=== PATIENT | female | born 1970 | race Caucasian/White ===

== ENCOUNTER 2022-09-29 08:14 | Outpatient (OUT) | payer BC, SELFPAY ==
--- NOTE | 2022-09-29 08:36 | PM.CN ---
Consult Note: HPI Data of Consult Patient: known to practice within the last 3 years Consult date: 09/29/22 Requesting Physician: SUNIL DUQUE NP Primary Care Provider: BARBI WELLER Consult Narrative Reason for consult: back pain Narrative: She is here for f/u of bilat T11/12, T12/L1 MBB done 09/13/22. She had 100% relief for several hours after procedure continued through today. She has no thoracic pain today. We discussed that she can call us if/when pain returns to schedule second MBB. No new sensorimotor sx or bowel or bladder issues. She is taking tramadol PRN without SE. Her medications enable her to complete ADLS. cc:: CC: SUNIL DUQUE NP Review of Systems ROS Status of ROS 10 or more systems reviewed and unremarkable except as noted in history and below Musculoskeletal Reports: back pain Exam Constitutional Common normals: no apparent distress, average body habitus, oriented x3, no limitations, healthy appearing, alert and well nourished General appearance: cooperative, comfortable and well developed Orientation/consciousness: Yes awake, Yes oriented to person, Yes oriented to place and Yes oriented to time HENCT Common normals: normocephalic, nasal mucous membranes and turbinates normal and moist oral mucous membranes Respiratory Common normals: normal respiratory effort, no retractions and no use of accessory muscles Effort & inspection: able to speak in complete sentences and symmetric chest movement Back & Pelvis Thoracic spine/upper back: normal to inspection, thoracic ROM normal, paraspinal muscle spasm and other soft tissue findings (negative facet loading) Extremity Common normals: normal to inspection, full ROM, normal capillary refill and no pedal edema Other: muscle strength 5/5 bilat LE with intact sensation Assessment and Plan Assessment and Plan (1) Thoracic spondylitis: (2) Spasm of back muscles: Plan May call to schedule second MBB when pain returns. refill tramadol narcan rx
== END 2022-09-29 08:15 ==
PROVIDERS: PCP Internal Medicine; Visit Provider Nurse Practitioner
DX: M46.94 Unspecified inflammatory spondylopathy, thoracic region (principal); M62.830 Muscle spasm of back
CPT/HCPCS: G0463

== ENCOUNTER 2023-01-17 06:56 | Day surgery (SDC) | payer BC, SELFPAY ==
[2023-01-17 07:26] VITALS: BP 124/84; PULSE 60; RESP 16; TEMP 36.3; O2SAT 97
[2023-01-17] MEDS: BUPIVACAINE HCL 0.25% PF 25 MG/10 ML VIAL INJ (08:20)
--- NOTE | 2023-01-17 08:55 | P.ON_ITS ---
Date of procedure: 01/17/23 Pre-op diagnosis: Thoracolumbar Spondylosis Post-op diagnosis: same as pre-op Procedure: Bilateral Thoracic 11/12, 12/lumbar 1 medial branch block Under fluoroscopic guidance Solution injected: 2millilitersMarcaine 0.25% Anesthesia :none Immediate complications none Time out process compliant After informed consent obtained from the patient placed in the Prone proposition . area was prepped and draped in a sterile fashion using Cloraprep .25 gauge spinal needle inserted over each of the above mentioned target areas . [place] were directed towards the target under fluoroscopic guidance . after encountering each of the targets , no indication of intravascular intraneuronal or intrathecal needle tip placement. Then 0 .5 to 1 Milliliter was injected at each level. [place] removed postoperatively. patient transferred to recovery in stable condition to be discharged home after meeting criteria Anesthesia: Local Surgeon: Dori Galvan Condition: stable
[2023-01-17 14:38] VITALS: BP 142/79; PULSE 55; PULSE 56; RESP 16; RESP 18; O2SAT 95; O2SAT 96
== END 2023-01-17 08:31 | disposition home or self-care (01) ==
PROVIDERS: PCP Internal Medicine; Visit Provider Anesthesiology Pain Medicine
DX: M47.815 Spondylosis without myelopathy or radiculopathy, thoracolumbar region (principal)
CPT/HCPCS: 64490; 64491

== ENCOUNTER 2023-01-26 14:45 | Outpatient (OUT) | payer BC, SELFPAY ==
--- NOTE | 2023-01-26 15:06 | PM.CN ---
Consult Note: HPI Data of Consult Patient: known to practice within the last 3 years Requesting Physician: Mila Hill NP Primary Care Provider: BARBI WELLER Consult Narrative Reason for consult: F/u Narrative: Delisa Saleh a pleasant 52 year old female presents for evaluation and management of chronic thoracic and lumbar pain. Patient recently underwent bilateral T11-12 T12-L1 MBB #2 with 100% pain relief and functional improvement. Patient would like to discuss thermal RFAs. Pain well controlled with current medication regimen 0. cc:: CC: Mila Hill NP Review of Systems ROS Status of ROS 10 or more systems reviewed and unremarkable except as noted in history and below Musculoskeletal Reports: back pain Meds Home Medications and Allergies Home Medications Medication Instructions Recorded Confirmed Type acetaminophen 325 mg tablet 325 mg PO Q6H 09/29/22 01/17/23 History (Tylenol) baclofen 10 mg tablet 10 mg PO DAILY 09/29/22 01/17/23 History erenumab-aooe 70 mg/mL 70 mg subcut .MONTHLY 09/29/22 01/17/23 History subcutaneous auto-injector (Aimovig Autoinjector) escitalopram oxalate 10 mg tablet 10 mg PO DAILY 09/29/22 01/17/23 History gabapentin 300 mg capsule 300 mg PO TID 09/29/22 01/17/23 History losartan 100 1 tab PO DAILY 09/29/22 01/17/23 History mg-hydrochlorothiazide 25 mg tablet multivitamin 1 tab PO DAILY 09/29/22 01/17/23 History sumatriptan succinate PO DAILY 09/29/22 History topiramate 50 mg tablet 50 mg PO DAILY 09/29/22 01/17/23 History tramadol 50 mg tablet 50 mg PO DAILY 09/29/22 01/17/23 History Allergies Allergy/AdvReac Type Severity Reaction Status Date / Time No Known Drug Allergies Allergy Verified 01/17/23 07:24 Exam Constitutional Documenting provider has reviewed patient's vital signs: yes Common normals: no apparent distress, oriented x3, healthy appearing, alert and well nourished General appearance: cooperative HENMT Common normals: normocephalic, hearing grossly normal bilaterally and moist oral mucous membranes Head and scalp: normocephalic Eye Common normals: PERRL Pupil: PERRL Neck & C-Spine Common normals: full ROM General: normal visual inspection Chest Common normals: inspection of chest normal Respiratory Common normals: normal respiratory effort, no retractions and no use of accessory muscles Back & Pelvis Thoracic spine/upper back: normal to inspection and thoracic ROM normal Lumbar spine/lower back: normal to inspection and lumbar ROM normal Other: negative facet loading no pain on exam Extremity Common normals: normal to inspection and full ROM Neuro Common normals: oriented x3, CN's II-XII intact bilaterally, moves all extremities, no focal motor deficits, no sensory deficits noted and deep tendon reflexes 2+ bilaterally Sensorium/orientation: alert Motor exam: strength 5/5 throughout and no movement abnormalities noted Psych Common normals: mental status grossly normal, thought process normal, cooperative, affect normal, speech normal and activity/motor behavior normal Speech: normal speech Thought process: normal thought process Results Additional Findings Additional findings: I have checked an OARRS report on this patient today and there are no aberrancies noted in the prescribing history.?? A drug screen was completed and reviewed within the last year, and if there has not been a drug screen completed we ordered one today to monitor higher risk, state monitored pain medication use. As part of providing excellent, safe, comprehensive care, the following was completed at our patient's visit: 1. A medication reconciliation and review to ensure accurate knowledge of current/active medications, including asking our patients to inform us about any [id number] medications or herbal remedies/nutritional supplements/alternative remedies. 2. A review to specifically ensure our patients have had annual screening for: elevated body mass index (BMI), tobacco use, screening for depression, and screening for unhealthy alcohol use. When screening is concerning, patients are provided with education and the specific recommendation to discuss the concerning health issue and treatment options with their primary care provider. Assessment and Plan Assessment and Plan (1) Thoracic spondylitis: Assessment and Plan: We discussed the risks and benefits of the procedure with the patient, and we are NOT planning on using sedation as outlined in the guidelines from Medicare unless there is a documented reason that sedation would be strongly recommended.?? (2) Spasm of back muscles: (3) Chronic, continuous use of opioids: Assessment and Plan: I feel these medications are improving the patient's quality of life and allow them to tolerate activities of daily living as well as participate in recreational activity.? The patient does not report intolerable side effects. The patient is NOT opioid naive and non-pharmacologic and non-opioid treatment has failed to significantly relieve the patient's pain and improve functionality. The patient has a diagnosis that is related to a somatic or visceral pain etiology. ? ?? I reviewed with the patient the potential risks and side effects with the use of? opioid medications including but not limited to respiratory depression,? sedation, and even . I verified the patient has access to naloxone should? these effects occur. I advised the patient to avoid the use of any other? sedation substances including alcohol, THC, and benzodiazepines while? taking opioid medications due to the risk of compounding side effects and? detrimental outcomes. I reviewed the [employer], pain treatment agreement, urine? drug screen, and opioid start talking forms. The patient was advised to let? their family know they had Naloxone in case they would need to administer? the medication.? ?? A drug screen was completed within the last year, and no aberrancies were noted regarding their use of controlled substances. The patient understands they are subject to the terms and conditions of the pain contract that they have signed. ? ?? I have checked an OARRS report on this patient today and there are no aberrancies noted in the prescribing history.? Plan right then left T11-12 T12-L1 thermal RFA under fluoroscopy in the future continue current medications f/u when pain returns
== END 2023-01-26 14:46 | disposition home or self-care (01) ==
LOC: PM 14:45
PROVIDERS: PCP Internal Medicine; Visit Provider Nurse Practitioner
DX: M46.84 Other specified inflammatory spondylopathies, thoracic region (principal); M62.830 Muscle spasm of back; Z79.899 Other long term (current) drug therapy
CPT/HCPCS: G0463

== ENCOUNTER 2023-01-31 16:28 | Outpatient (OUT) | payer BC, SELFPAY ==
--- NOTE | 2023-01-31 17:02 | MM_ITS ---
Patient: RYAN DE LA CRUZ Exam Date: 01/31/2023 : 1970 Gender:F Ordering : DR BARBI WELLER M.D. Admission #: [id number] Family : Order #: [id number] CLICK HERE TO VIEW EXAM RADIOLOGY REPORT PROCEDURE: MM TOMOSYNTHESIS SCREENING BI COMPARISON: MG MAMM SCREEN SUKHDEV W CAD, 10/22/2019. MG MAMM SCREEN 3D SUKHDEV CAD, 09/01/2021. INDICATIONS: screening Calculator Name NCI Breast Cancer Risk Assessment Tool 5 Year Breast Cancer Risk 1.20% Lifetime Breast Cancer Risk 8.50% Personal Breast Cancer No Personal Ovarian Cancer No Treatments None Family Cancers None LOCATION: [facility] BREAST COMPOSITION: Heterogeneously dense,which may obscure small masses. FINDINGS: DIAGNOSTIC CATEGORY 1--NEGATIVE. NO CHANGE FROM COMPARISON ASSESSMENT. RIGHT BREAST: No significant suspicious finding. LEFT BREAST: No significant suspicious finding. RECOMMENDATIONS: ROUTINE MAMMOGRAM AND CLINICAL EVALUATION IN 12 MONTHS. PLEASE NOTE: A NORMAL MAMMOGRAM DOES NOT EXCLUDE THE POSSIBILITY OF BREAST CANCER. A CLINICALLY SUSPICIOUS PALPABLE LUMP SHOULD BE BIOPSIED. Dictated by: Reagan Dockery MD on 02/01/2023 at 06:51 Approved by: Reagan Dockery MD on 02/01/2023 at 06:52
== END 2023-01-31 16:29 | disposition home or self-care (01) ==
LOC: MAMMO 16:29
PROVIDERS: PCP Internal Medicine; Visit Provider Internal Medicine
DX: Z12.31 Encounter for screening mammogram for malignant neoplasm of breast (principal)
CPT/HCPCS: 77063; 77067

== ENCOUNTER 2023-07-12 14:37 | Outpatient (OUT) | payer BC, SELFPAY ==
--- NOTE | 2023-07-12 15:01 | PM.CN ---
Consult Note: HPI Data of Consult Patient: known to practice within the last 3 years Requesting Physician: Mila Hill NP Primary Care Provider: BARBI WELLER Consult Narrative Reason for consult: F/u Narrative: Delisa Saleh a pleasant 52 year old female presents for evaluation and management of chronic thoracic and lumbar pain. Last underwent bilateral T11-12 T12-L1 MBB #2 with 100% pain relief and functional improvement immediately following and still getting 50% improvement ongoing. Pain well controlled with current medication regimen 4-5/10 increases to 9/10 at its worst. Patient reports significant pain relief without side effects from current medication regimen. cc:: CC: Mila Hill NP Review of Systems ROS Status of ROS 10 or more systems reviewed and unremarkable except as noted in history and below Musculoskeletal Reports: back pain Meds Home Medications and Allergies Home Medications ?Medication ?Instructions ?Recorded ?Confirmed ?Type acetaminophen 325 mg tablet 325 mg PO Q6H 09/29/22 01/17/23 History (Tylenol) baclofen 10 mg tablet 10 mg PO DAILY 09/29/22 01/17/23 History erenumab-aooe 70 mg/mL 70 mg subcut .MONTHLY 09/29/22 01/17/23 History subcutaneous auto-injector (Aimovig Autoinjector) escitalopram oxalate 10 mg tablet 10 mg PO DAILY 09/29/22 01/17/23 History gabapentin 300 mg capsule 300 mg PO TID 09/29/22 01/17/23 History losartan 100 1 tab PO DAILY 09/29/22 01/17/23 History mg-hydrochlorothiazide 25 mg tablet multivitamin 1 tab PO DAILY 09/29/22 01/17/23 History sumatriptan succinate PO DAILY 09/29/22 History topiramate 50 mg tablet 50 mg PO DAILY 09/29/22 01/17/23 History tramadol 50 mg tablet 50 mg PO DAILY 09/29/22 01/17/23 History tramadol 50 mg tablet 50 mg PO DAILY PRN pain #30 tabs 02/13/23 Rx baclofen 10 mg tablet 10 mg PO DAILY PRN muscle spasm 04/18/23 Rx #30 tabs tramadol 50 mg tablet 50 mg PO DAILY PRN pain #30 tabs 04/18/23 Rx Allergies Allergy/AdvReac Type Severity Reaction Status Date / Time No Known Drug Allergies Allergy Verified 10/03/23 07:24 Exam Constitutional Documenting provider has reviewed patient's vital signs: yes Common normals: no apparent distress, oriented x3, healthy appearing, alert and well nourished General appearance: cooperative HENMT Common normals: normocephalic, hearing grossly normal bilaterally and moist oral mucous membranes Head and scalp: normocephalic Eye Common normals: PERRL Pupil: PERRL Neck & C-Spine Common normals: full ROM General: normal visual inspection Chest Common normals: inspection of chest normal Respiratory Common normals: normal respiratory effort, no retractions and no use of accessory muscles Back & Pelvis Thoracic spine/upper back: normal to inspection and thoracic ROM normal Lumbar spine/lower back: normal to inspection and lumbar ROM normal Other: negative facet loading no pain on exam Extremity Common normals: normal to inspection and full ROM Neuro Common normals: oriented x3, CN's II-XII intact bilaterally, moves all extremities, no focal motor deficits, no sensory deficits noted and deep tendon reflexes 2+ bilaterally Sensorium/orientation: alert Motor exam: strength 5/5 throughout and no movement abnormalities noted Psych Common normals: mental status grossly normal, thought process normal, cooperative, affect normal, speech normal and activity/motor behavior normal Speech: normal speech Thought process: normal thought process Results Additional Findings Additional findings: If on a controlled substance or opioids, I have checked an OARRS report on this patient and there are no aberrancies noted in the prescribing history.??If on a controlled substance or opioid a drug screen was completed and reviewed within the last year, and if there has not been a drug screen completed we ordered one today to monitor higher risk, state monitored pain medication use. As part of providing excellent, safe, comprehensive care, the following was completed at our patient's visit: 1. A medication reconciliation and review to ensure accurate knowledge of current/active medications, including asking our patients to inform us about any [id number] medications or herbal remedies/nutritional supplements/alternative remedies. 2. A review to specifically ensure our patients have had annual screening for screening for depression, screening for tobacco use, and screening for unhealthy alcohol use. For concerning screenings had a discussion with the patient, provided patient education, and recommended follow-up with primary care provider when appropriate. If patient noted with a risk of falling, they received education on strength, gait, and balance training to prevent future risk of falling. Assessment and Plan Assessment and Plan (1) Thoracic spondylitis: (2) Spasm of back muscles: (3) Encounter for long-term opiate analgesic use: Assessment and Plan: I feel these medications are improving the patient's quality of life and allow them to tolerate activities of daily living as well as participate in recreational activity.? The patient does not report intolerable side effects. The patient is NOT opioid naive and non-pharmacologic and non-opioid treatment has failed to significantly relieve the patient's pain and improve functionality. The patient has a diagnosis that is related to a somatic or visceral pain etiology. ? ?? I reviewed with the patient the potential risks and side effects with the use of? opioid medications including but not limited to respiratory depression,? sedation, and even . I verified the patient has access to naloxone should? these effects occur. I advised the patient to avoid the use of any other? sedation substances including alcohol, THC, and benzodiazepines while? taking opioid medications due to the risk of compounding side effects and? detrimental outcomes. I reviewed the [employer], pain treatment agreement, urine? drug screen, and opioid start talking forms. The patient was advised to let? their family know they had Naloxone in case they would need to administer? the medication.? ?? A drug screen was completed within the last year, and no aberrancies were noted regarding their use of controlled substances. The patient understands they are subject to the terms and conditions of the pain contract that they have signed. ? ?? I have checked an OARRS report on this patient today and there are no aberrancies noted in the prescribing history.? Plan continue current medications UDS today f/u 3 months, sooner if needed
== END 2023-07-12 14:38 | disposition home or self-care (01) ==
LOC: PM 14:39
PROVIDERS: PCP Internal Medicine; Visit Provider Nurse Practitioner
DX: M46.84 Other specified inflammatory spondylopathies, thoracic region (principal); M62.838 Other muscle spasm; Z79.891 Long term (current) use of opiate analgesic
CPT/HCPCS: G0463

== ENCOUNTER 2023-08-09 15:03 | Outpatient (OUT) | payer BC, SELFPAY ==
--- OUTSIDE RECORDS SUMMARY | 2023-08-09 15:08 | XMS_ITS | CCD ---
Author Organization [facility] Care Team Providers Care Director Sales Support Name Role Phone Tatianna Rosen Unavailable DR BARBI WELLER Primary Care Unavailable JANEE, DR LANDON Consulting Unavailable JANEE, DR LANDON Attending Unavailable JANEE, DR LANDON Admitting Unavailable ZIEBER, DR LIBAN Coulter Consulting Unavailable KATIA LOPEZ Consulting Unavailable KATIA LOPEZ Attending Unavailable JANEE, DR LANDON Primary Care Unavailable KATIA LOPEZ Admitting Unavailable JANEE, DR LANDON Primary Care Unavailable LAKSHMIPATHY ., BECCA Admitting Carmen vailable LAKSHMIPATHY ., BECCA Attending Carmen vailable HALKER .SUNIL Consulting Unavailable COVARRUBIAS ., DR GRACE Hobbs Admitting Unavailable COVARRUBIAS ., DR GRACE Hobbs Attending Unavailable JANEE, DR LANDON Primary Care Unavailable DOBBINS ., ILA Consulting Unavailable COVARRUBIAS ., DR GRACE Hobbs Admitting Unavailable DOBBINS ., ILA Consulting Unavailable JANEE, DR LANDON Primary Care Unavailable COVARRUBIAS ., DR GRACE Hobbs Attending Unavailable COVARRUBIAS ., DR GRACE Hobbs Attending Unavailable COVARRUBIAS ., DR GRACE Hobbs Admitting Unavailable COVARRUBIAS ., DR GRACE Hobbs Consulting Unavailable JANEE, DR LANDON Primary Care Unavailable COVARRUBIAS ., DR GRACE Hobbs Attending Unavailable COVARRUBIAS ., DR GRACE Hobbs Admitting Unavailable DOBBINS ., ILA Consulting Unavailable JANEE, DR LANDON Primary Care Unavailable LAKSHMIPATHY ., BECCA Consulting Carmen vailable LAKSHMIPATHY ., BECCA Attending Carmen vailable LUCASMIPATHY ., BECCA Admitting Carmen vailable DR BARBI WELLER Primary Care Unavailable JANEE, DR LANDON Consulting Unavailable JANEE, DR LANDON Attending Unavailable JANEE, DR LANDON Admitting Unavailable JANEE, DR LANDON Primary Care Unavailable MARLEN AKINS Consulting Unavailable JANEEDR LANDON Primary Care Unavailable DR BARBI WELLER Consulting Unavailable DR BARBI WELLER Attending Unavailable DR BARBI WELLER Admitting Unavailable DR LIBAN SCHULTZ Consulting Unavailable BARBI WELLER Attending Unavailable Medications Current Medications Medication Drug Class(es) Dates Sig (Normalized) Sig (Original) Noemi Back & Body Pain Ex St (1 source) Escitalopram (2 sources) Serotonin Reuptake Inhibitor take 1 tablet by mouth every twenty-four hours Lexapro 10 MG 1 tablet Orally Once a day Not-Taking Escitalopram Oxa late Active gabapentin (1 source) Anti-epileptic Agent Gabapentin Active Losartan (2 sources) Angiotensin 2 Receptor Irina take 1 tablet by mouth every twenty-four hours Cozaar 50 MG 1 tablet Orally Once a day Not-Taking Losartan Potassi um Active Naproxen (1 source) Nonsteroidal Anti-inflammatory Drug Problems Active Problems Problem Classification Problem Date Documented Da te Episodic/Chronic Abdominal pain (4 sources) Unspecified abdominal pain; Translations: [UNSPECIFIED ABDOMINAL PAIN] Onset: 09-05-2022 Episodic Essential hypertension (1 source) Elevated blood pressure; Translations: [Essential (primary) hypertension] Chronic Other non-traumatic joint disorders (4 sources) Pain in right wrist; Translations: [PAIN IN RIGHT WRIST] Onset: 08-29-2022 Episodic Spondylosis; intervertebral disc disorders; other back problems (7 sources) Spondylosis without myelopathy or radiculopathy, lumbar region; Translations: [Spondylosis without myelopathy or radiculopathy, thoracic region] Onset: 11-29-2021 Chronic Unclassified (3 sources) LOW BACK PAIN, UNSPECIFIED; Translations: [LOW BACK PAIN, UNSPECIFIED] Onset: 05-30-2022 Past or Other Problems Problem Classification Problem Date Documented Date Episodic/Chronic Biliary tract disease (1 source) Cholesterolosis of gallbladder; Translations: [CHOLESTEROLOSIS OF GALLBLADDER] Onset: 01-20-2022 Episodic Conditions associated with dizziness or vertigo (4 sources) Dizziness and giddiness; Translations: [DIZZINESS AND GIDDINESS] Onset: 04-18-2022 Episodic Immunizations and screening for infectious disease (1 source) Contact with and (suspected) exposure to other viral communicable diseases Onset: 02-22-2021 Resolved: 02-22-2021 Episodic Other aftercare (1 source) Other usp (current) drug therapy; Translations: [OTH HALFWAY CURRENT DRUG THERAPY] Onset: 04-20-2022 Episodic Other connective tissue disease (1 source) Other muscle spasm; Translations: [OTHER MUSCLE SPASM] Onset: 05-30-2022 Episodic Other diseases of veins and lymphatics (1 source) Venous insufficiency of leg; Translations: [Venous insufficiency (chronic) (peripheral)] Episodic Screening and history of mental health and substance abuse codes (1 source) Personal history of nicotine dependence; Translations: [PERSONAL HISTORY OF NICOTINE DEPEND] Onset: 04-20-2022 Episodic Spondylosis; intervertebral disc disorders; other back problems (4 sources) Muscle spasm of back; Translations: [MUSCLE SPASM OF BACK] Onset: 12-28-2021 Episodic Unclassified (1 source) LOW BACK PAIN, UNSPECIFIED; Translations: [LOW BACK PAIN, UNSPECIFIED] Onset: 05-26-2022 Viral infection (1 source) COVID-19 Onset: 02-22-2021 Resolved: 02-22-2021 Results Test Name Value Interpretation Reference Range Facility CT ABD/PELV W CONon 09-06-19 CT ABD/PELV W CON EXAMINATION: CT ABD/PELV W CON HISTORY: Abdominal pain COMPARISON: CT abdomen and pelvis 10/05/2019.. TECHNIQUE: Following the intravenous administration of contrast, axial soft tissue windows of the abdomen and pelvis were performed with coronal and sagittal reformats. Dose reduction techniques were achieved by using automated exposure control and/or adjustment of mA and/or kV according to patient size and/or use of iterative reconstruction technique. Findings: Mild left lower lobe scarring. ABDOMEN: There is mild fatty infiltration of the liver. The gallbladder, spleen, pancreas, and adrenal glands are unremarkable. No renal stones or collecting system dilatation. Left renal low-attenuation lesions, too small to characterize. The bilateral ureters are nondilated. The bowel is unremarkable without evidence of wall thickening or obstruction. The appendix is not definitely identified. The aorta is normal caliber. No enlarged abdominal lymph nodes or free abdominal fluid. Redemonstrated is a wide mouthed, large fat-containing right-sided Spigelian hernia. Pelvis: Unremarkable bladder. Uterus is surgically absent. No enlarged pelvic lymph nodes or free pelvic fluid. No aggressive sclerotic or lytic osseous lesions. Mild levoconvex scoliosis of the lumbar spine. IMPRESSION: 1. Fatty liver. 2. Redemonstrated is a right-sided fat-containing spigelian hernia. Electronically authenticated by: MARLEN AKINS Date: 2022-09-05 09:10 Normal [facility] CBC AUTO DIFFon 04-18-2022 BASO # 0.0 103/ul Normal 0.0-0.1 [facility] Comment on above: Performed By: #### C BC #### [facility] Laboratory [address] [address] [address] Abdiaziz Butler Basophils/100 WBC (Bld) 0.2 % Normal 0.2-2.0 [facility] Comment on above: Performed By: #### C BC #### [facility] Laboratory [address] [address] [address] Abdiaziz Butler EO # 0.1 103/ul Normal 0.0-0.7 [facility] Comment on above: Performed By: #### C BC #### [facility] Laboratory [address] [address] [address] Abdiaziz Butler Eosinophils/100 WBC (Bld) 1.0 % Normal 0.9-7.0 [facility] Comment on above: Performed By: #### C BC #### [facility] Laboratory [address] [address] [address] Abdiaziz Butler Erythrocyte distribution width (RBC) [Ratio] 12.8 % Normal 11.0-15.0 [facility] Comment on above: Performed By: #### C BC #### [facility] [address] [address] [address] Abdiaziz Butler Hematocrit (Bld) [Volume fraction] 35.2 % Critically low 36.0-48.0 [facility] Comment on above: Performed By: #### C BC #### [facility] Laboratory [address] [address] [address] Abdiaziz Butler Hemoglobin (Bld) [Mass/Vol] 11.3 g/dL Critically low 12.0-16.0 [facility] Comment on above: Performed By: #### C BC #### [facility] [address] [address] [address] Abdiaziz Butler IG # 0.03 10e3/ul Normal 0.00-0.03 [facility] [place] Comment on above: Performed By: #### C BC #### [facility] Laboratory [address] [place] [address] Dr. Abdiaziz Butler IG % 0.3 % Normal 0.0-0.5 [facility] Comment on above: Performed By: #### C BC #### [facility] Laboratory [address] [place] [address] Dr. Abdiaziz Butler LYMPH # 1.1 103/ul Critically low 1.2-3.8 [facility] Comment on above: Performed By: #### C BC #### [facility] Laboratory [address] [place] [address] Dr. Abdiaziz Butler Lymphocytes/100 WBC (Bld) 11.9 % Critically low 20.5-60.0 [facility] Comment on above: Performed By: #### C BC #### [facility] [address] [place] [address] Dr. Abdiaziz Butler MANUAL DIFF REQ NO Normal [facility] Comment on above: Performed By: #### C BC #### [facility] [address] [place] [address] Dr. Abdiaziz Butler MCH (RBC) [Entitic mass] 28.4 pg Normal 26.7-34.0 [facility] Comment on above: Performed By: #### C BC #### [facility] [address] [place] [address] Dr. Abdiaziz Butler MCHC (RBC) [Mass/Vol] 32.1 g/dL Normal 29.9-35.2 [facility] Comment on above: Performed By: #### C BC #### [facility] [address] [place] [address] Dr. Abdiaziz Butler MCV (RBC) [Entitic vol] 88.4 fL Normal 81.0-99.0 [facility] Comment on above: Performed By: #### C BC #### [facility] [address] [place] [address] Dr. Abdiaziz Butler MONO # 0.7 103/ul Normal 0.3-0.8 [facility] Comment on above: Performed By: #### C BC #### [facility] [address] [address] [address] Abdiaziz Butler Monocytes/100 WBC (Bld) 7.9 % Normal 1.7-12.0 [facility] Comment on above: Performed By: #### C BC #### [facility] [address] [address] [address] Abdiaziz Butler NEUT # 7.1 103/ul Critically high 1.4-6.5 [facility] Comment on above: Performed By: #### C BC #### [facility] [address] [address] [address] Abdiaziz Butler Neutrophils/100 WBC (Bld) 78.7 % Critically high 43.0-75.0 [facility] Comment on above: Performed By: #### C BC #### [facility] [address] [place] [address] Dr. Abdiaziz Butler Platelet mean volume (Bld) [Entitic vol] 9.9 fL Normal 9.5-13.5 [facility] Comment on above: Performed By: #### C BC #### [facility] [address] [place] [address] Dr. Abdiaziz Butler PLT 293 103/ul Normal 150-450 [facility] Comment on above: Performed By: #### C BC #### [facility] [address] [place] [address] Dr. Abdiaziz Butler RBC 3.98 106/ul Critically low 4.20-5.40 [facility] Comment on above: Performed By: #### C BC #### [facility] [address] [place] [address] Dr. Abdiaziz Butler WBC 9.0 103/ul Normal 4.0-11.0 [facility] Comment on above: Performed By: #### C BC #### [facility] [address] [place] [address] Dr. Abdiaziz Butler POINT OF CARE GLUCOSEon Glucose [Mass/Vol] 128 mg/dL Critically high 74-106 [facility] Comment on above: Performed By: #### P OCGLUC ####[facility] [id number] [place], [place] [address]PuDr. Abdiaziz Butler PROF CHEM 8 (BAS METB)on Anion gap [Moles/Vol] 15.3 mmol/L Normal [facility] Comment on above: Performed By: #### B MP #### [facility] [address] [address] [address] Abdiaziz Butler Calcium [Mass/Vol] 8.6 mg/dL Normal 8.5-10.1 [facility] Comment on above: Performed By: #### B MP #### [facility] [address] [address] [address] Abdiaziz Butler Chloride [Moles/Vol] 104 mmol/L Normal 98-107 [facility] Comment on above: Performed By: #### B MP #### [facility] [address] [address] [address] Abdiaziz Butler CO2 [Moles/Vol] 23.6 mmol/L Normal 21.0-32.0 [facility] Comment on above: Performed By: #### B MP #### [facility] [address] [address] [address] Abdiaziz Butler Creatinine [Mass/Vol] 1.34 mg/dL Critically high 0.55-1.02 [facility] Comment on above: Performed By: #### B MP #### [facility] Laboratory [address] [address] [address] Abdiaziz Butler EGFR-AF PAKISTANI 50 mL/min/1.73m2 Critically low >=60 [facility] Comment on above: Performed By: #### B MP #### [facility] Laboratory [address] [address] [address] Abdiaziz Butler EGFR-NON AF PAKISTANI 41 mL/min/1.73m2 Critically low >=60 [facility] Comment on above: Performed By: #### B MP #### [facility] [address] [address] [address] Abdiaziz Butler Glucose [Mass/Vol] 97 mg/dL Normal 74-106 [facility] Comment on above: Performed By: #### B MP #### [facility] [address] [address] [address] Abdiaziz Butler Potassium [Moles/Vol] 3.3 mmol/L Critically low 3.5-5.1 [facility] Comment on above: Performed By: #### B MP #### [facility] [address] [place], [place] [address] Dr. Abdiaziz Butler Sodium [Moles/Vol] 139 mmol/L Normal 136-145 [facility] Comment on above: Performed By: #### B MP #### [facility] [address] [address] [address] Abdiaziz Butler Urea nitrogen [Mass/Vol] 26.0 mg/dL Critically high 7.0-18.0 [facility] Comment on above: Performed By: #### B MP #### [facility] [address] [address] [address] Abdiaziz Butler Urea nitrogen/Creatinin e [Mass ratio] 19.4 mg/mg Normal [facility] Comment on above: Performed By: #### B MP #### [facility] [address] [address] [address] Abdiaziz Butler US SINGLE QUAD RT UPPERon US SINGLE QUAD RT UPPER EXAMINATION: US SINGLE QUAD RT UPPER HISTORY: Abdominal pain COMPARISON: No relevant comparison available. TECHNIQUE: Transabdominal evaluation of the right upper quadrant. FINDINGS: LIVER: Normal size and echotexture. Color Doppler demonstrates patent hepatic veins. PORTAL VEIN: Duplex Doppler demonstrates normal hepatopetal flow pattern with flow velocity averaging 31 cm/s. GALLBLADDER: Several 4 mm polyps along the anterior wall. No wall thickening or free fluid. No appreciable stones. BILIARY: No abnormal dilation or stones. Common bile duct diameter is within normal limits. PANCREASE: No visible mass, abnormal atrophy, or duct dilation. KIDNEY: No hydronephrosis. No visible mass or stones. Size: 9.6 x 5.2 x 4.5 cm IMPRESSION: 1. No acute findings to account for patient's symptoms. 2. Several small polyps within gallbladder. Consider follow-up imaging in one year. Electronically authenticated by: LIBAN SCHULTZ Date: 2022-01-18 08:33 Normal [facility] Lipid Panelon 04-12-2021 Cholesterol [Mass/Vol] 217 mg/dL High 125-200 [facility] [employer] [facility] Comment on above: Result Comment: Low risk < 200mg/dL Borderline risk 201-239 mg/dl High risk > or equal to 240 Performed By: #### L IPD #### [facility] [address] [place], [place] [id number] Cholesterol in HDL [Mass/Vol] 45 mg/dL Normal >40 [facility] [employer] [facility] Comment on above: Result Comment: High Cardiovascular Risk HDL <40 mg/dL Low Cardiovascular Risk HDL > or equal to 60 mg/dl Performed By: #### L IPD #### [facility] [address] [place], [place] [id number] Cholesterol in LDL [Mass/Vol] 142 mg/dL Normal [facility] [employer] Super[facility] Comment on above: Result Comment: LDL ATP III CLASSIFICATION LDL less than 100 mg/dl Optimal LDL 100-129 mg/dl Near or above optimal LDL 130-159 Borderline high LDL 160-189 High LDL greater than 189 mg/dl Very High Performed By: #### L IPD #### [facility] [address] [place], [place] [id number] Cholesterol in VLDL [Mass/Vol] 30 mg/dL Normal [facility] [employer] Super[facility] Comment on above: Performed By: #### L IPD #### [facility] [address] [place], [place] [id number] Cholesterol.total/ Cholesterol in HDL [Mass ratio] 5 {ratio} Normal [facility] Comment on above: Performed By: #### L IPD #### [facility] [address] [place], [place] [id number] Triglyceride [Mass/Vol] 149 mg/dL Normal 30-150 [facility] [employer] Comment on above: Result Comment: TRIG ATPIII CLASSIFICATIONS TRIG less than 150 mg/dl Normal TRIG 150-199 mg/dl Borderline High TRIG 200-500 mg/dl High TRIG greather than 500 mg/dl Very High Performed By: #### L IPD #### [facility] [address] [place], [place] [id number] COVID Quick Testingon 2020 Result Positive [facility] Other Vital Signs Date Time Vital Sign Value Performing Clinician Facility 02-22-2021 11:15-0500 Body height 170.18 cm Tatianna Rosen Other [facility] Other 02-22-2021 11:15-0500 Body temperature 99.1 [degF] Tatianna Rosen Other [facility] Other 02-22-2021 11:15-0500 SaO2% (BldA) [Mass fraction] 97 % Tatianna Rosen Other [facility] Other Encounters Encounter Date Encounter Type Care Provider Facility Start: 05-15-2023 End: 05-15-2023 ambulatory BARBI WELLER Not Available Start: 09-13-2022 End: 09-13-2022 ambulatory BECCA MALONEY . Facility:[facility] Start: 09-05-2022 End: 09-06-[address] BARBI WELLER Facility:[facility] Start: 08-29-2022 End: 08-30-[address] BARBI WELLER Facility:[facility] Start: 08-25-2022 End: 08-26-[address] BARBI WELLER Facility:[facility] Start: 05-26-2022 End: 05-27-[address] GRACE COVARRUBIAS . Facility:[facility] Start: 04-18-2022 End: 04-18-2022 ambulatory KATIA LOPEZ Facility:[facility] Start: 02-24-2022 End: 02-25-[address] GRACE COVARRUBIAS . Facility:[facility] Start: 01-18-2022 End: 01-19-[address] BARBI WELLER Facility:[facility] Start: 12-28-2021 End: 12-29-[address] GRACE COVARRUBIAS . Facility:[facility] Start: 11-25-2021 End: 11-26-[address] GRACE COVARRUBIAS . Facility:[facility] Start: 02-22-2021 End: 02-22-2021 ambulatory Tatianna Rosen Other [facility] Other Start: 02-22-2021 Nursing evaluation o f patient and report Tatianna Rosen [facility] Payers Date Payer Category Payer Unknown [id number] 1970 Unknown [id number] 2.16.84 [id number] 1970 Unknown [id number] 2.16.84 [id number] 1968 Unknown [id number] 2.16.84 [id number] 1968 Unknown [id number] 2.16.84 [id number] 1968 Unknown [id number] 2.16.84 [id number] 1968 Unknown [id number] 2.16.84 [id number] 1968 Unknown [id number] 2.16.84 [id number] 1968 Unknown [id number] 2.16.84 [id number] 1968 Unknown [id number] 2.16.84 [id number] 1968 Unknown [id number] 2.16.84 [id number] 1968 Unknown [id number] 2.16.84 [id number] 1961 [facility] [id number] Social History Date Type Detail Facility Sex Assigned At [facility] Other Clinical Note 08-29-2022 Note Date & Type Note Facility 08-29-2022 Note PROCEDURE: XR WRIST RT 2V HISTORY: Pain of right wrist COMPARISON: None. FINDINGS: BONES:Mild degenerative changes at first carpal-metacarpal joint. No fracture, dislocation, bone lesion. Unremarkable radiocarpal joint and intercarpal joints. SOFT TISSUES:Mild soft tissue swelling adjacent the medial aspect of the wrist. EFFUSION:None visible. OTHER: Negative. IMPRESSION: 1. Mild degenerative changes at base of thumb. 2. Mild medial soft tissue swelling adjacent the distal ulna; nonspecific. Electronically authenticated by: LIBAN SCHULTZ Date: 2022-08-29 09:35 [facility] Consultation note 05-26-2022 Note Date & Type Note Facility 05-26-2022 Note CONSULTATION CONSULTATION DATE: 05/26/2022 HISTORY OF PRESENT ILLNESS: This is a 51-year-old female who return to the clinic for a three month follow up for mid back pain and lower back pain. Overall, she reports that she is doing well. 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 She is having less back spasms and radiating pain. She rates her pain 0 today, but it will increase to 2/10 with work. She is having slight right lower back pain with increased activity, but she states it does not interfere with her daily living. Activities such as standing, the evening hours and heavy lifting aggravate her pain. She does alternate heat and ice, which calms her pain. Medications include diclofenac 50 mg b.i.d., tramadol 50 mg daily p.r.n., baclofen 10 mg q.h.s., gabapentin, Topamax and Lexapro. Patient's REVIEW OF SYSTEMS / PAST MEDICAL HISTORY / ALLERGIES and IMAGES have been reviewed and noted on the chart. PHYSICAL EXAM: VITAL SIGNS: Blood pressure is 129/89. Heart rate is 74. Temperature is 97.8. She is 5'7 , weighs 93 kg. GENERAL IMPRESSION: Pleasant, appropriate, in no acute distress. FOCUSED EXAM - BACK: Range of motion is functional in lateral rotation and flexion/extension. Paravertebral muscles are non-spasmodic. Slight tenderness along the right lower erector spinae that reproduces the patient's symptoms. No spinal axial pain upon compression of the lower lumbar facets. Yuko's point is non-tender. MUSCULOSKELETAL: Motor is intact, 5/5 bilaterally. Patient walks unassisted with a steady gait. No vasomotor weakness noted. NEUROLOGICALLY: Radicular sensory is intact. +2 bilateral lower extremity reflexes. Patient is cognitively intact. DIAGNOSIS: Lower back pain, thoracic spondylosis and lumbar spasms. PLAN: Education was given to the patient regarding continuing with heat nightly, as well as targeted stretches to help with right lower back pain and spasms. We will refill both her tramadol and her baclofen at the set dose and frequency. We will continue to follow the patient in three months' time to manage her medication and patient is in agreement to this. [facility] [place] Consultation note 02-24-2022 Note Date & Type Note Facility 02-24-2022 Note CONSULTATION CONSULTATION DATE: 02/24/2022 HISTORY OF PRESENT ILLNESS: This is a 51-year-old female returning to the clinic status post bilateral thoracic trigger point injections on 12/28/2021. At that appointment, she was complaining of mid back pain described as throbbing and was spasmodic. She reports 100% relief and reports 0 pain today. She is an active individual and she has been consistent with stretches and heat application. She is on tramadol 50 mg daily p.r.n. which she states she has not needed since the injections. She does take baclofen 10 mg q.h.s. and diclofenac 50 mg b.i.d. Patient's REVIEW OF SYSTEMS / PAST MEDICAL HISTORY / ALLERGIES and IMAGES have been reviewed and they are noted on the chart. PHYSICAL EXAM: VITAL SIGNS: Blood pressure is 133/84. Heart rate is 60. Temperature is 97.7. She is 5'7 , weighs 92.7 kg. GENERAL IMPRESSION: Pleasant, appropriate, no acute distress. FOCUSED EXAM - BACK: Range of motion is functional in lateral rotation and flexion/extension. Paravertebral muscles are taut but they are non-spasmodic. Deep compression along the paravertebral, thoracic and trapezius muscles are non-tender. No reproduction of spinal axial pain upon compression of those facets in that region. Yuko's point non-tender. MUSCULOSKELETAL: Motor is intact, 5/5 bilaterally. Patient walks with a stable gait, does not use assistive device. NEUROLOGICAL: Patient is cognitively intact. Negative polyneuropathy. Patellar and Achilles reflexes are +2 bilaterally. DIAGNOSIS: Chronic lower back pain and thoracic spasms. PLAN: Overall, the patient is doing quite well. We will obtain a U-Tox in the clinic today. She is to continue with her strengthening exercises, stretches and heat application daily. Vitamin importance was emphasized. Patient will be seen in the clinic in three months' time, unless otherwise indicated. Patient agrees with this plan. [facility] [place] Consultation note 12-28-2021 Note Date & Type Note Facility 12-28-2021 Note CONSULTATION PROCEDURE DATE: 12/28/2021 PREOPERATIVE DIAGNOSIS: Thoracolumbar paravertebral spasm. POSTOPERATIVE DIAGNOSIS: Thoracolumbar paravertebral spasm. PROCEDURE: Thoracolumbar trigger point injection x4. Subsequent to obtaining informed consent, the patient was placed in the prone position. Alcohol prep was used to sterilize the site. A 25 gauge needle was advanced and it comes to rest along the trigger zones, two on either side, along the thoracolumbar paravertebral erector spinae muscles. Negative aspiration. Marcaine 0.125% along with Kenalog 10 mg are injected to each of the four sites. Negative heme. The patient tolerates the procedure well, without any overt complication. Will be followed up in the office. [facility] [place] Consultation note 11-25-2021 Note Date & Type Note Facility 11-25-2021 Note PROCEDURE DATE: 11/15 PRE AND POSTOPERATIVE DIAGNOSIS: Bilateral paravertebral spasms. PROCEDURE: Bilateral lumbar trigger point injections. CORRECTION: No procedure was done on that day. We will preauthorize for the bilateral lumbar trigger point and bring her back into the office at that time. [facility] [place] Consultation note 11-25-2021 Note Date & Type Note Facility 11-25-2021 Note PAIN MANAGEMENT CONS ULTATION CONSULTATION DATE: 11/25/2021 This is a 51-year-old female returning to the clinic for a 3-month follow-up for her chronic lower back pain. She was last seen on 08/25/2021 which at that time overall she was doing well and maintaining on her medications. Her last intervention was in early January of 2021 which was radiofrequency ablation of L2, L3 and L4, L5. The patient does complaint today of mid to low back spasms. She states she has been picking up more hours at work and she feels increased tightness. She rates her pain 4 out of 10. It is increased by standing, lifting, physical activity and paperhanger pipe hours. She does report stretching and using heat daily which does help decrease the pain. She has been doubling up on her tramadol which is not prescribed that way, therefore she is running herself short. Medications include tramadol 50 mg q. day, diclofenac 50 mg b.i. d., Baclofen 10 mg q.h.s., Topamax, Lexapro and gabapentin. The patient denies any new vasomotor changes or new pain patterns. REVIEW OF SYSTEMS, PAST MEDICAL HISTORY, ALLERGIES AND IMAGES: Have been reviewed and noted in the chart. PHYSICAL EXAM: VITAL SIGNS: Blood pressure 128/86, heart rate is 56, temperature is 97.8. Height is 67.5 , weighs 90.2 kg. GENERAL APPEARANCE: Pleasant, appropriate and in no acute distress. FOCUSED EXAM: Range of motion is functional in lateral rotation and flexion/extension. No reproduction of spinoaxial pain along the lower lumbar facets of L2, L3 and L4, L5, which is indicative of continued success with RFAs. Paravertebral muscles are spasmodic with trigger points identified bilaterally at the level of L3, L4. Positive jump response, compression reproduces the patient's pain pattern. Yuko's point is nontender bilaterally. MUSCULOSKELETAL: Motor is intact, 4 out of 5 bilaterally. The patient ambulates with a steady gait. Does not use an assist device. Slight muscle atrophy noted to her lower extremities. NEUROLOGICAL: Radicular sensory is intact. Patella and Achilles reflexes are +2 bilaterally. Negative polyneuropathy. DIAGNOSIS: Lumbar paravertebral spasms, lumbar spondylosis, lumbar degenerative disk disease. PLAN: The patient will receive bilateral lumbar trigger point injections in the office, which she does consent to. Education was given on proper tramadol use and to use it as prescribed. She is to continue with heat application and stretches. We do recommend for her to add magnesium glycinate 400 mg q. day. Baclofen refill 10 mg q.h.s. will be added. The patient will be brought to the clinic in three months' time unless otherwise indicated. [facility] [place] Evaluation note 02-22-2021 Note Date & Type Note Facility 02-22-2021 Evaluation note Encounter Date Diagnosis Assessment Notes Feb, Contact with and (suspected) exposure to other viral communicable diseases (ICD-10 - Z20.828) Feb, COVID-19 (ICD-10 - U07.1) Today you tested positive for the COVID virus. This mean you need to follow all CDC quarantine guidelines found at coronavirus[place].gov. It is important to rest, increase fluids, and stay at home. Contact PCP and inform them of results. Medications like Mucinex, Cepacol, Tylenol, saline nasal spray are over the counter medications that can help with the symptoms. Current guidelines include staying home for at least 10 days, having no fever above 100.4 for 24 hours without medication and having significant improvement of symptoms before you are allowed to stop your quarantine. Contact primary care and ask for guidance is essential to follow up Feb, Other Additional time spent conducting pre-visit phone call, screening for symptoms, instructions on social distancing, application and removal of PPE, and cleaning of examination room, equipment and supplies was preformed. Patient education given for testing methodology and results. Patient care instructions given in writting by [facility] document. Additional time spent conducting pre-visit phone call, screening for symptoms, instructions on social distancing, application and removal of PPE, and cleaning of examination room, equipment and supplies was preformed. Patient education given for testing methodology and results. Patient care instructions given in writting by [email or web address] [facility] document. [facility] Other History general Narrative - Reported Note Date & Type Note Facility History general Narrative - Reported Type Medical History HTN Medical History Anxiety Medical History Back pain Medical History Migranes Medical History Iron deficiency anemia Surgical History hysterectomy Surgical History appy Hospitalization History See Above [facility] Other Summary Purpose Family History No Family History Records FoundNo Family History Records FoundNo Family History Records Found Advance Directives No Advanced Directives Records FoundNo Advanced Directives Records FoundNo Advanced Directives Records Found Additional Source Comments INFORMATION SOURCE (unrecogn ized section and content) DATE CREATED AUTHOR 04/13/2021 [facility] DATE CREATED AUTHOR AUTHOR'S ORGANIZ ATION 09/23/2022 [facility] DATE CREATED AUTHOR AUTHOR'S ORGANIZ ATION 05/15/2023 [facility] EPIC REASON FOR VISIT (unrecogniz ed section and content) #6 BLUE DODGE, EXPOSED, COVI D Provider Visit, COVID Provider Visit FOR RECORDS PERTAINING TO PATIENTS WHO ARE OR HAVE BEEN ENROLLED IN A CHEMICAL DEPENDENCY/SUBSTANCEABUSE PROGRAM, SOME INFORMATION MAY BE OMITTED. This clinical summary was aggregated from multiple sources. Caution should be exercised in using it in the provision of clinical care. This summary normalizes information from multiple sources, and as a consequence, information in this document may materially change the coding, format and clinical context of patient data. In addition, data may be omitted in some cases. CLINICAL DECISIONS SHOULD BE BASED ON THE PRIMARY CLINICAL RECORDS. [facility] provides no warranty or guarantee of the accuracy or completeness of information in this document.
--- NOTE | 2023-08-09 15:34 | P.CN_ITS ---
Consult Note: HPI Data of Consult Patient: known to practice within the last 3 years Requesting Physician: Mila Hill NP Primary Care Provider: BARBI WELLER Consult Narrative Reason for consult: F/u Narrative: Delisa Saleh a pleasant 52 year old female presents for evaluation and management of chronic thoracic and lumbar pain. Last underwent bilateral T11-12 T12-L1 MBB #2 with 100% pain relief and functional improvement immediately following injection. Pain well controlled with current medication regimen 4-5/10 increases to 9/10 at its worst. Patient reports significant pain relief without side effects from current medication regimen. Patient would like to proceed with RFAs cc:: CC: Mila Hill NP Review of Systems ROS Status of ROS 10 or more systems reviewed and unremark able except as noted in history and below Musculoskeletal Reports: back pain Meds Home Medications and Allergies Home Medications ?Medication ?Instructions ?Recorded ?Confirmed ?Type acetaminophen 325 mg tablet 325 mg PO Q6H 09/29/22 01/17/23 History (Tylenol) baclofen 10 mg tablet 10 mg PO DAILY 09/29/22 01/17/23 History erenumab-aooe 70 mg/mL 70 mg subcut .MONTHLY 09/29/22 01/17/23 History subcutaneous auto-injector (Aimovig Autoinjector) escitalopram oxalate 10 mg tablet 10 mg PO DAILY 09/29/22 01/17/23 History gabapentin 300 mg capsule 300 mg PO TID 09/29/22 01/17/23 History losartan 100 1 tab PO DAILY 09/29/22 01/17/23 History mg-hydrochlorothiazide 25 mg tablet multivitamin 1 tab PO DAILY 09/29/22 01/17/23 History sumatriptan succinate PO DAILY 09/29/22 History topiramate 50 mg tablet 50 mg PO DAILY 09/29/22 01/17/23 History tramadol 50 mg tablet 50 mg PO DAILY 09/29/22 01/17/23 History tramadol 50 mg tablet 50 mg PO DAILY PRN pain #30 tabs 02/13/23 Rx baclofen 10 mg tablet 10 mg PO DAILY PRN muscle spasm 04/18/23 Rx #30 tabs tramadol 50 mg tablet 50 mg PO DAILY PRN pain #30 tabs 04/18/23 Rx Allergies Allergy/AdvReac Type Severity Reaction Status Date / Time No Known Drug Allergies Allergy Verified 01/17/23 07:24 Exam Constitutional Documenting provider has reviewed patient's vital signs: yes Common normals: no apparent distress, oriented x3, healthy appearing, alert and well nourished General appearance: cooperative HENMT Common normals: normocephalic, hearing grossly normal bilaterally and moist oral mucous membranes Head and scalp: normocephalic Eye Common normals: PERRL Pupil: PERRL Neck & C-Spine Common normals: full ROM General: normal visual inspection Chest Common normals: inspection of chest normal Respiratory Common normals: normal respiratory effort, no retractions and no use of accessory muscles Back & Pelvis Thoracic spine/upper back: ROM limited and pain with ROM Lumbar spine/lower back: normal to inspection and lumbar ROM normal Other: positive facet loading, axial back pain negative radiculopathy Extremity Common normals: normal to inspection and full ROM Neuro Common normals: oriented x3, CN's II-XII intact bilaterally, moves all extremities, no focal motor deficits, no sensory deficits noted and deep tendon reflexes 2+ bilaterally Sensorium/orientation: alert Motor exam: strength 5/5 throughout and no movement abnormalities noted Psych Common normals: mental status grossly normal, thought process normal, cooperative, affect normal, speech normal and activity/motor behavior normal Speech: normal speech Thought process: normal thought process Results Additional Findings Additional findings: If on a controlled substance or opioids, I have checked an [place]AR[place] report on this patient and there are no aberrancies noted in the prescribing history.??If on a controlled substance or opioid a drug screen was completed and reviewed within the last year, and if there has not been a drug screen completed we ordered one today to monitor higher risk, state monitored pain medication use. As part of providing excellent, safe, comprehensive care, the following was completed at our patient's visit: 1. A medication reconciliation and review to ensure accurate knowledge of current/active medications, including asking our patients to inform us about any [id number] medications or herbal remedies/nutritional supplements/alternative remedies. 2. A review to specifically ensure our patients have had annual screening for screening for depression, screening for tobacco use, and screening for unhealthy alcohol use. For concerning screenings had a discussion with the patient, provided patient education, and recommended follow-up with primary care provider when appropriate. If patient noted with a risk of falling, they received education on strength, gait, and balance training to prevent future risk of falling. Assessment and Plan Assessment and Plan (1) Thoracic spondylosis: Assessment and Plan: The patient has had over 3 months of moderate to severe back pain with functional impairment and inadequate response to conservative care including NSAIDS (unless there are contraindication such as concurrent blood thinners), multiple oral or topical pain medications, and home exercise program/physical therapy.? Patient has completed >6 weeks of guided home exercise program and/or formal physical therapy program without relief of their symptoms.? I have reviewed the imaging of the thoracic and lumbar spine and no red flags were identified.? The imaging reveals radiographic findings consistent with thoracic and lumbar spondylosis/facet arthropathy (2) Lumbar spondylosis: (3) Spasm of back muscles: (4) Encounter for long-term opiate analgesic use: Assessment and Plan: I feel these medications are improving the patient's quality of life and allow them to tolerate activities of daily living as well as participate in recreational activity.? The patient does not report intolerable side effects. The patient is NOT opioid naive and non-pharmacologic and non-opioid treatment has failed to significantly relieve the patient's pain and improve functionality. The patient has a diagnosis that is related to a somatic or visceral pain etiology. ? ?? I reviewed with the patient the potential risks and side effects with the use of? opioid medications including but not limited to respiratory depression,? sedation, and even . I verified the patient has access to naloxone should? these effects occur. I advised the patient to avoid the use of any other? sedation substances including alcohol, THC, and benzodiazepines while? taking opioid medications due to the risk of compounding side effects and? detrimental outcomes. I reviewed the REGIONAL COORDINATOR, pain treatment agreement, urine? drug screen, and opioid start talking forms. The patient was advised to let? their family know they had Naloxone in case they would need to administer? the medication.? ?? A drug screen was completed within the last year, and no aberrancies were noted regarding their use of controlled substances. The patient understands they are subject to the terms and conditions of the pain contract that they have signed. ? ?? I have checked an OARRS report on this patient today and there are no aberrancies noted in the prescribing history.? Plan right and left T11,12 T12,L1 facet medial branch RFA under fluoroscopy with IV sedation continue medications f/u 1 month after
== END 2023-08-09 15:04 | disposition home or self-care (01) ==
LOC: PM 15:03
PROVIDERS: PCP Internal Medicine; Visit Provider Nurse Practitioner
DX: M47.814 Spondylosis without myelopathy or radiculopathy, thoracic region (principal); M47.816 Spondylosis without myelopathy or radiculopathy, lumbar region; M62.838 Other muscle spasm; Z79.891 Long term (current) use of opiate analgesic
CPT/HCPCS: G0463

== ENCOUNTER 2023-09-05 06:38 | Day surgery (SDC) | payer BC, SELFPAY ==
--- OUTSIDE RECORDS SUMMARY | 2023-09-05 06:40 | XMS_ITS | CCD ---
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 Name Role Phone Tatianna Rosen Unavailable DR [...] vailable LAKSHMIPATHY ., BECCA Attending Carmen vailable DOROTHEASHMIPATHY ., BECCA Admitting Carmen vailable JANEE, DR LANDON Primary Care Unavailable JANEE, DR LANDON Consulting Unavailable JANEE, DR LANDON Attending Unavailable JANEE, DR LANDON Admitting Unavailable JANEE, DR LANDON Primary Care Unavailable MARLEN AKINS Consulting Unavailable DR BARBI WELLER Primary Care Unavailable DR BARBI WELLER Consulting [...] 02-22-2021 Episodic Other aftercare (1 source) Other alf (current) drug therapy; Translations: [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 Abdiaziz Butler Basophils/100 WBC (Bld) 0.2 % Normal 0.2-2.0 [facility] Comment on above: Performed By: #### C BC #### [facility] [address] [address] [address] Abdiaziz Butler EO # 0.1 103/ul Normal 0.0-0.7 [facility] Comment on above: Performed By: #### C BC #### [facility] [address] [address] [address] Abdiaziz Butler Eosinophils/100 WBC (Bld) 1.0 % Normal 0.9-7.0 [facility] Comment on above: Performed By: #### C BC #### [facility] [address] [address] [address] Abdiaziz Butler Erythrocyte distribution width (RBC) [Ratio] 12.8 % Normal 11.0-15.0 [facility] Comment on above: Performed By: #### C BC #### [facility] [address] [address] [address] Abdiaziz Butler Hematocrit (Bld) [Volume fraction] 35.2 % Critically low 36.0-48.0 [facility] Comment on above: Performed By: #### C BC #### [facility] [address] [address] [address] Abdiaziz Butler Hemoglobin (Bld) [Mass/Vol] 11.3 g/dL Critically low 12.0-16.0 [facility] Comment on above: Performed By: #### C BC #### [facility] [address] [address] [address] Abdiaziz Butler IG # 0.03 10e3/ul Normal 0.00-0.03 [facility] Comment on above: Performed By: #### C BC #### [facility] [address] [place] [address] Dr. Abdiaziz Butler IG % 0.3 % Normal 0.0-0.5 [facility] Comment on above: Performed By: #### C BC #### [facility] [address] [place] [address] Dr. Abdiaziz Butler LYMPH # 1.1 103/ul Critically low 1.2-3.8 [facility] Comment on above: Performed By: #### C BC #### [facility] [address] [place] [address] Dr. Abdiaziz Butler Lymphocytes/100 WBC (Bld) 11.9 % Critically low 20.5-60.0 [facility] Comment on above: Performed By: #### C BC #### [facility] [address] [place] [address] Dr. Abdiaziz Butler MANUAL DIFF REQ NO Normal [facility] Comment on above: Performed By: #### C BC #### [facility] [address] [place] [address] Dr. Abdiaziz Butler MCH (RBC) [Entitic mass] 28.4 pg Normal 26.7-34.0 [facility] Comment on above: Performed By: #### C BC #### [facility] [address] [place] [address] Dr. Abdiaziz Butler MCHC (RBC) [Mass/Vol] 32.1 g/dL Normal 29.9-35.2 [facility] Comment on above: Performed By: #### C BC #### [facility] [address] [place] [address] Dr. Abdiaziz Butler MCV (RBC) [Entitic vol] 88.4 fL Normal 81.0-99.0 [facility] Comment on above: Performed By: #### C BC #### [facility] [address] [place] [address] Dr. Abdiaziz Butler MONO # 0.7 103/ul Normal 0.3-0.8 [facility] Comment on above: Performed By: #### C BC #### [facility] [address] [address] [address] Abdiaziz Butler Monocytes/100 WBC (Bld) 7.9 % Normal 1.7-12.0 [facility] Comment on above: Performed By: #### C BC #### [facility] [address] [address] [address] Abdiaziz Butler NEUT # 7.1 103/ul Critically high 1.4-6.[address] [facility] Comment on above: Performed By: #### C BC #### [facility] [address] [address] [address] Abdiaziz Butler Neutrophils/100 WBC (Bld) 78.7 % Critically high 43.0-75.0 [facility] Comment on above: Performed By: #### C BC #### [facility] [address] [place] [address] Dr. Abdiaziz Butler Platelet mean volume (Bld) [Entitic vol] 9.9 fL Normal 9.5-13.5 [facility] Comment on above: Performed By: #### C BC #### [facility] [address] [address] [address] Abdiaziz Butler PLT 293 103/ul Normal 150-450 [facility] Comment on above: Performed By: #### C BC #### [facility] [address] [place] [address] Dr. Abdiaziz Butler RBC 3.98 106/ul Critically low 4.20-5.[address] [facility] Comment on above: Performed By: #### C BC #### [facility] [address] [address] [address] Abdiaziz Butler WBC 9.0 103/ul Normal 4.0-11.0 [facility] Comment on above: Performed By: #### C BC #### [facility] [address] [place] [address] Dr. Abdiaziz Butler POINT OF CARE GLUCOSEon -0 Glucose [Mass/Vol] 128 mg/dL Critically high 74-106 [facility] Comment on above: Performed By: #### P OCGLUC ####[facility] [address] [place], [place] [address]TkDr. Abdiaziz Butler PROF CHEM 8 (BAS METB)on Anion gap [Moles/Vol] 15.3 mmol/L Normal [facility] Comment on above: Performed By: #### B MP #### [facility] [address] [address] [address] Abdiaziz Butler Calcium [Mass/Vol] 8.6 mg/dL Normal 8.5-10.1 [facility] Comment on above: Performed By: #### B MP #### [facility] [address] [address] [address] Abdiaziz Butler Chloride [Moles/Vol] 104 mmol/L Normal 98-107 [facility] Comment on above: Performed By: #### B MP #### [facility] [address] [address] [address] Abdiaziz Butler CO2 [Moles/Vol] 23.6 mmol/L Normal 21.0-32.0 [facility] Comment on above: Performed By: #### B MP #### [facility] [address] [address] [address] Abdiaziz Butler Creatinine [Mass/Vol] 1.34 mg/dL Critically high 0.55-1.02 [facility] Comment on above: Performed By: #### B MP #### [facility] [address] [address] [address] Abdiaziz Butler EGFR-AF TAJIK 50 mL/min/1.73m2 Critically low >=60 [facility] Comment on above: Performed By: #### B MP #### [facility] [address] [address] [address] Abdiaziz Butler EGFR-NON AF TAJIK 41 mL/min/1.73m2 Critically low >=60 [facility] Comment on above: Performed By: #### B MP #### [facility] [address] [address] [address] Abdiaziz Butler Glucose [Mass/Vol] 97 mg/dL Normal 74-106 [facility] Comment on above: Performed By: #### B MP #### [facility] [address] [place], [place] [address] Dr. Abdiaziz Butler Potassium [Moles/Vol] 3.3 mmol/L Critically low 3.5-5.1 [facility] Comment on above: Performed By: #### B MP #### [facility] [address] [place], [place] [address] Dr. Abdiaziz Butler Sodium [Moles/Vol] 139 mmol/L Normal 136-145 [facility] Comment on above: Performed By: #### B MP #### [facility] [address] [address] [address] Abdiaziz Butler Urea nitrogen [Mass/Vol] 26.0 mg/dL Critically high 7.0-18.0 [facility] Comment on above: Performed By: #### B MP #### [facility] [address] [address] [address] Abdiaziz Butler Urea nitrogen/Creatinin e [Mass ratio] 19.4 mg/mg Normal [facility] Comment on above: Performed By: #### B MP #### [facility] [address] [place], [place] [address] Dr. Abdiaziz Butler US SINGLE QUAD RT [...] by: LIBAN SCHULTZ Date: 2022-01-18 08:33 Normal [facility] Lipid Panelon 04-12-2021 Cholesterol [Mass/Vol] 217 mg/dL High 125-200 [facility] [employer] Supervisor Comment on above: Result Comment: Low risk < 200mg/dL Borderline risk 201-239 mg/dl High risk > or equal to 240 Performed By: #### L IPD #### [facility] [address], [place] [id number] Cholesterol in HDL [Mass/Vol] 45 mg/dL Normal >40 [facility] [employer] Super[employer] Comment on above: Result Comment: High Cardiovascular Risk HDL <40 mg/dL Low Cardiovascular Risk HDL > or equal to 60 mg/dl Performed By: #### L IPD #### [facility] [address], [place] [id number] Cholesterol in LDL [Mass/Vol] 142 mg/dL Normal [facility] Specialist Comment on above: Result Comment: LDL ATP III CLASSIFICATION LDL less than 100 mg/dl Optimal LDL 100-129 mg/dl Near or above optimal LDL 130-159 Borderline high LDL 160-189 High LDL greater than 189 mg/dl Very High Performed By: #### L IPD #### [facility] [address], [place] [id number] Cholesterol in VLDL [Mass/Vol] 30 mg/dL Normal [facility] Specialist Comment on above: Performed By: #### L IPD #### [facility] [address], [place] [id number] Cholesterol.total/ Cholesterol in HDL [Mass ratio] 5 {ratio} Normal [facility] Specialist Comment on above: Performed By: #### L IPD #### [facility] [address], [place] [id number] Triglyceride [Mass/Vol] 149 mg/dL Normal 30-150 [facility] Specialist Comment on above: Result Comment: TRIG ATPIII CLASSIFICATIONS TRIG less than 150 mg/dl Normal TRIG 150-199 mg/dl Borderline High TRIG 200-500 mg/dl High TRIG greather than 500 mg/dl Very High Performed By: #### L IPD #### [facility] [address], [place] [id number] COVID Quick Testingon 2020 Result Positive [facility] Other Vital Signs Date Time Vital Sign Value Performing Clinician Facility 02-22-2021 11:15-0500 Body height 170.18 cm Tatianna Rosen Other [facility] Other 02-22-2021 11:15-0500 Body temperature 99.1 [degF] Tatianna Rosen Other [facility] Other 02-22-2021 11:15-0500 SaO2% (BldA) [Mass fraction] 97 % Tatianna Rosen Other [facility] Other Encounters Encounter Date Encounter Type Care [...] Start: 12-28-2021 End: 12-29-[address] GRACE COVARRUIBAS . Facility:[facility] Start: 11-25-2021 End: 11-26-[address] GRACE COVARRUBIAS . Facility:[facility] Start: 02-22-2021 End: 02-22-2021 ambulatory Tatianna Rosen Other [facility] Other Start: 02-22-2021 Nursing evaluation o f patient and report Tatianna Rosen [facility] Payers Date Payer Category Payer Unknown [id number] 1970 Unknown [id number] 2.16.84 [id number] 1970 Unknown [id number] 2.16.84 [id number] 1968 Unknown [id number] 2.16.84 [id number] 1968 Unknown [id number] 2.16.84 [id number] 1968 Unknown [id number] 2.16.84 [id number] 1968 Unknown [id number] 2.16.84 [id number] 1968 Unknown [id number] 2.16.84 [id number] 1968 Unknown [id number] 2.16.84 [id number] 1968 Unknown [id number] 2.16.84 [id number] 1968 Unknown [id number] 2.16.84 [id number] 1970 Unknown [id number] 2.16.84 [id number] 1961 [facility] [id number] Social History Date Type Detail Facility Sex Assigned At [facility] Other Clinical Note 08-29-2022 Note Date & [...] by: LIBAN SCHULTZ Date: 2022-08-29 09:35 [facility] Consultation note 05-26-2022 Note Date & Type [...] patient is in agreement to this. [facility] Consultation note 02-24-2022 Note Date & Type [...] indicated. Patient agrees with this plan. [facility] Consultation note 12-28-2021 Note Date & Type [...] be followed up in the office. [facility] Consultation note 11-25-2021 Note Date & Type Note Facility 11-25-2021 Note PROCEDURE DATE: 11/15 PRE AND POSTOPERATIVE DIAGNOSIS: Bilateral paravertebral spasms. PROCEDURE: Bilateral lumbar trigger point injections. CORRECTION: No procedure was done on that day. We will preauthorize for the bilateral lumbar trigger point and bring her back into the office at that time. 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 She does report stretching and using [...] three months' time unless otherwise indicated. [facility] Evaluation note 02-22-2021 Note Date & Type [...] Patient care instructions given in writting by [facility] document. Additional time spent conducting pre-visit phone call, screening for symptoms, instructions on social distancing, application and removal of PPE, and cleaning of examination room, equipment and supplies was preformed. Patient education given for testing methodology and results. Patient care instructions given in writting by [facility] document. [facility] Other History general Narrative - Reported Note Date & Type Note Facility History general Narrative - Reported Type Medical History HTN Medical History Anxiety Medical History Back pain Medical History Migranes Medical History Iron deficiency anemia Surgical History hysterectomy Surgical History appy Hospitalization History See Above [facility] Other Summary Purpose Family History No Family History Records FoundNo Family History Records FoundNo Family History Records Found Advance Directives No Advanced Directives Records FoundNo Advanced Directives Records FoundNo Advanced Directives Records Found Additional Source Comments INFORMATION SOURCE (unrecogn ized section and content) DATE CREATED AUTHOR 04/13/2021 [facility] dical Specialist DATE CREATED AUTHOR AUTHOR'S ORGANIZ ATION 09/23/2022 [facility] DATE CREATED AUTHOR AUTHOR'S ORGANIZ ATION 05/15/2023 [facility] dical Specialists EPIC REASON FOR VISIT (unrecogniz [...] BE BASED ON THE PRIMARY CLINICAL RECORDS. [facility] [employer] [facility]. provides no warranty or guarantee of the accuracy or completeness of information in this document.
[2023-09-05 07:00] VITALS: BP 122/87; PULSE 74; TEMP 36.9; O2SAT 96
[2023-09-05] MEDS: 0.9 % SODIUM CHLORIDE 500 ML IV (07:05)
[2023-09-05 07:49] VITALS: BP 113/76; PULSE 57; TEMP 37; O2SAT 98
[2023-09-05] MEDS: BUPIVACAINE HCL 0.25% PF 25 MG/10 ML VIAL 4 ML INJ (07:50)
[2023-09-05] MEDS: LIDOCAINE HCL 2% 400 MG/20 ML MDV 7 ML INJ (07:50)
[2023-09-05] MEDS: METHYLPREDNISOLONE ACETATE 40 MG/ML VIAL INJ (07:51)
[2023-09-05 07:56] VITALS: BP 125/76; PULSE 58; O2SAT 97
--- NOTE | 2023-09-05 09:03 | W.PM.PROCNOT ---
Date of procedure: 09/05/23 Pre-op diagnosis: Thoracic spondylosis Post-op diagnosis: same as pre-op Procedure: Left Thoracic 12/Lumbar 1 Radiofrequency ablation Under fluoroscopic guidance Rhizotomy was created using radio frequency ablation at 80?C for 90 seconds 1 to 2 lesions created at each site. Post lesioning injection of 2 mL each of 0.25% Marcaine and 2% lidocaine with Depo-Medrol 40mg. 0.5 to 1 mL injected at each site IV in place yes If Intravenous fluids: NS at KVO Anesthesia local 2% lidocaine for Anesthesia Other: MAC Timeout process compliant After informed consent obtained.Patient brought to the procedure room placed in the prone position skin overlying the area was prepped and draped in a sterile fashion using betadine. 25 gauge needle was used to create a skin wheal over each of the targeted areas utilizing 2% lidocaine. A rhizotomy needle with a 10 mm active tip was inserted over each of the anesthetized areas and directed towards each of the medial branches accomplished under fluoroscopic guidance. after encountering the same we had positive sensory stimulation, negative motor stimulation was noted. lesions were then created. Post lesioning, steroid solution was injected needles removed. Patient was transferred to recovery room in stable condition to be discharged home after meeting criteria. Anesthesia: MAC Surgeon: Dori Galvan Condition: stable
== END 2023-09-05 08:16 | disposition home or self-care (01) ==
PROVIDERS: PCP Internal Medicine; Visit Provider Anesthesiology Pain Medicine
DX: M47.814 Spondylosis without myelopathy or radiculopathy, thoracic region (principal)
CPT/HCPCS: 64633; 64634; J1010; J2704

== ENCOUNTER 2023-09-19 06:36 | Day surgery (SDC) | payer BC, SELFPAY ==
--- OUTSIDE RECORDS SUMMARY | 2023-09-19 06:39 | XMS_ITS | CCD ---
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 Abdiaziz Butler Basophils/100 WBC (Bld) 0.2 % Normal 0.2-2.0 [facility] Comment on above: Performed By: #### C BC #### [facility] [address] [address] [address] Abdiaziz Butler EO # 0.1 103/ul Normal 0.0-0.7 [facility] Comment on above: Performed By: #### C BC #### [facility] [address] [address] [address] Abdiaziz Butler Eosinophils/100 WBC (Bld) 1.0 % Normal 0.9-7.0 [facility] Comment on above: Performed By: #### C BC #### [facility] [address] [address] [address] Abdiazzi Butler Erythrocyte distribution width (RBC) [Ratio] 12.8 % Normal 11.0-15.0 [facility] Comment on above: Performed By: #### C BC #### [facility] [address] [address] [address] Abdiaziz Butler Hematocrit (Bld) [Volume fraction] 35.2 % Critically low 36.0-48.0 [facility] Comment on above: Performed By: #### C BC #### [facility] [address] [address] [address] Abdiaziz Butler Hemoglobin (Bld) [Mass/Vol] 11.3 g/dL Critically low 12.0-16.0 [facility] Comment on above: Performed By: #### C BC #### [facility] [address] [address] [address] Abdiaziz Butler IG # 0.03 10e3/ul Normal 0.00-0.03 [facility] Comment on above: Performed By: #### C BC #### [facility] [address] [place] [address] Dr. Abdiaziz Butler IG % 0.3 % Normal 0.0-0.5 [facility] Comment on above: Performed By: #### C BC #### [facility] [address] [place] [address] Dr. Abdiaziz Butler LYMPH # 1.1 103/ul Critically low 1.2-3.8 [place] Comment on above: Performed By: #### C BC #### [facility] [address] [place] [address] Dr. Abdiaziz Butler Lymphocytes/100 WBC (Bld) 11.9 % Critically low 20.5-60.0 [facility] Comment on above: Performed By: #### C BC #### [facility] [address] [place] [address] Dr. Abdiaziz Butler MANUAL DIFF REQ NO Normal [facility] Comment on above: Performed By: #### C BC #### [facility] [address] [place] [address] Dr. Abdiaziz Butler MCH (RBC) [Entitic mass] 28.4 pg Normal 26.7-34.0 [facility] Comment on above: Performed By: #### C BC #### [facility] [address] [place] [address] Dr. Abdiaziz Butler MCHC (RBC) [Mass/Vol] 32.1 g/dL Normal 29.9-35.2 [facility] Comment on above: Performed By: #### C BC #### [facility] [address] [place] [address] Dr. Abdiaziz Butler MCV (RBC) [Entitic vol] 88.4 fL Normal 81.0-99.0 [facility] Comment on above: Performed By: #### C BC #### [facility] [address] [place] [address] Dr. Abdiaziz Butler MONO # 0.7 103/ul Normal 0.3-0.8 [facility] Comment on above: Performed By: #### C BC #### [facility] [address] [address] [address] Abdiaziz Butler Monocytes/100 WBC (Bld) 7.9 % Normal 1.7-12.0 [facility] Comment on above: Performed By: #### C BC #### [facility] [address] [address] [address] Abdiaziz Butler NEUT # 7.1 103/ul Critically high 1.4-6.5 [facility] Comment on above: Performed By: #### C BC #### [facility] [address] [address] [address] Abdiaziz Butler Neutrophils/100 WBC (Bld) 78.7 % Critically high 43.0-75.0 [facility] Comment on above: Performed By: #### C BC #### [facility] [address] [place] [address] Dr. Abdiaziz Butler Platelet mean volume (Bld) [Entitic vol] 9.9 fL Normal 9.5-13.5 [facility] Comment on above: Performed By: #### C BC #### [facility] [address] [address] [address] Abdiaziz Butler PLT 293 103/ul Normal 150-450 [facility] Comment on above: Performed By: #### C BC #### [facility] [address] [place] [address] Dr. Abdiaziz Butler RBC 3.98 106/ul Critically low 4.20-5.40 [facility] Comment on above: Performed By: #### C BC #### [facility] [address] [address] [address] Abdiaziz Butler WBC 9.0 103/ul Normal 4.0-11.0 [facility] Comment on above: Performed By: #### C BC #### [facility] [address] [place] [address] Dr. Abdiaziz Butler POINT OF CARE GLUCOSEon -0 Glucose [Mass/Vol] 128 mg/dL Critically high 74-106 [facility] Comment on above: Performed By: #### P OCGLUC ####[facility] [address], [place] [address]KmDr. Abdiaziz Butler PROF CHEM 8 (BAS METB)on Anion gap [Moles/Vol] 15.3 mmol/L Normal [facility] Comment on above: Performed By: #### B MP #### [facility] [address] [address] [address] Abdiaziz Butler Calcium [Mass/Vol] 8.6 mg/dL Normal 8.5-10.1 [facility] Comment on above: Performed By: #### B MP #### [facility] [address] [address] [address] Abdiaziz Butler Chloride [Moles/Vol] 104 mmol/L Normal 98-107 [facility] Comment on above: Performed By: #### B MP #### [facility] [address] [address] [address] Abdiaziz Butler CO2 [Moles/Vol] 23.6 mmol/L Normal 21.0-32.0 [facility] Comment on above: Performed By: #### B MP #### [facility] [address] [address] [address] Abdiaziz Butler Creatinine [Mass/Vol] 1.34 mg/dL Critically high 0.55-1.02 [facility] Comment on above: Performed By: #### B MP #### [facility] [address] [address] [address] Abdiaziz Butler EGFR-AF FAROESE 50 mL/min/1.73m2 Critically low >=60 [facility] Comment on above: Performed By: #### B MP #### [facility] [address] [address] [address] Abdiaziz Butler EGFR-NON AF FAROESE 41 mL/min/1.73m2 Critically low >=60 [facility] Comment on above: Performed By: #### B MP #### [facility] [address] [address] [address] Abdiaziz Butler Glucose [Mass/Vol] 97 mg/dL Normal 74-106 [facility] Comment on above: Performed By: #### B MP #### [facility] [address], [place] [address] Dr. Abdiaziz Butler Potassium [Moles/Vol] 3.3 mmol/L Critically low 3.5-5.1 [facility] Comment on above: Performed By: #### B MP #### [facility] [address], [place] [address] Dr. Abdiaziz Butler Sodium [Moles/Vol] 139 mmol/L Normal 136-145 [facility] Comment on above: Performed By: #### B MP #### [facility] [address] [address] [address] Abdiaziz Butler Urea nitrogen [Mass/Vol] 26.0 mg/dL Critically high 7.0-18.0 [facility] Comment on above: Performed By: #### B MP #### [facility] [address] [address] [address] Abdiaziz Butler Urea nitrogen/Creatinin e [Mass ratio] 19.4 mg/mg Normal [facility] Comment on above: Performed By: #### B MP #### [facility] [address], [place] [address] Dr. Abdiaziz Butler US SINGLE QUAD RT [...] by: LIBAN SCHULTZ Date: 2022-01-18 08:33 Normal [facility] Lipid Panelon 04-12-2021 Cholesterol [Mass/Vol] 217 mg/dL High 125-200 [facility] [employer] Analyst Comment on above: Result Comment: Low risk < 200mg/dL Borderline risk 201-239 mg/dl High risk > or equal to 240 Performed By: #### L IPD #### [facility] [address], [place] [id number] Cholesterol in HDL [Mass/Vol] 45 mg/dL Normal >40 [facility] [employer] Analyst Comment on above: Result Comment: High Cardiovascular Risk HDL <40 mg/dL Low Cardiovascular Risk HDL > or equal to 60 mg/dl Performed By: #### L IPD #### [facility] [address], [place] [id number] Cholesterol in LDL [Mass/Vol] 142 mg/dL Normal [place] Special[facility] Comment on above: Result Comment: LDL ATP III CLASSIFICATION LDL less than 100 mg/dl Optimal LDL 100-129 mg/dl Near or above optimal LDL 130-159 Borderline high LDL 160-189 High LDL greater than 189 mg/dl Very High Performed By: #### L IPD #### [facility] [address], [place] [id number] Cholesterol in VLDL [Mass/Vol] 30 mg/dL Normal [place] Special[facility] Comment on above: Performed By: #### L IPD #### [facility] [address], [place] [id number] Cholesterol.total/ Cholesterol in HDL [Mass ratio] 5 {ratio} Normal [place] Special[facility] Comment on above: Performed By: #### L IPD #### [facility] [address], [place] [id number] Triglyceride [Mass/Vol] 149 mg/dL Normal 30-150 [place] Special[facility] Comment on above: Result Comment: TRIG ATPIII CLASSIFICATIONS TRIG less than 150 mg/dl Normal TRIG 150-199 mg/dl Borderline High TRIG 200-500 mg/dl High TRIG greather than 500 mg/dl Very High Performed By: #### L IPD #### [facility] [address], [place] [id number] COVID Quick Testingon 2020 Result Positive [facility] Other Vital Signs Date Time Vital Sign Value Performing Clinician Facility 02-22-2021 11:15-0500 Body height 170.18 cm Tatianna Rosen Other [facility] Other 02-22-2021 11:15-0500 Body temperature 99.1 [degF] Tatianna Rosen Other [facility] Other 02-22-2021 11:15-0500 SaO2% (BldA) [Mass fraction] 97 % Tatianna Rosen Other [facility] Other Encounters Encounter Date Encounter Type Care [...] 02-22-2021 End: 02-22-2021 ambulatory Tatianna Rosen Other [facility] Other Start: 02-22-2021 Nursing evaluation o f patient and report Tatianna Rosen [facility] Payers Date Payer Category Payer Unknown [id number] 1970 Unknown [id number] 2.16.84 [id number] 1970 Unknown [id number] 2.16.84 [id number] 1968 Unknown [id number] 2.16.84 [id number] 1968 Unknown [id number] 2.16.84 [id number] 1968 Unknown [id number] 2.16.84 [id number] 1968 Unknown [id number] 2.16.84 [id number] 1968 Unknown [id number] 2.16.84 [id number] 1968 Unknown [id number] 2.16.84 [id number] 1968 Unknown [id number] 2.16.84 [id number] 1968 Unknown [id number] 2.16.84 [id number] 1970 Unknown [id number] 2.16.84 [id number] [facility] [id number] Social History Date Type Detail Facility Sex Assigned At [facility] Other Clinical Note 08-29-2022 Note Date & [...] by: LIBAN SCHULTZ Date: 2022-08-29 09:35 [facility] Consultation note 05-26-2022 Note Date & [...] patient is in agreement to this. [facility] Consultation note 02-24-2022 Note Date & [...] indicated. Patient agrees with this plan. [facility] Consultation note 12-28-2021 Note Date & [...] be followed up in the office. [facility] Consultation note 11-25-2021 Note Date & Type Note Facility 11-25-2021 Note PROCEDURE DATE: 11/15 PRE AND POSTOPERATIVE DIAGNOSIS: Bilateral paravertebral spasms. PROCEDURE: Bilateral lumbar trigger point injections. CORRECTION: No procedure was done on that day. We will preauthorize for the bilateral lumbar trigger point and bring her back into the office at that time. 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 She does report stretching and using [...] three months' time unless otherwise indicated. [facility] Evaluation note 02-22-2021 Note Date & [...] Patient care instructions given in writting by [employer] [facility] document. Additional time spent conducting pre-visit phone call, screening for symptoms, instructions on social distancing, application and removal of PPE, and cleaning of examination room, equipment and supplies was preformed. Patient education given for testing methodology and results. Patient care instructions given in writting by [employer] [facility] document. [facility] Other History general Narrative - Reported Note Date & Type Note Facility History general Narrative - Reported Type Medical History HTN Medical History Anxiety Medical History Back pain Medical History Migranes Medical History Iron deficiency anemia Surgical History hysterectomy Surgical History appy Hospitalization History See Above [facility] Other Summary Purpose Family History No Family History Records FoundNo Family History Records FoundNo Family History Records Found Advance Directives No Advanced Directives Records FoundNo Advanced Directives Records FoundNo Advanced Directives Records Found Additional Source Comments INFORMATION SOURCE (unrecogn ized section and content) DATE CREATED AUTHOR 04/13/[address] [facility] dical Specialist DATE CREATED AUTHOR AUTHOR'S ORGANIZ ATION 09/23/2022 [facility] DATE CREATED AUTHOR AUTHOR'S ORGANIZ ATION 05/15/[address] [facility] dical Specialists EPIC REASON FOR VISIT (unrecogniz [...] BE BASED ON THE PRIMARY CLINICAL RECORDS. [facility] [employer] [facility]. provides no warranty or guarantee of the accuracy or completeness of information in this document.
[2023-09-19 06:47] VITALS: BP 144/100; PULSE 87; TEMP 36.7; O2SAT 100
[2023-09-19] MEDS: 0.9 % SODIUM CHLORIDE 500 ML IV (06:55)
--- NOTE | 2023-09-19 07:15 | W.PM.PROCNOT ---
Date of procedure: 09/19/23 Pre-op diagnosis: Lumbar spondylosis Post-op diagnosis: same as pre-op Procedure: Right thoracic 12-Lumbar 1 Radiofrequency ablation Under fluoroscopic guidance Rhizotomy was created using radio frequency ablation at 80?C for 90 seconds 1 to 2 lesions created at each site. Post lesioning injection of 2 mL each of 0.25% Marcaine and 2% lidocaine with Depo-Medrol 40mg. 0.5 to 1 mL injected at each site IV in place yes If Intravenous fluids: NS at KVO Anesthesia local 2% lidocaine for Anesthesia Other: MAC Timeout process compliant After informed consent obtained.Patient brought to the procedure room placed in the prone position skin overlying the area was prepped and draped in a sterile fashion using betadine. 25 gauge needle was used to create a skin wheal over each of the targeted areas utilizing 2% lidocaine. A rhizotomy needle with a 10 mm active tip was inserted over each of the anesthetized areas and directed towards each of the medial branches accomplished under fluoroscopic guidance. after encountering the same we had positive sensory stimulation, negative motor stimulation was noted. lesions were then created. Post lesioning, steroid solution was injected needles removed. Patient was transferred to recovery room in stable condition to be discharged home after meeting criteria. Anesthesia: MAC Surgeon: Dori Galvan Condition: stable Disposition: PACU
[2023-09-19] MEDS: METHYLPREDNISOLONE ACETATE 40 MG/ML VIAL INJ (07:40)
[2023-09-19] MEDS: BUPIVACAINE HCL 0.25% PF 25 MG/10 ML VIAL 4 ML INJ (07:40)
[2023-09-19] MEDS: LIDOCAINE HCL 2% 400 MG/20 ML MDV 15 ML INJ (07:41)
[2023-09-19 07:48] VITALS: BP 109/87; PULSE 89; TEMP 37; O2SAT 94
[2023-09-19 07:58] VITALS: BP 112/87; PULSE 94; TEMP 37; O2SAT 100
== END 2023-09-19 08:10 | disposition home or self-care (01) ==
PROVIDERS: PCP Internal Medicine; Visit Provider Anesthesiology Pain Medicine
PROC: (CPT 1992; principal; 2023-09-19 07:30)
DX: M47.816 Spondylosis without myelopathy or radiculopathy, lumbar region (principal); M47.814 Spondylosis without myelopathy or radiculopathy, thoracic region; G47.33 Obstructive sleep apnea (adult) (pediatric)
CPT/HCPCS: 64633; J1010; J2704

== ENCOUNTER 2023-10-18 15:00 | Outpatient (OUT) | payer BC, SELFPAY ==
--- NOTE | 2023-10-18 15:07 | P.CN_ITS ---
Consult Note: HPI Data of Consult Patient: known to practice within the last 3 years Requesting Physician: Mila Hill NP Primary Care Provider: BARBI WELLER Consult Narrative Reason for consult: F/u Narrative: Delisa moreno pleasant 52 year old female presents for evaluation and management of chronic thoracic and lumbar pain. Patient recently underwent left and right T11-12 facet RFA with >90% improvement ongoing. Patient has stopped taking baclofen and tramadol as a result of significant pain relief. cc:: CC: Mila Hill NP Review of Systems ROS Status of ROS 10 or more systems reviewed and unremark able except as noted in history and below Musculoskeletal Reports: back pain PFSH PFSH Medical History (Updated 09/12/23 @ 10:15 by Shellie Mason, JESUS) Arthritis ?M19.90 - Unspecified osteoarthritis, unspecified site (ICD-10) Anxiety ?F41.9 - Anxiety disorder, unspecified (ICD-10) HTN (hypertension) ?I10 - Essential (primary) hypertension (ICD-10) Surgical History (Updated 09/12/23 @ 10:15 by Shellie Mason RN) History of ventral hernia repair ?Z98.890 - Other specified postprocedural states (ICD-10) ?Z87.19 - Personal history of other diseases of the digestive system (ICD-10) History of hysterectomy ?Z90.710 - Acquired absence of both cervix and uterus (ICD-10) Meds Home Medications and Allergies Home Medications ?Medication ?Instructions ?Recorded ?Confirmed ?Type acetaminophen 325 mg tablet 325 mg PO Q6H 09/29/22 09/19/23 History (Tylenol) erenumab-aooe 70 mg/mL 70 mg subcut .MONTHLY 09/29/22 09/19/23 History subcutaneous auto-injector ([employer] Autoinjector) escitalopram oxalate 10 mg tablet 10 mg PO DAILY 09/29/22 09/19/23 History gabapentin 300 mg capsule 300 mg PO TID 09/29/22 09/19/23 History losartan 100 1 tab PO DAILY 09/29/22 09/19/23 History mg-hydrochlorothiazide 25 mg tablet multivitamin 1 tab PO DAILY 09/29/22 09/19/23 History sumatriptan succinate PO DAILY 09/29/22 History topiramate 50 mg tablet 50 mg PO DAILY 09/29/22 09/19/23 History tramadol 50 mg tablet 50 mg PO DAILY 09/29/22 09/19/23 History baclofen 10 mg tablet 10 mg PO DAILY PRN muscle spasm 04/18/23 09/19/23 Rx #30 tabs Allergies Allergy/AdvReac Type Severity Reaction Status Date / Time No Known Drug Allergies Allergy Verified 09/19/23 06:58 Exam Constitutional Documenting provider has reviewed patient's vital signs: yes Common normals: no apparent distress, oriented x3, healthy appearing, alert and well nourished General appearance: cooperative HENMT Common normals: normocephalic, hearing grossly normal bilaterally and moist oral mucous membranes Head and scalp: normocephalic Eye Common normals: PERRL Pupil: PERRL Neck & C-Spine Common normals: full ROM General: normal visual inspection Chest Common normals: inspection of chest normal Respiratory Common normals: normal respiratory effort, no retractions and no use of accessory muscles Back & Pelvis Thoracic spine/upper back: normal to inspection and thoracic ROM normal Lumbar spine/lower back: normal to inspection and lumbar ROM normal Other: negative facet loading negative radiculopathy Extremity Common normals: normal to inspection and full ROM Neuro Common normals: oriented x3, CN's II-XII intact bilaterally, moves all extremities, no focal motor deficits, no sensory deficits noted and deep tendon reflexes 2+ bilaterally Sensorium/orientation: alert Motor exam: strength 5/5 throughout and no movement abnormalities noted Psych Common normals: mental status grossly normal, thought process normal, cooperative, affect normal, speech normal and activity/motor behavior normal Speech: normal speech Thought process: normal thought process Results Additional Findings Additional findings: If on a controlled substance or opioids, I have checked an [place] report on this patient and there are no aberrancies noted in the prescribing history.??If on a controlled substance or opioid a drug screen was completed and reviewed within the last year, and if there has not been a drug screen completed we ordered one today to monitor higher risk, state monitored pain medication use. As part of providing excellent, safe, comprehensive care, the following was comp leted at our patient's visit: 1. A medication reconciliation and review to ensure accurate knowledge of current/active medications, including asking our patients to inform us about any [id number] medications or herbal remedies/nutritional supplements/alternative remedies. 2. A review to specifically ensure our patients have had annual screening for screening for depression, screening for tobacco use, and screening for unhealthy alcohol use. For concerning screenings had a discussion with the patient, provided patient education, and recommended follow-up with primary care provider when appropriate. If patient noted with a risk of falling, they received education on strength, gait, and balance training to prevent future risk of falling. Assessment and Plan Assessment and Plan (1) Thoracic spondylosis: (2) Lumbar spondylosis: (3) Spasm of back muscles: (4) Encounter for long-term opiate analgesic use: Assessment and Plan: no longer utilizing Plan f/u 6 months, sooner if needed
--- OUTSIDE RECORDS SUMMARY | 2023-10-18 15:21 | XMS_ITS ---
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 Name Role Phone Tatianna Rosen Unavailable DR [...] Hobbs Admitting Unavailable COVARRUBIAS ., DR GRACE oHbbs Consulting Unavailable JANEE, DR LANDON Primary Care Unavailable COVARRUBIAS ., DR GRACE Hobbs Attending Unavailable COVARRUBIAS ., DR GRACE Hobbs Admitting Unavailable DOBBINS ., ILA Consulting Unavailable JANEE, DR LANDON Primary Care Unavailable LAKSHMIPATHY ., BECCA Consulting Carmen vailable LAKSHMIPATHY ., BECCA Attending Carmen vailable DOROTHEASHMIPATHY ., BECCA Admitting Carmen vailable DR BARBI WELLER Primary Care Unavailable JANEE, DR LANDNO Consulting Unavailable JANEE, DR LANDON Attending Unavailable JANEE, DR LANDON Admitting Unavailable JANEE, DR LANDON Primary Care Unavailable MARLEN AKINS Consulting Unavailable DR BARBI WELLER Primary Care Unavailable DR BARBI WELLER Consulting Unavailable DR BARBI WELLER Attending Unavailable DR BARBI WELLER Admitting Unavailable DR LIBAN SCHULTZ Consulting Unavailable BARBI WELLER Attending Unavailable SHANTI HAYES Attending Unavailable Encounters Encounter Date Encounter Type Care Provider Facility Start: 09-20-2023 End: 09-20-2023 ambulatory SHANTI HAYES Not Available Start: 05-15-2023 End: 05-15-2023 ambulatory BARBI WELLER Not Available Start: 09-13-2022 End: 09-13-2022 ambulatory GUCCISACHINCHUCK PIEDRAREKHAMIPATHY . Facility:[facility] Start: 09-05-2022 End: 09-06-[address] BARBI WELLER Facility:[facility] Start: 08-29-2022 End: 08-30-[address] BARBI WELLER Facility:[facility] Start: 08-25-2022 End: 08-26-[address] BARBI WELLER Facility: Start: 05-26-2022 End: 05-27-[address] GRACE COVARRUBIAS . Facility:[facility] Start: 04-18-2022 End: 04-18-2022 ambulatory KATIA LOPZE Facility:[facility] Start: 02-24-2022 End: 02-25-[address] GRACE COVARRUBIAS . Facility:[facility] Start: 01-18-2022 End: 01-19-[address] BARBI WELLER Facility: Start: 12-28-2021 End: 12-29-[address] GRACE COVARRUBIAS . Facility:[facility] Start: 11-25-2021 End: 11-26-[address] GRACE COVARRUBIAS . Facility:[facility] Start: 02-22-2021 End: 02-22-2021 ambulatory Tatianna Jessika Other [facility] Other Start: 02-22-2021 Nursing evaluation o f patient and report Tatianna [place] [facility] Medications Current Medications Medication Drug Class(es) Dates [...] Active Naproxen (1 source) Nonsteroidal Anti-inflammatory Drug Payers Date Payer Category Payer Unknown [id number] 1970 Unknown [id number] 2.16.84 [id number] 1970 Unknown [id number] 2.16.84 [id number] 1970 Unknown [id number] 2.16.84 [id number] 1970 Unknown [id number] 2.16.84 [id number] 1970 Unknown [id number] 2.16.84 [id number] 1970 Unknown [id number] 2.16.84 [id number] 1970 Unknown [id number] 2.16.84 [id number] 1970 Unknown [id number] 2.16.84 [id number] 1970 Unknown [id number] 2.16.84 [id number] 1970 Unknown [id number] 2.16.84 [id number] 1970 Unknown [id number] 2.16.84 [id number] 1970 Unknown [id number] 2.16.84 [id number] 1961 Blue Cross Blue Shield [id number] Problems Active Problems Problem Classification Problem Date [...] 02-22-2021 Episodic Other aftercare (1 source) Other nursing home (current) drug therapy; Translations: [OTH PENITENTIARY CURRENT DRUG THERAPY] Onset: 04-20-2022 Episodic Other [...] Range Facility CT ABD/PELV W CONon 09-06-[address] ABD/PELV W CON EXAMINATION: CT ABD/PELV [...] MARLEN AKINS Date: 2022-09-05 09:10 Normal [facility] CBC AUTO DIFFon 04-18-2022 BASO # 0.0 103/ul Normal 0.0-0.1 [facility] Comment on above: Performed By: #### C BC #### [facility] [address] [place], [place] [address] Dr. Abdiaziz Butler Basophils/100 WBC (Bld) 0.2 % Normal 0.2-2.0 [facility] Comment on above: Performed By: #### C BC #### [facility] [address] [place], [place] [address] Dr. Abdiaziz Butler EO # 0.1 103/ul Normal 0.0-0.7 [facility] Comment on above: Performed By: #### C BC #### [facility] [address] [place] [address] Dr. Abdiaziz Butler Eosinophils/100 WBC (Bld) 1.0 % Normal 0.9-7.0 [facility] Comment on above: Performed By: #### C BC #### [facility] [address] [place] [address] Dr. Abdiaziz Butler Erythrocyte distribution width (RBC) [Ratio] 12.8 % Normal 11.0-15.0 [facility] Comment on above: Performed By: #### C BC #### [facility] [address] [place] [address] Dr. Abdiaziz Butler Hematocrit (Bld) [Volume fraction] 35.2 % Critically low 36.0-48.0 [facility] Comment on above: Performed By: #### C BC #### [facility] [address] [place] [address] Dr. Abdiaziz Butler Hemoglobin (Bld) [Mass/Vol] 11.3 g/dL Critically low 12.0-16.0 [facility] Comment on above: Performed By: #### C BC #### [facility] [address] [place] [address] Dr. Abdiaziz Butler IG # 0.03 10e3/ul Normal 0.00-0.03 [facility] Comment on above: Performed By: #### C BC #### [facility] [address] [place] [address] Dr. Abdiaziz Butler IG % 0.3 % Normal 0.0-0.5 [facility] Comment on above: Performed By: #### C BC #### [facility] [address] [place] [address] Dr. Abdiaziz Butler LYMPH # 1.1 103/ul Critically low 1.2-3.8 [facility] Comment on above: Performed By: #### C BC #### [facility] [address] [place] [address] Dr. Abdiaziz Butler Lymphocytes/100 WBC (Bld) 11.9 % Critically low 20.5-60.0 [facility] Comment on above: Performed By: #### C BC #### [facility] [address] [place] [address] Dr. Abdiaziz Butler MANUAL DIFF REQ NO Normal [facility] Comment on above: Performed By: #### C BC #### [facility] [address] [place] [address] Dr. Abdiaziz Butler MCH (RBC) [Entitic mass] 28.4 pg Normal 26.7-34.0 [facility] Comment on above: Performed By: #### C BC #### [facility] [address] [place] [address] Dr. Abdiaziz Butler MCHC (RBC) [Mass/Vol] 32.1 g/dL Normal 29.9-35.2 [facility] Comment on above: Performed By: #### C BC #### [facility] [address] [place] [address] Dr. Abdiaziz Butler MCV (RBC) [Entitic vol] 88.4 fL Normal 81.0-99.0 [facility] Comment on above: Performed By: #### C BC #### [facility] [address] [place] [address] Dr. Abdiaziz Butler MONO # 0.7 103/ul Normal 0.3-0.8 [facility] Comment on above: Performed By: #### C BC #### [facility] [address] [place] [address] Dr. Abdiaziz Butler Monocytes/100 WBC (Bld) 7.9 % Normal 1.7-12.0 [facility] Comment on above: Performed By: #### C BC #### [facility] [address] [place] [address] Dr. Abdiaziz Butler NEUT # 7.1 103/ul Critically high 1.4-6.5 [facility] Comment on above: Performed By: #### C BC #### [facility] [address] [place] [address] Dr. Abdiaziz Butler Neutrophils/100 WBC (Bld) 78.7 % Critically high 43.0-75.0 [facility] Comment on above: Performed By: #### C BC #### [facility] [address] [place] [address] [address] Abdiaziz Butler Platelet mean volume (Bld) [Entitic vol] 9.9 fL Normal 9.5-13.5 [facility] Comment on above: Performed By: #### C BC #### [facility] [address] [place] [address] [address] Abdiaziz Butler PLT 293 103/ul Normal 150-450 [facility] Comment on above: Performed By: #### C BC #### [facility] [address] [place] [address] [address] Abdiaziz Butler RBC 3.98 106/ul Critically low 4.20-5.40 [facility] Comment on above: Performed By: #### C BC #### [facility] [address] [place] [address] [address] Abdiaziz Butler WBC 9.0 103/ul Normal 4.0-11.0 [facility] Comment on above: Performed By: #### C BC #### [facility] [address] [place] [address] [address] Abdiaziz Butler POINT OF CARE GLUCOSEon Glucose [Mass/Vol] 128 mg/dL Critically high 74-106 [facility] Comment on above: Performed By: #### P OCGLUC ####[facility] [address] [place] [address]Dr. Abdiaziz Butler PROF CHEM 8 (BAS METB)on Anion gap [Moles/Vol] 15.3 mmol/L Normal [facility] Comment on above: Performed By: #### B MP #### [facility] [address] [place] [address] [address] Abdiaziz Butler Calcium [Mass/Vol] 8.6 mg/dL Normal 8.5-10.1 [facility] Comment on above: Performed By: #### B MP #### [facility] [address] [place] [address] [address] Abdiaziz Butler Chloride [Moles/Vol] 104 mmol/L Normal 98-107 [facility] Comment on above: Performed By: #### B MP #### [facility] [address] [place] [address] [address] Abdiaziz Butler CO2 [Moles/Vol] 23.6 mmol/L Normal 21.0-32.0 [facility] Comment on above: Performed By: #### B MP #### [facility] [address] [place] [address] [address] Abdiaziz Butler Creatinine [Mass/Vol] 1.34 mg/dL Critically high 0.55-1.02 [facility] Comment on above: Performed By: #### B MP #### [facility] [address] [place] [address] [address] Abdiaziz Butler EGFR-AF MOROCCAN 50 mL/min/1.73m2 Critically low >=60 [facility] Comment on above: Performed By: #### B MP #### [facility] [address] [place] [address] [address] Abdiaziz Butler EGFR-NON AF MOROCCAN 41 mL/min/1.73m2 Critically low >=60 [facility] Comment on above: Performed By: #### B MP #### [facility] [address] [place] [address] [address] Abdiaziz Butler Glucose [Mass/Vol] 97 mg/dL Normal 74-106 [facility] Comment on above: Performed By: #### B MP #### [facility] [address] [place] [address] [address] Abdiaziz Butler Potassium [Moles/Vol] 3.3 mmol/L Critically low 3.5-5.1 [facility] Comment on above: Performed By: #### B MP #### [facility] [address] [place] [address] [address] Abdiaziz Butler Sodium [Moles/Vol] 139 mmol/L Normal 136-145 [facility] Comment on above: Performed By: #### B MP #### [facility] [address] [place] [address] [address] Abdiaziz Butler Urea nitrogen [Mass/Vol] 26.0 mg/dL Critically high 7.0-18.0 [facility] Comment on above: Performed By: #### B MP #### [facility] [address] [place], [place] [address] Dr. Abdiaziz Butler Urea nitrogen/Creatinin e [Mass ratio] 19.4 mg/mg Normal [facility] Comment on above: Performed By: #### B MP #### [facility] [address] [place], [place] [address] Dr. Abdiaziz Butler US SINGLE QUAD RT [...] by: LIBAN SCHULTZ Date: 2022-01-18 08:33 Normal [facility] Lipid Panelon 04-12-2021 Cholesterol [Mass/Vol] 217 mg/dL High 125-200 [facility] Comment on above: Result Comment: Low risk < 200mg/dL Borderline risk 201-239 mg/dl High risk > or equal to 240 Performed By: #### L IPD #### [facility] [address] [place], [place] [id number] Cholesterol in HDL [Mass/Vol] 45 mg/dL Normal >40 [facility] Comment on above: Result Comment: High Cardiovascular Risk HDL <40 mg/dL Low Cardiovascular Risk HDL > or equal to 60 mg/dl Performed By: #### L IPD #### [facility] [address] [place], [place] [id number] Cholesterol in LDL [Mass/Vol] 142 mg/dL Normal [facility] Comment on above: Result Comment: LDL ATP III CLASSIFICATION LDL less than 100 mg/dl Optimal LDL 100-129 mg/dl Near or above optimal LDL 130-159 Borderline high LDL 160-189 High LDL greater than 189 mg/dl Very High Performed By: #### L IPD #### [facility] [address] [place], [place] [id number] Cholesterol in VLDL [Mass/Vol] 30 mg/dL Normal [facility] Comment on above: Performed By: #### L IPD #### [facility] [address] [place], [place] [id number] Cholesterol.total/ Cholesterol in HDL [Mass ratio] 5 {ratio} Normal [facility] Comment on above: Performed By: #### L IPD #### [facility] [address] [place], [place] [id number] Triglyceride [Mass/Vol] 149 mg/dL Normal 30-150 [facility] Comment on above: Result Comment: TRIG ATPIII CLASSIFICATIONS TRIG less than 150 mg/dl Normal TRIG 150-199 mg/dl Borderline High TRIG 200-500 mg/dl High TRIG greather than 500 mg/dl Very High Performed By: #### L IPD #### [facility] [address] [place], [place] [id number] COVID Quick Testingon 2020 Result Positive [facility] Other Social History Date Type Detail Facility Sex Assigned At [facility] Other Vital Signs Date Time Vital Sign Value Performing Clinician Facility 02-22-2021 11:15-0500 Body height 170.18 cm Tatianna Rosen Other [facility] Other 02-22-2021 11:15-0500 Body temperature 99.1 [degF] Tatianna Rosen Other [facility] Other 02-22-2021 11:15-0500 SaO2% (BldA) [Mass fraction] 97 % Tatianna Rosen Other [facility] Other Clinical Note 08-29-2022 Note Date & [...] by: LIBAN SCHULTZ Date: 2022-08-29 09:35 [facility] Consultation note 05-26-2022 Note Date & [...] patient is in agreement to this. [facility] Consultation note 02-24-2022 Note Date & [...] indicated. Patient agrees with this plan. [facility] Consultation note 12-28-2021 Note Date & [...] be followed up in the office. [facility] Consultation note 11-25-2021 Note Date & Type Note Facility 11-25-2021 Note PROCEDURE DATE: 11/15 PRE AND POSTOPERATIVE DIAGNOSIS: Bilateral paravertebral spasms. PROCEDURE: Bilateral lumbar trigger point injections. CORRECTION: No procedure was done on that day. We will preauthorize for the bilateral lumbar trigger point and bring her back into the office at that time. 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 She does report stretching and using [...] three months' time unless otherwise indicated. [facility] Evaluation note 02-22-2021 Note Date & [...] Patient care instructions given in writting by [facility] document. Additional time spent conducting pre-visit phone call, screening for symptoms, instructions on social distancing, application and removal of PPE, and cleaning of examination room, equipment and supplies was preformed. Patient education given for testing methodology and results. Patient care instructions given in writting by [facility] [place] document. [facility] Other History general Narrative - Reported Note Date & Type Note Facility History general Narrative - Reported Type Medical History HTN Medical History Anxiety Medical History Back pain Medical History Migranes Medical History Iron deficiency anemia Surgical History hysterectomy Surgical History appy Hospitalization History See Above [facility] Other Summary Purpose Family History No Family History Records FoundNo Family History Records FoundNo Family History Records Found Advance Directives No Advanced Directives Records FoundNo Advanced Directives Records FoundNo Advanced Directives Records Found Additional Source Comments INFORMATION SOURCE (unrecogn ized section and content) DATE CREATED AUTHOR 04/13/2021 [facility] DATE CREATED AUTHOR 'S ORGANIZ ATION 09/23/2022 [facility] DATE CREATED AUTHOR 'S ORGANIZ ATION 09/22/2023 [facility] EPIC REASON FOR VISIT (unrecogniz [...] BE BASED ON THE PRIMARY CLINICAL RECORDS. [facility] [employer] [facility]. provides no warranty or guarantee of the accuracy or completeness of information in this document.
== END 2023-10-18 15:01 | disposition home or self-care (01) ==
LOC: PM 15:01
PROVIDERS: PCP Internal Medicine; Visit Provider Nurse Practitioner
DX: M47.814 Spondylosis without myelopathy or radiculopathy, thoracic region (principal); M47.816 Spondylosis without myelopathy or radiculopathy, lumbar region; M62.838 Other muscle spasm; Z79.891 Long term (current) use of opiate analgesic
CPT/HCPCS: G0463

== ENCOUNTER 2024-03-21 15:21 | Outpatient (OUT) | payer BC, SELFPAY ==
--- NOTE | 2024-03-21 15:41 | P.CN_ITS ---
Consult Note: HPI Data of Consult Patient: known to practice within the last 3 years Requesting Physician: Mila Hill NP Primary Care Provider: BARBI WELLER Consult Narrative Reason for consult: F/u Narrative: Delisa Saleh a pleasant 52 year old female presents for evaluation and management of chronic thoracic and lumbar pain. Patient recently underwent left and right T11-12 facet RFA with >50% improvement ongoing. Continues to utilize baclofen, tramadol and gabapentin with benefit cc:: CC: Mila Hill NP Review of Systems ROS Status of ROS 10 or more systems reviewed and unremark able except as noted in history and below Musculoskeletal Reports: back pain PFSH PFS Medical History (Updated 09/12/23 @ 10:15 by Shellie Mason RN) Arthritis ?M19.90 - Unspecified osteoarthritis, unspecified site (ICD-10) Anxiety ?F41.9 - Anxiety disorder, unspecified (ICD-10) HTN (hypertension) ?I10 - Essential (primary) hypertension (ICD-10) Surgical History History of ventral hernia repair ?Z98.890 - Other specified postprocedural states (ICD-10) ?Z87.19 - Personal history of other diseases of the digestive system (ICD-10) History of hysterectomy ?Z90.710 - Acquired absence of both cervix and uterus (ICD-10) Meds Home Medications and Allergies Home Medications ?Medication ?Instructions ?Recorded ?Confirmed ?Type acetaminophen 325 mg tablet 325 mg PO Q6H 09/29/22 09/19/23 History (Tylenol) erenumab-aooe 70 mg/mL 70 mg subcut .MONTHLY 09/29/22 09/19/23 History subcutaneous auto-injector ([employer] Autoinjector) escitalopram oxalate 10 mg tablet 10 mg PO DAILY 09/29/22 09/19/23 History gabapentin 300 mg capsule 300 mg PO TID 09/29/22 09/19/23 History losartan 100 1 tab PO DAILY 09/29/22 09/19/23 History mg-hydrochlorothiazide 25 mg tablet multivitamin 1 tab PO DAILY 09/29/22 09/19/23 History sumatriptan succinate PO DAILY 09/29/22 History topiramate 50 mg tablet 50 mg PO DAILY 09/29/22 09/19/23 History tramadol 50 mg tablet 50 mg PO DAILY 09/29/22 09/19/23 History baclofen 10 mg tablet 10 mg PO DAILY PRN muscle spasm 04/18/23 09/19/23 Rx #30 tabs tramadol 50 mg tablet 50 mg PO DAILY PRN pain #30 tabs 11/08/23 Rx tramadol 50 mg tablet 50 mg PO DAILY PRN pain #30 tabs 12/19/23 Rx baclofen 10 mg tablet 10 mg PO .hs PRN muscle spasm #30 03/12/24 Rx tabs tramadol 50 mg tablet 50 mg PO DAILY PRN pain #30 tabs 03/12/24 Rx Allergies Allergy/AdvReac Type Severity Reaction Status Date / Time No Known Drug Allergies Allergy Verified 09/19/23 06:58 Exam Constitutional Documenting provider has reviewed patient's vital signs: yes Common normals: no apparent distress, oriented x3, healthy appearing, alert and well nourished General appearance: cooperative HENMT Common normals: normocephalic, hearing grossly normal bilaterally and moist oral mucous membranes Head and scalp: normocephalic Eye Common normals: PERRL Pupil: PERRL Neck & C-Spine Common normals: full ROM General: normal visual inspection Chest Common normals: inspection of chest normal Respiratory Common normals: normal respiratory effort, no retractions and no use of accessory muscles Back & Pelvis Thoracic spine/upper back: normal to inspection and thoracic ROM normal Lumbar spine/lower back: ROM limited, pain with ROM and straight leg raise negative bilaterally Other: positive L4-S1 facet loading and tenderness negative radiculopathy Extremity Common normals: normal to inspection and full ROM Neuro Common normals: oriented x3, CN's II-XII intact bilaterally, moves all extremities, no focal motor deficits, no sensory deficits noted and deep tendon reflexes 2+ bilaterally Sensorium/orientation: alert Motor exam: strength 5/5 throughout and no movement abnormalities noted Psych Common normals: mental status grossly normal, thought process normal, cooperative, affect normal, speech normal and activity/motor behavior normal Speech: normal speech Thought process: normal thought process Results Additional Findings Additional findings: If on a controlled substance or opioids, I have checked an [place]AR[place] report on this patient and there are no aberrancies noted in the prescribing history.??If on a controlled substance or opioid a drug screen was completed and reviewed within the last year, and if there has not been a drug screen completed we ordered one today to monitor higher risk, state monitored pain medication use. As part of providing excellent, safe, comprehensive care, the following was completed at our patient's visit: 1. A medication reconciliation and review to ensure accurate knowledge of current/active medications, including asking our patients to inform us about any shrj-ual-jvvtehu medications or herbal remedies/nutritional supplements/alternative remedies. 2. A review to specifically ensure our patients have had annual screening for screening for depression, screening for tobacco use, and screening for unhealthy alcohol use. For concerning screenings had a discussion with the patient, provided patient education, and recommended follow-up with primary care provider when appropriate. If patient noted with a risk of falling, they received education on strength, gait, and balance training to prevent future risk of falling. Assessment and Plan Assessment and Plan (1) Thoracic spondylosis: (2) Lumbar spondylosis: (3) Spasm of back muscles: (4) Encounter for long-term opiate analgesic use: Plan continue HEP as tolerated continue current medications defer additional lumbar MBBs and RFAs as pain is well controlled with current regimen f/u 3 months, sooner if needed
== END 2024-03-21 15:22 | disposition home or self-care (01) ==
LOC: PM 15:21
PROVIDERS: PCP Internal Medicine; Visit Provider Nurse Practitioner
DX: M47.814 Spondylosis without myelopathy or radiculopathy, thoracic region (principal); M47.816 Spondylosis without myelopathy or radiculopathy, lumbar region; M62.838 Other muscle spasm; Z79.891 Long term (current) use of opiate analgesic
CPT/HCPCS: G0463

== ENCOUNTER 2024-05-09 15:21 | Outpatient (OUT) | payer BC, SELFPAY ==
--- NOTE | 2024-05-09 15:25 | MM_ITS ---
Patient Name: RYAN DE LA CRUZ MR#: [id number] : 1970 Exam Date: 05/09/2024 Ordering Doctor: DR SHANTI DAY RADIOLOGY REPORT PROCEDURE: MM TOMOSYNTHESIS SCREENING BI COMPARISON: MM TOMOSYNTHESIS SCREENING BI, 01/31/2023. MG MAMM SCREEN 3D SUKHDEV CAD, 09/01/2021. INDICATIONS: Screening Calculator Name NCI Breast Cancer Risk Assessment Tool 5 Year Breast Cancer Risk 1.20% Lifetime Breast Cancer Risk 8.30% Personal Breast Cancer No Personal Ovarian Cancer No Treatments None Family Cancers None LOCATION: [facility] BREAST COMPOSITION: The breasts are heterogeneously dense,which may obscure small masses. FINDINGS: DIAGNOSTIC CATEGORY 1--NEGATIVE. NO CHANGE FROM COMPARISON ASSESSMENT. Scattered benign-appearing lymph nodes are present. RIGHT BREAST: No significant suspicious finding. LEFT BREAST: No significant suspicious finding. RECOMMENDATIONS: ROUTINE MAMMOGRAM AND CLINICAL EVALUATION IN 12 MONTHS. PLEASE NOTE: A NORMAL MAMMOGRAM DOES NOT EXCLUDE THE POSSIBILITY OF BREAST CANCER. A CLINICALLY SUSPICIOUS PALPABLE LUMP SHOULD BE BIOPSIED. Dictated by: Reagan Dockery MD on 05/09/2024 at 16:14 Approved by: Reagan Dockery MD on 05/09/2024 at 16:14
--- OUTSIDE RECORDS SUMMARY | 2024-05-09 15:39 | XMS_ITS | CCD ---
Author Organization [facility] Care Team Providers Care Sales Management Trainee Name Role Phone Tatianna Rosen Unavailable DR HERRERA MANN Primary Care Unavailable JANEE, DR LANDON Consulting [...] Unavailable JANEE, DR LANDON Primary Care Unavailable SHILPI ., ILA Consulting Unavailable COVARRUBIAS ., DR [...] vailable LUCASMIPATHY ., BECCA Admitting Carmen vailable JANEE, DR LANDON Primary Care Unavailable JANEE, DR LANDON Consulting Unavailable JANEE, DR LANDON Attending Unavailable JANEE, DR LANDON Admitting Unavailable JANEE, DR LANDON Primary Care Unavailable MARLEN AKINS Consulting Unavailable JANEE, DR LANDON Primary Care Unavailable DR HERRERA MANN Consulting Unavailable DR HERRERA MANN Attending Unavailable DR HERRERA MANN Admitting Unavailable DR LIBAN SCHULTZ Consulting Unavailable Herrera Mann MD Unavailable [phone] Herrera Mann MD Primary Care Provider HERRERA MANN Attending Unavailable GOLDIE HAYES Attending Unavailable REBECCA KUMAR Attending Unavailable GOLDIE HAYES Attending Unavailable Medications Current Medications Medication Drug Class(es) Dates Sig (Normalized) Sig (Original) baclofen 10 mg oral tablet (7 sources) gamma-Aminobutyric Acid-ergic Agonist take 1 tablet by mouth at bedtime baclofen (Lioresal) 10 MG tablet Take 10 mg by mouth at bedtime. Active [facility] (1 source) cloNIDine hydrochloride 0.1 mg oral tablet (2 sources) Central alpha-2 Adrenergic Agonist Start: 05-01-2024 take 1 tablet by mouth once daily as needed for hypertension cloNIDine (Catapres) 0.1 MG tablet Indications: Essential hypertension (CMS/HCC) Take 1 tablet (0.1 mg) by mouth Daily as needed for high blood pressure 30 tablet 2 05/01/2024 Active diclofenac sodium 50 mg delayed release oral tablet (7 sources) Nonsteroidal Anti-inflammatory Drug Start: 07-19-2023 take 1 tablet by mouth twice daily as needed diclofenac (Voltaren) 50 MG EC tablet Indications: Degenerative disc disease, lumbar TAKE 1 TABLET BY MOUTH TWICE DAILY NEEDED 200 tablet 4 07/19/2023 Active escitalopram 10 mg oral tablet (9 sources) Serotonin Reuptake Inhibitor Start: 03-18-2024 take 1 tablet by mouth once daily escitalopram (Lexapro) 10 MG tablet Indications: Depression, unspecified depression type (CMS/HCC) TAKE 1 TABLET BY MOUTH DAILY 100 tablet 3 03/18/2024 Active Start: 03-01-2023 take 1 tablet by gely th once daily escitalopram (Lexapro) 10 MG tablet Indications: Depression, unspecified depression type (CMS/HCC) TAKE 1 TABLET BY MOUTH EVERY DAY 100 tablet 3 03/01/2023 Active take 1 tablet by gely th every twenty-four hours Lexapro 10 MG 1 tablet Orally Once a day Not-Taking Escitalopram Oxa late Active fluticasone propionate 0.05 mg/actuat metered dose nasal spray (2 sources) Corticosteroid Start: 05-01-2024 take 1-2 spray(s) nasal route once daily fluticasone (Flonase) 50 MCG/ACT nasal spray Indications: URI with cough and congestion Administer 1-2 sprays into each nostril Daily Shake gently. Before first use, prime pump. After use, clean tip and replace cap. 16 g 05/01/2024 Active 1.5 ml fremanezumab-vfr m 150 mg/ml prefilled syringe (7 sources) Start: 12-25-2023 inject 1 mL by subcutaneous injection every month Ajovy 225 MG/1.5ML prefilled syringe Indications: Chronic migraine without aura, not intractable, without status migrainosus (CMS/HCC) INJECT 1 pen SUBCUTANEOUSLY once a month in abdomen, thigh, or outer area OF the arm 1.5 mL 4 12/25/2023 Active gabapentin 300 mg oral capsule (8 sources) Anti-epileptic Agent Start: 02-26-2024 take 1 capsule by mouth three times daily gabapentin (Neurontin) 300 MG capsule Indications: Sciatica, left side TAKE 1 CAPSULE BY MOUTH THREE TIMES DAILY 100 capsule 3 02/26/2024 Active Start: 10-30-2023 take 1 capsule by mo uth three times daily gabapentin (Neurontin) 300 MG capsule Indications: Sciatica, left side TAKE 1 CAPSULE BY MOUTH THREE TIMES DAILY 100 capsule 3 10/30/2023 Active Gabapentin Activ e hydroCHLOROthiazide 25 mg / triamterene 37.5 mg oral tablet (7 sources) Potassium-sparing Diuretic, Thiazide Diuretic Start: 12-19-2023 End: 12-18-2024 take 1 tablet by mouth in the morning triamterene-hydrochlorothiazide (Maxzide-25) 37.5-25 MG tablet Indications: Essential hypertension (CMS/HCC) TAKE 1 TABLET BY MOUTH IN THE MORNING 30 tablet 11 12/19/2023 12/18/2024 Active 1 ml ketorolac tromethamine 30 mg/ml cartridge (4 sources) Nonsteroidal Anti-inflammatory Drug, Cyclooxygenase Inhibitor Start: 01-11-2024 End: 01-16-2024 30 mg, Intravenous, Every 6 hours PRN, moderate pain, Starting on [place] 01/11/24 at 1604, For 5 days Losartan (2 sources) Angiotensin 2 Receptor Irina take 1 tablet by mouth every twenty-f our hours Cozaar 50 MG 1 tablet Orally Once a day Not-Taking Losartan Potassi um Active Multiple Vitamins-Minerals (CENTRUM ADULTS PO) (7 sources) Multiple Vitamins-Minerals (CENTRUM ADULTS PO) Take by mouth 1 (one) time each day. Active Naproxen (1 source) Nonsteroidal Anti-inflammatory Drug omeprazole 20 mg delayed release oral capsule (7 sources) Proton Pump Inhibitor Start: 2023 take 1 capsule by mouth twice daily omeprazole (PriLOSEC) [address] capsule Indications: Unspecified abdominal pain TAKE 1 CAPSULE BY MOUTH TWICE DAILY 200 capsule 3 03/18/2024 Active Start: 03-01-2023 take 1 capsule by mo uth twice daily omeprazole (PriLOSEC) [address] capsule Indications: Unspecified abdominal pain TAKE 1 CAPSULE BY MOUTH TWICE DAILY 200 capsule 3 03/01/2023 Active topiramate 50 mg oral tablet (7 sources) Start: 03-18-2024 take 1 tablet by mouth at bedtime topiramate 50 MG tablet Indications: Chronic migraine without aura, not intractable, without status migrainosus (CMS/HCC) TAKE 1 TABLET BY MOUTH AT BEDTIME 100 tablet 3 03/18/2024 Active Start: 03-01-2023 take 1 tablet by gely th at bedtime topiramate 50 MG tablet Indications: Chronic migraine without aura, not intractable, without status migrainosus (CMS/HCC) TAKE 1 TABLET BY MOUTH AT BEDTIME 100 tablet 3 03/01/2023 Active traMADol hydrochloride 50 mg oral tablet (7 sources) Opioid Agonist Start: 01-11-2023 take 1 tablet by mouth once daily as needed traMADol (Ultram) 50 MG tablet Take 1 tablet by mouth 1 (one) time each day. PRN 01/11/2023 Active Completed/Discontinued Medications Medication Drug Class(es) Dates Sig (Normalized) Sig (Original) predniSONE 20 mg oral tablet (5 sources) Start: 01-11-2024 End: 05-01-2024 predniSONE (Deltasone) 20 MG tablet Indications: Heel spur, left , Pain of left foot 3 tabs x 2 days, 2 tabs x 2 days, 1 1/2 tab x 2 days, 1 tab x 2 days, 1/2 tab x 2 days then stop 16 tablet 01/11/2024 05/01/2024 Discontinued (Therapy completed) Problems Active Problems Problem Classification Problem Date Documented Date Episodic/Chronic Abdominal pain (4 sources) Unspecified abdominal pain; Translations: [UNSPECIFIED ABDOMINAL PAIN] Onset: 09-05-2022 Episodic Anxiety disorders (2 sources) Anxiety; Translations: [Anxiety disorder, unspecified] 01-11-2024 Chronic Essential hypertension (17 sources) Elevated blood pressure; Translations: [Essential (primary) hypertension] Onset: 08-31-2022 Resolved: 02-08-2023 08-31-2022 Chronic Headache; including migraine (7 sources) Migraine without aura, not refractory ; Translations: [Chronic migraine without aura, not intractable, without status migrainosus] Onset: 08-31-2022 08-31-2022 Chronic Malaise and fatigue (7 sources) Fatigue; Translations: [Chronic fatigue, unspecified] Onset: 08-31-2022 08-31-2022 Chronic Miscellaneous mental health disorders (2 sources) Pet ownership - finding; Translations: [Other symptoms and signs involving emotional state] 01-11-2024 Episodic Osteoarthritis (20 sources) Degenerative joint disease of hand; Translations: [Unilateral primary osteoarthritis of first carpometacarpal joint, right hand] Onset: 05-03-2019 08-31-2022 Chronic Other connective tissue disease (2 sources) Calcaneal spur of left foot; Translations: [Calcaneal spur, left foot] 01-11-2024 Episodic Other connective tissue disease (2 sources) Pain in left foot; Translations: [Pain in left foot] 01-11-2024 Episodic Other inflammatory condition of skin (7 sources) Pityriasis amiantacea; Translations: [Other specified papulosquamous disorders] Onset: 08-31-2022 08-31-2022 Chronic Other non-traumatic joint disorders (4 sources) Pain in right wrist; Translations: [PAIN IN RIGHT WRIST] Onset: 08-29-2022 Episodic Other screening for suspected conditions (not mental disorders or infectious disease) (2 sources) Patient encounter status; Translations: [Encounter for screening mammogram for malignant neoplasm of breast] 05-01-2024 Episodic Other upper respiratory infections (2 sources) Upper respiratory infection; Translations: [Acute upper respiratory infection, unspecified] 05-01-2024 Episodic Residual codes; unclassified (7 sources) Obstructive sleep apnea syndrome; Translations: [Obstructive sleep apnea (adult) (pediatric)] Onset: 08-31-2022 08-31-2022 Chronic Spondylosis; intervertebral disc disorders; other back problems (20 sources) Spondylosis without myelopathy or radiculopathy, lumbar region; Translations: [Spondylosis without myelopathy or radiculopathy, thoracic region] Onset: 11-29-2021 Chronic Unclassified (3 sources) LOW BACK PAIN, UNSPECIFIED; Translations: [LOW BACK PAIN, UNSPECIFIED] Onset: 05-30-2022 Past or Other Problems Problem Classification Problem Date Documented Date Episodic/Chronic Abdominal hernia (7 sources) Hernia of abdominal cavity; Translations: [Other specified abdominal hernia without obstruction or gangrene] Onset: 08-31-2022 08-31-2022 Episodic Biliary tract disease (1 source) Cholesterolosis of gallbladder; Translations: [CHOLESTEROLOSIS OF GALLBLADDER] Onset: 01-20-2022 Episodic Conditions associated with dizziness or vertigo (4 sources) Dizziness and giddiness; Translations: [DIZZINESS AND GIDDINESS] Onset: 04-18-2022 Episodic Immunizations and screening for infectious disease (1 source) Contact with and (suspected) exposure to other viral communicable diseases Onset: 02-22-2021 Resolved: 02-22-2021 Episodic Other aftercare (1 source) Other senior care (current) drug therapy; Translations: [OTH [facility] CURRENT DRUG THERAPY] Onset: 04-20-2022 Episodic Other connective tissue disease (1 source) Other muscle spasm; Translations: [OTHER MUSCLE SPASM] Onset: 05-30-2022 Episodic Other diseases of veins and lymphatics (1 source) Venous insufficiency of leg; Translations: [Venous insufficiency (chronic) (peripheral)] Episodic Other diseases of veins and lymphatics (7 sources) Vascular insufficiency; Translations: [Venous insufficiency (chronic) (peripheral)] Onset: 08-31-2022 08-31-2022 Episodic Other nutritional; endocrine; and metabolic disorders (7 sources) History of iron deficiency; Translations: [Personal history of other endocrine, nutritional and metabolic disease] Onset: 10-02-2017 02-08-2023 Episodic Screening and history of mental health and substance abuse codes (1 source) Personal history of nicotine dependence; Translations: [PERSONAL HISTORY OF NICOTINE DEPEND] Onset: 04-20-2022 Episodic Spondylosis; intervertebral disc disorders; other back problems (18 sources) Muscle spasm of back; Translations: [Disorder of left sciatic nerve] Onset: 12-28-2021 Episodic Unclassified (1 source) LOW [...] MARLEN AKINS Date: 2022-09-05 09:10 Normal [facility] CBC AUTO DIFFon 04-18-2022 BASO # 0.0 103/ul Normal 0.0-0.1 [facility] Comment on above: Performed By: #### C BC #### [facility] [address] [place] [address] Dr. Abdiaziz Butler Basophils/100 WBC (Bld) 0.2 % Normal 0.2-2.0 [facility] Comment on above: Performed By: #### C BC #### [facility] [address] [place] [address] Dr. Abdiaziz Butler EO # 0.1 103/ul Normal 0.0-0.7 [facility] Comment on above: Performed By: #### C BC #### [facility] [address] [place] [address] Dr. Abdiaziz Butler Eosinophils/100 WBC (Bld) 1.0 % Normal 0.9-7.0 [facility] Comment on above: Performed By: #### C BC #### [facility] [address] [place] [address] Dr. Abdiaziz Butler Erythrocyte distribution width (RBC) [Ratio] 12.8 % Normal 11.0-15.0 [facility] Comment on above: Performed By: #### C BC #### [facility] [address] [place] [address] Dr. Abdiaziz Butler Hematocrit (Bld) [Volume fraction] 35.2 % Critically low 36.0-48.0 [facility] Comment on above: Performed By: #### C BC #### [facility] [address] [place] [address] Dr. Abdiaziz Butler Hemoglobin (Bld) [Mass/Vol] 11.3 g/dL Critically low 12.0-16.0 [facility] Comment on above: Performed By: #### C BC #### [facility] [address] [place] [address] Dr. Abdiaziz Butler IG # 0.03 10e3/ul Normal 0.00-0.03 [facility] Comment on above: Performed By: #### C BC #### [facility] [address] [place] [address] Dr. Abdiaziz Butler IG % 0.3 % Normal 0.0-0.5 [facility] Comment on above: Performed By: #### C BC #### [facility] [address] [place] [address] Dr. Abdiaziz Butler LYMPH # 1.1 103/ul Critically low 1.2-3.8 [facility] Comment on above: Performed By: #### C BC #### [facility] [address] [place] [address] Dr. Abdiaziz Butler Lymphocytes/100 WBC (Bld) 11.9 % Critically low 20.5-60.0 [facility] Comment on above: Performed By: #### C BC #### [facility] [address] [place] [address] Dr. Abdiaziz Butler MANUAL DIFF REQ NO Normal [facility] Comment on above: Performed By: #### C BC #### [facility] [address] [place] [address] Dr. Abdiaziz Butler MCH (RBC) [Entitic mass] 28.4 pg Normal 26.7-34.0 [facility] Comment on above: Performed By: #### C BC #### [facility] [address] [place] [address] Dr. Abdaiziz Butler MCHC (RBC) [Mass/Vol] 32.1 g/dL Normal 29.9-35.2 [facility] Comment on above: Performed By: #### C BC #### [facility] [address] [place] [address] Dr. Abdiaziz Butler MCV (RBC) [Entitic vol] 88.4 fL Normal 81.0-99.0 [facility] Comment on above: Performed By: #### C BC #### [facility] [address] [place] [address] Dr. Abdiaziz Butler MONO # 0.7 103/ul Normal 0.3-0.8 [facility] Comment on above: Performed By: #### C BC #### [facility] [address] [place] [address] Dr. Abdiaziz Butler Monocytes/100 WBC (Bld) 7.9 % Normal 1.7-12.0 [facility] Comment on above: Performed By: #### C BC #### [facility] [address] [place] [address] Dr. Abdiaziz Butler NEUT # 7.1 103/ul Critically high 1.4-6.5 [facility] Comment on above: Performed By: #### C BC #### [facility] [address] [address] [address] Abdiaziz Butler Neutrophils/100 WBC (Bld) 78.7 % Critically high 43.0-75.0 [facility] Comment on above: Performed By: #### C BC #### [facility] [address] [address] [address] Abdiaziz Butler Platelet mean volume (Bld) [Entitic vol] 9.9 fL Normal 9.5-13.5 [facility] Comment on above: Performed By: #### C BC #### [facility] [address] [address] [address] Abdiaziz Butler PLT 293 103/ul Normal 150-450 [facility] Comment on above: Performed By: #### C BC #### [facility] [address] [address] [address] Abdiaziz Butler RBC 3.98 106/ul Critically low 4.20-5.40 [facility] Comment on above: Performed By: #### C BC #### [facility] [address] [address] [address] Abdiaziz Butler WBC 9.0 103/ul Normal 4.0-11.0 [facility] Comment on above: Performed By: #### C BC #### [facility] [address] [address] [address] Abdiaziz Butler POINT OF CARE GLUCOSEon Glucose [Mass/Vol] 128 mg/dL Critically high 74-106 T [facility] Comment on above: Performed By: #### P OCGLUC ####[facility] [id number] [address]Dr. Abdiaziz Butler PROF CHEM 8 (BAS METB)on Anion gap [Moles/Vol] 15.3 mmol/L Normal [facility] Comment on above: Performed By: #### B MP #### [facility] [address] [place] [address] Dr. Abdiaziz Butler Calcium [Mass/Vol] 8.6 mg/dL Normal 8.5-10.1 [facility] Comment on above: Performed By: #### B MP #### [facility] [address] [address] [address] Abdiaziz Butler Chloride [Moles/Vol] 104 mmol/L Normal 98-107 [facility] Comment on above: Performed By: #### B MP #### [facility] [address] [address] [address] Abdiaziz Butler CO2 [Moles/Vol] 23.6 mmol/L Normal 21.0-32.0 [facility] Comment on above: Performed By: #### B MP #### [facility] [address] [address] [address] Abdiaziz Butler Creatinine [Mass/Vol] 1.34 mg/dL Critically high 0.55-1.02 [facility] Comment on above: Performed By: #### B MP #### [facility] [address] [address] [address] Abdiaziz Butler EGFR-AF COLOMBIAN 50 mL/min/1.73m2 Critically low >=60 [facility] Comment on above: Performed By: #### B MP #### [facility] [address] [address] [address] Abdiaziz Butler EGFR-NON AF COLOMBIAN 41 mL/min/1.73m2 Critically low >=60 [facility] Comment on above: Performed By: #### B MP #### [facility] [address] [address] [address] Abdiaziz Butler Glucose [Mass/Vol] 97 mg/dL Normal 74-106 [facility] Comment on above: Performed By: #### B MP #### [facility] [address] [address] [address] Abdiaziz Butler Potassium [Moles/Vol] 3.3 mmol/L Critically low 3.5-5.1 [facility] Comment on above: Performed By: #### B MP #### [facility] [address] [address] [address] Abdiaziz Butler Sodium [Moles/Vol] 139 mmol/L Normal 136-145 [facility] Comment on above: Performed By: #### B MP #### [facility] [address] [place], [place] [address] Dr. Abdiaziz Butler Urea nitrogen [Mass/Vol] 26.0 mg/dL Critically high 7.0-18.0 [facility] Comment on above: Performed By: #### B MP #### [facility] [address] [place], [place] [address] Dr. Abdiaziz Butler Urea nitrogen/Creatinin e [Mass ratio] 19.4 mg/mg Normal [facility] Comment on above: Performed By: #### B MP #### [facility] [address] [place], [place] [address] Dr. Abdiaziz Butler US SINGLE QUAD RT [...] by: LIBAN SCHULTZ Date: 2022-01-18 08:33 Normal [facility] Lipid Panelon 04-12-2021 Cholesterol [Mass/Vol] 217 mg/dL High 125-200 [facility] Comment on above: Result Comment: Low risk < 200mg/dL Borderline risk 201-239 mg/dl High risk > or equal to 240 Performed By: #### L IPD #### [facility] [address] [place], [place] [id number] Cholesterol in HDL [Mass/Vol] 45 mg/dL Normal >40 [facility] Comment on above: Result Comment: High Cardiovascular Risk HDL <40 mg/dL Low Cardiovascular Risk HDL > or equal to 60 mg/dl Performed By: #### L IPD #### [facility] [address] [place], [place] [id number] Cholesterol in LDL [Mass/Vol] 142 mg/dL Normal [facility] Comment on above: Result Comment: LDL ATP III CLASSIFICATION LDL less than 100 mg/dl Optimal LDL 100-129 mg/dl Near or above optimal LDL 130-159 Borderline high LDL 160-189 High LDL greater than 189 mg/dl Very High Performed By: #### L IPD #### [facility] [address] [place], [place] [id number] Cholesterol in VLDL [Mass/Vol] 30 mg/dL Normal [facility] Comment on above: Performed By: #### L IPD #### [facility] [address] [place], [place] [id number] Cholesterol.total/ Cholesterol in HDL [Mass ratio] 5 {ratio} Normal [facility] Comment on above: Performed By: #### L IPD #### [facility] [address] [place], [place] [id number] Triglyceride [Mass/Vol] 149 mg/dL Normal 30-150 [facility] Comment on above: Result Comment: TRIG ATPIII CLASSIFICATIONS TRIG less than 150 mg/dl Normal TRIG 150-199 mg/dl Borderline High TRIG 200-500 mg/dl High TRIG greather than 500 mg/dl Very High Performed By: #### L IPD #### [facility] [address] [place], [place] [id number] COVID Quick Testingon 2020 Result Positive [facility] Other Vital Signs Date Time Vital Sign Value Performing Clinician Facility 05-01-2024 [id number] Body height 170.2 cm Goldie DAY Work Phone: [facility] 05-01-2024 15:11-0500 Body mass index (BMI) [Ratio] 32.45 kg/m2 Goldie DAY Work Phone: [facility] 05-01-2024 15:11-0500 Body weight 93.98 kg Goldie Hemmer PA Work Phone: [facility] 05-01-2024 15:11-0500 Diastolic blood pressure 76 mm[Hg] Goldie Hemmer PA Work Phone: [facility] 05-01-2024 15:11-0500 Heart rate 61 /min Goldie Hemmer PA Work Phone: [facility] 05-01-2024 15:11-0500 Respiratory rate 16 /min Goldie Hemmer PA Work Phone: [facility] 05-01-2024 15:11-0500 SaO2% (BldA) [Mass fraction] 97 % Goldie Hemmer PA Work Phone: [facility] 05-01-2024 15:11-0500 Systolic blood pressure 102 mm[Hg] Goldie Hemmer PA Work Phone: [facility] 01-11-2024 15:22-0400 Body height 170.2 cm Rebecca Kumar INSIDE SALES AGENT Work Phone: [facility] 01-11-2024 15:22-0400 Body mass index (BMI) [Ratio] 32.48 kg/m2 Rebecca Kumar INSIDE SALES AGENT Work Phone: [facility] 01-11-2024 15:22-0400 Body weight 94.08 kg Rebecca Kumar INSIDE SALES AGENT Work Phone: [facility] 01-11-2024 15:22-0400 Diastolic blood pressure 82 mm[Hg] Rebecca Kumar INSIDE SALES AGENT Work Phone: [facility] 01-11-2024 15:22-0400 Heart rate 67 /min Rebecca Kumar INSIDE SALES AGENT Work Phone: [facility] 01-11-2024 15:22-0400 Respiratory rate 17 /min Rebecca Kumar INSIDE SALES AGENT Work Phone: [facility] 01-11-2024 15:22-0400 SaO2% (BldA) [Mass fraction] 98 % Rebecca Kumar INSIDE SALES AGENT Work Phone: [facility] 01-11-2024 15:22-0400 Systolic blood pressure 134 mm[Hg] Rebecca Kumar INSIDE SALES AGENT Work Phone: [facility] 02-22-2021 11:15-0500 Body height 170.18 cm Tatianna Rosen Other [facility] Other 02-22-2021 11:15-0500 Body temperature 99.1 [degF] Tatianna Rosen Other [facility] Other 02-22-2021 11:15-0500 SaO2% (BldA) [Mass fraction] 97 % Tatianna Rosen Other [facility] Other Encounters Encounter Date Encounter Type Care Provider Facility Start: 05-01-2024 End: 05-01-2024 Office outpatient visit 25 minutes Goldie Hayes PA Work Phone: [facility] Comment on above: Essential hypertensi on (CMS/HCC) (Primary Dx); Encounter for screening mammogram for malignant neoplasm of breast; URI with cough and congestion Start: 05-01-2024 End: 05-01-2024 ambulatory GOLDIE HAYES Not Available Start: 05-01-2024 End: 05-01-2024 Bamboo flowsheet Goldie Hayes PA Work Phone: [facility] Start: 05-01-2024 End: 05-01-2024 Bamboo flowsheet Goldie Hayes PA Work Phone: [facility] Start: 01-11-2024 End: 01-11-2024 Office outpatient visit 25 minutes Rebecca Kumar [employer] SALES AGENT Work Phone: [facility] Comment on above: Anxiety (Primary Dx) ; Uses emotional support animal; Heel spur, left; Pain of left foot Start: 01-11-2024 End: 01-11-2024 ambulatory REBECCA KUMAR Not Available Start: 01-11-2024 End: 01-11-2024 Bamboo flowsheet Rebecca Kumar INSIDE SALES AGENT Work Phone: [facility] Start: 01-11-2024 End: 01-11-2024 Bamboo flowsheet Rebecca Kumar INSIDE SALES AGENT Work Phone: [facility] Start: 01-08-2024 End: 01-09-2024 Telephone encounter Marisel Mims ASSOCIATE FINANCIAL ANALYST Work Phone: [facility] Start: 09-20-2023 End: 09-20-2023 ambulatory GOLDIE Raj FREDDY Not Available Start: 05-15-2023 End: 05-15-2023 ambulatory HERRERA MANN Not Available Start: 09-13-2022 End: 09-13-2022 ambulatory GUCCIWILLA DOROTHEAREKHARANDALLMEGAN . Facility:[facility] Start: 09-05-2022 End: 09-06-[address] HERRERA MANN Facility:[facility] Start: 08-29-2022 End: 08-30-[address] HERRERA MANN Facility:[facility] Start: 08-25-2022 End: 08-26-[address] HERRERA MANN Facility:[facility] Start: 05-26-2022 End: 05-27-[address] GRACE COVARRUBIAS . Facility:[facility] Start: 04-18-2022 End: 04-18-2022 ambulatory KATIA LOPEZ Facility:[facility] Start: 02-24-2022 End: 02-25-[address] GRACE COVARRUBIAS . Facility:[facility] Start: 01-18-2022 End: 01-19-[address] HERRERA MANN Facility:[facility] Start: 12-28-2021 End: 12-29-[address] GRACE COVARRUBIAS . Facility:[facility] Start: 11-25-2021 End: 11-26-[address] GRACE COVARRUBIAS . Facility:[facility] Start: 02-22-2021 End: 02-22-2021 ambulatory Tatianna Rosen Other [facility] Other Start: 02-22-2021 Nursing evaluation o f patient and report Tatianna Rosen [facility] [place] Procedures Date Procedure Procedure Detail Performing Clinician Start: 02-01-2023 Mammography Marisel Vo ss ASSOCIATE FINANCIAL ANALYST Work Phone: Start: 08-31-2022 H/O: hysterectomy History of hystere ctomy Marisel Prasanna ASSOCIATE FINANCIAL ANALYST Work Phone: Start: 11-09-2018 Colonoscopy Marisel lópez ASSOCIATE FINANCIAL ANALYST Work Phone: Plan of Treatment Date Care Activity Detail Author Start: 11-09-2028 Screening for malignant neoplasm of colon [facility] Start: 06-05-2024 End: 06-05-2024 Patient encounter procedure 06/05/2024 3:00 PM EST Office Visit [facility] [address] [place] [address] Goldie Hayes PA [address] [place] [address] [facility] Start: 05-01-2024 End: 05-01-2024 Patient encounter procedure 05/01/2024 3:00 PM EST Office Visit [facility] [address] [place] [address] Goldie Hayes PA [address] [place] [address] Arrived [facility] Comment on above: Arrived Start: 05-01-2024 End: 05-01-2025 COMMON RESPIRATORY BACTERIAL/VIRAL INFECTION (HTRX) COMMON RESPIRATORY BACTERIAL/VIRAL INFECTION (HTRX) Lab Routine URI with cough and congestion Expected: 05/01/2024 (Approximate), Expires: 05/01/2025 [facility] Comment on above: Expected: 05/01/2024 (Approximate), Expires: 05/01/2025 Start: 05-01-2024 End: 06-29-2025 DBT Breast - bilateral screening Bilateral screening mammogram with tomosynthesis Imaging Routine Encounter for screening mammogram for malignant neoplasm of breast Expected: 05/01/2024, Expires: 06/29/2025 [facility] Work Phone: Comment on above: Expected: 05/01/2024 , Expires: 06/29/2025 Start: 02-02-2024 Screening for malignant neoplasm of breast [facility]ammogram [facility] Start: 01-11-2024 End: 01-11-2024 Patient encounter procedure [facility] Comment on above: Arrived Start: 12-17-2023 Influenza vaccination Influenza Vacc ine (#1) [facility] Start: 1970 Screening for malignant neoplasm of colon [facility] Immunizations Immunization Date Immunization Notes Care Provider Taylor owenty 02-08-2023 influenza, injectabl e, quadrivalent, preservative free Marisel Prasanna ASSOCIATE FINANCIAL ANALYST Work Phone: [facility] 02-08-2023 influenza virus vacc ine, unspecified formulation Marisel Prasanna ASSOCIATE FINANCIAL ANALYST Work Phone: [facility] 02-18-2021 influenza, injectabl e, quadrivalent, contains preservative Marisel Prasanna ASSOCIATE FINANCIAL ANALYST Work Phone: [facility] Payers Date Payer Category Payer [facility] BCBS Memb er Subscriber Plan / Payer (Effective 2020-Present) Name: Delisa Saleh Relation to Subscriber: Self Name: Delisa Saleh Payer ID: Not on file Type: Not on file Address: [address] [place] [id number] 2020 Unknown BCBS BCBS [id number] [id number] 2020-Present [phone] [address] [place] [id number] 2020 Unknown [id number] 1968 Unknown [id number] [id number]. 2.593 1968 Unknown [id number] 2.16.840.1.841315.3.579. 2.593 1968 Unknown [id number] 2.16.840.1.298957.3.579. 2.593 1968 Unknown [id number] 2.16.840.1.980071.3.579. 2.593 1968 Unknown [id number] 2.16.840.1.139584.3.579. 2.593 1968 Unknown [id number] 2.16.840.1.635561.3.579. 2.593 1968 Unknown [id number] 2.16.840.1.895407.3.579. 2.593 1968 Unknown [id number] 2.16.840.1.179164.3.579. 2.593 1968 Unknown [id number] 2.16.840.1.418067.3.579. 2.593 1968 Unknown [id number] 2.16.840.1.563839.3.579. 2.593 1968 Unknown [id number] 2.16.840.1.172401.3.579. 2.1259 1968 Unknown [id number] 2.16.840.1.192504.3.579. 2.1259 1968 Unknown [id number] 2.16.840.1.775692.3.579. 2.1259 1968 Unknown [id number] 2.16.840.1.563006.3.579. 2.1259 1959 [facility] [id number] Social History Date Type Detail Facility Start: 09-08-2022 End: 09-20-2023 Sex Assigned At [facility] Start: 09-08-2022 Tobacco smoking stat [facility] Never smoked tobacco [facility] Start: 09-08-2022 Tobacco use and exposure Smoke less tobacco non-user [facility] Start: 01-11-2024 End: 05-01-2024 Alcoholic beverage intake Lifetime non-drinker (finding) [facility] Start: 09-08-2022 End: 09-20-2023 History of Social function [facility] Within the last year , have you been afraid of your partner or ex-partner? No [facility] How often do you get together with friends or relatives? Patient declined [facility] Are you now , , , , never or living with a partner? [facility] How often to you hav e a drink containing alcohol? Never [facility] How hard is it for y ou to pay for the very basics like food, housing, medical care, and heating Not very hard [facility] Do you feel stress - tense, restless, nervous, or anxious, or unable to sleep at night because your mind is troubled all the time - these days [OSQ] To some extent [facility] (I/We) worried wheth er (my/our) food would run out before (I/we) got money to buy more. Never true [facility] Start: 02-08-2023 Alcohol Comment Caffeine intak e: on occasion [facility] Start: 1970 Sex assigned at Female [facility] Start: 09-08-2022 Gender identity Identifies as female gender (finding) [facility] Start: 09-08-2022 Sexual orientation Choose not to dis close [facility] Clinical Notes 02-22-2021 to 05-01-2024 SHAY Ryan - 05/01/2024 3:00 PM Maite Kumar NP - 01/11/2024 3:30 PM EDTPatient InstructionsTelephone Encounter - Lily Mendozamadyson - 01/09/2024 2:29 PM EDT Note Date & Type Note Facility 05-01-2024 History of Presen t illness Narrative Images from the original note were not included. HPI URI Additional comments: Admits cough with phlegm, wheezing, runny nose, post nasal drainage. Has had this for 2 days. Has not been taking anything OTC. Last edited by Marisel Mims LPN on 05/01/2024 3:11 PM. Subjective Patient ID: Delisa Saleh is a 53 y.o. female who presents for hypertension. Delisa is present today for follow up hypertension. Denies chest pain, SOB, blurry vision. Admits headaches. She got lightheaded at work and had her BP checked the other day and it was 159/111. She checked it this morning and it was 167/92. She is currently on Triamterene-hydrochlorothiazide. Has been high first thing in the morning and after work. Uses an upper arm cuff. No recent increase in stress. Does not drink water. Drinks Mio-aid and Gatorade (2 bottles a day), sometimes tea. Current Outpatient Medications on File Prior to Visit Medication Sig Dispense Refill Ajovy 225 MG/1.5ML prefilled syringe INJECT 1 pen SUBCUTANEOUSLY once a month in abdomen, thigh, or outer area OF the arm 1.5 mL 4 baclofen (Lioresal) 10 MG tablet Take 10 mg by mouth at bedtime. diclofenac (Voltaren) 50 MG EC tablet TAKE 1 TABLET BY MOUTH TWICE DAILY NEEDED 200 tablet 4 escitalopram (Lexapro) 10 MG tablet TAKE 1 TABLET BY MOUTH DAILY 100 tablet 3 gabapentin (Neurontin) 300 MG capsule TAKE 1 CAPSULE BY MOUTH THREE TIMES DAILY 100 capsule 3 Multiple Vitamins-Minerals (CENTRUM ADULTS PO) Take by mouth 1 (one) time each day. omeprazole (PriLOSEC) [address] capsule TAKE 1 CAPSULE BY MOUTH TWICE DAILY 200 capsule 3 topiramate 50 MG tablet TAKE 1 TABLET BY MOUTH AT BEDTIME 100 tablet 3 traMADol (Ultram) 50 MG tablet Take 1 tablet by mouth 1 (one) time each day. PRN triamterene-hydrochlorothiazide (Maxzide-25) 37.5-25 MG tablet TAKE 1 TABLET BY MOUTH IN THE MORNING 30 tablet 11 [DISCONTINUED] predniSONE (Deltasone) 20 MG tablet 3 tabs x 2 days, 2 tabs x 2 days, 1 1/2 tab x 2 days, 1 tab x 2 days, 1/2 tab x 2 days then stop 16 tablet 0 No current facility-administered medications on file prior to visit. I have reviewed and reconciled the history and medication list with the patient today. No Known Allergies Social History Tobacco Use Smoking status: Never Smokeless tobacco: Never Vaping Use Vaping status: Never Used Substance Use Topics Alcohol use: Never Comment: Caffeine intake: on occasion Family History Problem Relation Name Age of Onset Heart disease Father Past Medical History: Diagnosis Date Anxiety Back pain COVID-19 02/22/2021 HTN (hypertension) (CMS/HCC) Iron deficiency anemia Migraines (CMS/HCC) Past Surgical History: Procedure Laterality Date APPENDECTOMY COLONOSCOPY 10/2018 HERNIA REPAIR 10/2018 ventral hernia repair with mesh HYSTERECTOMY w/ BSO IR NERVE BLOCK PROCEDURE Bilateral L2-5 Nerve Blocks (07/17/18,09-11-18) IR NERVE BLOCK PROCEDURE 07/21/2020 Diagnostic Nerve Blocks T11-L2 IR NERVE BLOCK PROCEDURE 09/01/2020 Diagnostic Bilat Nerve Blocks L2-L5 IR NERVE BLOCK PROCEDURE 10/27/2020 Bilateral L2-L5 Nerve Blocks LUMBAR SPINE SURGERY Lumbar DENAE's (04/05/2018,12/10/2019) RADIOFREQUENCY ABLATION Right L2-L5 (09/11/2018,01/26/2021) VENTRAL HERNIA REPAIR 10/2018 with mesh Visit Vitals BP 102/76 Pulse 61 Resp 16 Ht 5' 7 Wt 207 lb 3.2 oz SpO2 97% BMI 32.45 kg/m Smoking Status Never BSA 2.11 m Review of Systems Constitutional: Negative for chills, fatigue and fever. HENT: Positive for postnasal drip and rhinorrhea. Respiratory: Positive for cough and wheezing. Negative for shortness of breath. Cardiovascular: Negative for chest pain, palpitations and leg swelling. Gastrointestinal: Negative for abdominal pain, constipation, diarrhea, nausea and vomiting. Skin: Negative for rash. Neurological: Positive for light-headedness and headaches. Objective Physical Exam Constitutional: General: She is not in acute distress. Appearance: She is well-developed. She is obese. HENT: Head: Normocephalic and atraumatic. Nose: Congestion present. Right Turbinates: Swollen. Left Turbinates: Swollen. Mouth/Throat: Mouth: Mucous membranes are moist. Pharynx: Posterior oropharyngeal erythema (Mild) and postnasal drip present. Eyes: General: No scleral icterus. Conjunctiva/sclera: Conjunctivae normal. Cardiovascular: Rate and Rhythm: Normal rate and regular rhythm. Heart sounds: Normal heart sounds. No murmur heard. Pulmonary: Effort: Pulmonary effort is normal. No respiratory distress. Breath sounds: No wheezing, rhonchi or rales. Comments: Mildly harsh to auscultation Skin: General: Skin is warm and dry. Neurological: General: No focal deficit present. Mental Status: She is alert and oriented to person, place, and time. Psychiatric: Mood and Affect: Mood normal. Behavior: Behavior normal. Assessment/Plan Diagnoses and all orders for this visit: Essential hypertension (CMS/HCC) - cloNIDine (Catapres) 0.1 MG tablet; Take 1 tablet (0.1 mg) by mouth Daily as needed for high blood pressure BP is WNL in the office today. Provided her with Rx for Clonidine to use as needed for elevated BP readings. Encouraged her to bring her cuff from home to her next appointment so we can make sure it is accurate. Also encouraged her to keep a log of her BP readings to bring with her to her next appointment. Encouraged pt to increase her water intake. Reviewed how hydration is important for maintaining stable BP. Encounter for screening mammogram for malignant neoplasm of breast - Bilateral screening mammogram with tomosynthesis; Future Provided patient with an order for an updated Mammogram. If results are negative/normal, will plan to continue with routine yearly screenings. URI with cough and congestion - fluticasone (Flonase) 50 MCG/ACT nasal spray; Administer 1-2 sprays into each nostril Daily Shake gently. Before first use, prime pump. After use, clean tip and replace cap. - COMMON RESPIRATORY BACTERIAL/VIRAL INFECTION (HTRX); Future Start the Flonase for symptomatic relief. Sent out a nasal swab for further evaluation. Pt will be notified of the results once received. Increase water intake, get plenty of rest. Can take OTC a Tylenol prn. Follow up for Recheck BP in 4-6 weeks.. documented in this encounter [facility] 01-11-2024 History of Presen t illness Narrative Images from the original note were not included. Subjective Patient ID: Delisa Saleh is a 53 y.o. female who presents for a letter to have a emotional support animal She states she wants a letter for two dogs for her anxiety. She also states her left heel is hurting and has been for two weeks and she says she might have a bone spur. Current Outpatient Medications on File Prior to Visit Medication Sig Dispense Refill Ajovy 225 MG/1.5ML prefilled syringe INJECT 1 pen SUBCUTANEOUSLY once a month in abdomen, thigh, or outer area OF the arm 1.5 mL 4 baclofen (Lioresal) 10 MG tablet Take 10 mg by mouth at bedtime. diclofenac (Voltaren) 50 MG EC tablet TAKE 1 TABLET BY MOUTH TWICE DAILY NEEDED 200 tablet 4 escitalopram (Lexapro) 10 MG tablet TAKE 1 TABLET BY MOUTH EVERY DAY 100 tablet 3 gabapentin (Neurontin) 300 MG capsule TAKE 1 CAPSULE BY MOUTH THREE TIMES DAILY 100 capsule 3 Multiple Vitamins-Minerals (CENTRUM ADULTS PO) Take by mouth 1 (one) time each day. omeprazole (PriLOSEC) [address] capsule TAKE 1 CAPSULE BY MOUTH TWICE DAILY 200 capsule 3 topiramate 50 MG tablet TAKE 1 TABLET BY MOUTH AT BEDTIME 100 tablet 3 traMADol (Ultram) 50 MG tablet Take 1 tablet by mouth 1 (one) time each day. PRN triamterene-hydrochlorothiazide (Maxzide-25) 37.5-25 MG tablet TAKE 1 TABLET BY MOUTH IN THE MORNING 30 tablet 11 No current facility-administered medications on file prior to visit. I have reviewed and reconciled the history and medication list with the patient today. No Known Allergies Social History Tobacco Use Smoking status: Never Smokeless tobacco: Never Vaping Use Vaping status: Never Used Substance Use Topics Alcohol use: Never Comment: Caffeine intake: on occasion Family History Problem Relation Name Age of Onset Heart disease Father Past Medical History: Diagnosis Date Anxiety Back pain COVID-19 02/22/2021 HTN (hypertension) (CMS/HCC) Iron deficiency anemia Migraines (CMS/HCC) Past Surgical History: Procedure Laterality Date APPENDECTOMY COLONOSCOPY 10/2018 HERNIA REPAIR 10/2018 ventral hernia repair with mesh HYSTERECTOMY w/ BSO IR NERVE BLOCK PROCEDURE Bilateral L2-5 Nerve Blocks (07/17/18,09-11-18) IR NERVE BLOCK PROCEDURE 07/21/2020 Diagnostic Nerve Blocks T11-L2 IR NERVE BLOCK PROCEDURE 09/01/2020 Diagnostic Bilat Nerve Blocks L2-L5 IR NERVE BLOCK PROCEDURE 10/27/2020 Bilateral L2-L5 Nerve Blocks LUMBAR SPINE SURGERY Lumbar DENAE's (04/05/2018,12/10/2019) RADIOFREQUENCY ABLATION Right L2-L5 (09/11/2018,01/26/2021) VENTRAL HERNIA REPAIR 10/2018 with mesh Visit Vitals Smoking Status Never Review of Systems Constitutional: Negative. HENT: Negative. Eyes: Negative. Respiratory: Negative. Cardiovascular: Negative. Genitourinary: Negative. Musculoskeletal: Pain, left heel Neurological: Negative. Psychiatric/Behavioral: Negative. Hematological: Negative. Endocrine: Negative. Allergic/Immunologic: Negative. Objective Physical Exam Constitutional: Appearance: Normal appearance. HENT: Head: Normocephalic and atraumatic. Right Ear: External ear normal. Left Ear: External ear normal. Nose: Nose normal. Eyes: Extraocular Movements: Extraocular movements intact. Pupils: Pupils are equal, round, and reactive to light. Cardiovascular: Rate and Rhythm: Normal rate. Pulmonary: Effort: Pulmonary effort is normal. Breath sounds: Normal breath sounds. Abdominal: General: Bowel sounds are normal. Palpations: Abdomen is soft. Musculoskeletal: General: Normal range of motion. Skin: General: Skin is warm and dry. Neurological: General: No focal deficit present. Mental Status: She is alert and oriented to person, place, and time. Psychiatric: Thought Content: Thought content normal. Judgment: Judgment normal. Comments: Increased anxiety Assessment/Plan 1. Anxiety This pt is seen today in follow up today. She continues with the use of escitalopram daily. She continues to use her family pets as her emotional support animals. A letter is provided to the pt today. This will allow her to have the 2 dogs be recognized as an emotional support animal. 2. Uses emotional support animal A letter is provided to the pt for her emotional support animal today. 3. Heel spur, left Discussed diagnosis with the pt, use of prednisone and its most common side effects. Advised to continue the medication as ordered, continue to use ICE to the area as needed. Rest the foot, if pain continues a referral to podiatry will be sent. - predniSONE (Deltasone) 20 MG tablet; 3 tabs x 2 days, 2 tabs x 2 days, 1 1/2 tab x 2 days, 1 tab x 2 days, 1/2 tab x 2 days then stop Dispense: 16 tablet; Refill: 0 4. Pain of left foot - ketorolac (Toradol) injection 30 mg No follow-ups on file. documented in this encounter [facility] 01-11-2024 Instructions Rebecca Kumar NP - 01/11/2024 3:30 PM EDT Emotional support animal letter provided. Prednisone as ordered Discussed possible referral to podiatry if needed. documented in this encounter [facility] 01-09-2024 Telephone encount er Note Patient scheduled [facility] 01-09-2024 Miscellaneous Notes Formattin g of this note might be different from the original. Patient scheduled Pt KELSEY on requesting a letter for an emotional support animal. Please help patient get set up for an appt for this. documented in this encounter [facility] 01-08-2024 Telephone encount er Note Pt KELSEY on requesting a letter for an emotional support animal. Please help patient get set up for an appt for this. [facility] 08-29-2022 Note PROCEDURE: XR WRIST RT 2V [...] authenticated by: LIBAN SCHULTZ Date: 2022-08-29 09:35 [facility] 05-26-2022 Note CONSULTATION CONSULTATION DATE: 05/26/2022 HISTORY [...] patient is in agreement to this. [facility] 02-24-2022 Note CONSULTATION CONSULTATION DATE: 02/24/2022 HISTORY [...] indicated. Patient agrees with this plan. [facility] 12-28-2021 Note CONSULTATION PROCEDURE DATE: 12/28/2021 PREOPERATIVE [...] be followed up in the office. [facility] 11-25-2021 Note PROCEDURE DATE: 11/15 PRE AND POSTOPERATIVE DIAGNOSIS: Bilateral paravertebral spasms. PROCEDURE: Bilateral lumbar trigger point injections. CORRECTION: No procedure was done on that day. We will preauthorize for the bilateral lumbar trigger point and bring her back into the office at that time. 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 She does report stretching and using [...] three months' time unless otherwise indicated. [facility] 02-22-2021 Evaluation note Encounter Date Diagnosis Assessment [...] Patient care instructions given in writting by [facility] document. Additional time spent conducting pre-visit phone call, screening for symptoms, instructions on social distancing, application and removal of PPE, and cleaning of examination room, equipment and supplies was preformed. Patient education given for testing methodology and results. Patient care instructions given in writting by [facility] document. [facility] Other Evaluation note* Diagnosis Anxiety- Primary Anxiety state, unspecified Uses emotional support animal Heel spur, left Pain of left foot [facility] Diagnosis Essential hypertension (CMS/HCC)- Primary Unspecified essential hypertension Encounter for screening mammogram for malignant neoplasm of breast URI with cough and congestion documented [facility] Narrative - Reported* Type Description Date Medical History HTN Medical History Anxiety Medical History Back pain Medical History Migranes Medical History Iron deficiency anemia Surgical History hysterectomy Surgical History appy Hospitalization History See Above [facility] Other Summary Purpose Family History No Family History Records FoundNo Family History Records FoundNo Family History Records Found Advance Directives No Advanced Directives Records FoundNo Advanced Directives Records FoundNo Advanced Directives Records Found Additional Source Comments INFORMATION SOURCE (unrecogn ized section and content) DATE CREATED AUTHOR 04/13/2021 [facility] dical Specialist DATE CREATED AUTHOR AUTHOR'S ORGANIZ ATION 09/23/2022 [facility] DATE CREATED AUTHOR AUTHOR'S ORGANIZ ATION 05/04/2024 [facility] dical Specialists EPIC REASON FOR VISIT (unrecogniz ed section and content) Reason Comments URI Admits cough with ph legm, wheezing, runny nose, post nasal drainage. Has had this for 2 days. Has not been taking anything OTC. Care Teams (unrecognized sec tion and content) Sales Management Trainee Relationship Specialty Start Date End Date Herrera Mann MD [address] [facility] [address] [place] [address] PCP - [employer] 07/16/20 Herrera Mann MD [address] [facility] [address] [place] [address] PCP - General Internal Medicine 09/08/22 Sales Management Trainee Relationship Specialty Start Date End Date Herrera Mann MD [address] [facility] [address] [place] [address] PCP - [employer] 07/16/20 Herrera Mann MD [address] [place] [address] PCP - General Internal Medicine 09/08/22 Sales Management Trainee Relationship Specialty Start Date End Date Herrera Mann MD [address] [place] [address] [facility] Herrera Mann MD [address] [place] [address] PCP - General Internal Medicine 09/08/22 Sales Management Trainee Relationship Specialty Start Date End Date Herrera Mann MD [address] [place] [address] PCP - [facility] 07/16/20 Herrera Mann MD [address] [place] [address] PCP - General Internal Medicine 09/08/22 Sales Management Trainee Relationship Specialty Start Date End Date Herrera Mann MD [address] [place] [address] PCP [facility] 07/16/20 Herrera Mann MD [address] [place] [address] PCP - General Internal Medicine 09/08/22 FOR RECORDS PERTAINING TO PATIENTS WHO ARE [...] BE BASED ON THE PRIMARY CLINICAL RECORDS. [facility] [place] [employer] [facility]. provides no warranty or guarantee of the accuracy or completeness of information in this document.
== END 2024-05-09 15:22 | disposition home or self-care (01) ==
LOC: MAMMO 15:21
PROVIDERS: PCP Internal Medicine; Visit Provider Physician Assistant
DX: Z12.31 Encounter for screening mammogram for malignant neoplasm of breast (principal)
CPT/HCPCS: 77063; 77067

== ENCOUNTER 2024-07-10 14:49 | Outpatient (OUT) | payer BC, SELFPAY ==
--- NOTE | 2024-07-10 15:16 | PM.CN ---
Consult Note: HPI Data of Consult Patient: known to practice within the last 3 years Requesting Physician: Mila Hill NP Primary Care Provider: BARBI WELLER Consult Narrative Reason for consult: F/u Narrative: Delisa Saleh a pleasant 54 year old female presents for evaluation and management of chronic thoracic and lumbar pain. Patient previously underwent left and right T11-12 facet RFA with >50% improvement ongoing. Continues to utilize baclofen, tramadol and gabapentin with benefit without side effects. pain today 4/10 aching increasing to 6/10 with twisting, pushing, pulling, activity, and weather changes. AMAURY 6%. cc:: CC: Mila Hill NP Review of Systems ROS Status of ROS 10 or more systems reviewed and unremarkable except as noted in history and below Musculoskeletal Reports: back pain PFSH PFSH Medical History (Updated 07/10/24 @ 15:19 by Mila Hlil NP) Arthritis ?M19.90 - Unspecified osteoarthritis, unspecified site (ICD-10) Anxiety ?F41.9 - Anxiety disorder, unspecified (ICD-10) HTN (hypertension) ?I10 - Essential (primary) hypertension (ICD-10) Surgical History History of ventral hernia repair ?Z98.890 - Other specified postprocedural states (ICD-10) ?Z87.19 - Personal history of other diseases of the digestive system (ICD-10) History of hysterectomy ?Z90.710 - Acquired absence of both cervix and uterus (ICD-10) Meds Home Medications and Allergies Home Medications ?Medication ?Instructions ?Recorded ?Confirmed ?Type acetaminophen 325 mg tablet 325 mg PO Q6H 09/29/22 09/19/23 History (Tylenol) erenumab-aooe 70 mg/mL 70 mg subcut .MONTHLY 09/29/22 09/19/23 History subcutaneous auto-injector (Aimovig Autoinjector) escitalopram oxalate 10 mg tablet 10 mg PO DAILY 09/29/22 09/19/23 History gabapentin 300 mg capsule 300 mg PO TID 09/29/22 09/19/23 History losartan 100 1 tab PO DAILY 09/29/22 09/19/23 History mg-hydrochlorothiazide 25 mg tablet multivitamin 1 tab PO DAILY 09/29/22 09/19/23 History sumatriptan succinate PO DAILY 09/29/22 History topiramate 50 mg tablet 50 mg PO DAILY 09/29/22 09/19/23 History tramadol 50 mg tablet 50 mg PO DAILY 09/29/22 09/19/23 History baclofen 10 mg tablet 10 mg PO DAILY PRN muscle spasm 04/18/23 09/19/23 Rx #30 tabs tramadol 50 mg tablet 50 mg PO DAILY PRN pain #30 tabs 11/08/23 Rx tramadol 50 mg tablet 50 mg PO DAILY PRN pain #30 tabs 12/19/23 Rx baclofen 10 mg tablet 10 mg PO .hs PRN muscle spasm #30 03/12/24 Rx tabs tramadol 50 mg tablet 50 mg PO DAILY PRN pain #30 tabs 03/12/24 Rx baclofen 10 mg tablet 10 mg PO DAILY #30 tabs 06/10/24 Rx tramadol 50 mg tablet 50 mg PO DAILY PRN pain #30 tabs 06/10/24 Rx Allergies Allergy/AdvReac Type Severity Reaction Status Date / Time No Known Drug Allergies Allergy Verified 09/19/23 06:58 Exam Constitutional Documenting provider has reviewed patient's vital signs: yes Common normals: no apparent distress, oriented x3, healthy appearing, alert and well nourished General appearance: cooperative HENME Common normals: normocephalic, hearing grossly normal bilaterally and moist oral mucous membranes Head and scalp: normocephalic Eye Common normals: PERRL Pupil: PERRL Neck & C-Spine Common normals: full ROM General: normal visual inspection Chest Common normals: inspection of chest normal Respiratory Common normals: normal respiratory effort, no retractions and no use of accessory muscles Back & Pelvis Thoracic spine/upper back: normal to inspection and thoracic ROM normal Lumbar spine/lower back: ROM limited, pain with ROM and straight leg raise negative bilaterally Other: positive L4-S1 facet loading and tenderness negative radiculopathy Extremity Common normals: normal to inspection and full ROM Neuro Common normals: oriented x3, CN's II-XII intact bilaterally, moves all extremities, no focal motor deficits, no sensory deficits noted and deep tendon reflexes 2+ bilaterally Sensorium/orientation: alert Motor exam: strength 5/5 throughout and no movement abnormalities noted Psych Common normals: mental status grossly normal, thought process normal, cooperative, affect normal, speech normal and activity/motor behavior normal Speech: normal speech Thought process: normal thought process Results Additional Findings Additional findings: If on a controlled substance or opioids, I have checked an OARRS report on this patient and there are no aberrancies noted in the prescribing history.??If on a controlled substance or opioid a drug screen was completed and reviewed within the last year, and if there has not been a drug screen completed we ordered one today to monitor higher risk, state monitored pain medication use. As part of providing excellent, safe, comprehensive care, the following was completed at our patient's visit: 1. A medication reconciliation and review to ensure accurate knowledge of current/active medications, including asking our patients to inform us about any [id number] medications or herbal remedies/nutritional supplements/alternative remedies. 2. A review to specifically ensure our patients have had annual screening for screening for depression, screening for tobacco use, and screening for unhealthy alcohol use. For concerning screenings had a discussion with the patient, provided patient education, and recommended follow-up with primary care provider when appropriate. If patient noted with a risk of falling, they received education on strength, gait, and balance training to prevent future risk of falling. Assessment and Plan Assessment and Plan (1) Thoracic spondylosis: (2) Lumbar spondylosis: (3) Spasm of back muscles: (4) Encounter for long-term opiate analgesic use: Assessment and Plan: I feel these medications are improving the patient's quality of life and allow them to tolerate activities of daily living as well as participate in recreational activity.? The patient does not report intolerable side effects. The patient is NOT opioid naive and non-pharmacologic and non-opioid treatment has failed to significantly relieve the patient's pain and improve functionality. The patient has a diagnosis that is related to a somatic or visceral pain etiology. ? ?? I reviewed with the patient the potential risks and side effects with the use of? opioid medications including but not limited to respiratory depression,? sedation, and even . Within the last 12 months I have verified the patient has access to naloxone should? these effects occur. The patient was advised to let? their family know they had Naloxone in case they would need to administer? the medication. I advised the patient to avoid the use of any other? sedation substances including alcohol, THC, and benzodiazepines while? taking opioid medications due to the risk of compounding side effects and? detrimental outcomes. within the last 12 months I have reviewed the PRESENTATION TEAM MEMBER, pain treatment agreement and urine drug screen.? ?? A drug screen was completed within the last year, and no aberrancies were noted regarding their use of controlled substances. The patient understands they are subject to the terms and conditions of the pain contract that they have signed. ? ?? I have checked an OARRS report on this patient today and there are no aberrancies noted in the prescribing history.? (5) Chronic myofascial pain: Plan update UDS continue HEP as tolerated continue current medications defer additional lumbar MBBs and RFAs as pain is well controlled with current regimen f/u 3 months, sooner if needed
== END 2024-07-10 14:50 | disposition home or self-care (01) ==
PROVIDERS: PCP Internal Medicine; Visit Provider Nurse Practitioner
DX: M47.814 Spondylosis without myelopathy or radiculopathy, thoracic region (principal); M47.816 Spondylosis without myelopathy or radiculopathy, lumbar region; M62.838 Other muscle spasm; Z79.891 Long term (current) use of opiate analgesic
CPT/HCPCS: G0463

== ENCOUNTER 2024-10-09 14:50 | Outpatient (OUT) | payer OTHER, SELFPAY ==
--- OUTSIDE RECORDS SUMMARY | 2024-10-09 14:54 | XMS_ITS | Encounter Summary ---
Author Organization [facility] Address [address] [place] [address] Care Team Providers Care Electric Motor Assembler And Tester Name Role Phone Herrera Mann MD Primary Care Provider [phone] Encounter Details Date Type Department Care Team (Late st Contact Info) Description 09/19/2024 Orders Only [facility] [address] [facility] [address] [place] [id number] Marisel Mims LPN [address] [place] [address] Encounter for screening mammogram for malignant neoplasm of breast Social History Tobacco Use Types Packs/Day Years Used Date Smoking Tobacco: Never Smokeless Tobacco: Never Alcohol Use Standard Drinks/Week Comments Never 0 (1 standard drink = 0.6 oz pur e alcohol) Caffeine intake: on occasion Humiliation, Afraid, Rape, and Kick questionnair e Answer Date Recorded Within the last year, have y ou been afraid of your partner or ex-partner? No 09/08/2022 Within the last year, have y ou been humiliated or emotionally abused in other ways by your partner or ex-partner? No Within the last year, have y ou been kicked, hit, slapped, or otherwise physically hurt by your partner or ex-partner? No 09/08/2022 Within the last year, have y ou been raped or forced to have any kind of sexual activity by your partner or ex-partner? No 09/08/2022 Social Connection and Isolation Panel [NHANES] A nswer Date Recorded In a typical week, how many times do you talk on the phone with family, friends, or neighbors? Once a week 09/20/2023 How often do you get togethe r with friends or relatives? Patient declined 09/20/2023 How often do you attend hinduism or faith serv ices? Never 09/20/2023 Do you belong to any clubs o r organizations such as hinduism groups, unions, fraternal or athletic groups, or school groups? No 09/20/2023 How often do you attend meet ings of the clubs or organizations you belong to? Never 09/20/2023 Are you , , di vorced, , never , or living with a partner? 09/20/2023 AUDIT-C Answer Date Recorded Q1: How often do you have a drink containing alcohol? Never 09/20/2023 Q2: How many drinks containi ng alcohol do you have on a typical day when you are drinking? Patient does not drink Q3: How often do you have si x or more drinks on one occasion? Never 09/20/2023 Overall Financial Resource Strain (CARDIA) Answe r Date Recorded How hard is it for you to pa y for the very basics like food, housing, medical care, and heating? Not very hard 09/20/2023 [facility] - Occupational Stress Questionnaire Answer Date Recorded Do you feel stress - tense, restless, nervous, or anxious, or unable to sleep at night because your mind is troubled all the time - these days? To some extent 09/20/2023 Exercise Vital Sign Answer Date Recorde d On average, how many days pe r week do you engage in moderate to strenuous exercise (like a brisk walk)? 3 days On average, how many minutes do you engage in exercise at this level? Patient declined 09/20/2023 Hunger Vital Sign Answer Date Recorded Within the past 12 months, y ou worried that your food would run out before you got the money to buy more. Never true Within the past 12 months, t he food you bought just didn't last and you didn't have money to get more. Patient declined 08/2023 PRAPARE - Transportation Answer Date Re corded In the past 12 months, has l ack of transportation kept you from medical appointments or from getting medications? No 08/2023 In the past 12 months, has l ack of transportation kept you from meetings, work, or from getting things needed for daily living? No 09/20/2023 Housing Stability Vital Sign Answer Wilver e Recorded In the last 12 months, was t here a time when you were not able to pay the mortgage or rent on time? No 09/20/2023 In the last 12 months, how many places have you lived? 1 09/20/2023 In the last 12 months, was t here a time when you did not have a steady place to sleep or slept in a usp (including now)? No 09/20/2023 Comments Unknown Sex and Gender Information Value Date Recorded Sex Assigned at Female 09/08/2022 9:35 AM EDT Legal Sex Female 8:23 PM EDT Gender Identity Female 09/08/2022 9:35 AM EDT Sexual Orientation Choose not to disclose 2022 9:35 AM EDT documented as of this encounter Plan of Treatment Upcoming Encounters Date Type Department Care Team (Late st Contact Info) Description 12/23/2024 4:00 PM EDT Office Visit [facility] [address] [facility] [address] [place] [address] Herrera Mann MD [address] [facility] [address] [place] [address] documented as of this encounter Visit Diagnoses Diagnosis Encounter for screening mammogram for malignant neoplasm of breast documented in this encounter Care Teams Electric Motor Assembler And Tester Relationship Specialty Start Date End Date Herrera Mann MD [address] [facility] [address] [place] [address] PCP - General Internal Medicine 09/08/22 documented as of this encounter
--- OUTSIDE RECORDS SUMMARY | 2024-10-09 14:55 | XMS_ITS | Encounter Summary ---
Author Organization [facility] Address [address] [facility] [place] [address] Care Team Providers Care Installer Soft Top Name Role Phone Herrera Mann MD Unavailable [phone] Herrera Mann MD Primary Care Provider [phone] Encounter Details Date Type Department Care Team (Late st Contact Info) Description 05/02/2023 Abstract [facility] 112 [facility] 110 [place] [id number] Herrera Mann MD [address] [facility] 110 [place] [address] Social History Tobacco Use Types Packs/Day Years [...] the phone with family, friends, or neighbors? Twice a week 09/08/2022 How often do you get togethe r with friends or relatives? Patient declined 09/08/2022 How often do you attend judaism or jewish serv ices? Never 09/08/2022 Do you belong to any clubs o r organizations such as judaism groups, unions, fraternal or athletic groups, or school groups? No 09/08/2022 How often do you attend meet ings of the clubs or organizations you belong to? Never 09/08/2022 Are you , , di vorced, , never , or living with a partner? 09/08/2022 AUDIT-C Answer Date Recorded Q1: How often do you have a drink containing alcohol? Never 09/08/2022 Q2: How many drinks containi ng alcohol do you have on a typical day when you are drinking? Patient does not drink Q3: How often do you have si x or more drinks on one occasion? Never 09/08/2022 Overall Financial Resource Strain (CARDIA) Answe r Date Recorded How hard is it for you to pa y for the very basics like food, housing, medical care, and heating? Not hard at all 09/08/2022 [facility] - Occupational Stress Questionnaire Answer Date Recorded Do you feel stress - tense, restless, nervous, or anxious, or unable to sleep at night because your mind is troubled all the time - these days? Very much 09/08/2022 Exercise Vital Sign Answer Date Recorde d On average, how many days pe r week do you engage in moderate to strenuous exercise (like a brisk walk)? 7 days On average, how many minutes do you engage in exercise at this level? Patient declined 09/08/2022 Hunger Vital Sign Answer Date Recorded Within the past 12 months, y ou worried that your food would run out before you got the money to buy more. Never true 09/09/19 23 Within the past 12 months, t he food you bought just didn't last and you didn't have money to get more. Never true 09/08/2022 PRAPARE - Transportation Answer Date Re corded In the past 12 months, has l ack of transportation kept you from medical appointments or from getting medications? No 08/16 In the past 12 months, has l ack of transportation kept you from meetings, work, or from getting things needed for daily living? No 09/08/2022 Housing Stability Vital Sign Answer Wilver e Recorded In the last 12 months, was t here a time when you were not able to pay the mortgage or rent on time? No 09/08/2022 In the last 12 months, how many places have you lived? 1 09/08/2022 In the last 12 months, was t here a time when you did not have a steady place to sleep or slept in a correction (including now)? No 09/08/2022 Comments Unknown Sex and Gender Information Value [...] Visit [facility] [address] [facility] [address] [place] [address] Herrera Mann MD [address] [facility] 110 [place] [address] documented as of this encounter Visit Diagnoses Not on filedocumented in this encounter Care Teams Installer Soft Top Relationship Specialty Start Date End Date Herrera Mann MD [address] [facility] [address] [place] [address] PCP - Sury Wallace 07/16/20 5 Herrera Mann MD [address] [facility] [address] [place] [address] PCP - General Internal Medicine 09/08/22 documented as of this encounter
--- OUTSIDE RECORDS SUMMARY | 2024-10-09 14:55 | XMS_ITS | Encounter Summary ---
Author Organization [facility] Address [address] [facility] [place] [address] Care Team Providers Care Activities Assistant Name Role Phone Herrera Mann MD Unavailable [phone] Herrera Mann MD Primary Care Provider [phone] Encounter Details Date Type Department Care Team (Late st Contact Info) Description 11/11/2022 Abstract [facility] [address] [facility] 110 [place] [id number] Herrera Mann MD [address] [facility] 110 [place], [place] [id number] Social History Tobacco Use Types Packs/Day Years Used Date Smoking Tobacco: Never Smokeless Tobacco: Never Humiliation, Afraid, Rape, and Kick questionnair e [...] declined 09/08/2022 How often do you attend oriental orthodox or anabaptism serv ices? Never 09/08/2022 Do you belong to any clubs o r organizations such as oriental orthodox groups, unions, fraternal or athletic groups, or [...] and heating? Not hard at all 09/08/2022 [facility] - Occupational [...] place to sleep or slept in a fpc (including now)? No 09/08/2022 Comments Unknown Sex [...] Visit [facility] [address] [facility] 110 [place] [address] Herrera Mann MD [address] [facility] 110 [place] [address] documented as of this encounter Visit Diagnoses Not on filedocumented in this encounter Care Teams Activities Assistant Relationship Specialty Start Date End Date Herrera Mann MD [address] [facility] [address] [place] [address] PCP - [employer] 07/16/20 5 Herrera Mann MD [address] [facility] [address] [place] [address] PCP - General Internal Medicine 09/08/22 documented as of this encounter
--- OUTSIDE RECORDS SUMMARY | 2024-10-09 14:55 | XMS_ITS | Encounter Summary ---
Author Organization [facility] Address [address] [facility] [place] [address] Care Team Providers Care Indoor Landscape Architect Name Role Phone Herrera Mann MD Unavailable [phone] Herrera Mann MD Primary Care Provider [phone] Encounter Details Date Type Department Care Team (Late st Contact Info) Description 09/05/2022 Clinisync Result Encounter [facility] Herrera Mnan MD [address] [facility] [address] [place] [address] Social History Tobacco Use Types Packs/Day Years Used Date Smoking Tobacco: Never Assessed Humiliation, Afraid, Rape, and Kick questionnair e [...] declined 09/08/2022 How often do you attend temple or sabianism serv ices? Never 09/08/2022 Do you belong to any clubs o r organizations such as temple groups, unions, fraternal or athletic groups, or [...] and heating? Not hard at all 09/08/2022 [facility] - Occupational [...] place to sleep or slept in a [place] (including now)? No 09/08/2022 Comments Unknown Sex and Gender Information Value Date Recorded Sex Assigned at Female 09/08/2022 9:35 AM EDT Legal Sex Female 8:23 PM EDT Gender Identity Female 09/08/2022 9:35 AM EDT Sexual Orientation Choose not to disclose 2022 9:35 AM EDT COVID-19 Exposure Response Date Recorded In the last 10 days, have yo u been in contact with someone who was confirmed or suspected to have Coronavirus/COVID-19? No / Unsure 09/08/2022 9:49 AM EDT documented as of this encounter Functional Status * Audit-C Score Answer Date of Assessment Author 0 09/08/2022 9:48 AM EDT Mychart, Generic * Q1: How often do you have a drink containing alcohol? Answer Date of Assessment Author Never 09/08/2022 9:48 AM EDT Mychart, Generic * Q2: How many drinks containing alcohol do you have on a typical day when you are drinking? Answer Date of Assessment Author Patient does not drink 09/08/2022 9:48 AM EDT My chart, Generic * Q3: How often do you have six or more drinks on one occasion? Answer Date of Assessment Author Never 09/08/2022 9:48 AM EDT Mychart, Generic documented as of this encounter Plan of Treatment Upcoming Encounters Date Type Department Care Team (Late st Contact Info) Description 12/23/2024 4:00 PM EDT Office Visit [facility] [address] [facility] 110 [place] [address] Herrera Mann MD 112 [facility] 110 [place] [address] documented as of this encounter Procedures Procedure Name Priority Date/Time Associated Diagnosis Comments CT ABD/PELV W CON 09/05/2022 6:5 2 AM EDT documented in this encounter Results * CT ABD/PELV W CON (09/05/2022 6:52 AM EDT) Anatomical Region Laterality Modality Other 09/05/2022 6:52 AM EDT Narrative 09/05/2022 9:10 AM EDT EXAMINATION: CT ABD/PELV W CON HISTORY: Abdominal [...] authenticated by: MARLEN AKINS Date: 2022-09-05 09:10 Procedure Note Radiology, Radiologist, - 09/05/2022 EXAMINATION: CT ABD/PELV W CON HISTORY: Abdominal pain COMPARISON: CT abdomen and pelvis 10/05/2019.. TECHNIQUE: Following the intravenous administration of contrast, axialsoft tissue windows of the abdomen and pelvis were performed with coronal and sagittal reformats. Dose reduction techniques were achieved by using automated exposurecontrol and/or adjustment of mA and/or kV according to patient size and/or use of iterative reconstruction technique. Findings: Mild left lower lobe scarring. ABDOMEN: There is mild fatty infiltration of the liver. The gallbladder, spleen, pancreas, and adrenal glands are unremarkable. No renal stones or collecting system dilatation. Left renallow-attenuation lesions, too small to characterize. The bilateral ureters arenondilated. The bowel is unremarkable without evidence of wall thickening orobstruction. The appendix is not definitely identified. The aorta is normal caliber. No enlarged abdominal lymph nodes or free abdominal fluid. Redemonstrated is a wide mouthed, large fat-containing right-sidedSpigelian hernia. Pelvis: Unremarkable bladder. Uterus is surgically absent. No enlarged pelvic lymph nodes or free pelvic fluid. No aggressive sclerotic or lytic osseous lesions. Mild levoconvexscoliosis of the lumbar spine. IMPRESSION: 1. Fatty liver. 2. Redemonstrated is a right-sided fat-containing spigelian hernia. Electronically authenticated by: MARLEN AKINS Date: 2022-09-05 09:10 Herrera Mann MD [facility] Final Result documented in this encounter Visit Diagnoses Not on filedocumented in this encounter Care Teams Indoor Landscape Architect Relationship Specialty Start Date End Date Herrera Mann MD [address] [facility] 110 [place] [address] PCP - [place] [employer] 07/16/20 5 Herrera Mann MD [address] [facility] 110 [place] [address] PCP - General Internal Medicine 09/08/22 documented as of this encounter
--- OUTSIDE RECORDS SUMMARY | 2024-10-09 14:55 | XMS_ITS | Encounter Summary ---
Author Organization [facility] Address [address] [place] [address] Care Team Providers Care Cook Manager Name Role Phone Herrera Mann MD Unavailable [phone] Herrera Mann MD Primary Care Provider [phone] Encounter Details Date Type Department Care Team (Late st Contact Info) Description 02/01/2023 Clinisync Result Encounter [facility] External Department Unsolicited Herrera Mann MD [address] [place] [address] [place] [address] Social History Tobacco Use Types Packs/Day Years Used Date Smoking Tobacco: Never Smokeless Tobacco: Never Alcohol Use Standard Drinks/Week Comments Never 0 (1 standard drink = 0.6 oz pur e alcohol) Humiliation, Afraid, Rape, and Kick questionnair e [...] declined 09/08/2022 How often do you attend evangelical or scientologist serv ices? Never 09/08/2022 Do you belong to any clubs o r organizations such as evangelical groups, unions, fraternal or athletic groups, or [...] and heating? Not hard at all 09/08/2022 [facility] - Occupational [...] place to sleep or slept in a mcfp (including now)? No 09/08/2022 Comments Unknown Sex [...] suspected to have Coronavirus/COVID-19? No / Unsure 02/01/2023 3:59 PM EDT documented as of this encounter Plan of Treatment Upcoming Encounters Date Type Department Care Team (Late st Contact Info) Description 12/23/2024 4:00 PM EDT Office Visit [facility] 112 [facility] 110 [place] [address] Herrera Mann MD 112 [facility] 110 [place] [address] documented as of this encounter Procedures Procedure Name Priority Date/Time Associated Diagnosis Comments MM TOMOSYNTHESIS SCREENING BI 02/01/2023 6:52 AM EDT documented in this encounter Results * MM TOMOSYNTHESIS SCREENING BI (02/01/2023 6:52 AM EDT) Anatomical Region Laterality Modality Other 02/01/2023 6:52 AM EDT Narrative 02/01/2023 6:52 AM EDT [address] [address] Mammography Report Signed Patient: Delisa Saleh MR#: [id number] : 1970 Acct:[id number] Age/Sex: 52 / F ADM Date: 01/31/23 Loc: MAMMO Attending Dr: HERRERA MANN Ordering Physician: HERRERA MANN Results: Date of Service: 01/31/23 Follow Up: Procedure(s): MM tomosynthesis screening BI Accession Number(s): [id number] cc: HERRERA MANN Patient: DELISA SALEH. Exam Date: 01/31/2023 : 1970 Gender:F Ordering : DR HERRERA MANN M.D. Admission #: [id number] Family : Order #: [id number] CLICK HERE TO VIEW EXAM RADIOLOGY REPORT PROCEDURE: MM TOMOSYNTHESIS SCREENING BI COMPARISON: MG MAMM SCREEN SUKHDEV W CAD, 10/22/2019. MG MAMM SCREEN 3D SUKHDEV CAD, 09/01/2021. INDICATIONS: screening Calculator Name NCI Breast Cancer Risk Assessment Tool 5 Year Breast Cancer Risk 1.20% Lifetime Breast Cancer Risk 8.50% Personal Breast Cancer No Personal Ovarian Cancer No Treatments None Family Cancers None LOCATION: The [facility] BREAST COMPOSITION: Heterogeneously dense,which may obscure small masses. FINDINGS: DIAGNOSTIC CATEGORY 1--NEGATIVE. NO CHANGE FROM COMPARISON ASSESSMENT. RIGHT BREAST: No significant suspicious finding. LEFT BREAST: No significant suspicious finding. RECOMMENDATIONS: ROUTINE MAMMOGRAM AND CLINICAL EVALUATION IN 12 MONTHS. PLEASE NOTE: A NORMAL MAMMOGRAM DOES NOT EXCLUDE THE POSSIBILITY OF BREAST CANCER. A CLINICALLY SUSPICIOUS PALPABLE LUMP SHOULD BE BIOPSIED. Dictated by: Reagan Dockery MD on 02/01/2023 at 06:51 Approved by: Reagan Dockery MD on 02/01/2023 at 06:52 Dictated By: Raegan Dockery M.D. Signed By: 02/01/23652 DD/ 1 TD/TT: Greenhouse Assistant: Procedure Note Radiology, Radiologist, - 02/01/2023 The [place] [id number] Mammography Report Signed Patient: Delisa Saleh LMR#: [id number] : 1970Acct:[id number] Age/Sex: 52 / FADM Date: 01/31/23 Loc: MAMMO Attending Dr: HERRERA MANN Ordering Physician: HERRERA MANNResults: Date of Service: 01/31/23Follow Up: Procedure(s): MM tomosynthesis screening BI Accession Number(s): [id number] cc: HERRERA MANN Patient: DELISA SALEH Exam Date: 01/31/2023 : 1970 Gender:F Ordering : DR HERRERA MANN M.D. Admission #: [id number] Family : Order #: [id number] CLICK HERE TO VIEW EXAM RADIOLOGY REPORT PROCEDURE: MM TOMOSYNTHESIS SCREENING BI COMPARISON: MG MAMM SCREEN SUKHDEV W CAD, 10/22/2019. MG MAMM SCREEN 3DBIL CAD, 09/01/2021. INDICATIONS: screening Calculator Name NCI Breast Cancer Risk Assessment Tool 5 Year Breast Cancer Risk 1.20% Lifetime Breast Cancer Risk 8.50% Personal Breast Cancer No Personal Ovarian Cancer No Treatments None Family Cancers None LOCATION: [facility] BREAST COMPOSITION: Heterogeneously dense,which may obscure smallmasses. FINDINGS: DIAGNOSTIC CATEGORY 1--NEGATIVE. NO CHANGE FROM COMPARISON ASSESSMENT. RIGHT BREAST: No significant suspicious finding. LEFT BREAST: No significant suspicious finding. RECOMMENDATIONS: ROUTINE MAMMOGRAM AND CLINICAL EVALUATION IN 12 MONTHS. PLEASE NOTE: A NORMAL MAMMOGRAM DOES NOT EXCLUDE THE POSSIBILITY OFBREAST CANCER. A CLINICALLY SUSPICIOUS PALPABLE LUMP SHOULD BE BIOPSIED. Dictated by: Reagan Dockery MD on 02/01/2023 at 06:51 Approved by: Reagan Dockery MD on 02/01/2023 at 06:52 Dictated By: Reagan Dockery M.D. Signed By:02/01/2353 DD/ TD/TT: Greenhouse Assistant: us Herrera Mann MD [facility] Final Result documented in this encounter Visit Diagnoses Not on filedocumented in this encounter Care Teams Cook Manager Relationship Specialty Start Date End Date Herrera Mann MD [address] [facility] 110 [place] [address] PCP - Kenel Commercial 07/16/20 5 Herrera Mann MD 112 [facility] 110 [place] [id number] PCP - General Internal Medicine 09/08/22 documented as of this encounter
--- OUTSIDE RECORDS SUMMARY | 2024-10-09 14:55 | XMS_ITS | Encounter Summary ---
Author Organization [facility] Address [address] [place] [address] Care Team Providers Care Customer Advisor Specialist Name Role Phone Herrera Mann MD Unavailable [phone] Herrera Mann MD Primary Care Provider [phone] Encounter Details Date Type Department Care Team (Late st Contact Info) Description 05/09/2024 Clinisync Result Encounter [facility] External Department Unsolicited Shanti Dia PA [address] [place] [address] [place] [address] Social History Tobacco Use Types Packs/Day Years [...] declined 09/20/2023 How often do you attend nondenominational or methodist serv ices? Never 09/20/2023 Do you belong to any clubs o r organizations such as nondenominational groups, unions, fraternal or athletic groups, or [...] care, and heating? Not very hard 09/20/2023 [facility] Occupat ional Health - Occupational Stress [...] place to sleep or slept in a senior living (including now)? No 09/20/2023 Comments Unknown Sex [...] EDT Office Visit [facility] 112 [facility] 110 [place] [address] Herrera Mann MD 112 [facility] 110 [place] [address] documented as of this encounter Procedures Procedure Name Priority Date/Time Associated Diagnosis Comments MM TOMOSYNTHESIS SCREENING BI 05/09/2024 4:15 PM EST documented in this encounter Results * MM TOMOSYNTHESIS SCREENING BI (05/09/2024 4:15 PM EST) Anatomical Region Laterality Modality Other 05/09/2024 4:15 PM EST Narrative 05/09/2024 4:15 PM EST The [address] [address] Mammography Report Signed Patient: DELISA SALEH MR#: [id number] : 1970 Acct:[id number] Age/Sex: 53 / F ADM Date: 05/09/24 Loc: MAMMO Attending Dr: SHANTI DIA Ordering Physician: SHANTI DIA Results: Date of Service: 05/09/24 Follow Up: Procedure(s): MM tomosynthesis screening BI Accession Number(s): [id number] cc: HERRERA MANN ; SHANTI DIA Patient Name: DELISA SALEH MR#: [id number] : 1970 Exam Date: 05/09/2024 Ordering Doctor: DR SHANTI DAY RADIOLOGY REPORT PROCEDURE: MM TOMOSYNTHESIS SCREENING BI COMPARISON: MM TOMOSYNTHESIS SCREENING BI, 01/31/2023. MG MAMM SCREEN 3D SUKHDEV CAD, 09/01/2021. INDICATIONS: Screening Calculator Name NCI Breast Cancer Risk Assessment Tool 5 Year Breast Cancer Risk 1.20% Lifetime Breast Cancer Risk 8.30% Personal Breast Cancer No Personal Ovarian Cancer No Treatments None Family Cancers None LOCATION: The [facility] BREAST COMPOSITION: The breasts are heterogeneously dense,which may obscure small masses. FINDINGS: DIAGNOSTIC CATEGORY 1--NEGATIVE. NO CHANGE FROM COMPARISON ASSESSMENT. Scattered benign-appearing lymph nodes are present. RIGHT BREAST: No significant suspicious finding. LEFT BREAST: No significant suspicious finding. RECOMMENDATIONS: ROUTINE MAMMOGRAM AND CLINICAL EVALUATION IN 12 MONTHS. PLEASE NOTE: A NORMAL MAMMOGRAM DOES NOT EXCLUDE THE POSSIBILITY OF BREAST CANCER. A CLINICALLY SUSPICIOUS PALPABLE LUMP SHOULD BE BIOPSIED. Dictated by: Reagan Dockery MD on 05/09/2024 at 16:14 Approved by: Reagan Dockery MD on 05/09/2024 at 16:14 Dictated By: Reagan Dockery M.D. Signed By: 05/09/245 DD/ 14 TD/TT: Changer Fixer: Procedure Note Radiology, Radiologist, - 05/09/2024 [place] [address] Mammography Report Signed Patient: DELISA SALEH LMR#: [id number] : 1970Acct:[id number] Age/Sex: 53 / FADM Date: 05/09/24 Loc: MAMMO Attending Dr: SHANTI DIA Ordering Physician: SHANTI DIA MResults: Date of Service: 05/09/24Follow Up: Procedure(s): MM tomosynthesis screening BI Accession Number(s): [id number] cc: HERRERA MANN ; SHANTI DIA Patient Name: DELISA SALEH MR#: [id number] : 1970 Exam Date: 05/09/2024 Ordering Doctor: DR SHANTI DAY RADIOLOGY REPORT PROCEDURE: MM TOMOSYNTHESIS SCREENING BI COMPARISON: MM TOMOSYNTHESIS SCREENING BI, 01/31/2023. MG MAMM [id number] SUKHDEV CAD, 09/01/2021. INDICATIONS: Screening Calculator Name NCI Breast Cancer Risk Assessment Tool 5 Year Breast Cancer Risk 1.20% Lifetime Breast Cancer Risk 8.30% Personal Breast Cancer No Personal Ovarian Cancer No Treatments None Family Cancers None LOCATION: The [facility] BREAST COMPOSITION: The breasts are heterogeneously dense,which may obscure small masses. FINDINGS: DIAGNOSTIC CATEGORY 1--NEGATIVE. NO CHANGE FROM COMPARISON ASSESSMENT. Scattered benign-appearing lymph nodes are present. RIGHT BREAST: No significant suspicious finding. LEFT BREAST: No significant suspicious finding. RECOMMENDATIONS: ROUTINE MAMMOGRAM AND CLINICAL EVALUATION IN 12 MONTHS. PLEASE NOTE: A NORMAL MAMMOGRAM DOES NOT EXCLUDE THE POSSIBILITY OFBREAST CANCER. A CLINICALLY SUSPICIOUS PALPABLE LUMP SHOULD BE BIOPSIED. Dictated by: Reagan Dockery MD on 05/09/2024 at 16:14 Approved by: Reagan Dockery MD on 05/09/2024 at 16:14 Dictated By: Reagan Dockery M.D. Signed By:05/09/245 DD/ 14 TD/TT: Changer Fixer: Shanti DAY [facility] Final Result documented in this encounter Visit Diagnoses Not on filedocumented in this encounter Care Teams Customer Advisor Specialist Relationship Specialty Start Date End Date Herrera Mann MD [address] [address] PCP - [place] [employer] 07/16/20 5 Herrera Mann MD [address] [address] PCP - General Internal Medicine 09/08/22 documented as of this encounter
--- OUTSIDE RECORDS SUMMARY | 2024-10-09 14:55 | XMS_ITS | Clinical Summary ---
Author Organization [facility] Address [address] [place] [address] Care Team Providers Care Artificial Stone Setter Name Role Phone Herrera Mann MD Primary Care Provider [phone] Allergies No known active allergies Medications Multiple Vitamins-Mineral s (CENTRUM ADULTS PO) Take by mouth 1 (one) time each day. Active baclofen (Lioresal) 10 MG tablet Take 10 mg by mouth at bedtime. Active traMADol (Ultram) 50 MG tablet Take 1 tablet by mouth 1 (one) time each day. PRN 01/12/20 23 Active triamterene-hydr ochlorothiazide (Maxzide-25) 37.5-25 MG tabletIndication s:Essential hypertension TAKE 1 TABLET BY MOUTH IN THE MORNING 30 tablet 11 12/19/19 24 025 Active escitalopram (Lexapro) 10 MG tabletIndication s:Depression, unspecified depression type TAKE 1 TABLET BY MOUTH DAILY 100 tablet 3 03/18/20 24 Active omeprazole (PriLOSEC) [address] capsuleIndicatio ns:Unspecified abdominal pain TAKE 1 CAPSULE BY MOUTH TWICE DAILY 200 capsule 3 03/18/20 24 Active topiramate 50 MG tabletIndication s:Chronic migraine without aura, not intractable, without status migrainosus TAKE 1 TABLET BY MOUTH AT BEDTIME 100 tablet 3 03/18/20 24 Active cloNIDine (Catapres) 0.1 MG tabletIndication s:Essential hypertension Take 1 tablet (0.1 mg) by mouth Daily as needed for high blood pressure 30 tablet 2 05/01/19 25 Active fluticasone (Flonase) 50 MCG/ACT nasal sprayIndications :URI with cough and congestion Administer 1-2 sprays into each nostril Daily Shake gently. Before first use, prime pump. After use, clean tip and replace cap. 16 g 05/01/19 25 Active Ajovy 225 MG/1.5ML prefilled syringeIndicatio ns:Chronic migraine without aura, not intractable, without status migrainosus INJECT 1 pen SUBCUTANEOUSLY once a month in abdomen, thigh, or outer area OF the TO THE ARM 1.5 mL 4 05/28/19 25 Active gabapentin (Neurontin) 300 MG capsuleIndicatio ns:Sciatica, left side TAKE 1 CAPSULE BY MOUTH THREE TIMES DAILY 100 capsule 3 07/04/19 25 Active diclofenac (Voltaren) 50 MG EC tabletIndication s:Degenerative disc disease, lumbar TAKE 1 TABLET BY MOUTH TWICE DAILY NEEDED 200 tablet 3 08/02/19 25 Active Active Problems Problem Noted Date Diagnosed Date Class 1 obesity due to exces s calories with serious comorbidity and body mass index (BMI) of 32.0 to 32.9 in adult 06/05/2024 Chronic fatigue 08/31/2022 Chronic migraine without aur a without status migrainosus, not intractable 08/31/2022 Degenerative disc disease, lumbar 08/31/2022 Degenerative disc disease, thoracic 08/31/2022 Essential hypertension 08/31/2022 History of hysterectomy 08/31/2022 Left sided sciatica 08/31/2022 BERONICA (obstructive sleep apnea) 08/31/2022 Osteoarthritis of right thumb 08/31/2022 Osteoarthritis of spine at multiple levels 08/31 Other specified abdominal he rnia without obstruction or gangrene 08/31/2022 Pityriasis amiantacea 08/31/2022 Primary osteoarthritis of knees, bilateral 08/31 Right lumbar radiculopathy 08/31/2022 Venous insufficiency 08/31/2022 Arthritis of both knees 05/03/2019 History of iron deficiency 10/02/2017 Resolved Problems Problem Noted Date Diagnosed Date Resolved Date HTN (hypertension), benign 08/31/2022 1 Encounters Date Type Department Care Team Description 09/19/2024 Orders Only [facility] [address] [facility] [address] [place] [address] Marisel Mims LPN Encounter for screening mammogram for malignant neoplasm of breast 08/01/2024 Refill [facility] [address] [place] [address] Herrera Mann MD Degenerative disc disease, lumbar from Last 3 Months Immunizations Immunization Administration Dates Next Due Influenza, injectable, quadrivalent 02/18/2021 Influenza, injectable, quadrivalent, preservativ e free 02/08/2023 Family History Medical History Relation Name Comments Heart disease Father Relation Name Status Comments Father Mother Social History Tobacco Use Types Packs/Day Years Used Date Smoking Tobacco: Never Smokeless Tobacco: Never Tobacco Cessation:Counseling Given: Not Answered Alcohol Use Standard Drinks/Week Comments Never 0 [...] declined 09/20/2023 How often do you attend mormonism or latter day serv ices? Never 09/20/2023 Do you belong to any clubs o r organizations such as mormonism groups, unions, fraternal or athletic groups, or [...] care, and heating? Not very hard 09/20/2023 [facility] [place] [facility] Occupat ional Health - Occupational Stress [...] place to sleep or slept in a fdc (including now)? No 09/20/2023 Comments Unknown Sex and Gender Information Value Date Recorded Sex Assigned at Female 09/08/2022 9:35 AM EDT Legal Sex Female 8:23 PM EDT Gender Identity Female 09/08/2022 9:35 AM EDT Sexual Orientation Choose not to disclose 2022 9:35 AM EDT Last Filed Vital Signs Vital Sign Reading Time Taken Comments Blood Pressure 112/82 06/05/2024 3:01 PM EST Pulse 73 06/05/2024 3:01 PM EST Temperature 37.9 C (100.2 F) 09/20/2023 3:28 PM EDT Respiratory Rate 16 06/05/2024 3:01 PM EST Oxygen Saturation 98% 06/05/2024 3:01 PM EST Inhaled Oxygen Concentration - - Weight 93.5 kg (206 lb 3.2 oz) 06/05/2024 3:01 P M EST Height 170.2 cm (5' 7 ) 06/05/2024 3:01 PM EST Body Mass Index 32.3 06/05/2024 3:01 PM EST Plan of Treatment Upcoming Encounters Date Type Department Care Team (Late st Contact Info) Description 12/23/2024 4:00 PM EDT Office Visit [facility] 112 [facility] 110 [place] [address] Herrera Mann MD 112 [facility] 110 [place] [address] Health Maintenance Due Date Last Done Comments CT Colonography 1970 FIT-DNA 1968 FIT 1970 FOBT 1970 Sigmoidoscopy 1970 Influenza Vaccine (Season Ended) 2024 02/09/20, 02/18/2021 Mammogram 05/09/2025 05/09/2024, 01/15, 01/31/2023, Additional history exists Colonoscopy 11/09/2028 11/09/2018 Colorectal Cancer Screening 11/09/2028 Procedures Procedure Name Priority Date/Time Associated Diagnosis Comments MM TOMOSYNTHESIS SCREENING BI 05/09/2024 4:15 PM EST COLONOSCOPY Routine 11/09/2018 12:00 PM EDT from Last 3 Months or Most Recently Relevant to Health Maintenance Results * MM TOMOSYNTHESIS SCREENING BI (05/09/2024 4:15 PM EST) Anatomical Region Laterality Modality Other 05/09/2024 4:15 PM EST Narrative 05/09/2024 4:15 [place] [address] Mammography Report Signed Patient: DELISA SALEH MR#: [id number] : 1970 Acct:[id number] Age/Sex: 53 / F ADM Date: 05/09/24 Loc: MAMMO Attending Dr: SHANTI HAYES Ordering Physician: SHANTI HAYES Results: Date of Service: 05/09/24 Follow Up: Procedure(s): MM tomosynthesis screening BI Accession Number(s): [id number] cc: HERRERA MANN ; SHANTI HAYES Patient Name: DELISA SALEH MR#: [id number] : 1970 Exam Date: 05/09/2024 Ordering Doctor: DR SHANTI HAYES PA RADIOLOGY REPORT PROCEDURE: MM TOMOSYNTHESIS SCREENING BI COMPARISON: MM TOMOSYNTHESIS SCREENING BI, 01/31/2023. MG MAMM SCREEN 3D SUKHDEV CAD, 09/01/2021. INDICATIONS: Screening Calculator Name NCI Breast Cancer Risk Assessment Tool 5 Year Breast Cancer Risk 1.20% Lifetime Breast Cancer Risk 8.30% Personal Breast Cancer No Personal Ovarian Cancer No Treatments None Family Cancers None LOCATION: The [facility] BREAST COMPOSITION: The breasts are heterogeneously dense,which [...] Dictated By: Reagan Dockery M.D. Signed By: 05/09/241614 DD/ 14 TD/TT: Counselor Dormitory: Procedure Note Radiology, Radiologist, MD - 05/09/2024 [place] [address] Mammography Report Signed Patient: DELISA SALEH LMR#: [id number] : 1970Acct:[id number] Age/Sex: 53 / FADM Date: 05/09/24 Loc: MAMMO Attending Dr: SHANTI HAYES Ordering Physician: SHANTI HAYES MResults: Date of Service: 05/09/24Follow Up: Procedure(s): MM tomosynthesis screening BI Accession Number(s): [id number] cc: HERRERA MANN ; SHANTI HAYES Patient Name: DELISA SALEH MR#: [id number] : 1970 Exam Date: 05/09/2024 Ordering Doctor: DR SHANTI HAYES PA RADIOLOGY REPORT PROCEDURE: MM TOMOSYNTHESIS SCREENING BI COMPARISON: MM TOMOSYNTHESIS SCREENING BI, 01/31/2023. MG MAMM [id number] SUKHDEV CAD, 09/01/2021. INDICATIONS: Screening Calculator Name NCI Breast Cancer Risk Assessment Tool 5 Year Breast Cancer Risk 1.20% Lifetime Breast Cancer Risk 8.30% Personal Breast Cancer No Personal Ovarian Cancer No Treatments None Family Cancers None LOCATION: The [facility] BREAST COMPOSITION: The breasts are heterogeneously dense,which [...] 16:14 Dictated By: Reagan Dockery M.D. Signed By:05/09/241614 DD/ 14 TD/TT: Counselor Dormitory: us Shanti DAY [facility] Final Result * Colonoscopy (11/09/2018 12:00 PM EDT) Anatomical Region Laterality Modality Endoscopy 11/09/2018 12:0 0 PM EDT Narrative 11/09/2018 12:00 PM EDT PERFORMED AT [facility] LOCATION:[id number] ibs,hemorhhoids Procedure Note CONVERSION, GENERIC - 08/31/2022 PERFORMED AT [facility] LOCATION:[id number] ibs,hemorhhoids Herrera Mann MD ENDOSCOPY PROCEDURE ORDERABLES Final Result from Last 3 Months or Most Recently Relevant to Health Maintenance Insurance [facility] Care Teams Artificial Stone Setter Relationship Specialty Start Date End Date Herrera Mann MD [address] [facility] 110 [place] [address] PCP - General Internal Medicine 09/08/22
--- OUTSIDE RECORDS SUMMARY | 2024-10-09 14:55 | XMS_ITS | Encounter Summary ---
Author Organization [facility] Address [address] [facility] [place] [address] Care Team Providers Care Carbonation Equipment Operator Name Role Phone Herrera Mann MD Unavailable [phone] Herrera Mann MD Primary Care Provider [phone] Encounter Details Date Type Department Care Team (Late st Contact Info) Description 05/30/2024 Abstract [facility] [address] [facility] 110 [place] [address] Herrera Mann MD 112 [facility] 110 [place] [address] Social History Tobacco Use Types Packs/Day Years [...] declined 09/20/2023 How often do you attend sikh or religion serv ices? Never 09/20/2023 Do you belong to any clubs o r organizations such as sikh groups, unions, fraternal or athletic groups, or [...] care, and heating? Not very hard 09/20/2023 [facility] of Occupat ional Health - Occupational [...] slept in a correction (including now)? No 09/20/2023 Comments Unknown Sex [...] Visit [facility] [address] [facility] 110 [place] [address] Herrera Mann MD [address] [email or web address] 110 [place] [address] documented as of this encounter Visit Diagnoses Not on filedocumented in this encounter Care Teams Carbonation Equipment Operator Relationship Specialty Start Date End Date Herrera Mann MD [address] [facility] [[email or web address] 110 [place] [address] PCP - Sury Wallace 07/16/20 5 Herrera Mann MD [address] [place] [address] [place] [address] PCP - General Internal Medicine 09/08/22 documented as of this encounter
--- OUTSIDE RECORDS SUMMARY | 2024-10-09 14:55 | XMS_ITS | Encounter Summary ---
Author Organization [facility] Address [address] [facility] [address] Care Team Providers Care District Supervisor Name Role Phone Herrera Mann MD Unavailable [phone] Herrera Mann MD Primary Care Provider Encounter Details Date Type Department Care Team (Late st Contact Info) Description 08/31/2023 Abstract [facility] 112 [facility] 110 [place] [id number] Herrera Mann MD 112 [facility] 110 [place] [address] Social History Tobacco Use Types Packs/Day Years [...] declined 09/08/2022 How often do you attend sikhism or restorationist serv ices? Never 09/08/2022 Do you belong to any clubs o r organizations such as sikhism groups, unions, fraternal or athletic groups, or [...] and heating? Not hard at all 09/08/2022 [facility] of Occupat ional Health - Occupational Stress [...] slept in a usp (including now)? No 09/08/2022 Comments Unknown Sex [...] Visit [facility] [address] [facility] 110 [place] [address] Herrera Mann MD [address] [facility] 110 [place] [address] documented as of this encounter Visit Diagnoses Not on filedocumented in this encounter Care Teams District Supervisor Relationship Specialty Start Date End Date Herrera Mann MD [address] [facility] 110 [place] [address] PCP - Sury Wallace 07/16/20 5 Herrera Mann MD [address] [place] [address] [place] [address] PCP - General Internal Medicine 09/08/22 documented as of this encounter
--- OUTSIDE RECORDS SUMMARY | 2024-10-09 14:55 | XMS_ITS | Encounter Summary ---
Author Organization [facility] Address [address] [facility] [place] [address] Care Team Providers Care Antenna Machine Operator Name Role Phone Herrera Mann MD Unavailable [phone] Herrera Mann MD Primary Care Provider [phone] Encounter Details Date Type Department Care Team (Late st Contact Info) Description 02/01/2023 Orders Only [facility] [address] [place] [address] [place] [id number] Herrera Mann MD [address] [place] [address] [place] [address] Social History Tobacco Use Types Packs/Day Years [...] declined 09/08/2022 How often do you attend voodoo or baptist serv ices? Never 09/08/2022 Do you belong to any clubs o r organizations such as voodoo groups, unions, fraternal or athletic groups, or [...] heating? Not hard at all 09/08/2022 [facility] Occupat ional Health - Occupational Stress [...] 12/23/2024 4:00 PM EDT Office Visit [facility] [address] [facility] 110 [place] [address] Herrera Mann MD [address] [facility] 110 [place] [address] documented as of this encounter Procedures Procedure Name Priority Date/Time Associated Diagnosis Comments MAMMOGRAM* Routine 01/31/2023 10:07 AM EDT documented in this encounter Results * MAMMOGRAM* (01/31/2023 10:07 AM EDT) Anatomical Region Laterality Modality Radiographic Sharon ging Herrera Mann MD IMG XR PROCEDURES Final Result documented in this encounter Visit Diagnoses Not on filedocumented in this encounter Care Teams Antenna Machine Operator Relationship Specialty Start Date End Date Herrera Mann MD [address] [place] [address] [place] [address] PCP - [employer] 07/16/20 Herrera Mann MD [address] [place] [place] [id number] PCP - General Internal Medicine 09/08/22 documented as of this encounter
--- OUTSIDE RECORDS SUMMARY | 2024-10-09 14:55 | XMS_ITS | Encounter Summary ---
Author Organization [facility] Address [address] [place] [address] Care Team Providers Care Broomcorn Thresher Name Role Phone Herrera Mann MD Unavailable [phone] Herrera Mann MD Primary Care Provider [phone] Encounter Details Date Type Department Care Team (Late st Contact Info) Description 09/07/2022 Orders Only [facility] [address] [place] [address] [place] [id number] Herrera Mann MD [address] [place] [address] [place] [address] Social History Tobacco Use Types Packs/Day Years [...] declined 09/08/2022 How often do you attend christianity or islam serv ices? Never 09/08/2022 Do you belong to any clubs o r organizations such as christianity groups, unions, fraternal or athletic groups, or [...] and heating? Not hard at all 09/08/2022 [facility] Occupat ional Health - Occupational Stress [...] place to sleep or slept in a long-term (including now)? No 09/08/2022 Comments Unknown Sex [...] 4:00 PM EDT Office Visit [facility] [address] [facility] 110 [place] [address] Herrera Mann MD [address] [facility] 110 [place], [place] [id number] documented as of this encounter Procedures Procedure Name Priority Date/Time Associated Diagnosis Comments CT ABDOMEN/PELVIS WITH CONTRAST Routine 09/05/2022 3:44 PM EDT documented in this encounter Results * CT ABDOMEN/PELVIS WITH CONTRAST (09/05/2022 3:44 PM EDT) Anatomical Region Laterality Modality Radiographic Sharon ging Herrera Mann MD IMG XR PROCEDURES Final Result documented in this encounter Visit Diagnoses Not on filedocumented in this encounter Care Teams Broomcorn Thresher Relationship Specialty Start Date End Date Herrera Mann MD [address] [place] [address] [place] [address] PCP - Sury Wallace 07/16/20 5 Herrera Mann MD [address] [place] [address] [place] [address] PCP - General Internal Medicine 09/08/22 documented as of this encounter
--- OUTSIDE RECORDS SUMMARY | 2024-10-09 14:55 | XMS_ITS | Clinical Summary ---
Author Organization [facility] Address [id number] [address] [place] [address] Care Team Providers Care Offset Lithographic Press Operator Name Role Phone Unavailable Primary Care Provider Unavailabl e Social History Tobacco Use Types Packs/Day Years Used Date Smoking Tobacco: Never Assessed Childcare Answer Date Recorded Childcare Unknown 09/24/2018 Employment Answer Date Recorded Employment Unknown 09/24/2018 Purpose - Life Answer Date Recorded Purpose and direction in life Unknown Comments Unknown Sex and Gender Information Value Date Recorded Sex Assigned at Not on file Legal Sex Female 2:33 PM EDT Gender Identity Not on file Sexual Orientation Not on file Plan of Treatment Health Maintenance Due Date Last Done Comments Depression Screening 1980 Tobacco Screening 1980 Adult BMI Screening 1986 DTaP,Tdap and Td Vaccines (1 - Tdap) 06/20/1987 Pap Smear 1989 Zoster (Shingles) Vaccine (1 of 2) 2018 Influenza Vaccine 12/16/2024 02/18/2021 Medical Devices Not on file
--- OUTSIDE RECORDS SUMMARY | 2024-10-09 14:55 | XMS_ITS | Encounter Summary ---
Author Organization [facility] Address [address] [facility] [place] [address] Care Team Providers Care Postal Clerk Name Role Phone Herrera Mann MD Unavailable [phone] Herrera Mann MD Primary Care Provider [phone] Encounter Details Date Type Department Care Team (Late st Contact Info) Description 01/27/2023 Abstract [facility] [address] [facility] 110 [place] [phone] Herrera Mann MD 112 [facility] 110 [place] [address] Social History Tobacco Use Types Packs/Day Years [...] declined 09/08/2022 How often do you attend protestant or catholic serv ices? Never 09/08/2022 Do you belong to any clubs o r organizations such as protestant groups, unions, fraternal or athletic groups, or [...] and heating? Not hard at all 09/08/2022 [facility] of Occupat ional Health - Occupational Stress [...] place to sleep or slept in a alf (including now)? No 09/08/2022 Comments Unknown Sex [...] suspected to have Coronavirus/COVID-19? No / Unsure 01/11/2023 12:39 PM EDT documented as of this encounter Plan of Treatment Upcoming Encounters Date Type Department Care Team (Late st Contact Info) Description 12/23/2024 4:00 PM EDT Office Visit [facility] [address] [facility] [address] [place] [address] Herrera Mann MD [address] [facility] 110 [place] [address] documented as of this encounter Visit Diagnoses Not on filedocumented in this encounter Care Teams Postal Clerk Relationship Specialty Start Date End Date Herrera Mann MD [address] [facility] [address] [place] [address] PCP - [employer] 07/16/20 5 Herrera Mann MD [address] [facility] 110 [place] [address] PCP - General Internal Medicine 09/08/22 documented as of this encounter
--- NOTE | 2024-10-09 15:21 | PM.CN ---
Consult Note: HPI Data of Consult Patient: known to practice within the last 3 years Requesting Physician: Mila Hill NP Primary Care Provider: BARBI WELLER Consult Narrative Reason for consult: F/u Narrative: Delisa Saleh a pleasant 54 year old female presents for evaluation and management of chronic neck, thoracic, and lumbar pain. since last visit shes noticing increased headaches, migraines, and neck pain. pt used to be on injections for migraines but with changes in her insurance it was not covered. pain today 8/10 in neck and thoracic spine. aching. denies numbness, tingling, weakness. notes moderate improvement in current medication regimen without side effects, utilizing baclofen tramadol gabapentin as well as tylenol and excederin. cc:: CC: Mila Hill NP Review of Systems ROS Status of ROS 10 or more systems reviewed and unremarkable except as noted in history and below Musculoskeletal Reports: back pain PFSH [facility] Medical History (Updated 10/09/24 @ 15:25 by Mila Hill NP) Arthritis ?M19.90 - Unspecified osteoarthritis, unspecified site (ICD-10) Anxiety ?F41.9 - Anxiety disorder, unspecified (ICD-10) HTN (hypertension) ?I10 - Essential (primary) hypertension (ICD-10) Surgical History History of ventral hernia repair ?Z98.890 - Other specified postprocedural states (ICD-10) ?Z87.19 - Personal history of other diseases of the digestive system (ICD-10) History of hysterectomy ?Z90.710 - Acquired absence of both cervix and uterus (ICD-10) Meds Home Medications and Allergies Home Medications ?Medication ?Instructions ?Recorded ?Confirmed ?Type acetaminophen 325 mg tablet 325 mg PO Q6H 09/29/22 09/19/23 History (Tylenol) erenumab-aooe 70 mg/mL 70 mg subcut .MONTHLY 09/29/22 09/19/23 History subcutaneous auto-injector (Aimovig Autoinjector) escitalopram oxalate 10 mg tablet 10 mg PO DAILY 09/29/22 09/19/23 History gabapentin 300 mg capsule 300 mg PO TID 09/29/22 09/19/23 History losartan 100 1 tab PO DAILY 09/29/22 09/19/23 History mg-hydrochlorothiazide 25 mg tablet multivitamin 1 tab PO DAILY 09/29/22 09/19/23 History sumatriptan succinate PO DAILY 09/29/22 History topiramate 50 mg tablet 50 mg PO DAILY 09/29/22 09/19/23 History tramadol 50 mg tablet 50 mg PO DAILY 09/29/22 09/19/23 History baclofen 10 mg tablet 10 mg PO DAILY PRN muscle spasm 04/18/23 09/19/23 Rx #30 tabs tramadol 50 mg tablet 50 mg PO DAILY PRN pain #30 tabs 11/08/23 Rx tramadol 50 mg tablet 50 mg PO DAILY PRN pain #30 tabs 12/19/23 Rx baclofen 10 mg tablet 10 mg PO .hs PRN muscle spasm #30 03/12/24 Rx tabs tramadol 50 mg tablet 50 mg PO DAILY PRN pain #30 tabs 03/12/24 Rx baclofen 10 mg tablet 10 mg PO DAILY #30 tabs 06/10/24 Rx tramadol 50 mg tablet 50 mg PO DAILY PRN pain #30 tabs 06/10/24 Rx baclofen 10 mg tablet 10 mg PO DAILY #30 tabs 07/10/24 Rx tramadol 50 mg tablet 50 mg PO DAILY PRN pain #30 tabs 07/10/24 Rx baclofen 10 mg tablet 10 mg PO HS PRN muscle spasm #30 10/02/24 Rx tabs tramadol 50 mg tablet 50 mg PO DAILY PRN pain #30 tabs 10/02/24 Rx Allergies Allergy/AdvReac Type Severity Reaction Status Date / Time No Known Drug Allergies Allergy Verified 09/19/23 06:58 Exam Constitutional Documenting provider has reviewed patient's vital signs: yes Common normals: no apparent distress, oriented x3, healthy appearing, alert and well nourished General appearance: cooperative [facility] Common normals: normocephalic, hearing grossly normal bilaterally and moist oral mucous membranes Head and scalp: normocephalic Eye Common normals: PERRL Pupil: PERRL Neck & C-Spine Common normals: full ROM General: normal visual inspection Cervical spine: normal cervical lordosis, pain with cervical ROM and cervical spine tenderness C3, C4 and C5 Other: sensation intact BUE strength 5/5 in BLE Chest Common normals: inspection of chest normal Respiratory Common normals: normal respiratory effort, no retractions and no use of accessory muscles Back & Pelvis Thoracic spine/upper back: normal to inspection and thoracic ROM normal Lumbar spine/lower back: ROM limited and pain with ROM Extremity Common normals: normal to inspection and full ROM Neuro Common normals: oriented x3, CN's II-XII intact bilaterally, moves all extremities, no focal motor deficits, no sensory deficits noted and deep tendon reflexes 2+ bilaterally Sensorium/orientation: alert Motor exam: strength 5/5 throughout and no movement abnormalities noted Psych Common normals: mental status grossly normal, thought process normal, cooperative, affect normal, speech normal and activity/motor behavior normal Speech: normal speech Thought process: normal thought process Results Additional Findings Additional findings: If on a controlled substance or opioids, I have checked an [place]AR[place] report on this patient and there are no aberrancies noted in the prescribing history.??If on a controlled substance or opioid a drug screen was completed and reviewed within the last year, and if there has not been a drug screen completed we ordered one today to monitor higher risk, state monitored pain medication use. As part of providing excellent, safe, comprehensive care, the following was completed at our patient's visit: 1. A medication reconciliation and review to ensure accurate knowledge of current/active medications, including asking our patients to inform us about any [id number] medications or herbal remedies/nutritional supplements/alternative remedies. 2. A review to specifically ensure our patients have had annual screening for screening for depression, screening for tobacco use, and screening for unhealthy alcohol use. For concerning screenings had a discussion with the patient, provided patient education, and recommended follow-up with primary care provider when appropriate. If patient noted with a risk of falling, they received education on strength, gait, and balance training to prevent future risk of falling. Assessment and Plan Assessment and Plan (1) Cervical spondylosis: (2) Thoracic spondylosis: (3) Lumbar spondylosis: (4) Spasm of back muscles: (5) Encounter for long-term opiate analgesic use: Assessment and Plan: I feel these medications are improving the patient's quality of life and allow them to tolerate activities of daily living as well as participate in recreational activity.? The patient does not report intolerable side effects. The patient is NOT opioid naive and non-pharmacologic and non-opioid treatment has failed to significantly relieve the patient's pain and improve functionality. The patient has a diagnosis that is related to a somatic or visceral pain etiology. ? ?? I reviewed with the patient the potential risks and side effects with the use of? opioid medications including but not limited to respiratory depression,? sedation, and even . Within the last 12 months I have verified the patient has access to naloxone should? these effects occur. The patient was advised to let? their family know they had Naloxone in case they would need to administer? the medication. I advised the patient to avoid the use of any other? sedation substances including alcohol, THC, and benzodiazepines while? taking opioid medications due to the risk of compounding side effects and? detrimental outcomes. within the last 12 months I have reviewed the SWATCH FOLDER, pain treatment agreement and urine drug screen.? ?? A drug screen was completed within the last year, and no aberrancies were noted regarding their use of controlled substances. The patient understands they are subject to the terms and conditions of the pain contract that they have signed. ? ?? I have checked an OARRS report on this patient today and there are no aberrancies noted in the prescribing history.? (6) Chronic myofascial pain: Plan update cervical spine xray refer to pt for evaluation of chronic neck pain continue current medications f/u 6 weeks, consider bilateral C3/4 C4/5 mbb working towards RFA
== END 2024-10-09 14:51 | disposition home or self-care (01) ==
LOC: PM 14:52
PROVIDERS: PCP Internal Medicine; Visit Provider Nurse Practitioner
DX: M47.812 Spondylosis without myelopathy or radiculopathy, cervical region (principal); M47.814 Spondylosis without myelopathy or radiculopathy, thoracic region; M47.816 Spondylosis without myelopathy or radiculopathy, lumbar region; M62.838 Other muscle spasm; Z79.891 Long term (current) use of opiate analgesic
CPT/HCPCS: G0463

== ENCOUNTER 2024-10-15 09:15 | Outpatient (OUT) | payer BC, SELFPAY ==
--- NOTE | 2024-10-15 09:25 | XR_ITS ---
The [address] [address] Patient Name: RYAN DE LA CRUZ MRN: [id number] date: 1970 Sex: F Assigned Patient Location: [facility] Current Patient Location: [facility] Accession/Order Number: [id number] Exam Date: 10/15/2024 10:13 Report Date: 10/15/2024 10:15 At the request of: LAW COX NP Procedure: XR cervical spine 5V CERVICAL SPINE - 5 views: CLINICAL HISTORY: Neck pain for the last 2-3 weeks after starting a new job. No specific injury. TECHNIQUE: AP, lateral, both oblique and odontoid views were obtained. FINDINGS: There is no evidence of compression fracture or displacement. The disc spaces are preserved. There is minor endplate spurring. There is bilateral facet hypertrophy, right worse than left. The neuroforamen are patent. The atlantoaxial relationship is maintained. There is no prevertebral soft tissue swelling. XR/XR cervical spine 5V IMPRESSION: MILD DEGENERATIVE CHANGES, GREATEST AT THE FACETS. NO ACUTE BONY FINDINGS Impression dictated by: Goldie Oconnell M.D. 10/15/2024 10:15 AM Dictation Location: [place] [address] Electronically authenticated by: [id number] Y Date: 10/15/2024 10:15
--- OUTSIDE RECORDS SUMMARY | 2024-10-15 09:41 | XMS_ITS | CCD ---
Author Organization [facility] Care Team Providers Care [employer] Docent Name Role Phone Tatianna Rosen Unavailable DR [...] [employer] Unavailable Herrera Mann MD Unavailable [phone] Herrera Mann MD Primary Care Provider GOLDIE HAYES Attending Unavailable GOLDIE HAYES Attending Unavailable REBECCA KUMAR Attending Unavailable GOLDIE HAYES Attending Unavailable Medications Current Medications Medication Drug Class(es) Dates Sig (Normalized) Sig (Original) baclofen 10 mg oral tablet (10 sources) gamma-Aminobutyric Acid-ergic Agonist take 1 tablet by mouth at bedtime baclofen (Lioresal) 10 MG tablet Take 10 mg by mouth at bedtime. Active [facility] (1 source) cloNIDine hydrochloride 0.1 mg oral tablet (5 sources) Central alpha-2 Adrenergic Agonist Start: 05-01-2024 take 1 tablet by mouth once daily as needed for hypertension cloNIDine (Catapres) 0.1 MG tablet Indications: Essential hypertension (CMS/HCC) Take 1 tablet (0.1 mg) by mouth Daily as needed for high blood pressure 30 tablet 2 05/01/2024 Active diclofenac sodium 50 mg delayed release oral tablet (10 sources) Nonsteroidal Anti-inflammatory Drug Start: 07-19-2023 take 1 tablet by mouth twice daily as needed diclofenac (Voltaren) 50 MG EC tablet Indications: Degenerative disc disease, lumbar TAKE 1 TABLET BY MOUTH TWICE DAILY NEEDED 200 tablet 4 07/19/2023 Active escitalopram 10 mg oral tablet (12 sources) Serotonin Reuptake Inhibitor Start: 03-18-2024 take [...] propionate 0.05 mg/actuat metered dose nasal spray (5 sources) Corticosteroid Start: 05-01-2024 take 1-2 spray(s) nasal route once daily fluticasone (Flonase) 50 MCG/ACT nasal spray Indications: URI with cough and congestion Administer 1-2 sprays into each nostril Daily Shake gently. Before first use, prime pump. After use, clean tip and replace cap. 16 g 05/01/2024 Active 1.5 ml fremanezumab-vfrm 150 mg/ml prefilled syringe (10 sources) Start: 05-28-2024 inject 1 mL by subcutaneous injection every month Ajovy 225 MG/1.5ML prefilled syringe Indications: Chronic migraine without aura, not intractable, without status migrainosus (CMS/HCC) INJECT 1 pen SUBCUTANEOUSLY once a month in abdomen, thigh, or outer area OF the TO THE ARM 1.5 mL 4 05/28/2024 Active Start: 12-25-2023 inject 1 mL by subcu taneous injection every month Ajovy 225 MG/1.5ML prefilled syringe Indications: Chronic migraine without aura, not intractable, without status migrainosus (CMS/HCC) INJECT 1 pen SUBCUTANEOUSLY once a month in abdomen, thigh, or outer area OF the arm 1.5 mL 4 12/25/2023 Active gabapentin 300 mg oral capsule (11 sources) Anti-epileptic Agent Start: 02-26-2024 take 1 capsule by mouth three times daily gabapentin (Neurontin) 300 MG capsule Indications: Sciatica, left side TAKE 1 CAPSULE BY MOUTH THREE TIMES DAILY 100 capsule 3 02/26/2024 Active Start: 10-30-2023 take 1 capsule by [facility] three times daily gabapentin (Neurontin) 300 MG capsule Indications: Sciatica, left side TAKE 1 CAPSULE BY MOUTH THREE TIMES DAILY 100 capsule 3 10/30/2023 Active Gabapentin Activ e hydroCHLOROthiazide 25 mg / triamterene 37.5 mg oral tablet (10 sources) Potassium-sparing Diuretic, Thiazide Diuretic Start: 12-19-2023 [...] um Active Multiple Vitamins-Minerals (CENTRUM ADULTS PO) (10 sources) Multiple Vitamins-Minerals (CENTRUM ADULTS PO) Take by mouth 1 (one) time each day. Active Naproxen (1 source) Nonsteroidal Anti-inflammatory Drug omeprazole 20 mg delayed release oral capsule (10 sources) Proton Pump Inhibitor Start: 2023 take 1 capsule by mouth twice daily omeprazole (PriLOSEC) [address] capsule Indications: Unspecified abdominal pain TAKE 1 CAPSULE BY MOUTH TWICE DAILY 200 capsule 3 03/18/2024 Active Start: 03-01-2023 take 1 capsule by mo [facility] twice daily omeprazole (PriLOSEC) [address] capsule Indications: Unspecified abdominal pain TAKE 1 CAPSULE BY MOUTH TWICE DAILY 200 capsule 3 03/01/2023 Active topiramate 50 mg oral tablet (10 sources) Start: 03-18-2024 take 1 tablet by mouth at bedtime topiramate 50 MG tablet Indications: Chronic migraine without aura, not intractable, without status migrainosus (CMS/HCC) TAKE 1 TABLET BY MOUTH AT BEDTIME 100 tablet 3 03/18/2024 Active Start: 03-01-2023 take 1 tablet by gely at bedtime topiramate 50 MG tablet Indications: Chronic migraine without aura, not intractable, without status migrainosus (CMS/HCC) TAKE 1 TABLET BY MOUTH AT BEDTIME 100 tablet 3 03/01/2023 Active traMADol hydrochloride 50 mg oral tablet (10 sources) Opioid Agonist Start: 01-11-2023 take 1 [...] [Anxiety disorder, unspecified] 01-11-2024 Chronic Essential hypertension (20 sources) Elevated blood pressure; Translations: [Essential (primary) hypertension] Onset: 08-31-2022 Resolved: 02-08-2023 08-31-2022 Chronic Headache; including migraine (10 sources) Migraine without aura, not refractory ; Translations: [Chronic migraine without aura, not intractable, without status migrainosus] Onset: 08-31-2022 08-31-2022 Chronic Malaise and fatigue (10 sources) Fatigue; Translations: [Chronic fatigue, unspecified] Onset: [...] 01-11-2024 Episodic Other inflammatory condition of skin (10 sources) Pityriasis amiantacea; Translations: [Other specified papulosquamous disorders] Onset: 08-31-2022 08-31-2022 Chronic Other non-traumatic joint disorders (4 sources) Pain in right wrist; Translations: [PAIN IN RIGHT WRIST] Onset: 08-29-2022 Episodic Other nutritional; endocrine; and metabolic disorders (4 sources) Obesity caused by energy imbalance; Translations: [Class 1 obesity due to excess calories with serious comorbidity and body mass index (BMI) of 32.0 to 32.9 in adult] Onset: 06-05-2024 06-05-2024 Chronic Other screening for suspected conditions (not mental disorders or infectious disease) (2 sources) Patient encounter status; Translations: [Encounter for screening mammogram for malignant neoplasm of breast] 05-01-2024 Episodic Other upper respiratory infections (2 sources) Upper respiratory infection; Translations: [Acute upper respiratory infection, unspecified] 05-01-2024 Episodic Residual codes; unclassified (10 sources) Obstructive sleep apnea syndrome; Translations: [Obstructive [...] Problem Date Documented Date Episodic/Chronic Abdominal hernia (10 sources) Hernia of abdominal cavity; Translations: [Other [...] 02-22-2021 Episodic Other aftercare (1 source) Other fdc (current) drug therapy; Translations: [[employer] IN[employer]ER CURRENT DRUG THERAPY] Onset: 04-20-2022 Episodic Other connective tissue disease (1 source) Other muscle spasm; Translations: [OTHER MUSCLE SPASM] Onset: 05-30-2022 Episodic Other diseases of veins and lymphatics (1 source) Venous insufficiency of leg; Translations: [Venous insufficiency (chronic) (peripheral)] Episodic Other diseases of veins and lymphatics (10 sources) Vascular insufficiency; Translations: [Venous insufficiency (chronic) (peripheral)] Onset: 08-31-2022 08-31-2022 Episodic Other nutritional; endocrine; and metabolic disorders (10 sources) History of iron deficiency; Translations: [Personal history of other endocrine, nutritional and metabolic disease] Onset: 10-02-2017 02-08-2023 Episodic Screening and history of mental health and substance abuse codes (1 source) Personal history of nicotine dependence; Translations: [PERSONAL HISTORY OF NICOTINE DEPEND] Onset: 04-20-2022 Episodic Spondylosis; intervertebral disc disorders; other back problems (20 sources) Muscle spasm of back; Translations: [Disorder [...] MARLEN AKINS Date: 2022-09-05 09:10 Normal [facility] CBC AUTO DIFFon 04-18-2022 BASO # 0.0 103/ul Normal 0.0-0.1 [facility] Comment on above: Performed By: #### C BC #### [facility] [address] [address] [address] Abdiaziz Butler Basophils/100 WBC (Bld) 0.2 % Normal 0.2-2.0 [facility] Comment on above: Performed By: #### C BC #### [facility] [address] [address] [address] Abdiaziz Butler EO # 0.1 103/ul Normal 0.0-0.7 [facility] Comment on above: Performed By: #### C BC #### [facility] [address] [address] [address] Abdiaziz Butler Eosinophils/100 WBC (Bld) 1.0 % Normal 0.9-7.0 [facility] Comment on above: Performed By: #### C BC #### [facility] [address] [address] [address] Abdiaziz Butler Erythrocyte distribution width (RBC) [Ratio] 12.8 % Normal 11.0-15.0 [facility] Comment on above: Performed By: #### C BC #### [facility] [address] [address] [address] Abdiaziz Butler Hematocrit (Bld) [Volume fraction] 35.2 % Critically low 36.0-48.0 [facility] Comment on above: Performed By: #### C BC #### [facility] [address] [address] [address] Abdiaziz Butler Hemoglobin (Bld) [Mass/Vol] 11.3 g/dL Critically low 12.0-16.0 [facility] Comment on above: Performed By: #### C BC #### [facility] [address] [place] [address] Dr. Abdiaziz Butler IG # 0.03 10e3/ul Normal 0.00-0.03 [facility] Comment on above: Performed By: #### C BC #### [facility] [address] [place] [address] Dr. Abdiaziz Butler IG % 0.3 % Normal 0.0-0.5 [facility] Comment on above: Performed By: #### C BC #### [facility] [address] [place] [address] Dr. Abdiaziz Butler LYMPH # 1.1 103/ul Critically low 1.2-3.8 [facility] Comment on above: Performed By: #### C BC #### [facility] [address] [place] [address] Dr. Abdiaziz Butler Lymphocytes/100 WBC (Bld) 11.9 % Critically low 20.5-60.0 [facility] Comment on above: Performed By: #### C BC #### [facility] [address] [place] [address] Dr. Abdiaziz Butler MANUAL DIFF REQ NO Normal [facility] Comment on above: Performed By: #### C BC #### [facility] [address] [place] [address] Dr. Abdiaziz Butler MCH (RBC) [Entitic mass] 28.4 pg Normal 26.7-34.0 [facility] Comment on above: Performed By: #### C BC #### [facility] [address] [place] [address] Dr. Abdiaziz Butler MCHC (RBC) [Mass/Vol] 32.1 g/dL Normal 29.9-35.2 [facility] Comment on above: Performed By: #### C BC #### [facility] [address] [place] [address] Dr. Abdiaziz Butler MCV (RBC) [Entitic vol] 88.4 fL Normal 81.0-99.0 [facility] Comment on above: Performed By: #### C BC #### [facility] [address] [place] [address] Dr. Abdiaziz Butler MONO # 0.7 103/ul Normal 0.3-0.8 [facility] Comment on above: Performed By: #### C BC #### [facility] [address] [place] [address] Dr. Abdiaziz Butler Monocytes/100 WBC (Bld) 7.9 % Normal 1.7-12.0 [facility] Comment on above: Performed By: #### C BC #### [facility] [address] [place] [address] Dr. Abdiaziz Butler NEUT # 7.1 103/ul Critically high 1.4-6.5 [facility] Comment on above: Performed By: #### C BC #### [facility] [address] [place] [address] Dr. Abdiaziz Butler Neutrophils/100 WBC (Bld) 78.7 % Critically high 43.0-75.0 [facility] Comment on above: Performed By: #### C BC #### [facility] [address] [place] [address] Dr. Abdiaziz Butler Platelet mean volume (Bld) [Entitic vol] 9.9 fL Normal 9.5-13.5 [facility] Comment on above: Performed By: #### C BC #### [facility] [address] [place] [address] Dr. Abdiaziz Butler PLT 293 103/ul Normal 150-450 [facility] Comment on above: Performed By: #### C BC #### [facility] [address] [place] [address] Dr. Abdiaziz Butler RBC 3.98 106/ul Critically low 4.20-5.40 [facility] Comment on above: Performed By: #### C BC #### [facility] [address] [place] [address] Dr. Abdiaziz Butler WBC 9.0 103/ul Normal 4.0-11.0 [facility] Comment on above: Performed By: #### C BC #### [facility] [address] [place] [address] Dr. Abdiaziz Butler POINT OF CARE GLUCOSEon Glucose [Mass/Vol] 128 mg/dL Critically high 74-106 [facility] Comment on above: Performed By: #### P OCGLUC ####[facility] [id number] [place], [place] [address]KgDr. Abdiaziz Butler PROF CHEM 8 (BAS METB)on Anion gap [Moles/Vol] 15.3 mmol/L Normal [facility] Comment on above: Performed By: #### B MP #### [facility] [address] [address] [address] Abdiaziz Butler Calcium [Mass/Vol] 8.6 mg/dL Normal 8.5-10.1 [facility] Comment on above: Performed By: #### B MP #### [facility] [address] [address] [address] Abdiaziz Butler Chloride [Moles/Vol] 104 mmol/L Normal 98-107 [facility] Comment on above: Performed By: #### B MP #### [facility] [address] [address] [address] Abdiaziz Butler CO2 [Moles/Vol] 23.6 mmol/L Normal 21.0-32.0 [facility] Comment on above: Performed By: #### B MP #### [facility] [address] [address] [address] Abdiaziz Butler Creatinine [Mass/Vol] 1.34 mg/dL Critically high 0.55-1.02 [facility] Comment on above: Performed By: #### B MP #### [facility] [address] [address] [address] Abdiaziz Butler EGFR-AF [place] 50 mL/min/1.73m2 Critically low >=60 [facility] Comment on above: Performed By: #### B MP #### [facility] [id number] Abdiaziz Butler EGFR-NON AF [place] 41 mL/min/1.73m2 Critically low >=60 [facility] Comment on above: Performed By: #### B MP #### [facility] [address] [place], [place] [address] Dr. Abdiaziz Butler Glucose [Mass/Vol] 97 mg/dL Normal 74-106 [facility] Comment on above: Performed By: #### B MP #### [facility] [address] [place], [place] [address] Dr. Abdiaziz Butler Potassium [Moles/Vol] 3.3 mmol/L Critically low 3.5-5.1 [facility] Comment on above: Performed By: #### B MP #### [facility] [address] [address] [address] Abdiaziz Butler Sodium [Moles/Vol] 139 mmol/L Normal 136-145 [facility] Comment on above: Performed By: #### B MP #### [facility] [address] [address] [address] Abdiaziz Butler Urea nitrogen [Mass/Vol] 26.0 mg/dL Critically high 7.0-18.0 [facility] Comment on above: Performed By: #### B MP #### [facility] [address] [address] [address] Abdiaziz Butler Urea nitrogen/Creatinin e [Mass ratio] 19.4 mg/mg Normal [facility] Comment on above: Performed By: #### B MP #### [facility] [id number] Abdiaziz Butler US SINGLE QUAD RT [...] by: LIBAN SCHULTZ Date: 2022-01-18 08:33 Normal [facility] Lipid Panelon 04-12-2021 Cholesterol [Mass/Vol] 217 mg/dL High 125-200 [facility] Comment on above: Result Comment: Low risk < 200mg/dL Borderline risk 201-239 mg/dl High risk > or equal to 240 Performed By: #### L IPD #### [facility] [address] [place], [place] [id number] Cholesterol in HDL [Mass/Vol] 45 mg/dL Normal >40 [facility] Comment on above: Result Comment: High Cardiovascular Risk HDL <40 mg/dL Low Cardiovascular Risk HDL > or equal to 60 mg/dl Performed By: #### L IPD #### [facility] [address] [place], [place] [id number] Cholesterol in LDL [Mass/Vol] 142 mg/dL Normal [facility] Comment on above: Result Comment: LDL ATP III CLASSIFICATION LDL less than 100 mg/dl Optimal LDL 100-129 mg/dl Near or above optimal LDL 130-159 Borderline high LDL 160-189 High LDL greater than 189 mg/dl Very High Performed By: #### L IPD #### [facility] [address] [place], [place] [id number] Cholesterol in VLDL [Mass/Vol] 30 mg/dL Normal [facility] Comment on above: Performed By: #### L IPD #### [facility] [address] [place], [place] [id number] Cholesterol.total/ Cholesterol in HDL [Mass ratio] 5 {ratio} Normal [facility] Comment on above: Performed By: #### L IPD #### [facility] [address] [place], [place] [id number] Triglyceride [Mass/Vol] 149 mg/dL Normal 30-150 [facility] Comment on above: Result Comment: TRIG ATPIII CLASSIFICATIONS TRIG less than 150 mg/dl Normal TRIG 150-199 mg/dl Borderline High TRIG 200-500 mg/dl High TRIG greather than 500 mg/dl Very High Performed By: #### L IPD #### [facility] [address] [place], [place] [id number] COVID Quick Testingon 2020 Result Positive [employer] Other Vital Signs Date Time Vital Sign Value Performing Clinician Facility 06-05-2024 15:01-0500 Body height 170.2 cm Goldie Hemmer PA Work Phone: [facility] 06-05-2024 15:01-0500 Body mass index (BMI) [Ratio] 32.3 kg/m2 Goldie Hemmer PA Work Phone: [facility] 06-05-2024 15:01-0500 Body weight 93.53 kg Goldie Hemmer PA Work Phone: [facility] 06-05-2024 15:01-0500 Diastolic blood pressure 82 mm[Hg] Goldie Hemmer PA Work Phone: [facility] 06-05-2024 15:01-0500 Heart rate 73 /min Goldie Hemmer PA Work Phone: [facility] 06-05-2024 15:01-0500 Respiratory rate 16 /min Goldie Hemmer PA Work Phone: [facility] 06-05-2024 15:01-0500 SaO2% (BldA) [Mass fraction] 98 % Goldie Hemmer PA Work Phone: [facility] 06-05-2024 15:01-0500 Systolic blood pressure 112 mm[Hg] Goldie Hemmer PA Work Phone: [facility] 05-01-2024 15:11-0500 Body height 170.2 cm Goldie Hemmer PA Work Phone: [facility] 05-01-2024 15:11-0500 Body mass index (BMI) [Ratio] 32.45 kg/m2 Goldie Hemmer PA Work Phone: [facility] 05-01-2024 15:11-0500 Body weight 93.98 kg Goldie Hemmer PA Work Phone: [facility] 05-01-2024 15:11-0500 Diastolic blood pressure 76 mm[Hg] Goldie Murraymer PA Work Phone: [facility] 05-01-2024 15:11-0500 Heart rate 61 /min Goldie Murraymer PA Work Phone: [facility] 05-01-2024 15:11-0500 Respiratory rate 16 /min Goldie Murraymer PA Work Phone: [facility] 05-01-2024 15:11-0500 SaO2% (BldA) [Mass fraction] 97 % Goldie Murraymer PA Work Phone: [facility] 05-01-2024 15:11-0500 Systolic blood pressure 102 mm[Hg] Goldie Murraymer PA Work Phone: [facility] 01-11-2024 15:22-0400 Body height 170.2 cm Rebecca Kumar PROGRAM ENGAGEMENT DIRECTOR Work Phone: [facility] 01-11-2024 15:22-0400 Body mass index (BMI) [Ratio] 32.48 kg/m2 Rebecca Kumar PROGRAM ENGAGEMENT DIRECTOR Work Phone: [facility] 01-11-2024 15:22-0400 Body weight 94.08 kg Rebecca Kumar PROGRAM ENGAGEMENT DIRECTOR Work Phone: [facility] 01-11-2024 15:22-0400 Diastolic blood pressure 82 mm[Hg] Rebecca Kumar PROGRAM ENGAGEMENT DIRECTOR Work Phone: [facility] 01-11-2024 15:22-0400 Heart rate 67 /min Rebecca Kumar PROGRAM ENGAGEMENT DIRECTOR Work Phone: [facility] 01-11-2024 15:22-0400 Respiratory rate 17 /min Rebecca Kumar PROGRAM ENGAGEMENT DIRECTOR Work Phone: [facility] 01-11-2024 15:22-0400 SaO2% (BldA) [Mass fraction] 98 % Rebecca Kumar PROGRAM ENGAGEMENT DIRECTOR Work Phone: [facility] 01-11-2024 15:22-0400 Systolic blood pressure 134 mm[Hg] Rebecca Kumar PROGRAM ENGAGEMENT DIRECTOR Work Phone: [facility] 02-22-2021 11:15-0500 Body height 170.18 cm Tatianna Rosen Other [employer] Other 02-22-2021 11:15-0500 Body temperature 99.1 [degF] Tatianna Rosen Other [employer] Other 02-22-2021 11:15-0500 SaO2% (BldA) [Mass fraction] 97 % Tatianna Rosen Other [employer] Other Encounters Encounter Date Encounter Type Care Provider Facility Start: 06-05-2024 End: 06-05-2024 Office outpatient visit 15 minutes Goldie Hayes PA Work Phone: [facility] Comment on above: Essential hypertensi on (CMS/HCC) (Primary Dx); Class 1 obesity due to excess calories with serious comorbidity and body mass index (BMI) of 32.0 to 32.9 in adult; Osteoarthritis of spine at multiple levels Start: 06-05-2024 End: 06-05-2024 ambulatory GOLDIE HAYES Not Available Start: 06-05-2024 End: 06-05-2024 Bamboo flowsheet Goldie Hayes PA Work Phone: [facility] Start: 06-05-2024 End: 06-05-2024 Bamboo flowsheet Goldie Hayes PA Work Phone: [facility] Start: 05-01-2024 End: 05-01-2024 Office outpatient visit 25 minutes Goldie DAY Work Phone: [facility] Comment on [...] Office outpatient visit 25 minutes Rebecca Kumar PROGRAM ENGAGEMENT DIRECTOR Work Phone: [facility] Comment on above: Anxiety (Primary Dx) ; Uses emotional support animal; Heel spur, left; Pain of left foot Start: 01-11-2024 End: 01-11-2024 ambulatory REBECCA KUMAR Not Available Start: 01-11-2024 End: 01-11-2024 Bamboo flowsheet Rebecca Kumar PROGRAM ENGAGEMENT DIRECTOR Work Phone: [facility] Start: 01-11-2024 End: 01-11-2024 Bamboo flowsheet Rebecca Kumar PROGRAM ENGAGEMENT DIRECTOR Work Phone: [facility] Start: 01-08-2024 End: 01-09-2024 Telephone encounter Marisel Mims HUSSEIN Work Phone: [facility] Start: 09-20-2023 End: 09-20-2023 ambulatory GOLDIE HAYES Not Available Start: 09-13-2022 End: 09-13-2022 ambulatory [...] End: 11-26-[address] GRACE COVARRUBIAS . Facility: Start: 02-22-2021 End: 02-22-2021 ambulatory Tatianna Rosen Other [employer] Other Start: 02-22-2021 Nursing evaluation o f patient and report Tatianna Rosen [facility] [place] Procedures Date Procedure Procedure Detail Performing Clinician Start: 05-09-2024 Mammography Goldie DAY Work Phone: Start: 02-01-2023 Mammography Marisel Vo ss [employer] Work Phone: Start: 08-31-2022 H/O: hysterectomy History of hystere ctomy Marisel Prasanna [employer] Work Phone: Start: 11-09-2018 Colonoscopy Marisel Vo ss [employer] Work Phone: Plan of Treatment Date Care Activity Detail Author Start: 11-09-2028 Screening for malignant neoplasm of colon [facility] Start: 05-09-2025 Screening for malignant neoplasm of breast Mammogram [facility] Start: 12-23-2024 End: 12-23-2024 Patient encounter procedure 12/23/2024 4:00 PM EDT Office Visit [facility] [address] [place] [id number] Herrera Mann MD [address] [place] [address] [facility] Start: 06-05-2024 End: 06-05-2024 Patient encounter procedure [facility] Comment on above: Arrived Start: 05-01-2024 End: 05-01-2024 Patient encounter procedure 05/01/2024 3:00 PM EST Office Visit [facility] [address] [place] [id number] Goldie Hayes PA [address] [place] [address] Arrived [facility] Comment on above: Arrived Start: 05-01-2024 End: 05-01-2025 COMMON RESPIRATORY BACTERIAL/VIRAL INFECTION (HTRX) COMMON RESPIRATORY BACTERIAL/VIRAL INFECTION (HTRX) Lab Routine URI with cough and congestion Expected: 05/01/2024 (Approximate), Expires: 05/01/2025 [facility] Comment on above: Expected: 05/01/2024 (Approximate), Expires: 05/01/2025 Start: 05-01-2024 End: 06-29-2025 DBT Breast - bilateral screening Bilateral screening mammogram with tomosynthesis Imaging Routine Encounter for screening mammogram for malignant neoplasm of breast Expected: 05/01/2024, Expires: 06/29/2025 [facility] Work Phone: Comment on above: Expected: 05/01/2024 , Expires: 06/29/2025 Start: 02-02-2024 Screening for malignant neoplasm of breast Mammogram [facility] Start: 01-11-2024 End: 01-11-2024 Patient encounter procedure [facility] Comment on above: Arrived Start: 12-17-2023 Influenza vaccination Influenza Vacc ine (#1) [facility] Start: 1970 Screening for malignant neoplasm of colon [facility] Immunizations Immunization Date Immunization Notes Care Provider Fa braydenty 02-08-2023 influenza, injectabl e, quadrivalent, preservative free Marisel Prasanna [employer] Work Phone: [facility] 02-08-2023 influenza virus vacc ine, unspecified formulation Marisel Prasanna [employer] Work Phone: [facility] 02-18-2021 influenza, injectabl e, quadrivalent, contains preservative Marisel Prasanna [employer]UTTER GRINDER Work Phone: [facility] Payers Date Payer Category [facility] [id number] 2020 Unknown BCBS BCBS [id number] 2020-Present [phone] [address] [place] [address] [id number] 2020 Unknown [id number] 1970 Unknown [id number] 2.16.840.1.539669.3.579. 2.593 1968 Unknown [id number] 2.16.840.1.428324.3.579. 2.593 1968 Unknown [id number] 2.16.840.1.257674.3.579. 2.593 1968 Unknown [id number] 2.16.840.1.959006.3.579. 2.593 1968 Unknown [id number] 2.16.840.1.611041.3.579. 2.593 1968 Unknown [id number] 2.16.840.1.739954.3.579. 2.593 1968 Unknown [id number] 2.16.840.1.561077.3.579. 2.593 1968 Unknown [id number] 2.16.840.1.290722.3.579. 2.593 1968 Unknown [id number] 2.16.840.1.216582.3.579. 2.593 1968 Unknown [id number] 2.16.840.1.148820.3.579. 2.593 1968 Unknown [id number] 2.16.840.1.225378.3.579. 2.1259 1968 Unknown [id number] 2.16.840.1.385493.3.579. 2.1259 1968 Unknown [id number] 2.16.840.1.355612.3.579. 2.1259 1968 Unknown [id number] 2.16.840.1.273720.3.579. 2.1259 1961 [facility] [id number] [id number] Social History Date Type Detail Facility Start: 09-08-2022 End: 09-20-2023 Sex Assigned At [facility] Start: 09-08-2022 Tobacco smoking stat [facility] Never smoked tobacco [facility] Start: 09-08-2022 Tobacco use and exposure Smoke less tobacco non-user [facility] Start: 01-11-2024 End: 06-05-2024 Alcoholic beverage intake Lifetime non-drinker (finding) [facility] Start: 09-08-2022 End: 09-20-2023 History of [...] close [facility] Clinical Notes 02-22-2021 to 06-05-2024 Goldie Hayes, SHAY - 06/05/2024 3:00 PM SHAY Jones - 05/01/2024 3:00 PM Maite Kumar NP - 01/11/2024 3:30 PM EDTPatient Instructions Note Date & Type Note Facility 06-05-2024 History of Presen t illness Narrative Images from the original note were not included. Subjective Patient ID: Delisa Saleh is a 53 y.o. female who presents for hypertension. Delisa is present today for follow up hypertension. Denies chest pain, SOB, blurry vision, headaches. Did check BP's at home off/on and running around 120's/70's. At last o/v her Clonidine was increased to take PRN. She also states her lightheadedness has improved. She is currently on Triamterene/hydrochlorothiazide. She has not had to take the Clonidine it was increased. 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 Trying to look for a new job. States her cough resolved with the antibiotic and cough medication she was given. Following with Pain Management for her back. States the last injections they did for her helped more than previous injections had. Sees them next in June. Current Outpatient Medications on File Prior to Visit Medication Sig Dispense Refill Ajovy 225 MG/1.5ML prefilled syringe INJECT 1 pen SUBCUTANEOUSLY once a month in abdomen, thigh, or outer area OF the TO THE ARM 1.5 mL 4 baclofen (Lioresal) 10 MG tablet Take 10 mg by mouth at bedtime. cloNIDine (Catapres) 0.1 MG tablet Take 1 tablet (0.1 mg) by mouth Daily as needed for high blood pressure 30 tablet 2 diclofenac (Voltaren) 50 MG EC tablet TAKE 1 TABLET BY MOUTH TWICE DAILY NEEDED 200 tablet 4 escitalopram (Lexapro) 10 MG tablet TAKE 1 TABLET BY MOUTH DAILY 100 tablet 3 fluticasone (Flonase) 50 MCG/ACT nasal spray Administer 1-2 sprays into each nostril Daily Shake gently. Before first use, prime pump. After use, clean tip and replace cap. 16 g 0 gabapentin (Neurontin) 300 MG capsule TAKE 1 [...] REPAIR 10/2018 with mesh Visit Vitals BP 112/82 Pulse 73 Resp 16 Ht 5' 7 Wt 206 lb 3.2 oz SpO2 98% BMI 32.30 kg/m Smoking Status Never BSA 2.1 m Review of Systems Constitutional: Negative for chills, fatigue and fever. Respiratory: Negative for cough, shortness of breath and wheezing. Cardiovascular: Negative for chest pain, palpitations and leg swelling. Gastrointestinal: Negative for abdominal pain, constipation, diarrhea, nausea and vomiting. Musculoskeletal: Positive for back pain. Skin: Negative for rash. Objective Physical Exam Constitutional: General: She is not in acute distress. Appearance: She is well-developed. She is obese. HENT: Head: Normocephalic and atraumatic. Eyes: General: No scleral icterus. Conjunctiva/sclera: Conjunctivae normal. Cardiovascular: Rate and Rhythm: Normal rate and regular rhythm. Heart sounds: Normal heart sounds. No murmur heard. Pulmonary: Effort: Pulmonary effort is normal. No respiratory distress. Breath sounds: Normal breath sounds. No wheezing, rhonchi or rales. Skin: General: Skin is warm and dry. Neurological: General: No focal deficit present. Mental Status: She is alert and oriented to person, place, and time. Psychiatric: Mood and Affect: Mood normal. Behavior: Behavior normal. Assessment/Plan Diagnoses and all orders for this visit: Essential hypertension (CMS/HCC) Patient's blood pressure is currently well controlled. BP log reviewed, running well for her at home. Continue with current medications and I will continue to monitor. She can keep the Clonidine on hand if needed for elevated BP. Class 1 obesity due to excess calories with serious comorbidity and body mass index (BMI) of 32.0 to 32.9 in adult Pt is down a pound since her last appt. Encouraged portion control, decrease simple sugars and carbohydrates, gradually increase activity level. Aim for continued gradual steady weight loss. Osteoarthritis of spine at multiple levels Sees Pain Management again on 06/20/2024, keep appt as scheduled. Follow up in about 6 months (around 12/03/2024) for Hypertension. documented in this encounter [facility] 05-01-2024 History of Presen t illness Narrative [...] Anxiety Back pain COVID-19 02/22/2021 HTN (hypertension) ([facility]) Iron deficiency anemia Migraines (CMS/HCC) Past Surgical [...] in 4-6 weeks.. documented in this encounter [facility] 01-11-2024 History of Presen t illness [...] L2-L5 Nerve Blocks LUMBAR SPINE SURGERY Lumbar DEANE's (04/05/2018,12/10/2019) RADIOFREQUENCY ABLATION Right L2-L5 (09/11/2018,01/26/2021) VENTRAL [...] follow-ups on file. documented in this encounter [facility] 01-11-2024 Instructions Rebecca Kumar NP - 01/11/2024 3:30 PM EDT Emotional support animal letter provided. Prednisone as ordered Discussed possible referral to podiatry if needed. documented in this encounter [facility] 01-09-2024 Telephone encount er Note Patient scheduled [facility] 01-09-2024 Miscellaneous Notes Formattin g of this note might be different from the original. Patient scheduled Pt KELSEY on requesting a letter for an emotional support animal. Please help patient get set up for an appt for this. documented in this encounter [facility] 01-08-2024 Telephone encount er Note Pt KELSEY on requesting a letter for an emotional support animal. Please help patient get set up for an appt for this. [facility] 08-29-2022 Note PROCEDURE: XR WRIST RT [...] authenticated by: LIBAN SCHULTZ Date: 2022-08-29 09:35 [facility] 05-26-2022 Note CONSULTATION CONSULTATION DATE: 05/26/2022 HISTORY [...] patient is in agreement to this. [facility] 02-24-2022 Note CONSULTATION CONSULTATION DATE: 02/24/2022 HISTORY [...] indicated. Patient agrees with this plan. [facility] 12-28-2021 Note CONSULTATION PROCEDURE DATE: 12/28/2021 PREOPERATIVE [...] be followed up in the office. [facility] 11-25-2021 Note PROCEDURE DATE: 11/15 PRE AND POSTOPERATIVE DIAGNOSIS: Bilateral paravertebral spasms. PROCEDURE: Bilateral lumbar trigger point injections. CORRECTION: No procedure was done on that day. We will preauthorize for the bilateral lumbar trigger point and bring her back into the office at that time. 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 She does report stretching and using [...] three months' time unless otherwise indicated. [facility] 02-22-2021 Evaluation note Encounter Date Diagnosis Assessment [...] Patient care instructions given in writting by [facility] Care At Home document. Additional time spent conducting pre-visit phone call, screening for symptoms, instructions on social distancing, application and removal of PPE, and cleaning of examination room, equipment and supplies was preformed. Patient education given for testing methodology and results. Patient care instructions given in writting by [facility] At Home document. [employer] Other Evaluation note* Diagnosis Anxiety- Primary Anxiety state, unspecified Uses emotional support animal Heel spur, left Pain of left foot documented in this encounter [facility] HealthcareEvaluation note* Diagnosis Essential hypertension (CMS/HCC)- Primary Unspecified essential hypertension Encounter for screening mammogram for malignant neoplasm of breast URI with cough and congestion documented in this encounter [facility] HealthcareEvaluation note* Diagnosis Essential hypertension (CMS/HCC)- Primary Unspecified essential hypertension Class 1 obesity due to excess calories with serious comorbidity and body mass index (BMI) of 32.0 to 32.9 in adult Osteoarthritis of spine at multiple levels documented in this encounter [facility] HealthcareHistory general Narrative - Reported* Type Description Date Medical History HTN Medical History Anxiety Medical History Back pain Medical History Migranes Medical History Iron deficiency anemia Surgical History hysterectomy Surgical History appy Hospitalization History See Above [employer] Other Summary Purpose Family History No Family History Records FoundNo Family History Records FoundNo Family History Records Found Advance Directives No Advanced Directives Records FoundNo Advanced Directives Records FoundNo Advanced Directives Records Found Additional Source Comments INFORMATION SOURCE (unrecogn ized section and content) DATE CREATED AUTHOR 04/13/2021 [facility] dical Specialist DATE CREATED AUTHOR AUTHOR'S ORGANIZ ATION 09/23/2022 [facility] DATE CREATED AUTHOR AUTHOR'S ORGANIZ ATION 06/07/2024 [facility] dical Specialists EPIC REASON FOR VISIT (unrecogniz ed section and content) Reason Comments URI Admits cough with ph legm, wheezing, runny nose, post nasal drainage. Has had this for 2 days. Has not been taking anything OTC. Care Teams (unrecognized sec tion and content) Art Museum Docent Relationship Specialty Start Date End Date Herrera Mann MD [address] [facility] [address] [place] [address] PCP - [facility] 07/16/20 Herrera Mann MD [address] [facility] [address] [place] [address] PCP - General Internal Medicine 09/08/22 [employer] Museum Docent Relationship Specialty Start Date End Date Herrera Mann MD [address] [place] [address] [place] [address] PCP - [employer] 07/16/20 Herrera Mann MD [address] [place] [address] [place] [address] PCP - General Internal Medicine 09/08/22 [employer] Docent Relationship Specialty Start Date End Date Herrera Mann MD [address] [place] [address] [place] [address] PCP - [employer] 07/16/20 Herrera Mann MD [address] [place] [address] [place] [address] PCP - General Internal Medicine 09/08/22 [employer] Docent Relationship Specialty Start Date End Date Herrera Mann MD [address] [place] [address] [place] [address] PCP - [employer] 07/16/20 Herrera Mann MD [address] [place] [address] [place] [address] PCP - General Internal Medicine 09/08/22 [employer] Docent Relationship Specialty Start Date End Date Herrera Mann MD [address] [place] [address] [place] [address] PCP - [employer] 07/16/20 Herrera Mann MD [address] [place] [address] [place] [address] PCP - General Internal Medicine 09/08/22 [employer] Docent Relationship Specialty Start Date End Date Herrera Mann MD [address] [place] [address] [place] [address] [facility] 07[facility]16/20 Herrera Mann MD 112 [facility] [address] [place] [address] PCP - General Internal Medicine 09/08/22 [employer] Docent Relationship Specialty Start Date End Date Herrera Mann MD 112 [facility] [address] [place] [address] PCP - [facility] 07/16/20 Herrera Mann MD 112 [facility] [address] [place] [address] PCP - General Internal Medicine 09/08/22 FOR [...] BE BASED ON THE PRIMARY CLINICAL RECORDS. [employer] [facility]. provides no warranty or guarantee of the accuracy or completeness of information in this document.
== END 2024-10-15 09:16 | disposition home or self-care (01) ==
PROVIDERS: PCP Internal Medicine; Visit Provider Nurse Practitioner
DX: M47.812 Spondylosis without myelopathy or radiculopathy, cervical region (principal); M50.30 Other cervical disc degeneration, unspecified cervical region
CPT/HCPCS: 72050

== ENCOUNTER 2024-10-16 07:17 | Outpatient (RCR) | payer BC, SELFPAY | END 2024-11-27 16:51 | disposition home or self-care (01) | LOC: PT 07:17 | PROVIDERS: PCP Internal Medicine; Visit Provider Nurse Practitioner | DX: M47.812 Spondylosis without myelopathy or radiculopathy, cervical region (principal); M54.59 Other low back pain; M54.2 Cervicalgia | CPT/HCPCS: 97010; 97012; 97014; 97110; 97140; 97162 ==

== ENCOUNTER 2024-11-21 14:47 | Outpatient (OUT) | payer BC, SELFPAY ==
--- OUTSIDE RECORDS SUMMARY | 2024-11-21 14:49 | XMS_ITS | Encounter Summary ---
Author Organization [facility] Address [address] [facility] [facility] [place] [address] Care Team Providers Care Licensed Bondsman Name Role Phone Herrera Mann MD Unavailable [phone] Herrera Mann MD Primary Care Provider [phone] Encounter Details Date Type Department Care Team (Late st Contact Info) Description 09/07/2022 Orders Only [facility] [place] [facility] [address] [place] [address] [place] [address] Herrera Mann MD [address] [place] [address] [place] [address] Social History Tobacco Use Types Packs/Day Years [...] declined 09/08/2022 How often do you attend taoist or advent serv ices? Never 09/08/2022 Do you belong to any clubs o r organizations such as taoist groups, unions, fraternal or athletic groups, or [...] and heating? Not hard at all 09/08/2022 [facility] of Occupat ional Health - Occupational Stress [...] place to sleep or slept in a jail (including now)? No 09/08/2022 Comments Unknown Sex [...] Assessment Author Never 09/08/2022 9:48 AM EDT Mycsarait, Generic documented as of this encounter Plan of Treatment Upcoming Encounters Date Type Department Care Team (Late st Contact Info) Description 12/23/2024 4:00 PM EDT Office Visit [facility] [place] [facility] [address] [facility] [address] [place] [address] Herrera Mann MD [address] [place] [address] [place] [address] documented as of this encounter Procedures Procedure [...] on filedocumented in this encounter Care Teams Licensed Bondsman Relationship Specialty Start Date End Date Herrera Mann MD [address] [place] [address] PCP - [employer] 07/16/20 5 Herrera Mann MD [address] [place] [address] PCP - General Internal Medicine 09/08/22 documented as of this encounter
--- OUTSIDE RECORDS SUMMARY | 2024-11-21 14:49 | XMS_ITS | Encounter Summary ---
Author Organization [facility] Address [address] [facility] [place] [address] Care Team Providers Care Business Support Liaison Name Role Phone Herrera Mann MD Unavailable [phone] Herrera Mann MD Primary Care Provider Encounter Details Date Type Department Care Team (Late st Contact Info) Description 11/11/2022 Abstract [facility] [place] [facility] [address] [place] [address] [place] [address] Herrera Mann MD [address] [place] [address] [place] [address] Social History Tobacco Use Types Packs/Day Years [...] declined 09/08/2022 How often do you attend faith or gnosticist serv ices? Never 09/08/2022 Do you belong to any clubs o r organizations such as faith groups, unions, fraternal or athletic groups, or [...] and heating? Not hard at all 09/08/2022 [facility] of Occupat ional Health - [...] Visit [facility] [place] [facility] [address] [facility] [address] [place] [address] Herrera Mann MD [address] [facility] [address] [place] [address] documented as of this encounter Visit Diagnoses Not on filedocumented in this encounter Care Teams Business Support Liaison Relationship Specialty Start Date End Date Herrera Mann MD [address] [place] [address] [place] [address] PCP - [employer] 07/16/20 5 Herrera Mann MD [address] [place] [address] [place] [address] PCP - General Internal Medicine 09/08/22 documented as of this encounter
--- OUTSIDE RECORDS SUMMARY | 2024-11-21 14:49 | XMS_ITS | Encounter Summary ---
Author Organization [facility] Address [address] [place] [address] Care Team Providers Care Autism Specialist Name Role Phone Herrera Mann MD Primary Care Provider [phone] Encounter Details Date Type Department Care Team (Late st Contact Info) Description 09/19/2024 Orders Only [facility] [place] [facility] [address] [place] [address] [place] [phone] Marisel Mims LPN [address] [place] [address] Encounter for screening mammogram for malignant neoplasm [...] declined 09/20/2023 How often do you attend zoroastrianism or jain serv ices? Never 09/20/2023 Do you belong to any clubs o r organizations such as zoroastrianism groups, unions, fraternal or athletic groups, or [...] care, and heating? Not very hard 09/20/2023 [facility] of Occupat ional [facility] - Occupational Stress Questionnaire Answer Date Recorded [...] Visit [facility] [place] [facility] [address] [facility] 110 [place] [address] Herrera Mann MD [address] [facility] [address] [place] [address] documented as of this encounter Visit Diagnoses Diagnosis Encounter for screening mammogram for malignant neoplasm of breast documented in this encounter Care Teams Autism Specialist Relationship Specialty Start Date End Date Herrera Mann MD [address] [facility] [address] [place] [address] PCP - General Internal Medicine 09/08/22 documented as of this encounter
--- OUTSIDE RECORDS SUMMARY | 2024-11-21 14:49 | XMS_ITS | Encounter Summary ---
Author Organization [facility] Address [address] [place] [address] Care Team Providers Care Beer Brewer Name Role Phone Herrera Mann MD Unavailable [phone] Herrera Mann MD Primary Care Provider [phone] Encounter Details Date Type Department Care Team (Late st Contact Info) Description 02/01/2023 Clinisync Result Encounter [facility] External Department Unsolicited Herrera Mann MD [address] [place] [address] [place] [address] Social History Tobacco Use Types Packs/Day Years [...] declined 09/08/2022 How often do you attend worship or anglican serv ices? Never 09/08/2022 Do you belong to any clubs o r organizations such as worship groups, unions, fraternal or athletic groups, or [...] and heating? Not hard at all 09/08/2022 [facility] of Occupat ional Health - Occupational Stress [...] place to sleep or slept in a longterm (including now)? No 09/08/2022 Comments Unknown Sex [...] Description 12/23/2024 4:00 PM EDT Office Visit [facility] [address] [facility] 110 [place] [address] Herrera Mann MD 112 [facility] 110 [place] [address] documented as of this encounter Procedures Procedure Name Priority Date/Time Associated Diagnosis Comments MM TOMOSYNTHESIS SCREENING BI 02/01/2023 6:52 AM EDT documented in this encounter Results * MM TOMOSYNTHESIS SCREENING BI (02/01/2023 6:52 AM EDT) Anatomical Region Laterality Modality Other 02/01/2023 6:52 AM EDT Narrative 02/01/2023 6:52 AM EDT [facility] [place] [id number] Mammography Report Signed Patient: Delisa Saleh MR#: [id number] : 1970 Acct:[id number] Age/Sex: 52 / F ADM Date: 01/31/23 Loc: MAMMO Attending Dr: HERRERA MANN Ordering Physician: HERRERA MANN Results: Date of Service: 01/31/23 Follow Up: Procedure(s): MM tomosynthesis screening BI Accession Number(s): [id number] cc: HERRERA MANN Patient: DELISA SALEH. Exam Date: 01/31/2023 : 1970 Gender:F Ordering : DR HERRERA MANN M.D. Admission #: [id number] Family : Order #: [id number] CLICK HERE TO VIEW EXAM RADIOLOGY REPORT PROCEDURE: MM TOMOSYNTHESIS SCREENING BI COMPARISON: MG MAMM SCREEN SUKHDEV W CAD, 10/22/2019. MG MAMM SCREEN 3D SUKHDEV CAD, 09/01/2021. INDICATIONS: screening Calculator Name NCI Breast Cancer Risk Assessment Tool 5 Year Breast Cancer Risk 1.20% Lifetime Breast Cancer Risk 8.50% Personal Breast Cancer No Personal Ovarian Cancer No Treatments None Family Cancers None LOCATION: [facility] BREAST COMPOSITION: Heterogeneously dense,which may obscure small [...] 06:52 Dictated By: Reagan Dockery M.D. Signed By: 02/01/23652 DD/ 1 TD/TT: Securities Analyst: Procedure Note Radiology, Radiologist, - 02/01/2023 [facility] [place] [id number] Mammography Report Signed Patient: Delisa Saleh LMR#: [id number] : 1970Acct:[id number] Age/Sex: 52 / FADM Date: 01/31/23 Loc: MAMMO Attending Dr: HERRERA MANN Ordering Physician: HERRERA MANNResults: Date of Service: 01/31/23Follow Up: Procedure(s): MM tomosynthesis screening BI Accession Number(s): [id number] cc: HERRERA MANN Patient: DELISA SALEH Exam Date: 01/31/2023 : 1970 Gender:F Ordering : DR HERRERA MANN M.D. Admission #: [id number] Family : Order #: [id number] CLICK HERE TO VIEW EXAM RADIOLOGY REPORT PROCEDURE: MM TOMOSYNTHESIS SCREENING BI COMPARISON: MG MAMM SCREEN SUKHDEV W CAD, 10/22/2019. MG MAMM SCREEN 3DBIL CAD, 09/01/2021. INDICATIONS: screening Calculator Name NCI Breast Cancer Risk Assessment Tool 5 Year Breast Cancer Risk 1.20% Lifetime Breast Cancer Risk 8.50% Personal Breast Cancer No Personal Ovarian Cancer No Treatments None Family Cancers None LOCATION: [facility] BREAST COMPOSITION: Heterogeneously dense,which may obscure smallmasses. [...] Reagan Dockery M.D. Signed By:02/01/2353 DD/ TD/TT: Securities Analyst: Herrera Mann MD [facility] Final Result documented in this encounter Visit Diagnoses Not on filedocumented in this encounter Care Teams Beer Brewer Relationship Specialty Start Date End Date Herrera Mann MD [address] [facility] 110 [place] [address] PCP - [employer] 07/16/20 5 Herrera Mann MD 112 [facility] 110 [place] [id number] PCP - General Internal Medicine 09/08/22 documented as of this encounter
--- OUTSIDE RECORDS SUMMARY | 2024-11-21 14:49 | XMS_ITS | Encounter Summary ---
Author Organization [facility] Address [address] [facility] [place] [address] Care Team Providers Care Mechanical Manufacturing Technician Name Role Phone Herrera Mann MD Unavailable Herrera Mann MD Primary Care Provider [phone] Encounter Details Date Type Department Care Team (Late st Contact Info) Description 01/27/2023 Abstract [facility] [facility] [address] [facility] 110 [place] [address] Herrera Mann MD [address] [facility] 110 [place] [address] Social History Tobacco Use Types Packs/Day Years [...] declined 09/08/2022 How often do you attend lutheran or gnosticist serv ices? Never 09/08/2022 Do you belong to any clubs o r organizations such as lutheran groups, unions, fraternal or athletic groups, or [...] and heating? Not hard at all 09/08/2022 [facility] of Occupat ional Health - Occupational [...] place to sleep or slept in a nursing home (including now)? No 09/08/2022 Comments Unknown Sex [...] Visit [facility] [place] [facility] [address] [facility] 110 [place] [address] Herrera Mann MD [address] [facility] 110 [place] [address] documented as of this encounter Visit Diagnoses Not on filedocumented in this encounter Care Teams Mechanical Manufacturing Technician Relationship Specialty Start Date End Date Herrera Mann MD [address] [facility] 110 [place] [address] PCP - [place] [employer] 07/16/20 5 Herrera Mann MD [address] [address] PCP - General Internal Medicine 09/08/22 documented as of this encounter
--- OUTSIDE RECORDS SUMMARY | 2024-11-21 14:49 | XMS_ITS | Encounter Summary ---
Author Organization [facility] Address [address] [facility] [place] [address] Care Team Providers Care Counter Stacker Name Role Phone Herrera Mann MD Unavailable Herrera Mann MD Primary Care Provider [phone] Encounter Details Date Type Department Care Team (Late st Contact Info) Description 05/09/2024 Clinisync Result Encounter NOMS External Department Unsolicited Shanti Dia PA [address] [place] [address] [place] [address] Social History Tobacco Use Types Packs/Day Years [...] declined 09/20/2023 How often do you attend rastafarian or nondenominational serv ices? Never 09/20/2023 Do you belong to any clubs o r organizations such as rastafarian groups, unions, fraternal or athletic groups, or [...] care, and heating? Not very hard 09/20/2023 [facility] [place] of Occupat ional Health - Occupational Stress [...] place to sleep or slept in a assisted (including now)? No 09/20/2023 Comments Unknown Sex [...] 12/23/2024 4:00 PM EDT Office Visit [facility] [place] [facility]un[facility] [address] [facility] 110 [place] [address] Herrera Mann MD [address] [facility] 110 [place] [address] documented as of this encounter Procedures Procedure Name Priority Date/Time Associated Diagnosis Comments MM TOMOSYNTHESIS SCREENING BI 05/09/2024 4:15 PM EST documented in this encounter Results * MM TOMOSYNTHESIS SCREENING BI (05/09/2024 4:15 PM EST) Anatomical Region Laterality Modality Other 05/09/2024 4:15 PM EST Narrative 05/09/2024 4:15 PM EST The [address] [address] Mammography Report Signed Patient: DELISA SALEH MR#: [id number] : 1970 Acct:[id number] Age/Sex: 53 / F ADM Date: 05/09/24 Loc: MAMMO Attending Dr: SHANTI DIA Ordering Physician: SHANTI DIA Results: Date of Service: 05/09/24 Follow Up: Procedure(s): MM tomosynthesis screening BI Accession Number(s): [id number] cc: HERRERA MANN ; SHANTI DIA Patient Name: DELISA SALEH MR#: [id number] : 1970 Exam Date: 05/09/2024 Ordering Doctor: DR SHANTI DIA PA RADIOLOGY REPORT PROCEDURE: MM TOMOSYNTHESIS SCREENING BI COMPARISON: MM TOMOSYNTHESIS SCREENING BI, 01/31/2023. MG MAMM SCREEN 3D SUKHDEV CAD, 09/01/2021. INDICATIONS: Screening Calculator Name NCI Breast Cancer Risk Assessment Tool 5 Year Breast Cancer Risk 1.20% Lifetime Breast Cancer Risk 8.30% Personal Breast Cancer No Personal Ovarian Cancer No Treatments None Family Cancers None LOCATION: The [facility] BREAST COMPOSITION: The breasts are heterogeneously [...] Dictated By: Reagan Dockery M.D. Signed By: 05/09/24 1615 DD/ TD/TT: Landscape Management Technician: Procedure Note Radiology, Radiologist, - 05/09/2024 [place] [address] Mammography Report Signed Patient: DELISA SALEH LMR#: [id number] : 1970Acct:[id number] Age/Sex: 53 / FADM Date: 05/09/24 Loc: MAMMO Attending Dr: SHANTI DIA Ordering Physician: SHANTI DIA MResults: Date of Service: 05/09/24Follow Up: Procedure(s): MM tomosynthesis screening BI Accession Number(s): [id number] cc: HERRERA MANN ; SHANTI DIA Patient Name: DELISA SALEH MR#: [id number] : 1970 Exam Date: 05/09/2024 Ordering Doctor: DR SHANTI DAY RADIOLOGY REPORT PROCEDURE: MM TOMOSYNTHESIS SCREENING BI COMPARISON: MM TOMOSYNTHESIS SCREENING BI, 01/31/2023. MG MAMM [id number] SUKHDEV CAD, 09/01/2021. INDICATIONS: Screening Calculator Name NCI Breast Cancer Risk Assessment Tool 5 Year Breast Cancer Risk 1.20% Lifetime Breast Cancer Risk 8.30% Personal Breast Cancer No Personal Ovarian Cancer No Treatments None Family Cancers None LOCATION: The [facility] BREAST COMPOSITION: The breasts are heterogeneously [...] Dockery M.D. Signed By:05/09/245 DD/ 14 TD/TT: Landscape Management Technician: Shanti DAY [facility] Final Result documented in this encounter Visit Diagnoses Not on filedocumented in this encounter Care Teams Counter Stacker Relationship Specialty Start Date End Date Herrera Mann MD 112 [facility] 110 [place] [address] PCP - [place] [employer] 07/16/20 5 Herrera Mann MD [address] [place] [address] PCP - General Internal Medicine 09/08/22 documented as of this encounter
--- OUTSIDE RECORDS SUMMARY | 2024-11-21 14:49 | XMS_ITS | Encounter Summary ---
Author Organization [facility] Address [address] [facility] [place] [address] Care Team Providers Care Oncology Specialist Name Role Phone Herrera Mann MD Unavailable [phone] Herrera Mann MD Primary Care Provider [phone] Encounter Details Date Type Department Care Team (Late st Contact Info) Description 09/05/2022 Clinisync Result Encounter [facility] EXT DEP Herrera Mann MD [address] [place] [address] [place] [address] Social History Tobacco Use Types Packs/Day Years [...] declined 09/08/2022 How often do you attend yazidism or religion serv ices? Never 09/08/2022 Do you belong to any clubs o r organizations such as yazidism groups, unions, fraternal or athletic groups, or [...] and heating? Not hard at all 09/08/2022 [facility] of Occupat ional Health - [...] place to sleep or slept in a half-way (including now)? No 09/08/2022 Comments Unknown Sex [...] Office Visit [facility] [place] [facility] [address] [facility] 110 [place] [address] Herrera Mann MD 112 [facility] 110 [place] [address] documented as of this encounter Procedures Procedure [...] on filedocumented in this encounter Care Teams Oncology Specialist Relationship Specialty Start Date End Date Herrera Mann MD [address] [facility] 110 [place] [address] PCP - [place] [employer] 07/16/20 5 Herrera Mann MD [address] [email or web address] 110 [place] [address] PCP - General Internal Medicine 09/08/22 documented as of this encounter
--- OUTSIDE RECORDS SUMMARY | 2024-11-21 14:49 | XMS_ITS | Encounter Summary ---
Author Organization [facility] Address [address] [facility] [place] [address] Care Team Providers Care Manifest Clerk Name Role Phone Herrera Mann MD Unavailable [phone] Herrera Mann MD Primary Care Provider [phone] Encounter Details Date Type Department Care Team (Late st Contact Info) Description 05/30/2024 Abstract [facility] [facility] [address] [place] [address] [place] [address] Herrera Mann MD [address] [place] [address] [place] [address] Social History Tobacco Use Types Packs/Day Years [...] declined 09/20/2023 How often do you attend latter-day or confucianism serv ices? Never 09/20/2023 Do you belong to any clubs o r organizations such as latter-day groups, unions, fraternal or athletic groups, or [...] care, and heating? Not very hard 09/20/2023 [facility] of Occupat ional Health - [...] Visit [facility] [place] [address] [place] [address] [place] [address] Herrera Mann MD [address] [place] [address] [place] [address] documented as of this encounter Visit Diagnoses Not on filedocumented in this encounter Care Teams Manifest Clerk Relationship Specialty Start Date End Date Herrera Mann MD [address] [place] [address] [place] [address] PCP - [employer] 07/16/20 5 Herrera Mann MD [address] [place] [address] [place] [address] PCP - General Internal Medicine 09/08/22 documented as of this encounter
--- OUTSIDE RECORDS SUMMARY | 2024-11-21 14:49 | XMS_ITS | Clinical Summary ---
Author Organization [facility] Address [address] [place] [address] Care Team Providers Care Pipe Covering Molder Name Role Phone Herrera Mann MD Primary Care Provider Allergies No known active allergies Medications Multiple [...] replace cap. 16 g 05/01/19 25 Active diclofenac (Voltaren) 50 MG EC tabletIndication s:Degenerative disc disease, lumbar TAKE 1 TABLET BY MOUTH TWICE DAILY NEEDED 200 tablet 3 08/02/19 25 Active fremanezumab (Ajovy) 225 MG/1.5ML prefilled syringeIndicatio ns:Chronic migraine without aura, not intractable, without status migrainosus Inject 1.5 mL (225 mg) under the skin every 30 (thirty) days 1.5 mL 4 10/16/19 25 Active gabapentin (Neurontin) 300 MG capsuleIndicatio ns:Sciatica, left side TAKE 1 CAPSULE BY MOUTH THREE TIMES DAILY 100 capsule 3 10/31/19 25 Active gabapentin (Neurontin) 300 MG capsuleIndicatio ns:Sciatica, left side TAKE 1 CAPSULE BY MOUTH THREE TIMES DAILY 100 capsule 3 07/04/19 25 025 Discontinued Active Problems Problem Noted Date Diagnosed Date [...] Encounters Date Type Department Care Team Description 10/30/2024 Refill [facility] [facility] [address] [place] [address] [place] [address] Goldie Dia, SHAY Godinez, left side 10/22/2024 Abstract [facility] [place] [facility] [address] [place] [address] [place] [address] Herrera Mann MD 10/21/2024 Abstract [facility] [place] [facility] [address] [place] [address] [place] [address] Herrera Mann MD 10/21/2024 Telephone [facility] [place] [facility] [address] [place] [address] [place] [address] Herrera Mann MD pa ajovy denied 10/21/2024 Telephone [facility] [place] [facility] [address] [place] [address] [place] [address] Herrera Mann MD 10/16/2024 Telephone [facility] [place] [facility] [address] [place] [address] [place] [address] Herrera Mann MD PA AJOVY 10/15/2024 Clinisync Result Encounter NOMS External Department Unsolicited Provider, Generic External Data 10/15/2024 Telephone [facility] [place] [facility] [address] [place] [address] [place] [address] Herrera Mann MD 09/19/2024 Orders Only [facility] [place] [facility] [address] [place] [address] [place] [address] Marisel Mims LPN Encounter for screening mammogram for malignant neoplasm of breast from Last 3 Months Immunizations Immunization Administration [...] declined 09/20/2023 How often do you attend worship or restoration serv ices? Never 09/20/2023 Do you belong [...] care, and heating? Not very hard 09/20/2023 [facility] of Occupat ional Health - Occupational Stress [...] in a nursing home (including now)? No 09/20/2023 Comments Unknown Sex [...] 4:00 PM EDT Office Visit [facility] [facility] 112 [facility] 110 [place] [address] Herrera Mann MD 112 [facility] 110 [place] [address] Health Maintenance Due Date Last Done Comments CT Colonography 1970 FIT-DNA 1968 FIT 1968 FOBT 1970 Sigmoidoscopy 1970 Influenza Vaccine (#1) 2024 02/08/2023, 2020 Mammogram 05/09/2025 05/09/2024, 01/15, 01/31/2023, Additional history exists Colonoscopy 11/09/2028 11/09/2018 Colorectal Cancer Screening 11/09/2028 Procedures Procedure Name Priority Date/Time Associated Diagnosis Comments XR CERVICAL SPINE 5V 10/15/2024 10:15 AM EDT MM TOMOSYNTHESIS SCREENING BI 05/09/2024 4:15 PM EST COLONOSCOPY Routine 11/09/2018 12:00 PM EDT from Last 3 Months or Most Recently Relevant to Health Maintenance Results * XR CERVICAL SPINE 5V (10/15/2024 10:15 AM EDT) Anatomical Region Laterality Modality Other 10/15/2024 10:1 5 AM EDT Narrative 10/15/2024 10:17 AM EDT The [address] [address] XRay Report Signed Patient: DELISA SALEH MR#: [id number] : 1970 Acct:[id number] Age/Sex: 54 / F ADM Date: 10/15/24 Loc: [facility] Attending Dr: Law Cox NP Ordering Physician: Law Cox NP Date of Service: 10/15/24 Procedure(s): XR cervical spine 5V Accession Number(s): [id number] cc: HERRERA MANN ; Law Cox NP The [address] [address] Patient Name: DELISA SALEH MRN: [id number] date: 1970 Sex: F Assigned Patient Location: [facility] Current Patient Location: [facility] Accession/Order Number: [id number] Exam Date: 10/15/2024 10:13 Report Date: 10/15/2024 10:15 At the request of: LAW COX NP Procedure: XR cervical spine 5V CERVICAL SPINE - 5 views: CLINICAL HISTORY: Neck pain for the last 2-3 weeks after starting a new job. No specific injury. TECHNIQUE: AP, lateral, both oblique and odontoid views were obtained. FINDINGS: There is no evidence of compression fracture or displacement. The disc spaces are preserved. There is minor endplate spurring. There is bilateral facet hypertrophy, right worse than left. The neuroforamen are patent. The atlantoaxial relationship is maintained. There is no prevertebral soft tissue swelling. XR/XR cervical spine 5V IMPRESSION: MILD DEGENERATIVE CHANGES, GREATEST AT THE FACETS. NO ACUTE BONY FINDINGS Impression dictated by: Goldie Oconnell M.D. 10/15/2024 10:15 AM Dictation Location: [place] [address] Electronically authenticated by: [id number] Y Date: 10/15/2024 10:15 Dictated By: Goldie Oconnell M.D. Signed By: 10/15/24 1017 DD/ 1015 TD/TT: Telephone Solicitor: Procedure Note Radiology, Radiologist, - 10/15/[address] [address] XRay Report Signed Patient: DELISA SALEH LMR#: [id number] : 1970Acct:[id number] Age/Sex: 54 / FADM Date: 10/15/24 Loc: [facility] Attending Dr: Law Cox NP Ordering Physician: Law Cox NP Date of Service: 10/15/24 Procedure(s): XR cervical spine 5V Accession Number(s): [id number] cc: HERRERA MANN ; Law Cox NP [address] [address] Patient Name: DELISA SALEH MRN: [id number] date: 1970 Sex: F Assigned Patient Location: [facility] Current Patient Location: [facility] Accession/Order Number: [id number] Exam Date: 10/15/2024 10:13 Report Date: 10/15/2024 10:15 At the request of: LAW COX NP Procedure: XR cervical spine 5V CERVICAL SPINE - 5 views: CLINICAL HISTORY: Neck pain for the last 2-3 weeks after starting a newjob. No specific injury. TECHNIQUE: AP, lateral, both oblique and odontoid views were obtained. FINDINGS: There is no evidence of compression fracture or displacement.The disc spaces are preserved. There is minor endplate spurring. There is bilateral facet hypertrophy, right worse than left. The neuroforamen are patent. The atlantoaxial relationship is maintained. There is no prevertebral soft tissue swelling. XR/XR cervical spine 5V IMPRESSION: MILD DEGENERATIVE CHANGES, GREATEST AT THE FACETS. NO ACUTE BONY FINDINGS Impression dictated by: Goldie Oconnell M.D. 10/15/2024 10:15 AM Dictation Location: [place] [address] Electronically authenticated by: [id number] Y Date: 0:15 Dictated By: Goldie Oconnell M.D. Signed By:10/15/24 1017 DD/ 1015 TD/TT: Telephone Solicitor: us Generic External Data Provider [facility] Final Result * MM TOMOSYNTHESIS SCREENING BI (05/09/2024 4:15 PM EST) Anatomical Region Laterality Modality Other 05/09/2024 4:15 PM EST Narrative 05/09/2024 4:15 PM EST The [address] [address] Mammography Report Signed Patient: DELISA SALEH MR#: [id number] : 1970 Acct:[id number] Age/Sex: 53 / F ADM Date: 05/09/24 Loc: MAMMO Attending Dr: GOLDIE DIA Ordering Physician: GOLDIE DIA Results: Date of Service: 05/09/24 Follow Up: Procedure(s): MM tomosynthesis screening BI Accession Number(s): [id number] cc: HERRERA MANN ; GOLDIE DIA Patient Name: DELISA SALEH MR#: [id number] : 1970 Exam Date: 05/09/2024 Ordering Doctor: DR GOLDIE DIA PA RADIOLOGY REPORT PROCEDURE: MM TOMOSYNTHESIS SCREENING BI COMPARISON: MM TOMOSYNTHESIS SCREENING BI, 01/31/2023. MG MAMM SCREEN 3D SUKHDEV CAD, 09/01/2021. INDICATIONS: Screening Calculator Name NCI Breast Cancer Risk Assessment Tool 5 Year Breast Cancer Risk 1.20% Lifetime Breast Cancer Risk 8.30% Personal Breast Cancer No Personal Ovarian Cancer No Treatments None Family Cancers None LOCATION: The [facility] BREAST COMPOSITION: The breasts are heterogeneously [...] Dockery M.D. Signed By: 05/09/24 1615 DD/ 14 TD/TT: Telephone Solicitor: Procedure Note Radiology, Radiologist, MD - 05/09/2024 [place] [address] Mammography Report Signed Patient: DELISA SALEH LMR#: [id number] : 1970Acct:[id number] Age/Sex: 53 / FADM Date: 05/09/24 Loc: MAMMO Attending Dr: GOLDIE DIA Ordering Physician: GOLDIE DIA MResults: Date of Service: 05/09/24Follow Up: Procedure(s): MM tomosynthesis screening BI Accession Number(s): [id number] cc: HERRERA MANN ; GOLDIE DIA Patient Name: DELISA SALEH MR#: [id number] : 1970 Exam Date: 05/09/2024 Ordering Doctor: DR GOLDIE DAY RADIOLOGY REPORT PROCEDURE: MM TOMOSYNTHESIS SCREENING BI COMPARISON: MM TOMOSYNTHESIS SCREENING BI, 01/31/2023. MG MAMM [id number] SUKHDEV CAD, 09/01/2021. INDICATIONS: Screening Calculator Name NCI Breast Cancer Risk Assessment Tool 5 Year Breast Cancer Risk 1.20% Lifetime Breast Cancer Risk 8.30% Personal Breast Cancer No Personal Ovarian Cancer No Treatments None Family Cancers None LOCATION: The [facility] BREAST COMPOSITION: The breasts are heterogeneously [...] Dockery M.D. Signed By:05/09/241614 DD/ 14 TD/TT: Telephone Solicitor: Goldie DAY [facility] Final Result * Colonoscopy (11/09/2018 12:00 PM EDT) Anatomical Region Laterality Modality Endoscopy 11/09/2018 12:0 0 PM EDT Narrative 11/09/2018 12:00 PM EDT PERFORMED AT [facility] LOCATION:[id number] ibs,hemorhhoids Procedure Note CONVERSION, GENERIC - 08/31/2022 PERFORMED AT [facility] LOCATION:[id number] ibs,hemorhhoids Herrera Mann MD ENDOSCOPY PROCEDURE ORDERABLES Final Result from Last 3 Months or Most Recently Relevant to Health Maintenance Insurance [employer] Care Teams Pipe Covering Molder Relationship Specialty Start Date End Date Herrera Mann MD [address] [facility] 110 [place] [address] PCP - General Internal Medicine 09/08/22
--- OUTSIDE RECORDS SUMMARY | 2024-11-21 14:49 | XMS_ITS | Encounter Summary ---
Author Organization [facility] Address [address] [facility] [place] [address] Care Team Providers Care Checker Bakery Products Name Role Phone Herrera Mann MD Unavailable [phone] Herrera Mann MD Primary Care Provider [phone] Encounter Details Date Type Department Care Team (Late st Contact Info) Description 02/01/2023 Orders Only [facility] [place] [facility] [address] [place] [address] [place] [address] Herrera Mann MD [address] [place] [address] [place] [address] Social History Tobacco Use Types Packs/Day Years [...] declined 09/08/2022 How often do you attend jewish or voodoo serv ices? Never 09/08/2022 Do you belong to any clubs o r organizations such as jewish groups, unions, fraternal or athletic groups, or [...] and heating? Not hard at all 09/08/2022 [facility] of Occupat ional Health - Occupational [...] 4:00 PM EDT Office Visit [facility] [place] [facility] [address] [facility] 110 [place] [address] Herrera Mann MD [address] [facility] 110 [place] [address] documented as of this encounter Procedures Procedure Name Priority Date/Time Associated Diagnosis Comments MAMMOGRAM* Routine 01/31/2023 10:07 AM EDT documented in this encounter Results * MAMMOGRAM* (01/31/2023 10:07 AM EDT) Anatomical Region Laterality Modality Radiographic Sharon ging Herrera Mann MD IMG XR PROCEDURES Final Result documented in this encounter Visit Diagnoses Not on filedocumented in this encounter Care Teams Checker Bakery Products Relationship Specialty Start Date End Date Herrera Mann MD [address] [place] [address] [place], [place] [address] PCP - [facility] 07/16/20 5 Herrera Mann MD [address] [place] [address] [place] [address] PCP - General Internal Medicine 09/08/22 documented as of this encounter
--- OUTSIDE RECORDS SUMMARY | 2024-11-21 14:49 | XMS_ITS | Clinical Summary ---
Author Organization [facility] Address [id number] [place] [address] Care Team Providers Care Medical Doctor Md/Medical Director Name Role Phone Unavailable Primary Care Provider [...]
--- OUTSIDE RECORDS SUMMARY | 2024-11-21 14:49 | XMS_ITS | Encounter Summary ---
Author Organization [facility] Address [address] [facility] [place] [address] Care Team Providers Care Real Property Appraiser Name Role Phone Herrera Mann MD Unavailable [phone] Herrera Mann MD Primary Care Provider Encounter Details Date Type Department Care Team (Late st Contact Info) Description 08/31/2023 Abstract [facility] [place] [facility] [address] [facility] 110 [place] [address] Herrera Mann MD [address] [facility] 110 [place] [address] Social History Tobacco Use Types Packs/Day Years [...] declined 09/08/2022 How often do you attend religion or zoroastrian serv ices? Never 09/08/2022 Do you belong to any clubs o r organizations such as religion groups, unions, fraternal or athletic groups, or [...] and heating? Not hard at all 09/08/2022 [facility] of Occupat ional Health - [...] place to sleep or slept in a detention (including now)? No 09/08/2022 Comments Unknown Sex [...] Zun[place] [address] [place] [address] [place] [address] Herrera Mann MD [address] [place] [address] [place] [address] documented as of this encounter Visit Diagnoses Not on filedocumented in this encounter Care Teams Real Property Appraiser Relationship Specialty Start Date End Date Herrera Mann MD [address] [place] [address] [place] [address] PCP - [employer] 07/16/20 5 Herrera Mann MD [address] [place] [address] [place] [address] PCP - General Internal Medicine 09/08/22 documented as of this encounter
--- OUTSIDE RECORDS SUMMARY | 2024-11-21 14:49 | XMS_ITS | Encounter Summary ---
Author Organization [facility] Address [address] [facility] [place] [address] Care Team Providers Care Printed Circuit Board Designer Name Role Phone Herrera Mann MD Unavailable [phone] Herrera Mann MD Primary Care Provider [phone] Encounter Details Date Type Department Care Team (Late st Contact Info) Description 05/02/2023 Abstract [facility] [place] [facility] [address] [facility] [address] [place] [id number] Herrera Mann MD [address] [place] [address] [place] [address] Social History Tobacco Use Types Packs/Day Years [...] declined 09/08/2022 How often do you attend yazdanism or buddhist serv ices? Never 09/08/2022 Do you belong to any clubs o r organizations such as yazdanism groups, unions, fraternal or athletic groups, or [...] and heating? Not hard at all 09/08/2022 [facility] - Occupational [...] place to sleep or slept in a custodial (including now)? No 09/08/2022 Comments Unknown Sex [...] [place] [address] [place] [address] [place] [address] Herrera Mann MD [address] [place] [address] [place] [address] documented as of this encounter Visit Diagnoses Not on filedocumented in this encounter Care Teams Printed Circuit Board Designer Relationship Specialty Start Date End Date Herrera Mann MD [address] [place] [address] [place] [address] PCP - [employer] 07/16/20 5 Herrera Mann MD [address] [place] [address] [place] [address] PCP - General Internal Medicine 09/08/22 documented as of this encounter
--- OUTSIDE RECORDS SUMMARY | 2024-11-21 14:50 | XMS_ITS | Encounter Summary ---
Author Organization [facility] Address [address] [place] [address] Care Team Providers Care Geology Faculty Member Name Role Phone Herrera Mann MD Primary Care Provider [phone] Encounter Details Date Type Department Care Team (Late st Contact Info) Description 10/21/2024 Abstract [facility] [place] [facility] [address] [place] [address] [place] [phone] Herrera Mann MD [address] [place] [address] [place] [address] Social History Tobacco Use Types Packs/Day Years [...] declined 09/20/2023 How often do you attend spiritism or congregational serv ices? Never 09/20/2023 Do you belong to any clubs o r organizations such as spiritism groups, unions, fraternal or athletic groups, or [...] care, and heating? Not very hard 09/20/2023 [facility] Occupat ional Health - Occupational Stress [...] 4:00 PM EDT [facility] [place] [facility] [address] [facility] [address] [place] [address] Herrera Mann MD [address] [facility] [address] [place] [address] documented as of this encounter Visit Diagnoses Not on filedocumented in this encounter Care Teams Geology Faculty Member Relationship Specialty Start Date End Date Herrera Mann MD [address] [facility] [address] [place] [address] PCP - General Internal Medicine 09/08/22 documented as of this encounter
--- OUTSIDE RECORDS SUMMARY | 2024-11-21 14:50 | XMS_ITS | Encounter Summary ---
Author Organization [facility] Address [address] [place] [address] Care Team Providers Care Grain Spouter Name Role Phone Herrera Mann MD Primary Care Provider [phone] Encounter Details Date Type Department Care Team (Late st Contact Info) Description 10/22/2024 Abstract [facility] [place] [facility] [address] [place] [address] [place] [phone] Herrera Mann MD [address] [place] [address] [place] [address] Social History Tobacco Use Types Packs/Day Years [...] declined 09/20/2023 How often do you attend bahai or taoism serv ices? Never 09/20/2023 Do you belong to any clubs o r organizations such as bahai groups, unions, fraternal or athletic groups, or [...] care, and heating? Not very hard 09/20/2023 [facility] of Occupat ional Health - Occupational Stress [...] PM EDT [facility] [place] [facility] [address] [facility] [address] [place] [address] Herrera Mann MD [address] [facility] [address] [place] [address] documented as of this encounter Visit Diagnoses Not on filedocumented in this encounter Care Teams Grain Spouter Relationship Specialty Start Date End Date Herrera Mann MD [address] [facility] 110 [place] [address] PCP - General Internal Medicine 09/08/22 documented as of this encounter
--- NOTE | 2024-11-21 15:07 | PM.CN ---
Consult Note: HPI Data of Consult Patient: known to practice within the last 3 years Requesting Physician: Mila Hill NP Primary Care Provider: BARBI WELLER Consult Narrative Reason for consult: F/u Narrative: Delisa Saleh a pleasant 54 year old female presents for evaluation and management of chronic neck, thoracic, and lumbar pain. pain today 0/10. denies numbness, tingling, weakness. notes moderate improvement in current medication regimen without side effects, utilizing baclofen tramadol gabapentin as well as tylenol and excederin. recently completed 6 weeks of PT for neck pain with significant improvement ongoing. cc:: CC: Mila Hill NP Review of Systems ROS Status of ROS 10 or more systems reviewed and unremarkable except as noted in history and below Musculoskeletal Reports: back pain PFSH PFSH Medical History (Updated 10/09/24 @ 15:25 by Mila Hill NP) Arthritis ?M19.90 - Unspecified osteoarthritis, unspecified site (ICD-10) Anxiety ?F41.9 - Anxiety disorder, unspecified (ICD-10) HTN (hypertension) ?I10 - Essential (primary) hypertension (ICD-10) Surgical History History of ventral hernia repair ?Z98.890 - Other specified postprocedural states (ICD-10) ?Z87.19 - Personal history of other diseases of the digestive system (ICD-10) History of hysterectomy ?Z90.710 - Acquired absence of both cervix and uterus (ICD-10) Meds Home Medications and Allergies Home Medications ?Medication ?Instructions ?Recorded ?Confirmed ?Type acetaminophen 325 mg tablet 325 mg PO Q6H 09/29/22 09/19/23 History (Tylenol) erenumab-aooe 70 mg/mL 70 mg subcut .MONTHLY 09/29/22 09/19/23 History subcutaneous auto-injector (Aimovig Autoinjector) escitalopram oxalate 10 mg tablet 10 mg PO DAILY 09/29/22 09/19/23 History gabapentin 300 mg capsule 300 mg PO TID 09/29/22 09/19/23 History losartan 100 1 tab PO DAILY 09/29/22 09/19/23 History mg-hydrochlorothiazide 25 mg tablet multivitamin 1 tab PO DAILY 09/29/22 09/19/23 History sumatriptan succinate PO DAILY 09/29/22 History topiramate 50 mg tablet 50 mg PO DAILY 09/29/22 09/19/23 History tramadol 50 mg tablet 50 mg PO DAILY 09/29/22 09/19/23 History baclofen 10 mg tablet 10 mg PO DAILY PRN muscle spasm 04/18/23 09/19/23 Rx #30 tabs tramadol 50 mg tablet 50 mg PO DAILY PRN pain #30 tabs 11/08/23 Rx tramadol 50 mg tablet 50 mg PO DAILY PRN pain #30 tabs 12/19/23 Rx baclofen 10 mg tablet 10 mg PO .hs PRN muscle spasm #30 03/12/24 Rx tabs tramadol 50 mg tablet 50 mg PO DAILY PRN pain #30 tabs 03/12/24 Rx baclofen 10 mg tablet 10 mg PO DAILY #30 tabs 06/10/24 Rx tramadol 50 mg tablet 50 mg PO DAILY PRN pain #30 tabs 06/10/24 Rx baclofen 10 mg tablet 10 mg PO DAILY #30 tabs 07/10/24 Rx tramadol 50 mg tablet 50 mg PO DAILY PRN pain #30 tabs 07/10/24 Rx baclofen 10 mg tablet 10 mg PO HS PRN muscle spasm #30 10/02/24 Rx tabs tramadol 50 mg tablet 50 mg PO DAILY PRN pain #30 tabs 10/02/24 Rx Allergies Allergy/AdvReac Type Severity Reaction Status Date / Time No Known Drug Allergies Allergy Verified 09/19/23 06:58 Exam Constitutional Documenting provider has reviewed patient's vital signs: yes Common normals: no apparent distress, oriented x3, healthy appearing, alert and well nourished General appearance: cooperative [facility] Common normals: normocephalic, hearing grossly normal bilaterally and moist oral mucous membranes Head and scalp: normocephalic Eye Common normals: PERRL Pupil: PERRL Neck & C-Spine Common normals: full ROM General: normal visual inspection Cervical spine: normal cervical lordosis; cervical ROM not abnormal and no pain with cervical ROM Chest Common normals: inspection of chest normal Respiratory Common normals: normal respiratory effort, no retractions and no use of accessory muscles Back & Pelvis Thoracic spine/upper back: normal to inspection, thoracic ROM normal and thoracic spinal tenderness Lumbar spine/lower back: ROM limited, pain with ROM and lumbar spinal tenderness Other: positive facet loading T12/L1 strength 5/5 in BLE sensation intact BLE Extremity Common normals: normal to inspection and full ROM Neuro Common normals: oriented x3, CN's II-XII intact bilaterally, moves all extremities, no focal motor deficits, no sensory deficits noted and deep tendon reflexes 2+ bilaterally Sensorium/orientation: alert Motor exam: strength 5/5 throughout and no movement abnormalities noted Psych Common normals: mental status grossly normal, thought process normal, cooperative, affect normal, speech normal and activity/motor behavior normal Speech: normal speech Thought process: normal thought process Results Additional Findings Additional findings: If on a controlled substance or opioids, I have checked an [place]AR[place] report on this patient and there are no aberrancies noted in the prescribing history.??If on a controlled substance or opioid a drug screen was completed and reviewed within the last year, and if there has not been a drug screen completed we ordered one today to monitor higher risk, state monitored pain medication use. As part of providing excellent, safe, comprehensive care, the following was completed at our patient's visit: 1. A medication reconciliation and review to ensure accurate knowledge of current/active medications, including asking our patients to inform us about any [id number] medications or herbal remedies/nutritional supplements/alternative remedies. 2. A review to specifically ensure our patients have had annual screening for screening for depression, screening for tobacco use, and screening for unhealthy alcohol use. For concerning screenings had a discussion with the patient, provided patient education, and recommended follow-up with primary care provider when appropriate. If patient noted with a risk of falling, they received education on strength, gait, and balance training to prevent future risk of falling. Assessment and Plan Assessment and Plan (1) Cervical spondylosis: (2) Thoracic spondylosis: (3) Lumbar spondylosis: (4) Spasm of back muscles: (5) Encounter for long-term opiate analgesic use: Assessment and Plan: I feel these medications are improving the patient's quality of life and allow them to tolerate activities of daily living as well as participate in recreational activity.? The patient does not report intolerable side effects. The patient is NOT opioid naive and non-pharmacologic and non-opioid treatment has failed to significantly relieve the patient's pain and improve functionality. The patient has a diagnosis that is related to a somatic or visceral pain etiology. ? ?? I reviewed with the patient the potential risks and side effects with the use of? opioid medications including but not limited to respiratory depression,? sedation, and even . Within the last 12 months I have verified the patient has access to naloxone should? these effects occur. The patient was advised to let? their family know they had Naloxone in case they would need to administer? the medication. I advised the patient to avoid the use of any other? sedation substances including alcohol, THC, and benzodiazepines while? taking opioid medications due to the risk of compounding side effects and? detrimental outcomes. within the last 12 months I have reviewed the ASSISTANT HAIRSTYLIST, pain treatment agreement and urine drug screen.? ?? A drug screen was completed within the last year, and no aberrancies were noted regarding their use of controlled substances. The patient understands they are subject to the terms and conditions of the pain contract that they have signed. ? ?? I have checked an [place]ARRS report on this patient today and there are no aberrancies noted in the prescribing history.? (6) Chronic myofascial pain: Plan cervical xray reviewed, defer interventional therapy as pain has significantly improved with PT can repeat right and left T12/L1 rfa as needed in the future as prior RFAs have provided >50% improvement in facet mediated pain greater than 8 months continue current medications f/u 3 months, sooner if needed
== END 2024-11-21 14:48 | disposition home or self-care (01) ==
LOC: PM 14:47
PROVIDERS: PCP Internal Medicine; Visit Provider Nurse Practitioner
DX: M47.812 Spondylosis without myelopathy or radiculopathy, cervical region (principal); M47.814 Spondylosis without myelopathy or radiculopathy, thoracic region; M47.816 Spondylosis without myelopathy or radiculopathy, lumbar region; M62.838 Other muscle spasm; Z79.891 Long term (current) use of opiate analgesic
CPT/HCPCS: G0463

== ENCOUNTER 2025-02-20 07:35 | Outpatient (OUT) | payer BC, SELFPAY ==
--- OUTSIDE RECORDS SUMMARY | 2025-02-20 07:37 | XMS_ITS | CCD ---
Author Organization [facility] CliniSyla Care Team Providers Care Master Control Supervisor Name Role Phone Tatianna Rosen Unavailable DR [...] Hobbs Attending Unavailable COVARRUBIAS ., DR GRACE Hobsb Admitting Unavailable COVARRUBIAS ., DR GRACE Hobbs [...] SCHULTZ Consulting Unavailable Herrera Mann MD Unavailable [phone] Herrera Mann MD Primary Care Provider GOLDIE HAYES Attending Unavailable RENETTA FERGUSON Attending Unavailable REBECCA KUMAR Attending Unavailable GOLDIE HAYES Attending Unavailable HERRERA MANN Attending Unavailable Herrera Mann MD Unavailable [phone] Medications Current Medications MedicationDrug Class(es)DatesSig (Normalized)Sig (Original)baclofen 10 mg oral tablet (19 sources)gamma-Aminobutyric Acid-ergic Agonisttake 1 tablet by mouth at bedtimebaclofen (Lioresal) 10 MG tablet Take 10 mg by mouth at bedtime. Active [facility] Ex [facility] (1 source)cloNIDine hydrochloride 0.1 mg oral tablet (14 sources)Central alpha-2 Adrenergic AgonistStart: 64-87-8025eqki 1 tablet by mouth once daily as needed for hypertensioncloNIDine (Catapres) 0.1 MG tablet Indications: Essential hypertension Take 1 tablet (0.1 mg) by mouth Daily as needed for high blood pressure 30 tablet 2 05/01/2024 Activediclofenac sodium 50 mg delayed release oral tablet (18 sources)Nonsteroidal Anti-inflammatory DrugStart: 06-96-3940pmpw 1 tablet by mouth twice daily as neededdiclofenac (Voltaren) 50 MG EC tablet Indications: Degenerative disc disease, lumbar TAKE 1 TABLET BY MOUTH TWICE DAILY NEEDED 200 tablet 3 08/01/2024 ActiveStart: 54-73-6525sxzd 1 tablet by mouth twice daily as neededdiclofenac (Voltaren) 50 MG EC tablet Indications: Degenerative disc disease, lumbar TAKE 1 TABLET BY MOUTH TWICE DAILY NEEDED 200 tablet 4 07/19/2023 Activeescitalopram 10 mg oral tablet (20 sources)Serotonin Reuptake InhibitorStart: 35-81-0712gftp 1 tablet by mouth once dailyescitalopram (Lexapro) 10 MG tablet Indications: Depression, unspecified depression type TAKE 1 TABLET BY MOUTH DAILY 100 tablet 3 03/18/2024 ActiveStart: 77-71-1344zauv 1 tablet by mouth once dailyescitalopram (Lexapro) 10 MG tablet Indications: Depression, unspecified depression type (CMS/HCC) TAKE 1 TABLET BY MOUTH EVERY DAY 100 tablet 3 03/01/2023 Activetake 1 tablet by mouth every twenty-four hoursLexapro 10 MG 1 tablet Orally Once a day Not-Taking Escitalopram Oxalate Activefluticasone propionate 0.05 mg/actuat metered dose nasal spray (14 sources)CorticosteroidStart: 15-16-8541uwzy 1-2 spray(s) nasal route once dailyfluticasone (Flonase) 50 MCG/ACT nasal spray Indications: URI with cough and congestion Administer 1-2 sprays into each nostril Daily Shake gently. Before first use, prime pump. After use, clean tip and replace cap. 16 g 05/01/2024 Active1.5 ml fremanezumab-vfrm 150 mg/ml prefilled syringe (18 sources)Start: 95-15-7628bccndt 1.5 mL by subcutaneous injection every 30 daysfremanezumab (Ajovy) 225 MG/1.5ML prefilled syringe Indications: Chronic migraine without aura, notintractable, without status migrainosus Inject 1.5 mL (225 mg) under the skin every 30 (thirty) days 1.5 mL 4 10/15/2024 ActiveStart: 33-04-7908sfrkjn 1 mL by subcutaneous injection every monthAjovy 225 MG/1.5ML prefilled syringe Indications: Chronic migraine without aura, not intractable, without status migrainosus (CMS/HCC) INJECT 1 pen SUBCUTANEOUSLY once a month in abdomen, thigh, or outer area OF the TO THE ARM 1.5 mL 4 05/28/2024 ActiveStart: 13-94-5302hcgzbd 1 mL by subcutaneous injection every monthAjovy 225 MG/1.5ML prefilled syringe Indications: Chronic migraine without aura, not intractable, without status migrainosus (CMS/HCC) INJECT 1 pen SUBCUTANEOUSLY once a month in abdomen, thigh, or outer area OF the arm 1.5 mL 4 12/25/2023 Activegabapentin 300 mg oral capsule (19 sources)Anti-epileptic AgentStart: 82-48-1077tjod 1 capsule by mouth three times dailygabapentin (Neurontin) 300 MG capsule Indications: Sciatica, left side TAKE 1 CAPSULE BY MOUTH THREE TIMES DAILY 100 capsule 3 10/30/2024 Active Start: 32-62-2032hkqy 1 capsule by mouth three times dailygabapentin (Neurontin) 300 MG capsule Indications: Sciatica, left side TAKE 1 CAPSULE BY MOUTH THREE TIMES DAILY 100 capsule 3 07/03/2024 ActiveStart: 08-12-7517nwei 1 capsule by mouth three times dailygabapentin (Neurontin) 300 MG capsule Indications: Sciatica, left side TAKE 1 CAPSULE BY MOUTH THREE TIMES DAILY 100 capsule 3 02/26/2024 ActiveStart: 59-95-3387qfoy 1 capsule by mouth three times daily gabapentin (Neurontin) 300 MG capsule Indications: Sciatica, left side TAKE 1 CAPSULE BY MOUTH THREE TIMES DAILY 100 capsule 3 10/30/2023 ActiveGabapentin ActivehydroCHLOROthiazide 25 mg / triamterene 37.5 mg oral tablet (18 sources)Potassium-sparing Diuretic, Thiazide DiureticStart: 12-19-2023 End: 46-81-9711gskf 1 tablet by mouth in the morningtriamterene- hydrochlorothiazide (Maxzide-25) 37.5-25 MG tablet Indications: Essential hypertension TAKE 1 TABLET BY MOUTH IN THE MORNING 30 tablet 11 12/19/2023 Active1 ml ketorolac tromethamine 30 mg/ml cartridge (4 sources)Nonsteroidal Anti-inflammatory Drug, Cyclooxygenase InhibitorStart: 01-11-2024 End: 11-07-905227 mg, Intravenous, Every 6 hours PRN, moderate pain, Starting on [place] 01/11/24 at 1604, For 5 daysLosartan (2 sources)Angiotensin 2 Receptor Blockertake 1 tablet by mouth every twenty- four hoursCozaar 50 MG 1 tablet Orally Once a day Not-TakingLosartan Potassium ActiveMultiple Vitamins-Minerals (CENTRUM ADULTS PO) (19 sources)Multiple Vitamins-Minerals (CENTRUM ADULTS PO) Take by mouth 1 (one) time each day. ActiveNaproxen (1 source)Nonsteroidal Anti-inflammatory Drugomeprazole 20 mg delayed release oral capsule (19 sources)Proton Pump InhibitorStart: 14-08-4491jxat 1 capsule by mouth twice dailyomeprazole (PriLOSEC) [address] capsule Indications: Unspecified abdominal pain TAKE 1 CAPSULE BY MOUTH TWICE DAILY 200 capsule 3 03/18/2024 ActiveStart: 37-90-8705hlfz 1 capsule by mouth twice dailyomeprazole (PriLOSEC) [address] capsule Indications: Unspecified abdominal pain TAKE 1 CAPSULE BY MOUTH TWICE DAILY 200 capsule 3 03/01/2023 Activetopiramate 50 mg oral tablet (19 sources)Start: 60-62-5607eoay 1 tablet by mouth at bedtimetopiramate 50 MG tablet Indications: Chronic migraine without aura, not intractable, without statusmigrainosus TAKE 1 TABLET BY MOUTH AT BEDTIME 100 tablet 3 03/18/2024 ActiveStart: 15-06-6490cpwm 1 tablet by mouth at bedtimetopiramate 50 MG tablet Indications: Chronic migraine without aura, not intractable, without status migrainosus (CMS/HCC) TAKE 1 TABLET BY MOUTH AT BEDTIME 100 tablet 3 03/01/2023 ActivetraMADol hydrochloride 50 mg oral tablet (19 sources)Opioid AgonistStart: 65-26-3053cwoe 1 tablet by mouth once daily as neededtraMADol (Ultram) 50 MG tablet Take 1 tablet by mouth 1 (one) time each day. PRN 01/11/2023 Active Completed/Discontinued Medications MedicationDrug Class(es)DatesSig (Normalized)Sig (Original)predniSONE 20 mg oral tablet (5 sources)Start: 01-11-2024 End: 71-98-9549umgjjeZKYH (Deltasone) 20 MG tablet Indications: Heel spur, left , Pain of left foot 3 tabs x 2 days, 2 tabs x 2 days, 1 1/2 tab x 2 days, 1 tab x 2 days, 1/2 tab x 2 days then stop 16 tablet 01/11/2024 05/01/2024 Discontinued (Therapy completed) Problems Active Problems Problem ClassificationProblemDateDocumented DateEpisodic/ChronicAbdominal pain (4 sources)Unspecified abdominal pain; Translations: [UNSPECIFIED ABDOMINAL PAIN]Onset: 72-72-6877MlbjdagtPsmqueu disorders (2 sources)Anxiety; Translations: [Anxiety disorder, unspecified]01-11-2024 ChronicEssential hypertension (20 sources)Elevated blood pressure; Translations: [Essential (primary) hypertension]Onset: 08-31-2022 Resolved: 398773-04-7879FrxrncuEdwxtsaq; including migraine (20 sources)Migraine without aura, not refractory ; Translations: [Chronic migraine without aura, not intractable, without status migrainosus]Onset: 739346-98-9140SifvbyjRfvksfk and fatigue (19 sources)Fatigue; Translations: [Chronic fatigue, unspecified]Onset: 814037-96-8865SzebqwuDulxucqurswga mental health disorders (2 sources)Pet ownership - finding; Translations: [Other symptoms and signs involving emotional state]68-91-1541HjxngdjmEdynyabqqwcnjx (20 sources)Degenerative joint disease of hand; Translations: [Unilateral primary osteoarthritis of first carpometacarpal joint, right hand]Onset: 949773-58-9200BubincnNgjrv connective tissue disease (2 sources)Calcaneal spur of left foot; Translations: [Calcaneal spur, left foot]67-94-0672PdmfxxdgBbhfe connective tissue disease (2 sources)Pain in left foot; Translations: [Pain in left foot]01-11-2024 EpisodicOther inflammatory condition of skin (19 sources)Pityriasis amiantacea; Translations: [Other specified papulosquamous disorders]Onset: 706573-88-7812EzrxeuvMdawd non-traumatic joint disorders (4 sources)Pain in right wrist; Translations: [PAIN IN RIGHT WRIST]Onset: 90-21-3164KxhmdzsfBtmic nutritional; endocrine; and metabolic disorders (13 sources)Obesity caused by energy imbalance; Translations: [Class 1 obesity due to excess calories with serious comorbidity and body mass index (BMI) of 32.0 to 32.9 in adult]Onset: 121646-74-7364IitiazcZmhkg screening for suspected conditions (not mental disorders or infectious disease) (2 sources)Patient encounter status; Translations: [Encounter for screening mammogram for malignant neoplasm of breast]49-28-0297LhtpjlhmYprsk upper respiratory infections (2 sources)Upper respiratory infection; Translations: [Acute upper respiratory infection, unspecified]62-23-7852DrykmmtrLkumgucu codes; unclassified (19 sources)Obstructive sleep apnea syndrome; Translations: [Obstructive sleep apnea (adult) (pediatric)]Onset: 356456-20-4861WbfrqmoSlnoillmktf; intervertebral disc disorders; other back problems (20 sources)Spondylosis without myelopathy or radiculopathy, lumbar region; Translations: [Spondylosis without myelopathy or radiculopathy, thoracic region] Onset: 11-05-9881GkamlcwLtfhbujdscqb (3 sources)LOW BACK PAIN, UNSPECIFIED; Translations: [LOW BACK PAIN, UNSPECIFIED]Onset: 05-30-2022 Past or Other Problems Problem ClassificationProblemDateDocumented DateEpisodic/ChronicAbdominal hernia (19 sources)Hernia of abdominal cavity; Translations: [Other specified abdominal hernia without obstruction or gangrene]Onset: 956455-72-0144Zryhkhsl Biliary tract disease (1 source)Cholesterolosis of gallbladder; Translations: [CHOLESTEROLOSIS OF GALLBLADDER]Onset: 87-17-2038VhqoccptIqmiexeylu associated with dizziness or vertigo (4 sources)Dizziness and giddiness; Translations: [DIZZINESS AND GIDDINESS] Onset: 46-73-5135XsosxvwfCnploxyneqnwf and screening for infectious disease (1 source)Contact with and (suspected) exposure to other viral communicable diseasesOnset: 02-22-2021 Resolved: 88-93-2203LxwvhpciJepze aftercare (1 source)Other longterm (current) drug therapy; Translations: [OTH APPAREL PATTERN MAKER CURRENT DRUG THERAPY]Onset: 65-54-2245VewbpnnkOtiai connective tissue disease (1 source)Other muscle spasm; Translations: [OTHER MUSCLE SPASM]Onset: 66-06-8950GtmdvkiaFupca diseases of veins and lymphatics (1 source)Venous insufficiency of leg; Translations: [Venous insufficiency (chronic) (peripheral)]EpisodicOther diseases of veins and lymphatics (19 sources)Vascular insufficiency; Translations: [Venous insufficiency (chronic) (peripheral)]Onset: 988511-09-4750YfrnewuyIvmiz nutritional; endocrine; and metabolic disorders (19 sources)History of iron deficiency; Translations: [Personal history of other endocrine, nutritional and metabolic disease]Onset: EpisodicScreening and history of mental health and substance abuse codes (1 source)Personal history of nicotine dependence; Translations: [PERSONAL HISTORY OF NICOTINE DEPEND]Onset: 74-91-7421JgvkzuhmGcrrolnmtcq; intervertebral disc disorders; other back problems (20 sources)Muscle spasm of back; Translations: [Disorder of left sciatic nerve] Onset: 27-49-4459TvxceuumDvlccfwszngd (1 source)LOW BACK PAIN, UNSPECIFIED; Translations: [LOW BACK PAIN, UNSPECIFIED] Onset: 08-54-2468Jwykq infection (1 source)COVID-19Onset: 02-22-2021 Resolved: 02-22-2021 Results Test NameValueInterpretationReference RangeFacilityXR CERVICAL SPINE 5Von 69-48-7615[place], [place] [address] XRay Report Signed Patient: DELISA DE LA CRUZ MR#: [id number] : 1970 Acct:[id number] Age/Sex: 54 / F ADM Date: 10/15/24 Loc: RAD Attending Dr: Law Hill NP Ordering Physician: Law Hill NP Date of Service: 10/15/24 Procedure(s): XR cervical spine 5V Accession Number(s): [id number] cc: HERRERA MANN ; Law Hill NP [address] [address] Patient Name: DELISA DE LA CRUZ MRN: [id number] date: 1970 Sex: F Assigned Patient Location: [facility] Current Patient Location: [facility] Accession/Order Number: [id number] Exam Date: 10/15/2024 10:13 Report Date: 10/15/2024 10:15 At the request of: LAW HILL NP Procedure: XR cervical spine 5V CERVICAL [...] Oconnell M.D. 10/15/2024 10:15 AM Dictation Location: [place] [address] Electronically authenticated by: [id number] Y Date: 10/15/2024 10:15 Dictated By: Goldie Oconnell M.D. Signed By: 10/15/24 1017 DD/ 1015 TD/TT: Clinical Education Specialist:TBHRadiology, Radiologist, - 10/15/2024 [place] [address] XRay Report Signed Patient: DELISA DE LA CRUZ MR#: [id number] : 1970 Acct:[id number] Age/Sex: 54 / F ADM Date: 10/15/24 Loc: RAD Attending Dr: Law Hill NP Ordering Physician: Law Hill NP Date of Service: 10/15/24 Procedure(s): XR cervical spine 5V Accession Number(s): [id number] cc: HERRERA MANN ; Law Hill NP The [address] [address] Patient Name: DELISA DE LA CRUZ MRN: [id number] date: 1970 Sex: F Assigned Patient Location: [facility] Current Patient Location: [facility] Accession/Order Number: [id number] Exam Date: 10/15/2024 10:13 Report Date: 10/15/2024 10:15 At the request of: LAW HILL NP Procedure: XR cervical spine 5V CERVICAL [...] Oconnell M.D. 10/15/2024 10:15 AM Dictation Location: [place] [address] Electronically authenticated by: [id number] Y Date: 10/15/2024 10:15 Dictated By: Goldie Oconnell M.D. Signed By: 10/15/24 1017 DD/ 1015 TD/TT: Clinical Education Specialist: [facility] HealthcareRadiology Study observation (narrative)[facility] HealthcareXR CERVICAL SPINE 5VOrdered By: Radiologist Radiology on 68-03-0944[facility] Work Phone: mm TOMOSYNTHESIS SCREENING BIon 80-83-2005[place] [address] Mammography Report Signed Patient: DELISA DE LA CRUZ MR#: [id number] : 1970 Acct:[id number] Age/Sex: 53 / F ADM Date: 05/09/24 Loc: MAMMO Attending Dr: GOLDIE HAYES Ordering Physician: GOLDIE HAYES Results: Date of Service: 05/09/24 Follow Up: Procedure(s): MM tomosynthesis screening BI Accession Number(s): [id number] cc: HERRERA MANN ; GOLDIE HAYES Patient Name: DELISA DE LA CRUZ MR#: [id number] : 1970 Exam Date: 05/09/2024 Ordering Doctor: [...] Treatments None Family Cancers None LOCATION: [facility] BREAST COMPOSITION: The breasts are heterogeneously [...] M.D. Signed By: 05/09/241614 DD/ 14 TD/TT: Clinical Education Specialist:TBHRadiology, Radiologist, - 05/09/2024 [place] [address] Mammography Report Signed Patient: DELISA DE LA CRUZ MR#: [id number] : 1970 Acct:[id number] Age/Sex: 53 / F ADM Date: 05/09/24 Loc: MAMMO Attending Dr: GOLDIE HAYES Ordering Physician: GOLDIE HAYES Results: Date of Service: 05/09/24 Follow Up: Procedure(s): MM tomosynthesis screening BI Accession Number(s): [id number] cc: HERRERA MANN ; GOLDIE HAYES Patient Name: DELISA DE LA CRUZ MR#: [id number] : 1970 Exam Date: 05/09/2024 Ordering Doctor: [...] Treatments None Family Cancers None LOCATION: [facility] BREAST COMPOSITION: The breasts are heterogeneously [...] M.D. Signed By: 05/09/241614 DD/ 14 TD/TT: Clinical Education Specialist: [facility] HospitalRad[facility] Study observation (narrative)[facility] TOMOSYNTHESIS SCREENING BIOrdered By: Radiologist Radiology on 67-57-7154IRRM [employer] Work Phone: cT ABD/PELV W CONon 31-51-5184YE ABD/PELV W CON EXAMINATION: CT ABD/PELV W [...] Electronically authenticated by: MARLEN AKINS Date: 2022-09-05 09:[address] [place] [address] AUTO DIFFon 60-38-5267JTSU #0.0 103/ulNormal0.0-0.1The [facility] HospitalComment on above:Performed By: #### CBC #### [facility] [address] [place] [address] Dr. Abdiaziz Zengsophils/100 WBC (Bld)0.2 %Normal0.2-2.0[facility] Comment on above:Performed By: #### CBC #### [facility] [address] [place] [address] Dr. Abdiaziz Kothari #0.1 103/ulNormal0.0-0.7The [facility] HospitalComment on above: Performed By: #### CBC #### [facility] [address] [place] [address] Dr. Abdiaziz Kinneyosinophils/100 WBC (Bld)1.0 %Normal0.9-7.0[facility] Comment on above:Performed By: #### CBC #### [facility] [address] [place] [address] Dr. Abdiaziz Kinneyrythrocyte distribution width (RBC) [Ratio]12.8 %Mrjdlo90.0-15.0 [facility] HospitalComment on above:Performed By: #### CBC #### [facility] [address] [place] [address] Dr. Abdiaziz ButlerHematocrit (Bld) [Volume fraction]35.2 %Critically low36.0-48.0 [facility] HospitalComment on above:Performed By: #### CBC #### [facility] [address] [place] [address] Dr. Abdiaziz ButlerHemoglobin (Bld) [Mass/Vol]11.3 g/dLCritically low12.0-16.0[facility] HospitalComment on above:Performed By: #### CBC #### [facility] [address] [place] [address] Dr. Abdiaziz Tran #0.03 10e3/ulNormal0.00-0.03The [facility] HospitalComment on above:Performed By: #### CBC #### [facility] [address] [place] [address] Dr. Abdiaziz Tran %0.3 %Normal0.0-0.5The [facility] HospitalComment on above: Performed By: #### CBC #### [facility] [address] [place] [address] Dr. Abdiaziz Parra #1.1 103/ulCritically low1.2-3.8The [facility] Comment on above:Performed By: #### CBC #### [facility] [address] [place] [address] Dr. Abdiaziz Ortahocytes/100 WBC (Bld)11.9 %Critically low20.5-60.0The [facility] HospitalComment on above:Performed By: #### CBC #### [facility] [address] [place] [address] Dr. Abdiaziz Price DIFF REQNONormalThe [facility] HospitalComment on above: Performed By: #### CBC #### [facility] [address] [place] [address] Dr. Abdiaziz James (RBC) [Entitic mass]28.4 uwWfhjet84.7-34.0The [facility] HospitalComment on above:Performed By: #### CBC #### [facility] [address] [place] [address] Dr. Abdiaziz James (RBC) [Mass/Vol]32.1 g/vJUndtha65.9-35.2The [facility] HospitalComment on above:Performed By: #### CBC #### [facility] [address] [place] [address] Dr. Abdiaziz James (RBC) [Entitic vol]88.4 nGNslmco23.0-99.0The [facility] HospitalComment on above:Performed By: #### CBC #### [facility] [address] [place] [address] Dr. Abdiaziz Lan #0.7 103/ulNormal0.3-0.8The [facility] HospitalComment on above:Performed By: #### CBC #### [facility] [address] [place] [address] Dr. Abdiaziz Begumocytes/100 WBC (Bld)7.9 %Normal1.7-12.0The [facility] Comment on above:Performed By: #### CBC #### [facility] [address] [place] [address] [address] Abdiaziz SeeUT #7.1 103/ulCritically high1.4-6.5ThDayton Osteopathic [facility] Comment on above:Performed By: #### CBC #### [facility] [address] [place] [address] [address] Abdiaziz Seeutrophils/100 WBC (Bld)78.7 %Critically high43.0-75.0The [facility] HospitalComment on above:Performed By: #### CBC #### [facility] [address] [place] [address] Dr. Abdiaziz Tillmanlet mean volume (Bld) [Entitic vol]9.9 fLNormal9.5-13.5The [facility] HospitalComment on above:Performed By: #### CBC #### [facility] [address] [place] [address] Dr. Abdiaziz ButlerPLT293 103/anCdetpk469-667Kxz [facility] HospitalComment on above: Performed By: #### CBC #### [facility] [address] [place] [address] Dr. Abdiaziz ButlerRBC3.98 106/ulCritically low4.20-5.40The [facility] HospitalComment on above:Performed By: #### CBC #### [facility] [address] [place] [address] Dr. Abdiaziz ButlerWBC9.0 103/ulNormal4.0-11.0The [facility] HospitalComment on above: Performed By: #### CBC #### [facility] [address] [place] [address] Dr. Abdiaziz ButlerPOINT OF CARE GLUCOSEon 70-34-4789Miukyrr [Mass/Vol]128 mg/dL Critically npau92-147Ixr [facility] HospitalComment on above:Performed By: #### POCGLUC ####[facility] [address] [place] [address]Dr. Abdiaziz ButlerPROF CHEM 8 (BAS METB)on 77-79-1409Dstlo gap [Moles/Vol]15.3 mmol/LNormalMercy Health West HospitalComment on above:Performed By: #### BMP #### [facility] [address] [place] [address] [address] Abdiaziz ButlerCalcium [Mass/Vol]8.6 mg/dLNormal8.5-10.1The [facility] Comment on above:Performed By: #### BMP #### [facility] [address] [place] [address] [address] Abdiaziz ButlerChloride [Moles/Vol]104 mmol/OKzxrya70-454JalMercy Health West Hospital Comment on above:Performed By: #### BMP #### [facility] [address] [place] [address] [address] Abdiaziz ButlerCO2 [Moles/Vol]23.6 mmol/JYgpuyf53.0-32.0[facility] Comment on above:Performed By: #### BMP #### [facility] [address] [place] [address] [address] Abdiaziz ButlerCreatinine [Mass/Vol]1.34 mg/dLCritically high0.55-1.02The [facility] HospitalComment on above:Performed By: #### BMP #### [facility] [address] [place] [address] [address] Freed ChangEGFR-AF BCYCSCNJ95 mL/min/1.96w3Qeviekdqcz low>=60The [facility] HospitalComment on above:Performed By: #### BMP #### [facility] [address] [place] [address] [address] Freed ChangEGFR-NON AF TRUARUJF26 mL/min/1.25v6Sckpgeqqnc low>=60The [facility] HospitalComment on above:Performed By: #### BMP #### [facility] [address] [place] [address] [address] Abdiaziz ButlerGlucose [Mass/Vol]97 mg/xNHuruzg52-274Zni [facility] Comment on above:Performed By: #### BMP #### [facility] [address] [place], [place] [address] Dr. Abdiaziz ButlerPotassium [Moles/Vol]3.3 mmol/LCritically low3.5-5.1The [facility] HospitalComment on above:Performed By: #### BMP #### [facility] [address] [place], [place] [address] Dr. Abdiaziz ButlerSodium [Moles/Vol]139 mmol/QEhgxvu431-632Okz [facility] Comment on above:Performed By: #### BMP #### [facility] [address] [place], [place] [address] Dr. Abdiaziz ButlerUrea nitrogen [Mass/Vol]26.0 mg/dLCritically high7.0-18.0The [facility] HospitalComment on above:Performed By: #### BMP #### [facility] [address] [place] [address] [address] Abdiaziz ButlerUrea nitrogen/Creatinine [Mass ratio]19.4 mg/mgNormalThe [facility] HospitalComment on above:Performed By: #### BMP #### [facility] [address] [place], [place] [address] Dr. Abdiaziz BtulerUS SINGLE QUAD RT UPPERon 69-09-5405FM SINGLE QUAD RT UPPER EXAMINATION: US SINGLE [...] Electronically authenticated by: LIBAN SCHULTZ Date: 2022-01-18 08:33[facility] HospitalLipid Panelon 42-00-6129Sxihvthqrml [Mass/Vol]217 mg/dLHigh 125-200NortWood [facility] Hospital SpecialistComment on above:Result Comment: Low risk < 200mg/dL Borderline risk 201-239 mg/dl High risk > or equal to 240Performed By: #### LIPD #### [facility] [address] [place], [place] [id number] in HDL [Mass/Vol]45 mg/dLNormal>40NoTriHealth SpecialistComment on above:Result Comment: High Cardiovascular Risk HDL <40 mg/dL Low Cardiovascular Risk HDL > or equal to 60 mg/dlPerformed By: #### LIPD #### [facility] [address] [facility] [place], [place] [address]Xfpukuozybl in LDL [Mass/Vol]142 mg/dLNormalNoTriHealth SpecialistComment on above:Result Comment: LDL ATP III CLASSIFICATION LDL less than 100 mg/dl Optimal LDL 100-129 mg/dl Near or above optimal LDL 130-159 Borderline high LDL 160-189 High LDL greater than 189 mg/dl Very HighPerformed By: #### LIPD #### [facility] [address] [place], [place] [id number] in VLDL [Mass/Vol]30 mg/dLNormalNoTriHealth SpecialistComment on above:Performed By: #### LIPD #### [facility] [address] [place], [place] [address]Cuixumofgsb.total/Cholesterol in HDL [Mass ratio]5 {ratio} NormalNoTriHealth SpecialistComment on above:Performed By: #### LIPD #### [facility] [address] [facility] [place], [place] [address]Ezrmppeqqrsf [Mass/Vol]149 mg/wWXochoy20-017Xahbixkb [place] [facility] SpecialistComment on above:Result Comment: TRIG ATPIII CLASSIFICATIONS TRIG less than 150 mg/dl Normal TRIG 150-199 mg/dl Borderline High TRIG 200-500 mg/dl High TRIG greather than 500 mg/dl Very HighPerformed By: #### LIPD #### [facility] [address] [facility], [place] [address]ZFODA Quick Testingon 21-04-0681DsqefqPvabobodAefia [employer] Other Vital Signs Date TimeVital SignValuePerforming WhhumfimvPwowknnl41-37-0331 15:48-0400Body .2 cmHerrera Mann MD Work Phone: [facility] HospitalLmbjhflnpp10-72-7632 15:48-0400Body mass index (BMI) [Ratio]33.67 kg/x8BkzjrdHerrera Mann MD Work Phone: [phone] Bel[facility] HospitalIibvwkzudy35-87-4057 15:48-0400Body yzsusx93.52 kgHerrera Mann MD Work Phone: [phone] HospitalSlztvwqlho83-39-8335 15:48-0400Diastolic blood wlguuatd15 mm[Hg]Herrera Mann MD Work Phone: [phone] HospitalYhuulwovnl90-49-0132 15:48-0400Heart rate66 /min Herrera Mann MD Work Phone: [facility] HospitalWlsddpvuts85-36-8300 15:48-1392JiI6% (BldA) [Mass fraction]95 %Herrera Mann MD Work Phone: [facility] HospitalFlwwinvvht23-52-1840 15:48-0400Systolic blood zcurvubf975 mm[Hg]Herrera Mann MD Work Phone: [facility] HospitalOtfvolwyop76-43-7548 08:37-0400Body .2 cmSgabbie Ferguson PERFUMER Work Phone: [facility] HospitalTiiqdxzzmb62-26-0957 08:37-0400Body mass index (BMI) [Ratio]34.14 kg/w7MdpfigRenetta Ferguson PERFUMER Work Phone: [facility] HospitalVhiehumnec48-83-9613 08:37-0400Body ntdrue05.88 kgRenetta Ferguson PERFUMER Work Phone: [facility] HospitalDbduihvqxn89-19-2846 08:37-0400Diastolic blood vthawynb43 mm[Hg]Renetta Ferguson PERFUMER Work Phone: [facility] HospitalSsfzacjaxm33-42-3025 08:37-0400Heart rate57 /min Renetta Ferguson PERFUMER Work Phone: [facility] HospitalUnpsecyuxa94-71-3535 08:37-0400Respiratory rate16 /minSgabbie Ferguson PERFUMER Work Phone: [facility] HospitalSdnkfoifpn13-48-2217 08:37-6513DoJ8% (BldA) [Mass fraction]98 %Renetta Ferguson PERFUMER Work Phone: [facility] HospitalQbcusidcbq61-94-9467 08:37-0400Systolic blood gwnjixjt210 mm[Hg]Renetta Ferguson PERFUMER Work Phone: [facility] HospitalMmtrcdmxkh60-94-7276 15:01-0500Body bekktq826.2 cmKaren Hemmer PA Work Phone: [facility] HospitalEankcdqwzx51-63-0080 15:01-0500Body mass index (BMI) [Ratio]32.3 kg/l4Bmytu Hemmer PA Work Phone: [facility] HospitalFdlrudsbcz79-41-9067 15:01-0500Body .53 kgKaren Hemmer PA Work Phone: [facility] HospitalIlgcxuuegl67-49-7607 15:01-0500Diastolic blood yrabwxcu90 mm[Hg]Goldie Hemmer PA Work Phone: [facility] HospitalVhulxcloko35-60-5669 15:01-0500Heart rate73 /min Goldie Hemmer PA Work Phone: [facility] HospitalSjdginpmjh70-02-2411 15:01-0500Respiratory rate16 /minKaren Hemmer PA Work Phone: [facility] HospitalIvxecojgwx79-43-7630 15:01-7593ArX7% (BldA) [Mass fraction]98 %Goldie Hemmer PA Work Phone: [facility] HospitalFwtnqdcfno84-46-8555 15:01-0500Systolic blood bmjzwxav866 mm[Hg]Goldie Hemmer PA Work Phone: [facility] HospitalCshinrbkpj53-94-2450 15:11-0500Body mtakxt988.2 cmGoldie Hemmer PA Work Phone: [facility] HospitalUqcqsqwutn41-65-8452 15:11-0500Body mass index (BMI) [Ratio]32.45 kg/c1Wamdg Hemmer PA Work Phone: [place] [address]Dgyonyudat20-36-5633 15:11-0500Body wwfwab86.98 kgGoldie Hemmer PA Work Phone: [facility] HospitalDxjxgohrlk38-26-8053 15:11-0500Diastolic blood rpsqutve77 mm[Hg]Goldie Hemmer PA Work Phone: [facility] HospitalQmbabyluhy96-16-3222 15:11-0500Heart rate61 /min Goldie Hemmer PA Work Phone: [place] [address]Pvrrtvdlrc37-22-5484 15:11-0500Respiratory rate16 /minGoldie Hemmer PA Work Phone: [facility] HospitalFhtlmwwpna69-82-9371 15:11-8077ZkD5% (BldA) [Mass fraction]97 %Goldie Hemmer PA Work Phone: [facility] HospitalSsitfcvjyq26-31-0582 15:11-0500Systolic blood enfhyrhd195 mm[Hg]Goldie Hemmer PA Work Phone: [facility] HospitalYxixuomvjf91-96-1295 15:22-0400Body egqpaz107.2 cmRebecca Kumar PERFUMER Work Phone: [facility] HospitalNbfmutuqua85-33-5006 15:22-0400Body mass index (BMI) [Ratio]32.48 kg/m2Rebecca Kumar PERFUMER Work Phone: [facility] HospitalNwnokccswa30-32-5663 15:22-0400Body gxkekq46.08 kgRebecca Kumar PERFUMER Work Phone: [place] [phone] 15:22-0400Diastolic blood bnpruqmu53 mm[Hg]Rebecca Kumar PERFUMER Work Phone: [place] [address]Rbrricwxhm86-53-0855 15:22-0400Heart rate67 /min Rebecca Kumar PERFUMER Work Phone: [place] [address]Jbdwxrhxyu58-44-5421 15:22-0400Respiratory rate17 /Ketty Kumar PERFUMER Work Phone: [phone] Belton HospitalEbhgqaedel88-58-5387 15:22-7913UrN1% (BldA) [Mass fraction]98 %Rebecca uKmar PERFUMER Work Phone: [facility] Zirdnrtiuh22-28-5950 15:22-0400Systolic blood bcsqbsuj944 mm[Hg]Rebecca Kumar PERFUMER Work Phone: [facility] Ciceejkdve63-31-9768 11:15-0500Body brujza819.18 cmSkhloe Chesterault Other [employer] Other 11-08-2021 11:15-0500Body gpbtrdswtli13.1 [degF] Tatianna Jessika Other [employer] Other 11-08-2021 11:15-1847StI6% (BldA) [Mass fraction]97 % Tatianna Rosen Other [employer] Other Encounters Encounter DateEncounter TypeCare ProviderFacilityStart: 12-23-2024 End: 00-18-1753Ncitkz outpatient visit 15 minutesDakathleen Mann MD Work Phone: [facility] [place] Memonic MedinceComment on above:Degenerative disc disease, thoracic (Primary Dx); Degeneration of intervertebral disc of lumbar region with discogenic back pain; Chronic migraine without aura, not intractable, without status migrainosus ; Essential hypertensionStart: 12-23-2024 End: 66-96-8011cdrdiozkfoYWFWBS B BERRYNot AvailableStart: 12-23-2024 End: 45-10-6480Mdyuqh flowsRenetta Mann MD Work Phone: NONN [place] Choi MedinceStart: 12-23-2024 End: 34-67-2878Yxhbde Castillo Mann MD Work Phone: [facility] [place] Choi MedinceStart: 12-03-2024 End: 64-69-0813Fahrlf Erendira Ferguson PERFUMER Work Phone: [facility] [place] Choi MedinceStart: 12-03-2024 End: 18-93-3979Qyclbz Erendira Ferguson PERFUMER Work Phone: [facility] [place] Choi MedinceStart: 12-03-2024 End: 18-12-8530Nlhcne outpatient visit 25 minutesRenetta Ferguson PERFUMER Work Phone: [facility] [place] Choi MedinceComment on above:Degeneration of intervertebral disc of lumbar region with discogenic back pain (Primary Dx); Degenerative disc disease, thoracicStart: 12-03-2024 End: 70-10-5335aaxfohgabgUSSSYB M SHIVELYNot AvailableStart: 10-21-2024 End: 25-71-4995Gfeetsluk encounterDakathleen Mann MD Work Phone: [facility] CI FMStart: 10-15-2024 End: 83-40-0929Fzrqnnjab Result EncounterGeneric External Data ProviderNOMS External Department UnsolicitedStart: 10-15-2024 End: 20-14-2485Fxceiknpi Result EncounterGeneric External Data ProviderNOMS External Department UnsolicitedStart: 06-05-2024 End: 93-40-4706Hvszwc outpatient visit 15 minutesGoldie DAY Work Phone: [facility] FMComment on above:Essential hypertension (CMS/HCC) (Primary Dx); Class 1 obesity due to excess calories with serious comorbidity and body mass index (BMI) of 32.0 to 32.9 in adult; Osteoarthritis of spine at multiple levelsStart: 06-05-2024 End: 68-49-0790hoouhrlmsfWEDATArmida Macias AvailableStart: 06-05-2024 End: 51-66-5297Ejjjti Heather DAY Work Phone: [facility] FMStart: 06-05-2024 End: 49-93-2391Qkwkdxedouard DAY Work Phone: [facility] CI FMStart: 05-09-2024 End: 92-13-9883Nhdxfnuzg Result EncounterGoldie Hayes PA Work Phone: [facility] External Department UnsolicitedStart: 05-09-2024 End: 58-28-9807Yjqjyqhdq Result EncounterGoldie Hayes PA Work Phone: [facility] External Department UnsolicitedStart: 05-01-2024 End: 66-85-2779Xuyutu outpatient visit 25 minutesGoldie Hayes PA Work Phone: [facility] CI FMComment on above:Essential hypertension (CMS/HCC) (Primary Dx); Encounter for screening mammogram for malignant neoplasm of breast; URI with cough and congestionStart: 05-01-2024 End: 32-40-2012iiichmfzkuXVZBO Raj FREDDYNot AvailableStart: 05-01-2024 End: 96-01-3107Axgwwv flowsradhaRezajolene Raj [place] PA Work Phone: [facility] FMStart: 05-01-2024 End: 59-85-4614Qhvqtl flowsFady Hayes PA Work Phone: [facility] CI FMStart: 01-11-2024 End: 68-03-8485Mfbpgu outpatient visit 25 minutesRebecca Kumar PERFUMER Work Phone: [facility] FMComment on above:Anxiety (Primary Dx); Uses emotional support animal; Heel spur, left; Pain of left footStart: 01-11-2024 End: 50-35-9827bphyaedcjbRJW C MILLERNot AvailableStart: 01-11-2024 End: 72-67-2897Luezlu Shekhar Kumar PERFUMER Work Phone: [facility] FMStart: 01-11-2024 End: 15-57-2487Hkxbdr Shekhar Kumar PERFUMER Work Phone: [facility] FMStart: 01-08-2024 End: 87-44-7995Wdzrzitpf encounterLadonsarath Mims CLINICAL AUDITOR Work Phone: [facility] FMStart: 09-13-2022 End: 54-86-4812breczhaasjDIOVBORNLQLI LAKSHMIPATHAndrew .Facility:X0Qqkrs: 09-05-2022 End: 58-33-6421fieqrnlgviGD HERRERA MANNFacility:L7Xlndp: 08-29-2022 End: 12-28-8567kkgpaabtmyNN HERRERA MANNFacility:K5Rtqfi: 08-25-2022 End: 82-60-9942ahtmhdhpglQO HERRERA MANNFacility:X3Wiuws: 05-26-2022 End: 44-72-3766cvhjzmrdinMT GRACE S COVARRUBIAS .Facility:K8Izqlu: 04-18-2022 End: 61-03-8803ioluvpevrlPNGSYEG D KATKOFacility:I8Ruuvk: 02-24-2022 End: 58-81-0886asjumkpilfIF GRACE S COVARRUBIAS .Facility:D6Qrwqq: 01-18-2022 End: 75-67-0889feumtpnbjmGP HERRERA MANNFacility:Q0Vphif: 12-28-2021 End: 42-97-2619bdatrgcxjqNW GRACE S COVARRUBIAS .Facility:J4Qhapt: 11-25-2021 End: 32-79-7771xxsxffpmayVD GRACE S COVARRUBIAS .Facility:M4Gqqkq: 02-22-2021 End: 33-23-9261uwxsjmzxzbOuvpurqia Breault Other [facility] [employer] Other Start: 46-87-2161Axobyie evaluation of patient and reportStephanie JessikaFPG [facility] [place] Procedures DateProcedureProcedure DetailPerforming ClinicianStart: 85-49-8143HQ CERVICAL SPINE 5VGeneric External Data ProviderStart: 15-59-1385DP TOMOSYNTHESIS SCREENING Stevie DAY Work Phone: Start: 45-79-9068ClsbuntyffhWyrdy Hemmer PA Work Phone: Start: 97-95-0153YekzefsypvjPidsnig Voss CLINICAL AUDITOR Work Phone: Start: 08-31-2022H/O: hysterectomyHistory of hysterectomyLadonna Prasanna CLINICAL AUDITOR Work Phone: Start: 17-71-1493HirpkdslhlpHqpmjek Prasanna CLINICAL AUDITOR Work Phone: Plan of Treatment DateCare ActivityDetailAuthorStart: 52-06-8520Haffpljcb for malignant neoplasm of colonNOMS HealthcareStart: 06-23-2025 End: 12-49-2791Fazihyo encounter zfddtjhoy07/09/2026 8:30 AM EDT [facility] [place] [facility] [address] [place] [address] Herrera Mann MD [address] [place] [address] [facility] [place] Choi MedinceStart: 05-09-2025 Screening for malignant neoplasm of breastMammogramNOMS HealthcareStart: 12-23-2024 End: 68-82-8440Qvojhjh encounter procedureNOMS CI FMComment on above:Arrived Start: 00-52-9708Lhtlpykum vaccinationInfluenza Vaccine (#1)[facility] Start: 12-03-2024 End: 03-16-3373Grrdilt encounter nntcxmott41/19/2025 8:30 AM EDT [facility] [place] [facility] [address] [place] [address] Renetta Ferguson, PERFUMER [address] [place] [address] ArrivedNOMS [place] Choi MedinceComment on above:ArrivedStart: 06-05-2024 End: 63-39-6207Veldydn encounter procedureNOMS CI FMComment on above:Arrived Start: 05-01-2024 End: 60-47-4627Fikkimr encounter vomlnpnma09/15/2025 3:00 PM EST Office Visit [facility] [address] [place] [address] Goldie Hayes PA [address] [place] [address] ArrivedNOMS CI FMComment on above:ArrivedStart: 05-01-2024 End: 68-01-8246ELZMVX RESPIRATORY BACTERIAL/VIRAL INFECTION (HTRX)COMMON RESPIRATORY BACTERIAL/VIRAL INFECTION (HTRX) Lab Routine URI with cough and congestion Expected: 05/01/2024 (Approximate), Expires: 05/01/2025N[facility] HealthcareComment on above:Expected: 05/01/2024 (Approximate), Expires: 05/01/2025Start: 05-01-2024 End: 14-36-8256OAI Breast - bilateral screeningBilateral screening mammogram with tomosynthesis Imaging Routine Encounter for screening mammogram for malignant neoplasm of breast Expected: 05/01/2024, Expires: 06/29/2025[facility] Work Phone: Comment on above:Expected: 05/01/2024, Expires: 06/29/2025Start: 92-33-9741Ldirnacvm for malignant neoplasm of breastMammogram [facility] HealthcareStart: 01-11-2024 End: 76-51-0575Myffzkg encounter procedureNOMS CI FMComment on above:Arrived Start: 59-26-9000Fzpadspie vaccinationInfluenza Vaccine (#1)[facility] Start: 82-57-4521Uartknzwp for malignant neoplasm of colonNOFL Healthcare Immunizations Immunization DateImmunizationNotesCare UubxllzzEnunutzw83-00-6093tteuygnld, injectable, quadrivalent, preservative freeLadonna Prasanna CLINICAL AUDITOR Work Phone: [facility] Uhsfpbnabu09-42-5716qjjhvpxwo virus vaccine, unspecified formulationLadonna Prasanna CLINICAL AUDITOR Work Phone: [facility] Hkobjfbaqt06-61-4075tevnxvgjs, injectable, quadrivalent, contains preservativeLadonna Prasanna CLINICAL AUDITOR Work Phone: [facility] Healthcare Payers DatePayer CategoryPayerPolicy [id number] [id number] BC [id number] 2020-[facility] [phone] [facility] [address] [place] [address] [id number] WzubcfnEQL44[id number] 2.16.840.1.311544.3.5[id number] 2.16.840.1.847562.3.57[id number] 2.16.840.1.411926.3.57[id number] 2.16.840.1.984403.3.57[id number] 2.16.840.1.894202.3.579.2.[id number] 2.16.840.1.236268.3.579.2.5[id number] 2.16.840.1.287038.3.57[id number] 2.16.840.1.308049.3.57[id number] 2.16.840.1.242714.3.57[id number] 2.16.840.1.477246.3.579.[id number] 2.16.840.1.526490.3.579.[id number] 2..840.1.159389.3.579.2.[id number] 2.16.840.1.108641.3.57[id number] 2.16.840.1.895197.3.57[id number] 2.0.1.949721.3.579.2.560684-48-1661MuluNew Mexico Behavioral Health Institute At Las [id number] 2.840.1.393934.19 Social History DateTypeDetailFacilityStart: 09-08-2022 End: 55-65-9573Wdz Assigned At BirthNOMS HealthcareStart: 76-26-3744Kltowcy smoking status NHISNever smoked tobaccoNOMS HealthcareStart: 85-55-6691Qccgevb use and exposureSmokeless tobacco non-userNOMS HealthcareStart: 01-11-2024 End: 70-67-1068Lbxhxaqky beverage intakeLifetime non-drinker (finding)[facility] HealthcareStart: 09-08-2022 End: 93-81-7261Azvogfj of Social functionNOMS HealthcareWithin the last year, have you been afraid of your partner or ex-partner?NoNOMS HealthcareStart: 78-72-0196Xxl often do you get together with friends or relatives?Patient declinedNOMS HealthcareAre you now , , , , never or living with a partner?MarriedNOMS HealthcareHow often to you have a drink containing alcohol?NeverNOMS HealthcareHow hard is it for you to pay for the very basics like food, housing, medical care, and heatingNot very hardNOMS HealthcareDo you feel stress - tense, restless, nervous, or anxious, or unable to sleep at night because yourmind is troubled all the time - these days [OSQ]To some extentNOMS Healthcare(I/We) worried whether (my/our) food would run out before (I/we) got money to buy more.Never trueNOMS HealthcareStart: 02-08-2023 Alcohol CommentCaffeine intake: on occasionLakeland Regional HospitalStart: 12-73-3270Vyl assigned at birthFemalDr. Fred Stone, Sr. HospitalStart: 38-02-9029Qiengb identityIdentifies as female gender (finding)[facility] HospitalStart: 08-08-9423Uwkjww orientation Choose not to discloseLakeland Regional Hospital Functional Status LrgbVblkdzsuzrPbgdmrPznjcejj90-30-1290Qlmtxzm Health Questionnaire 2 item (PHQ- 2) [Reported][facility] HospitalFczbgfvnkz80-22-7351Oyqfmej Health Questionnaire 2 item (PHQ- 2) [Reported][facility] HospitalPardumcvot58-76-6322KVZ-9 quick depression assessment panel [Reported.PHQ][facility] Clinical Notes 02-22-2021 to 12-23-2024 Note Date & DqsoYivbJzlrvsau51-01-2908 History of Present illness Narrative* Herrera Mann MD - 12/23/2024 4:00 PM EDT Images from the original note were not included. Subjective Patient ID: Delisa De La Cruz is a 54 y.o. female who presents for Hypertension. Hypertension Patient is here for follow-up of elevated blood pressure. Blood pressure is well controlled at home. Cardiac symptoms: none. Patient denies chest pain, claudication, dyspnea, irregular heart beat, near-syncope, orthopnea, palpitations, paroxysmal nocturnal dyspnea, syncope, and tachypnea. Cardiovasc ular risk factors: hypertension and obesity (BMI >= 30 kg/m2). Hypertension Over the past 2 weeks, how often have you been bothered by any of the following problems? Little interest or pleasure in doing things: Not at all Feeling down, depressed, or hopeless: Not at all Patient Health Questionnaire-2 Score: 0 Current Outpatient Medications on File Prior to Visit Medication Sig Dispense Refill baclofen (Lioresal) 10 MG tablet Take 10 mg by mouth at bedtime. cloNIDine (Catapres) 0.1 MG tablet Take 1 tablet (0.1 mg) by mouth Daily as needed for high blood pressure 30 tablet 2 diclofenac (Voltaren) 50 MG EC tablet TAKE 1 TABLET BY MOUTH TWICE DAILY NEEDED 200 tablet 3 escitalopram (Lexapro) 10 MG tablet TAKE 1 TABLET BY MOUTH DAILY 100 tablet 3 fluticasone (Flonase) 50 MCG/ACT nasal spray Administer 1-2 sprays into each nostril Daily Shake gently. Before first use, prime pump. After use, clean tip and replace cap. 16 g 0 fremanezumab (Ajovy) 225 MG/1.5ML prefilled syringe Inject 1.5 mL (225 mg) under the skin every 30 (thirty) days 1.5 mL 4 gabapentin (Neurontin) 300 MG capsule TAKE 1 [...] use: Never Comment: Caffeine intake: on occasion Drug use: Defer Family History Problem Relation Name Age of Onset Heart disease Father Past Medical History: Diagnosis Date Anxiety Back pain COVID-19 02/22/2021 HTN (hypertension) Iron deficiency anemia Migraines Past Surgical History: Procedure Laterality Date APPENDECTOMY [...] REPAIR 10/2018 with mesh Visit Vitals BP 130/76 Pulse 66 Ht 5' 7 Wt 215 lb SpO2 95% BMI 33.67 kg/m Smoking Status Never BSA 2.15 m Review of Systems Objective Physical Exam Vitals reviewed. Constitutional: Appearance: Normal appearance. HENT: Head: Normocephalic. Nose: Nose normal. Mouth/Throat: Mouth: Mucous membranes are moist. Pharynx: Oropharynx is clear. Eyes: Conjunctiva/sclera: Conjunctivae normal. Cardiovascular: Rate and Rhythm: Normal rate. Pulmonary: Effort: Pulmonary effort is normal. Musculoskeletal: General: Tenderness present. Skin: General: Skin is warm and dry. Neurological: General: No focal deficit present. Mental Status: She is alert and oriented to person, place, and time. Psychiatric: Mood and Affect: Mood normal. Behavior: Behavior normal. Thought Content: Thought content normal. Judgment: Judgment normal. Assessment/Plan Diagnoses and all orders for this visit: Degenerative disc disease, thoracic Degeneration of intervertebral disc of lumbar region with discogenic back pain - Medication choice and dosage is appropriate for patient's current medical conditions. Patient will continue to be required to be seen in our office at least every three months for monitoring. At each follow up visit I will reassess the patient's need for the medication. Patient is to have this medication prescribed only through this office. Failure to follow the rules and regulations will result in tapering and discontinuation of medications if applicable. Patient verbalized understanding. OARRS Report was reviewed for this patient. Chronic migraine without aura, not intractable, without status migrainosus Essential hypertension Follow up in about 4 months (around 04/24/2025) for Wellness, Perform Labwork. documented in this encounterLakeland Regional HospitalZjmtihyexj53-68-9540 History of Present illness Narrative* Renetta Ferguson NP - 12/03/2024 8:30 AM EDT Images from the original note were not included. Subjective Patient ID: Delisa De La Cruz is a 54 y.o. female who presents for No chief complaint on file.. Delisa presents today for back pain that is causing her issues at work. She would like to have paperwork filled out. This paperwork is to cover her if she would miss work and not loose her job. Workinglonger than 8 hours on her feet, causes significant pain due to lack of movement. Back Pain This is a chronic problem. The current episode started more than 1 year ago. The problem occurs constantly. The problem has been gradually worsening since onset. The pain is present in the lumbar spine and thoracic spine. The quality of the pain is described as aching. The pain does not radiate. The pain is at a severity of 9/10. The pain is severe. The pain is The same all the time. The symptomsare aggravated by bending, lying down, sitting, standing, twisting and position. Stiffness is present All day. Risk factors include menopause, obesity and lack of exercise. She has tried muscle relaxant, walking, NSAIDs, heat, home exercises, bed rest, ice and analgesics for the symptoms. The treatment provided no relief. Over the past 2 weeks, how often have you been bothered by any of the following problems? Little interest or pleasure in doing things: Several days Feeling down, depressed, or hopeless: Several days Patient Health Questionnaire-2 Score: 2 If you checked off any problems on this questionnaire so far, How difficult have these problems made it for you to do your work, take care of things at home, or get along with other people?: Somewhat difficult Current Outpatient Medications on File Prior to Visit Medication Sig Dispense Refill diclofenac (Voltaren) 50 MG EC tablet TAKE 1 TABLET BY MOUTH TWICE DAILY NEEDED 200 tablet 3 baclofen (Lioresal) 10 MG tablet Take 10 mg by mouth at bedtime. cloNIDine (Catapres) 0.1 MG tablet Take 1 tablet (0.1 mg) by mouth Daily as needed for high blood pressure 30 tablet 2 escitalopram (Lexapro) 10 MG tablet TAKE 1 TABLET BY MOUTH DAILY 100 tablet 3 fluticasone (Flonase) 50 MCG/ACT nasal spray Administer 1-2 sprays into each nostril Daily Shake gently. Before first use, prime pump. After use, clean tip and replace cap. 16 g 0 fremanezumab (Ajovy) 225 MG/1.5ML prefilled syringe Inject 1.5 mL (225 mg) under the skin every 30 (thirty) days 1.5 mL 4 gabapentin (Neurontin) 300 MG capsule TAKE 1 [...] use: Never Comment: Caffeine intake: on occasion Drug use: Defer Family History Problem Relation Name Age of Onset Heart disease Father Past Medical History: Diagnosis Date Anxiety Back pain COVID-19 02/22/2021 HTN (hypertension) Iron deficiency anemia Migraines Past Surgical History: Procedure Laterality Date APPENDECTOMY [...] Negative. Eyes: Negative. Respiratory: Negative. Cardiovascular: Negative. Gastrointestinal: Negative. Genitourinary: Negative. Musculoskeletal: Positive for back pain. Neurological: Negative. Psychiatric/Behavioral: Negative. Endocrine: Negative. Objective Physical Exam Vitals reviewed. Constitutional: Appearance: Normal appearance. HENT: Head: Normocephalic. Nose: Nose normal. Mouth/Throat: Mouth: Mucous membranes are moist. Pharynx: Oropharynx is clear. Eyes: Conjunctiva/sclera: Conjunctivae normal. Cardiovascular: Rate and Rhythm: Normal rate. Pulmonary: Effort: Pulmonary effort is normal. Musculoskeletal: General: Tenderness present. Skin: General: Skin is warm and dry. Neurological: General: No focal deficit present. Mental Status: She is alert and oriented to person, place, and time. Psychiatric: Mood and Affect: Mood normal. Behavior: Behavior normal. Thought Content: Thought content normal. Judgment: Judgment normal. Assessment/Plan Diagnoses and all orders for this visit: Degeneration of intervertebral disc of lumbar region with discogenic back pain Continue with pain management for injections. May need to consider a reduced working schedule of 8 hours instead of 12 hours due to significant pain. Paperwork completed for time off for the injections that will be performed by pain management. Degenerative disc disease, thoracic Continue with pain management for injections. May need to consider a reduced working schedule of 8 hours instead of 12 hours due to significant pain. Paperwork completed for time off for the injections that will be performed by pain management. No follow-ups on file. documented in this encounterLakeland [facility] [id number] Telephone encounter Note* Telephone Encounter - SHAY Ryan - 10/21/2024 8:57 AM EDT Jovany DAY was completed 10/16. [facility] [id number] Miscellaneous Notes* Telephone Encounter - SHAY Ryan - 10/21/2024 8:57 AM EDT Jovany DAY was completed 10/16. * Telephone Encounter - Lily Martinez - 10/21/2024 8:10 AM EDT Ajovy 225 MG/1.5ML prefilled syringe Patient said that the pharmacy is in need of a prior auth for this med documented in this encounterLakeland Regional [id number] Telephone encounter Note* Telephone Encounter - Lily Martinez - 10/21/2024 8:10 AM EDT Ajovy 225 MG/1.5ML prefilled syringe Patient said that the pharmacy is in need of a prior auth for this med [facility] [id number] History of Present illness Narrative* Goldie Hayes, SHAY - 06/05/2024 3:00 PM EST Images from the original note were not included. Subjective Patient ID: Delisa De La Cruz is a 53 y.o. female who presents for hypertension. Delisa is present today for follow up hypertension. Denies chest pain, SOB, blurry vision, headaches.Did check BP's at home off/on and running around 120's/70's. At last o/v her Clonidine was increased to take PRN. She also states her lightheadedness has improved. She is currently on Triamterene/hydr ochlorothiazide. She has not had to take the [...] SUBCUTANEOUSLY once a month in abdomen, thigh, orouter area OF the TO THE ARM 1.5 [...] (around 12/03/2024) for Hypertension. documented in this encounterLakeland Regional [id number] History of Present illness Narrative* SHAY Ryan - 05/01/2024 3:00 PM EST Images from the original note were not included. HPI URI Additional comments: Admits cough with phlegm, wheezing, runny nose, post nasal drainage. Has had this for 2 days. Has not been taking anything OTC. Last edited by Marisel Mims LPN on 05/01/2024 3:11 PM. Subjective Patient ID: Delisa De La Cruz is a 53 y.o. female who presents [...] Drinks Mio-aid and Gatorade (2 bottles a day),sometimes tea. Current Outpatient Medications on File Prior to Visit Medication Sig Dispense Refill Ajovy 225 MG/1.5ML prefilled syringe INJECT 1 pen SUBCUTANEOUSLY once a month in abdomen, thigh, orouter area OF the arm 1.5 mL 4 [...] Administer 1-2 sprays into each nostril Daily Shakegently. Before first use, prime pump. After use, [...] BP in 4-6 weeks.. documented in this encounterLakeland Regional [id number] History of Present illness Narrative* Rebecca Kumar NP - 01/11/2024 3:30 PM EDT Images from the original note were not included. Subjective Patient ID: Delisa De La Cruz is a 53 y.o. female who presents for a letter to have a emotional supportanimal She states she wants a letter for two dogs for her anxiety. She also states her left heel is hurting and has been for two weeks and she says she might have a bone spur. Current Outpatient Medications on File Prior to Visit Medication Sig Dispense Refill Ajovy 225 MG/1.5ML prefilled syringe INJECT 1 pen SUBCUTANEOUSLY once a month in abdomen, thigh, orouter area OF the arm 1.5 mL 4 [...] No follow-ups on file. documented in this encounterHarry Ville [id number] Instructions* Patient Instructions* Rebecca Kumar NP - 01/11/2024 3:30 PM EDT Emotional support animal letter provided. Prednisone as ordered Discussed possible referral to podiatry if needed. documented in this [facility]09-24-2024 Telephone encounter Note* Telephone Encounter - Illy Michelle - 01/09/2024 2:29 PM EDT Patient scheduled [facility] [id number] Miscellaneous Notes* Telephone Encounter - Lilyjose Martinez - 01/09/2024 2:29 PM EDT Patient scheduled * Telephone Encounter - Marisel Mims LPN - 01/08/2024 4:19 PM EDT Pt LM on requesting a letter for an emotional support animal. Please help patient get set up eduar appt for this. documented in this [facility]09-23-2024 Telephone encounter Note* Telephone Encounter - Marisel Mims LPN - 01/08/2024 4:19 PM EDT Pt LM on requesting a letter for an emotional support animal. Please help patient get set up eduar appt for this. [facility] [id number] NotePROCEDURE: XR WRIST RT 2V HISTORY: Pain of [...] Electronically authenticated by: LIBAN SCHULTZ Date: 2022-08-29 09:35[facility]02-09-2023 NoteCONSULTATION CONSULTATION DATE: 05/26/2022 HISTORY OF PRESENT ILLNESS: [...] medication and patient is in agreement to this.[facility] 02-24-2022 NoteCONSULTATION CONSULTATION DATE: 02/24/2022 HISTORY OF PRESENT ILLNESS: [...] unless otherwise indicated. Patient agrees with this plan.[facility] [id number] NoteCONSULTATION PROCEDURE DATE: 12/28/2021 PREOPERATIVE DIAGNOSIS: Thoracolumbar paravertebral [...] complication. Will be followed up in the office.[facility] [id number] NotePROCEDURE DATE: 11/25/2021 PRE AND POSTOPERATIVE DIAGNOSIS: Bilateral paravertebral spasms. PROCEDURE: Bilateral lumbar trigger point injections. CORRECTION: No procedure was done on that day. We will preauthorize for the bilateral lumbar trigger point and bring her back into the office at that time. 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 She does report stretching and using [...] clinic in three months' time unless otherwise indicated.[facility] 02-22-2021 Evaluation note* Encounter Date Diagnosis Assessment Notes Treatment Notes Treatment Clinical Notes Feb, Contact with and (morse spected) exposure to other viral communicable diseases (ICD-10 - Z20.828) Feb,1COVID-19 (ICD-10 - U07.1) Today you tested positive for the COVID virus. This mean you need to follow all CDC quarantine guidelines found at coronavirus.[place].gov. It is important to rest, increase fluids, and stay at home. Contact PCP and inform them of results. Medications like Mucinex, Cepacol, Tylenol, saline nasal sprayare over the counter medications that can help with the symptoms. Current guidelines include staying home for at least 10 days, having no fever above 100.4 for 24 hours without medication and having significant improvement of symptoms before you are allowed to stop your quarantine. Contact primary care and ask for guidance is essential to follow up Feb,Other Additional time spent conducting pre-visit phone call, screening for symptoms, instructions on social distancing, application and removal of PPE, and cleaning of examination room, equipment and supplies was preformed. Patient education given for testing methodology and results. Patient care instructions given in writting by [facility] Care At Home document. Additional time spent conducting pre-visit phone call, screening for symptoms, instructions on social distancing, application and removal of PPE, and cleaning of examination room, equipment and supplies was preformed. Patient education given for testing methodology and results. Patient care instructions given in writting by [facility] Care At Home document. [employer] Other Evaluation note* Diagnosis Anxiety- Primary Anxiety state, unspecified Uses emotional support animal Heel spur, left Pain of left foot [facility]* Diagnosis Essential hypertension (CMS/HCC)- Primary Unspecified essential hypertension Encounter for screening mammogram for malignant neoplasm of breast URI with cough and congestion [facility]* Diagnosis Essential hypertension (CMS/HCC)- Primary Unspecified essential hypertension Class 1 obesity due to excess calories with serious comorbidity and body mass index (BMI) of 32.0 to 32.9 in adult Osteoarthritis of spine at multiple levels documented [facility]* Diagnosis Degeneration of intervertebral disc of lumbar region with discogenic back pain- Primary Degenerative disc disease, thoracic [facility]* Diagnosis Degenerative disc disease, thoracic- Primary Degeneration of intervertebral disc of lumbar region with discogenic back pain Chronic migraine without aura, not intractable, without status migrainosus Essential hypertension Unspecified essential hypertension documented in this encounter [facility]History general Narrative - Reported* Type Description Date Medical History HTN Medical HistoryAnxietyMedical HistoryBack painMedical HistoryMigranesMedical HistoryIron deficiency anemiaSurgical HistoryhysterectomySurgical Historyappy Hospitalization HistorySee Above [facility] Other Summary Purpose Family History No Family History Records FoundNo Family History Records FoundNo Family History Records Found Advance Directives No Advanced Directives Records FoundNo Advanced Directives Records FoundNo Advanced Directives Records Found Additional Source Comments INFORMATION SOURCE (unrecogn ized section and content) DATE CREATED AUTHOR 04/13/2021 [facility] Route Sales Driver DATE CREATED AUTHOR AUTHOR'S ORGANIZ ATION 09/23/2022 [facility] DATE CREATED AUTHOR AUTHOR'S ORGANIZ ATION 12/25/2024 [facility] EPIC REASON FOR VISIT (unrecogniz ed section and content) ReasonCommentsURIAdmits cough with phlegm, wheezing, runny nose, post nasal drainage. Has had this for 2 days. Has not been taking anything OTC.Reason CommentsHypertension Care Teams (unrecognized sec tion and content) Team MemberRelationshipSpecialtyStart DateEnd Date Herrera Mann MD [address] [place] [address] PCP - [employer] [place] [employer]07/16/20 Herrera Mann MD [address] [place] [address] PCP - GeneralInternal Medicine09/08/22Team MemberRelationshipSpecialtyStart Date End Date Herrera Mann MD [address] [place] [address] PCP - [employer]07/16/20 Herrera Mann MD [address] [place] [address] PCP - GeneralInternal Medicine09/08/22Team MemberRelationshipSpecialtyStart Date End Date Herrera Mann MD [address] [place] [address] PCP - [employer]07/16/20 Herrera Mann MD [address] [place] [address] PCP - GeneralInternal Medicine09/08/22Team MemberRelationshipSpecialtyStart Date End Date Herrera Mann MD [address] [place] [address] PCP - [employer]07/16/20 Herrera Mann MD [address] [place] [address] [facility] - [facility]09/08/22Team MemberRelationshipSpecialtyStart Date End Date Herrera Mann MD [address] [place] [address] PCP - [employer]07/16/20 Herrera Mann MD [address] [place] [address] [facility] - [facility]/08/22Te MemberRelationshipSpecialtyStart Date End Date Herrera Mann MD [address] [place] [address] PCP - [employer]07/16/20 Herrera Mann MD [address] [place] [address] [facility] - [facility]09/08/22Te MemberRelationshipSpecialtyStart Date End Date Herrera Mann MD [address] [place] [address] PCP - [employer]07/16/20 Herrera Mann MD [address] [place] [address] PCP - GeneralInternal Medicine09/08/22Team MemberRelationshipSpecialtyStart Date End Date Herrera Mann MD [address] [place] [address] PCP - GeneralInternal Medicine09/08/22Team MemberRelationshipSpecialtyStart Date End Date Herrera Mann MD [address] [place] [address] PCP - GeneralInternal Medicine09/08/22Team MemberRelationshipSpecialtyStart Date End Date Herrera Mann MD [address] [place] [address] PCP - GeneralInternal Medicine09/08/22Team MemberRelationshipSpecialtyStart Date End Date Herrera Mann MD [address] [place] [address] PCP - GeneralInternal Medicine09/08/22Team MemberRelationshipSpecialtyStart Date End Date Herrera Mann MD [address] [place] [address] PCP - GeneralInternal Medicine09/08/22Team MemberRelationshipSpecialtyStart Date End Date Herrera Mann MD [address] [place] [address] PCP - [employer]/09/08 Herrera Mann MD [address] [place] [address] PCP - GeneralInternal Medicine5/25/23 FOR RECORDS PERTAINING TO PATIENTS WHO ARE [...] BE BASED ON THE PRIMARY CLINICAL RECORDS. [facility] [employer] [facility]. provides no warranty or guarantee of the accuracy or completeness of information in this document.
--- OUTSIDE RECORDS SUMMARY | 2025-02-20 07:37 | XMS_ITS | Clinical Summary ---
[facility] Organization [facility] Address [id number] [address] 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 Name Role Phone Unavailable Primary Care Provider Unavailabl e Social History Tobacco UseTypesPacks/DayYears UsedDateSmoking Tobacco: Never AssessedChildcare AnswerDate DooigrfhXjqiqudcvBdcvmga17/10/2019EmploymentAnswerDate Recorded LxchtvxkvdWwzrsgt08/10/2019Purpose - LifeAnswerDate RecordedPurpose and direction in fuyoBtgaqcc03/10/2021CommentsUnknownSex and Gender InformationValueDate RecordedSex Assigned at BirthNot on fileLegal SexFemale 11/18/2014 2:33 PM EDTGender IdentityNot on fileSexual OrientationNot on file Plan of Treatment Health MaintenanceDue DateLast DoneCommentsDepression Dzywqfaci17/05/1981Tobacco Hobjtebst88/05/1981Adult BMI Lyzbqumwl48/05/1987DTaP,Tdap and Td Vaccines (1 - Tdap)06/20/1987Pap Smear1989Zoster (Shingles) Vaccine (1 of 2)2018 Influenza Pjlxibt79/01/459619/07/2020 Medical Devices Not on file
--- OUTSIDE RECORDS SUMMARY | 2025-02-20 07:37 | XMS_ITS | Encounter Summary ---
Author Organization [facility] Address [address] [place] [address] Care Team Providers Care Pulmonary Disease Specialist Name Role Phone Herrera Mann MD Unavailable Herrera Mann MD Primary Care Provider [phone] Encounter Details DateTypeDepartmentCare Team (Latest Contact Info)Pcfyzdiuqju16/23/2025Clinisync Result Encounter [facility] Department Unsolicited Shanti Dia PA [address] [place] [address] Social History Tobacco UseTypesPacks/DayYears UsedDateSmoking Tobacco: NeverSmokeless Tobacco: NeverAlcohol UseStandard Drinks/WeekCommentsNever0 (1 standard drink = 0.6 oz pure alcohol)Caffeine intake: on occasionHumiliation, Afraid, Rape, and Kick questionnaireAnswerDate RecordedWithin the last year, have you been afraid of your partner or ex-partner?No09/08/2022Within the last year, have you been humiliated or emotionally abused in other ways by your partner or ex-partner?No 09/08/2022Within the last year, have you been kicked, hit, slapped, or otherwise physically hurt by your partner or ex-partner?No09/08/2022Within the last year, have you been raped or forced to have any kind of sexual activity by your part ner or ex-partner?No09/08/2022Social Connection and Isolation PanelAnswerDate RecordedIn a typical week, how many times do you talk on the phone with family, friends, or neighbors?Once a week09/20/2023How often do you get together with friends or relatives?Patient udwbizmj28/05/2024How often do you attend tenriism or yarsanism services?Never09/20/2023o you belong to any clubs or organizations such as tenriism groups, unions, fraternal or athletic groups, or school groups?No 09/20/2023How often do you attend meetings of the clubs or organizations you belong to?Never09/20/2023re you , , , , never , or living with a partner?Xnqelff1809/20/2023UDIT-CAnswerDate RecordedQ1: How often do you have a drink containing alcohol?Never09/20/2023Q2: How many drinks containing alcohol do you have on a typical day when you are drinking? Patient does not drink09/20/2023Q3: How often do you have six or more drinks on one occasion?Never09/20/2023Overall Financial Resource Strain (CARDIA)AnswerDate RecordedHow hard is it for you to pay for the very basics like food, housing, medical care, and heating?Not very hard09/20/2023HQ-2AnswerDate RecordedPatient Health Questionnaire-2 Xigho735[facility] [place] of Occupational Health - Occupational Stress QuestionnaireAnswerDate RecordedDo you feel stress - tense, restless, nervous, or anxious, or unable to sleep at night because your mind is troubled all the time - these days?To some cmrmpw1409/20/2023Exercise Vital SignAnswerDate RecordedOn average, how many days per week do you engage in moderate to strenuous exercise (like a brisk walk)?3 days09/20/2023On average, how many minutes do you engage in exercise at this level?Patient declined 09/20/2023Hunger Vital SignAnswerDate RecordedWithin the past 12 months, you worried that your food would run out before you got the money to buymore.Never true09/20/2023Within the past 12 months, the food you bought just didn't last and you didn't have money to get more.Patient dyutgomt93/05/2024RAPARE - TransportationAnswerDate RecordedIn the past 12 months, has lack of transportation kept you from medical appointments or from getting medications?No 09/20/2023In the past 12 months, has lack of transportation kept you from meetings, work, or from getting things needed for daily living?No09/20/2023 Housing Stability Vital SignAnswerDate RecordedIn the last 12 months, was there a time when you were not able to pay the mortgage or rent on time?No09/20/2023In the last 12 months, how many places have you lived?In the last 12 months, was there a time when you did not have a steady place to sleep or slept in [place] (including now)?No09/20/2023CommentsUnknownSex and Gender InformationValueDate RecordedSex Assigned at DqsljIfxosb59/25/2023 9:35 AM EDT Legal CpmFinfsl94/15/2023 8:23 PM EDTGender VwcdqhavNgutkn06/25/2023 9:35 AM EDT Sexual OrientationChoose not to iaxomkso89/25/2023 9:35 AM EDTdocumented as of this encounter Functional Status * Over the past 2 weeks, how often have you been bothered by any of the following problems?QuestionAnswerDate of AssessmentAuthorLittle interest or pleasure in doing thingsNot at all12/23/2024 3:49 PM Bere Choe LPN Feeling down, depressed, or hopelessNot at all12/23/2024 3:49 PM Bere Choe LPNPatient Health Questionnaire-2 Xauex633 3:49 PM Bere Choe LPN * If you checked off any problems on this questionnaire so far,QuestionAnswer Date of AssessmentAuthorHow difficult have these problems made it for you to do your work, take care of things at home, or get along with other people? Somewhat tkjlenvma78/19/2025 8:30 AM ABRIL ESTRELLA documented as of this encounter Plan of Treatment DateTypeDepartmentCare Team (Latest Contact Info)Idciovhkivv87/09/2026 8:30 AM EDTOffice Visit LORIN Lynchnce [address] [place] [address] Herrera Mann MD [address] [place] [address] documented as of this encounter Procedures Procedure NamePriorityDate/TimeAssociated DiagnosisCommentsMM TOMOSYNTHESIS SCREENING BI05/09/2024 4:15 PM EST documented in this encounter Results * MM TOMOSYNTHESIS SCREENING BI (05/09/2024 4:15 PM EST)Anatomical Region LateralityModalityOtherSpecimen (Source)Anatomical Location / Laterality Collection Method / VolumeCollection TimeReceived Time05/09/2024 4:15 PM EST Narrative 05/09/2024 4:[address] [facility] ?[address] ? [place] [address] ? Mammography Report ? Signed ? Patient: DELISA SALEH L ? MR#: [id number] ?? : 1970 ?Acct:[id number] ?? Age/Sex: 53 / F ?ADM Date: 05/09/24 ?? Loc: MAMMO ? Attending Dr: SHANTI DIA ? Ordering Physician: SHANTI DIA ? Results: ? Date of Service: 05/09/24 ?Follow Up: ? Procedure(s): MM tomosynthesis screening BI ?? Accession Number(s): [id number] ? cc: HERRERA MANN ; SHANTI DIA ? Patient Name: ? DELISA LINKEY ? MR#: [id number] ? : 1970 ? Exam Date: 05/09/2024 ?? Ordering Doctor: DR SHANTI DAY ? RADIOLOGY REPORT ? PROCEDURE: ? MM TOMOSYNTHESIS SCREENING BI ? COMPARISON: ? MM TOMOSYNTHESIS SCREENING BI, 01/31/2023. ??MG MAMM SCREEN 3D ?? SUKHDEV CAD, 09/01/2021. ? INDICATIONS: ? Screening ? Calculator Name ? NCI Breast Cancer Risk Assessment Tool ?? 5 Year Breast Cancer Risk ? 1.20% ?? Lifetime Breast Cancer Risk ? 8.30% ?? Personal Breast Cancer ?No ?? Personal Ovarian Cancer ? No ?? Treatments ? None ?? Family Cancers ? None ? LOCATION: ? [facility] ? BREAST COMPOSITION: ? The breasts are heterogeneously dense,which may ?? obscure small masses. ? FINDINGS: ? DIAGNOSTIC CATEGORY 1--NEGATIVE. NO CHANGE FROM COMPARISON ASSESSMENT. ? Scattered benign-appearing lymph nodes are present. ? RIGHT BREAST: ??No significant suspicious finding. ? LEFT BREAST: ??No significant suspicious finding. ? RECOMMENDATIONS: ? ROUTINE MAMMOGRAM AND CLINICAL EVALUATION IN 12 MONTHS. ? PLEASE NOTE: ??A NORMAL MAMMOGRAM DOES NOT EXCLUDE THE POSSIBILITY OF BREAST ?? CANCER. ??A CLINICALLY SUSPICIOUS PALPABLE LUMP SHOULD BE BIOPSIED. ? Dictated by: Reagan Dockery MD on 05/09/2024 at 16:14 ? Approved by: Reagan Dockery MD on 05/09/2024 at 16:14 ? Dictated By: ?Reagan Dockery M.D. ? Signed By: ?05/09/245 ? DD/ ? TD/TT: ? Exchange Clerk: Procedure Note Radiology, Radiologist, - 05/09/[address] [address] Mammography Report Signed Patient: DELISA SALEH R#: [id number] : 1970Acct:[id number] Age/Sex: 53 / FADM Date: 05/09/24 Loc: MAMMO Attending Dr: SHANTI DIA Ordering Physician: SHANTI DIA MResults: Date of Service: 05/09/24Follow Up: Procedure(s): MM tomosynthesis screening BI Accession Number(s): [id number] cc: HERRERA MANN ; SHANTI DIA Patient Name: DELISA SALEH MR#: [id number] : 1970 Exam Date: 05/09/2024 Ordering Doctor: DR SHANTI DIA PA RADIOLOGY REPORT PROCEDURE: MM TOMOSYNTHESIS SCREENING BI COMPARISON: MM TOMOSYNTHESIS SCREENING BI, 01/31/2023. MG MAMM BLUXRH5Z SUKHDEV CAD, 09/01/2021. INDICATIONS: Screening Calculator Name NCI Breast Cancer Risk Assessment Tool 5 Year Breast Cancer Risk 1.20% Lifetime Breast Cancer Risk 8.30% Personal Breast Cancer No Personal Ovarian Cancer No Treatments None Family Cancers None LOCATION: [facility] BREAST COMPOSITION: The breasts are heterogeneously [...] Dockery M.D. Signed By:05/09/241614 DD/ 14 TD/TT: Exchange Clerk: Authorizing ProviderResult TypeResult StatusShanti Dia PACLINISYNC IMAGING Final Result documented in this encounter Visit Diagnoses Not on filedocumented in this encounter Care Teams Team MemberRelationshipSpecialtyStart DateEnd Date Herrera Mann MD [address] [place] [address] PCP - [facility] Herrera Mann MD [address] [address] PCP - GeneralInternal Medicine09/08/22documented as of this encounter
--- OUTSIDE RECORDS SUMMARY | 2025-02-20 07:37 | XMS_ITS | Clinical Summary ---
Author Organization [facility] Address [address] [place] [address] Care Team Providers Care Plastic Printer Name Role Phone Herrera Mann MD Primary Care Provider [phone] Allergies No known active allergies Medications MedicationSigDispense QuantityRefillsLast FilledStart DateEnd DateStatus Multiple Vitamins-Minerals (CENTRUM ADULTS PO) Take by mouth 1 (one) time each day.Active baclofen (Lioresal) 10 MG tablet Take 10 mg by mouth at bedtime.Active traMADol (Ultram) 50 MG tablet Take 1 tablet by mouth 1 (one) time each day. PRN3Active escitalopram (Lexapro) 10 MG tablet Indications:Depression, unspecified depression typeTAKE 1 TABLET BY MOUTH DAILY 100 tablet ctive omeprazole (PriLOSEC) [address] capsule Indications:Unspecified abdominal painTAKE 1 CAPSULE BY MOUTH TWICE DAILY 200 capsule ctive topiramate 50 MG tablet Indications:Chronic migraine without aura, not intractable, without status migrainosusTAKE 1 TABLET BY MOUTH AT BEDTIME 100 tablet ctive cloNIDine (Catapres) 0.1 MG tablet Indications:Essential hypertensionTake 1 tablet (0.1 mg) by mouth Daily as needed for high blood pressure 30 tablet 5Active fluticasone (Flonase) 50 MCG/ACT nasal spray Indications:URI with cough and congestionAdminister 1-2 sprays into each nostril Daily Shake gently. Before first use, prime pump. After use, clean tip and replace cap. 16 g 5Active diclofenac (Voltaren) 50 MG EC tablet Indications:Degenerative disc disease, lumbarTAKE 1 TABLET BY MOUTH TWICE DAILY NEEDED 200 tablet 3045Active gabapentin (Neurontin) 300 MG capsule Indications:Sciatica, left sideTAKE 1 CAPSULE BY MOUTH THREE TIMES DAILY 100 capsule 5Active fremanezumab (Ajovy) 225 MG/1.5ML prefilled syringe Indications:Chronic migraine without aura, not intractable, without status migrainosusInject 1.5 mL (225 mg) under the skin every 30 (thirty) days 1.5 mL 5Active triamterene-hydrochlorothiazide (Maxzide-25) 37.5-25 MG tablet Indications:Essential hypertensionTake 1 tablet by mouth Daily 30 tablet 111516Active Active Problems ProblemNoted DateDiagnosed DateClass 1 obesity due to excess calories with serious comorbidity and body mass index (BMI) of 32.0 to 32.9 in adult06/05/2024 Chronic ozpumsm8908/31/2022hronic migraine without aura without status migrainosus, not syoenyohous36/17/2023Degenerative disc disease, lumbar 3Degenerative disc disease, ccgvwryf28/17/2023Essential hypertension 08/31/2022History of wtibamdvjshz76/17/2023Left sided juneezun86/17/2023OSA (obstructive sleep apnea)08/31/2022Osteoarthritis of right thumb08/31/2022 Osteoarthritis of spine at multiple oakmtw3308/31/2022Other specified abdominal hernia without obstruction or ikkwhnqg96/17/2023ityriasis /17/2023 Primary osteoarthritis of knees, yqfobdkaq99/17/2023Right lumbar radiculopathy 08/31/2022Venous shwzznuejmors50/17/2023rthritis of both knees05/03/2019History of iron ivvqvcsrik56/18/2018 Resolved Problems ProblemNoted DateDiagnosed DateResolved DateHTN (hypertension), fnhcyy7408/31/2022 02/08/2023 Encounters DateTypeDepartmentCare JqhnWiujrarsabm30/01/2025Telephone [facility] [place] [facility] [address] [facility] [address] [place] [address] Herrera Mann MD 01/15/2025Telephone [facility] [place] [facility] [address] [facility] [address] [place] [address] Herrera Mann MD Med Pkowau0112/23/2024 4:00 PM EDTOffice Visit [facility] [place] [facility] [address] [facility] [address] [place] [address] Herrera Mann MD Degenerative disc disease, thoracic (Primary Dx); Degeneration of intervertebral disc of lumbar region with discogenic back pain; Chronic migraine without aura, not intractable, without status migrainosus ; Essential pppczxdieitt18/08/2025amboo flowsheet [facility] [place] [facility] [address] [facility] [address] [place] [address] Herrera Mann MD 12/23/20240036Qfigtn55/01/0042Aejktm65/21/2025bstract [facility] [place] [facility] [address] [facility] [address] [place] [address] Herrera Mann MD 12/03/2024 8:30 AM EDTOffice Visit [facility] [place] [facility] [address] [facility] [address] [place] [address] Noemi Ferguson NP Degeneration of intervertebral disc of lumbar region with discogenic back pain (Primary Dx); Degenerative disc disease, jvsjueyy66/19/2025amboo flowsheet [facility] [place] [facility] [address] [facility] [address] [place] [address] Noemi Ferguson NP 12/03/2024Travelfrom Last 3 Months Immunizations ImmunizationAdministration DatesNext DueInfluenza, injectable, quadrivalent 02/18/2021Influenza, injectable, quadrivalent, preservative free02/08/2023 Family History Medical HistoryRelationNameCommentsHeart diseaseFatherRelationNameStatusComments FatherDeceasedMotherDeceased Social History Tobacco UseTypesPacks/DayYears UsedDateSmoking Tobacco: NeverSmokeless Tobacco: Never Tobacco Cessation:Counseling Given: Yes Alcohol UseStandard Drinks/WeekCommentsNever0 (1 standard drink = 0.6 [...] you get together with friends or relatives?Patient xwhzecvq93/05/2024How often do you attend jehovah's witness or yazidism services?Never09/20/2023o you belong to any clubs or organizations such as jehovah's witness groups, unions, fraternal or athletic groups, or school groups?No 09/20/2023How often do you attend meetings of the clubs or organizations you belong to?Never09/20/2023re you , , , , never , or living with a partner?Mdvhozy1509/20/2023UDIT-CAnswerDate RecordedQ1: How often do you have a [...] and heating?Not very hard09/20/2023HQ-2AnswerDate RecordedPatient Health Questionnaire-2 Fiirf076[facility] [place] of Occupational Health - Occupational Stress QuestionnaireAnswerDate RecordedDo you feel stress - tense, restless, nervous, or anxious, or unable to sleep at night because your mind is troubled all the time - these days?To some uikala4209/20/2023Exercise Vital SignAnswerDate RecordedOn average, how many days [...] you didn't have money to get more.Patient nkcfzkhu66/05/2024RAPARE - TransportationAnswerDate RecordedIn the past 12 months, [...] steady place to sleep or slept in [facility] (including now)?No09/20/2023CommentsUnknownSex and Gender InformationValueDate RecordedSex Assigned at IdpvyNqfjgw94/25/2023 9:35 AM EDT Legal QxfFcllnn67/15/2023 8:23 PM EDTGender WffdfbpcQmehax27/25/2023 9:35 AM EDT Sexual OrientationChoose not to ssfguxyn25/25/2023 9:35 AM EDT Last Filed Vital Signs Vital SignReadingTime TakenCommentsBlood Ylbhlbhi689/7609 3:48 PM EDT Fzura1306 3:48 PM UFQEcvwvpqrprt40.9 ??C (100.2 ??F)09/20/2023 3:28 PM EDTRespiratory Gyiy5219 8:37 AM EDTOxygen Qcmwjmbiwa12%12/23/2024 3:48 PM EDTInhaled Oxygen Concentration--Gnmsiy83.5 kg (215 lb)12/23/2024 3:48 PM EDT Zowxsl839.2 cm (5' 7 )12/23/2024 3:48 PM EDTBody Mass Index33.67012/23/2024 3:48 PM EDT Plan of Treatment DateTypeDepartmentCare Team (Latest Contact Info)Gxiqzfquxzd90/09/2026 8:30 AM EDTOffice Visit [facility] [place] [facility] [address] [facility] [address] [place] [address] Herrera Mann MD 112 [facility] [address] [place] [address] Health MaintenanceDue DateLast DoneCommentsCT Svtajucclaer32/05/1969FIT-DNA 1970FIT1970FOBT1970 6531Hbajdwynhwwkj29/05/1969COVID-19 Vaccine ( season)2024Influenza Vaccine (#1)/, 02/18/20215706Cbbzuywfd53, 02/01/2023, 01/31/2023, Additional history viuvveTtmtzuthakw01Colorectal Cancer Screening 11/09/2028Pneumococcal Vaccine: Pediatrics (0 to 5 Years) and At-Risk Patients (6 to 64 Years)Aged OutNo longer eligible based on patient's age to complete this topic Procedures Procedure NamePriorityDate/TimeAssociated DiagnosisCommentsMM TOMOSYNTHESIS SCREENING BI05/09/2024 4:15 PM EST GLOMEMFOTRMLgfcinb37/26/2019 12:00 PM EDT from Last 3 Months or Most Recently Relevant to Health Maintenance Results * MM TOMOSYNTHESIS SCREENING BI (05/09/2024 4:15 PM EST)Anatomical Region LateralityModalityOtherSpecimen (Source)Anatomical Location / Laterality Collection Method / VolumeCollection TimeReceived Time05/09/2024 4:15 PM EST Narrative 05/09/2024 4:15 PM EST [facility] ?[address] ? [place] [address] ? Mammography Report ? Signed ? Patient: DELISA SALEH ? MR#: [id number] ?? : 1970 ?Acct:[id number] ?? Age/Sex: 53 / F ?ADM Date: 05/09/24 ?? Loc: MAMMO ? Attending Dr: SHANTI DIA ? Ordering Physician: SHANTI DIA ? Results: ? Date of Service: 05/09/24 ?Follow Up: ? Procedure(s): MM tomosynthesis screening BI ?? Accession Number(s): [id number] ? cc: HERRERA MANN ; SHANTI DIA ? Patient Name: ? DELISA LINKEY ? MR#: [id number] ? : 1970 ? Exam Date: 05/09/2024 [...] Cancers ? None ? LOCATION: ? [facility] ? BREAST COMPOSITION: ? The breasts [...] By: ?Reagan Dockery M.D. ? Signed By: ?05/09/24 1615 ? DD/ 1615 ? TD/TT: ? Home Health Outreach Coordinator: Procedure Note Radiology, Radiologist, - 05/09/2024 [place] [address] Mammography Report Signed Patient: DELISA SALEH R#: [id number] : 1970Acct:[id number] Age/Sex: 53 / FADM Date: 05/09/24 Loc: MAMMO Attending Dr: SHANTI DIA Ordering Physician: SHANTI DIA MResults: Date of Service: 05/09/24Follow Up: Procedure(s): MM tomosynthesis screening BI Accession Number(s): [id number] cc: HERRERA MANN ; SHANTI DIA Patient Name: DELISA SALEH MR#: [id number] : 1970 Exam Date: 05/09/2024 Ordering Doctor: DR SHANTI DAY RADIOLOGY REPORT PROCEDURE: MM TOMOSYNTHESIS SCREENING BI COMPARISON: MM TOMOSYNTHESIS SCREENING BI, 01/31/2023. MG MAMM QHOTKO5J SUKHDEV CAD, 09/01/2021. INDICATIONS: Screening Calculator Name NCI Breast Cancer Risk Assessment Tool 5 Year Breast Cancer Risk 1.20% Lifetime Breast Cancer Risk 8.30% Personal Breast Cancer No Personal Ovarian Cancer No Treatments None Family Cancers None LOCATION: [facility] BREAST COMPOSITION: The breasts are heterogeneously [...] Dockery M.D. Signed By:05/09/245 DD/ 14 TD/TT: Home Health Outreach Coordinator: Authorizing ProviderResult TypeResult StatusShanti Dia PACLINISYNC IMAGING Final Result * Colonoscopy (11/09/2018 12:00 PM EDT)Anatomical RegionLateralityModality EndoscopySpecimen (Source)Anatomical Location / LateralityCollection Method / VolumeCollection TimeReceived Time11/09/2018 12:00 PM EDT Narrative 11/09/2018 12:00 PM EDT PERFORMED AT [facility] LOCATION:[id number] ibs,hemorhhoids Procedure Note CONVERSION, GENERIC - 08/31/2022 PERFORMED AT [facility] LOCATION:[id number] ibs,hemorhhoids Authorizing ProviderResult TypeResult StatusHerrera Mann MDENDOSCOPY PROCEDURE ORDERABLESFinal Result from Last 3 Months or Most Recently Relevant to Health Maintenance Insurance Care Teams Team MemberRelationshipSpecialtyStart DateEnd Date Herrera Mann MD [address] [facility] [address] [place] [address] PCP - GeneralInternal Medicine09/08/22
--- NOTE | 2025-02-20 07:46 | PM.CN ---
Consult Note: HPI Data of Consult Patient: known to practice within the last 3 years Consult date: 02/20/25 Requesting Physician: Mila Hill NP Primary Care Provider: BARBI WELLER Consult Narrative Reason for consult: F/u Narrative: Delisa moreno pleasant 54 year old female presents for evaluation and management of chronic neck, thoracic, and lumbar pain. pain today 4/10 aching in low back. denies numbness, tingling, weakness. notes moderate improvement in current medication regimen without side effects, utilizing baclofen prn tramadol prn and gabapentin 300mg tid. notes increased pain recently with weather changes, but overall pain is well controlled. cc:: CC: Mila Hill NP Review of Systems ROS Musculoskeletal Reports: back pain; Denies: neck pain PFSH PFSH Medical History Arthritis ?M19.90 - Unspecified osteoarthritis, unspecified site (ICD-10) Anxiety ?F41.9 - Anxiety disorder, unspecified (ICD-10) HTN (hypertension) ?I10 - Essential (primary) hypertension (ICD-10) Surgical History History of ventral hernia repair ?Z98.890 - Other specified postprocedural states (ICD-10) ?Z87.19 - Personal history of other diseases of the digestive system (ICD-10) History of hysterectomy ?Z90.710 - Acquired absence of both cervix and uterus (ICD-10) Meds Home Medications and Allergies Home Medications ?Medication ?Instructions ?Recorded ?Confirmed ?Type acetaminophen 325 mg tablet 325 mg PO Q6H 09/29/22 09/19/23 History (Tylenol) erenumab-aooe 70 mg/mL 70 mg subcut .MONTHLY 09/29/22 09/19/23 History subcutaneous auto-injector (Aimovig Autoinjector) escitalopram oxalate 10 mg tablet 10 mg PO DAILY 09/29/22 09/19/23 History gabapentin 300 mg capsule 300 mg PO TID 09/29/22 09/19/23 History losartan 100 1 tab PO DAILY 09/29/22 09/19/23 History mg-hydrochlorothiazide 25 mg tablet multivitamin 1 tab PO DAILY 09/29/22 09/19/23 History sumatriptan succinate PO DAILY 09/29/22 History topiramate 50 mg tablet 50 mg PO DAILY 09/29/22 09/19/23 History tramadol 50 mg tablet 50 mg PO DAILY 09/29/22 09/19/23 History baclofen 10 mg tablet 10 mg PO DAILY PRN muscle spasm 04/18/23 09/19/23 Rx #30 tabs tramadol 50 mg tablet 50 mg PO DAILY PRN pain #30 tabs 11/08/23 Rx tramadol 50 mg tablet 50 mg PO DAILY PRN pain #30 tabs 12/19/23 Rx baclofen 10 mg tablet 10 mg PO .hs PRN muscle spasm #30 03/12/24 Rx tabs tramadol 50 mg tablet 50 mg PO DAILY PRN pain #30 tabs 03/12/24 Rx baclofen 10 mg tablet 10 mg PO DAILY #30 tabs 06/10/24 Rx tramadol 50 mg tablet 50 mg PO DAILY PRN pain #30 tabs 06/10/24 Rx baclofen 10 mg tablet 10 mg PO DAILY #30 tabs 07/10/24 Rx tramadol 50 mg tablet 50 mg PO DAILY PRN pain #30 tabs 07/10/24 Rx baclofen 10 mg tablet 10 mg PO HS PRN muscle spasm #30 10/02/24 Rx tabs tramadol 50 mg tablet 50 mg PO DAILY PRN pain #30 tabs 10/02/24 Rx Allergies Allergy/AdvReac Type Severity Reaction Status Date / Time No Known Drug Allergies Allergy Verified 09/19/23 06:58 Exam Constitutional Documenting provider has reviewed patient's vital signs: yes Common normals: no apparent distress, oriented x3 and alert General appearance: cooperative [facility] Common normals: normocephalic, hearing grossly normal bilaterally and moist oral mucous membranes Head and scalp: normocephalic Eye Common normals: PERRL Pupil: PERRL Neck & C-Spine Common normals: full ROM General: normal visual inspection Chest Common normals: inspection of chest normal Respiratory Common normals: normal respiratory effort, no retractions and no use of accessory muscles Back & Pelvis Thoracic spine/upper back: ROM not limited, no pain with ROM and no thoracic spinal tenderness Lumbar spine/lower back: lumbar ROM normal, pain with ROM and straight leg raise negative bilaterally; no lumbar spinal tenderness Other: strength 5/5 in BLE sensation intact BLE Neuro Common normals: oriented x3 Sensorium/orientation: alert Psych Common normals: mental status grossly normal, thought process normal, cooperative, affect normal, speech normal and activity/motor behavior normal Speech: normal speech Thought process: normal thought process Results Additional Findings Additional findings: If on a controlled substance or opioids, I have checked an [place] report on this patient and there are no aberrancies noted in the prescribing history.??If on a controlled substance or opioid a drug screen was completed and reviewed within the last year, and if there has not been a drug screen completed we ordered one today to monitor higher risk, state monitored pain medication use. As part of providing excellent, safe, comprehensive care, the following was completed at our patient's visit: 1. A medication reconciliation and review to ensure accurate knowledge of current/active medications, including asking our patients to inform us about any [id number] medications or herbal remedies/nutritional supplements/alternative remedies. 2. A review to specifically ensure our patients have had annual screening for screening for depression, screening for tobacco use, and screening for unhealthy alcohol use. For concerning screenings had a discussion with the patient, provided patient education, and recommended follow-up with primary care provider when appropriate. If patient noted with a risk of falling, they received education on strength, gait, and balance training to prevent future risk of falling. Portions of this note may have been carried over from the previous visit and updated as appropriate. Please note this office utilizes paper charting in addition to the electronic medical record. A list of current medications, vitals, and PMH is available there as the clinical staff outside of myself do not have access to [employer] charting during the clinic day operations. As part of providing quality comprehensive care the current medications, vitals, and PMH were reviewed in the paper chart. Assessment and Plan Assessment and Plan (1) Lumbar spondylosis: Assessment and Plan: AMAURY 10% (2) Encounter for long-term opiate analgesic use: Assessment and Plan: I feel these medications are improving the patient's quality of life and allow them to tolerate activities of daily living as well as participate in recreational activity.? The patient does not report intolerable side effects. The patient is NOT opioid naive and non-pharmacologic and non-opioid treatment has failed to significantly relieve the patient's pain and improve functionality. The patient has a diagnosis that is related to a somatic or visceral pain etiology. ? ?? I reviewed with the patient the potential risks and side effects with the use of? opioid medications including but not limited to respiratory depression,? sedation, and even . Within the last 12 months I have verified the patient has access to naloxone should? these effects occur. The patient was advised to let? their family know they had Naloxone in case they would need to administer? the medication. I advised the patient to avoid the use of any other? sedation substances including alcohol, THC, and benzodiazepines while? taking opioid medications due to the risk of compounding side effects and? detrimental outcomes. within the last 12 months I have reviewed the [employer], pain treatment agreement and urine drug screen.? ?? A drug screen was completed within the last year, and no aberrancies were noted regarding their use of controlled substances. The patient understands they are subject to the terms and conditions of the pain contract that they have signed. ? ?? I have checked an [place]AR[place] report on this patient today and there are no aberrancies noted in the prescribing history.? (3) Chronic myofascial pain: Plan encouraged HEP for low back pain daily as tolerated continue current medication regimen, finds moderate improvement in pain and quality of life without side effects defer interventional therapy at this time as pain is well controlled f/u 3 months, sooner if needed
== END 2025-02-20 07:36 | disposition home or self-care (01) ==
LOC: PM 07:35
PROVIDERS: PCP Internal Medicine; Visit Provider Nurse Practitioner
DX: M47.816 Spondylosis without myelopathy or radiculopathy, lumbar region (principal); Z79.891 Long term (current) use of opiate analgesic; M79.18 Myalgia, other site
CPT/HCPCS: G0463